=== PATIENT | male | born 1940 | race Caucasian/White ===

== ENCOUNTER → 2017-10-30 17:07 | Outpatient (CLI) | payer MEDICARE, OTHER, SELFPAY ==
--- NOTE | 2017-10-30 | IMM_PTH ---
PATIENT: GINA RAMSAY LOC: [facility] U#:[id number] AGE/SX: 84/M ROOM: RE10/30/[address]: Dr. Glenn Guallpa MD : 1940 BED: DIS: SPEC #: [id number] RECD: 11/03/17 11:53 STATUS: AMBER ERMIAS #: [id number] ANT: 10/30/17 00:[address]: Glenn Guallpa DEPT: IMMUNOHISTOCHEMISTRY RECD BY: Ade Heart Tissues: A - PROSTATE RIGHT B - PROSTATE RIGHT Procedures: CK8 (add) 34BE12 (add) P40 (add) 34BE12 (initial) PHYSICIAN & INSTITUTION [place] [id number] SPECIMEN INFORMATION: Tissue Source: A ? Right prostate, apex, B ? Right prostate, mid Clinical Info: Elevated PSA Specimen Number: [id number] A & B CPT code: 70623, 48061 x5 METHODOLOGY: Deparaffinized sections of prefer/formalin-fixed tissue or PAP/DQ stained slides are incubated with monoclonal/polyclonal antibodies/oligonucleotide probes. Localization is made via biotin free immunoperoxidase method. Appropriate controls are performed and reacted as expected. Results on target cell population are indicated in the following table: RESULTS: ANTIBODY / CLONE RESULT Block A 34BE12 (34BE12) negative P40 (BC28) negative CK8 (10dsqcU37) positive Block B 34BE12 (34BE12) negative P40 (BC28) negative CK8 (75ncucL88) positive These tests were developed and their performance characteristics determined by [facility]. They may not have been cleared or approved by the U.S. Food and Drug Administration. The FDA has determined that such clearance or approval is not necessary. INTERPRETATION: A. Right prostate, apex, core biopsy: Adenocarcinoma. B. Right prostate, mid, core biopsy: Adenocarcinoma. AM:rabia 11/04/17
--- NOTE | 2017-10-30 15:00 | PROSBIL_PTH ---
PATIENT: GINA RAMSAY LOC: [facility] U#:[id number] AGE/SX: 84/M ROOM: RE10/30/[address]: Dr. Glenn Guallpa MD : 1940 BED: DIS: SPEC #: [id number] RECD: 10/31/17 07:26 STATUS: AMBER ERMIAS #: [id number] ANT: 10/30/17 15:[address]: Glenn Guallpa DEPT: SURGICAL PATHOLOGY RECD BY: Lang Garcia ENTERED: 10/31/17 07:26 SP TYPE: PROST BX ROLANDO DR: Dr. Katt Valdes DO Tissues: A - PROSTATE RIGHT B - PROSTATE RIGHT C - PROSTATE RIGHT D - PROSTATE LEFT E - PROSTATE LEFT F - PROSTATE LEFT Procedures: PROSTATE BX HEADER OPERATION: Prostate biopsy PRE-OP DIAGNOSIS: Elevated PSA TISSUE SUBMITTED: A - Right apex, B - Right mid, C - Right base, D - Left apex, E - Left mid, F - Left base MICROSCOPIC DIAGNOSIS A. Right prostate, apex, core biopsy: Adenocarcinoma: Omar grade: 8 (4+4) Cores involved: 1 out of 1 Tissue involved: 50% Greatest tumor length: 7 mm See comment. B. Right prostate, mid, core biopsy: Adenocarcinoma: Omar grade: 8 (4+4) Cores involved: 1 out of 1 Tissue involved: 10% Greatest tumor length: 2 mm See comment. C. Right prostate, base, core biopsy: Mild acute and chronic inflammation. D. Left prostate, apex, core biopsy: Benign prostatic tissue. E. Left prostate, mid, core biopsy: Mild chronic inflammation. F. Left prostate, base, core biopsy: Focal glandular atrophy and mild chronic inflammation. AM:rabia 11/03/17 COMMENT A & B. Immunohistochemistry ([id number]) supports the above diagnosis. MICROSCOPIC DESCRIPTION Slides are reviewed. GROSS DESCRIPTION A - Received is one container designated prostate, right apex. The specimen consists of one elongated fragment of light mason-white soft tissue measuring 1 cm in length and 0.1 cm in diameter. The specimen is totally submitted in one cassette. B - Received is one container designated prostate, right mid. The specimen consists of one elongated fragment of light mason-white soft tissue measuring 1 cm in length and 0.1 cm in diameter. The specimen is totally submitted in one cassette. C - Received is one container designated prostate, right base. The specimen consists of one elongated fragment of light mason-white soft tissue measuring 1 cm in length and 0.1 cm in diameter. The specimen is totally submitted in one cassette. D - Received is one container designated prostate, left apex. The specimen consists of one elongated fragment of light mason-white soft tissue measuring 1 cm in length and 0.1 cm in diameter. The specimen is totally submitted in one cassette. E - Received is one container designated prostate, left mid. The specimen consists of one elongated fragment of light mason-white soft tissue measuring 1 cm in length and 0.1 cm in diameter. The specimen is totally submitted in one cassette. F - Received is one container designated prostate, left base. The specimen consists of one elongated fragment of light mason-white soft tissue measuring 1 cm in length and 0.1 cm in diameter. The specimen is totally submitted in one cassette. / AM:rabia 10/31/17 TC:0 CPT: G0146
== END ==
PROVIDERS: Visit Provider Urology
DX: C61 Malignant neoplasm of prostate (principal); R97.20 Elevated prostate specific antigen [PSA]
CPT/HCPCS: 88305; 88341; 88342; G0416

== ENCOUNTER → 2017-11-11 09:54 | Outpatient (CLI) | payer MEDICARE, OTHER, SELFPAY ==
--- NOTE | 2017-11-11 09:56 | NM_ITS ---
CLINICAL: 77-year-old male with reported history of left shoulder pain status post traumatic fall. WHOLE BODY 99m Tc MDP RADIONUCLIDE BONE SCINTIGRAPHY COMPARISON: None available FINDINGS: Following the intravenous administration of 20.4 mCi of 99m Tc MDP, whole body bone images reveal: 1. There is increased radiopharmaceutical concentration identified in the glenohumeral compartments of both shoulders, acromioclavicular compartment of the left shoulder, sternoclavicular compartment of the right shoulder, bilateral elbow and wrist articulations, the left knee, right forefoot, 12th thoracic vertebra posteriorly on the right, fourth lumbar vertebra posteriorly on the right, lower anterior cervical spine. 2. The remaining skeletal structures are scintigraphically unremarkable with normal-appearing renal images and urinary bladder activity identified. NM/Bone Scan Whole Body IMPRESSION: 1. The increase in radiopharmaceutical concentration identified in the cervical, thoracic and lumbar spine, bilateral shoulders, right and left elbow articulations, wrists bilaterally, the left knee, right forefoot is most consistent with degenerative arthritis. Plain film radiography correlation may be of benefit in the region of the left shoulder if not previously obtained. 2. There is no definitive typical scintigraphic evidence of trauma-fracture involving the left proximal humerus, components of the left shoulder joint on the current examination. Electronically Signed: Lang Castano DO at 23:37 EST Tel , Service support ,
== END ==
PROVIDERS: Family Provider Family Medicine; PCP Family Medicine; Visit Provider Urology
DX: C61 Malignant neoplasm of prostate (principal)
CPT/HCPCS: 78306

== ENCOUNTER → 2017-11-13 16:46 | Outpatient (CLI) | payer MEDICARE, OTHER, SELFPAY ==
--- NOTE | 2017-11-13 16:48 | CT_ITS ---
STUDY: CT ABDOMEN AND PELVIS WITH CONTRAST REASON FOR EXAM: Male, 77 years old. New diagnosis of prostate cancer. RADIATION DOSAGE (If Supplied By Facility): CTDIvol = ( 12.13 ) mGy, DLP = ( 527.67 ) mGycm TECHNIQUE: Transaxial images were obtained from the dome of the diaphragm to the symphysis pubis without oral contrast. 100CC ml of Isovue 300 contrast was administered. Sagittal and coronal images were reconstructed. Individualized dose optimization techniques were used for this CT. COMPARISON: None. FINDINGS: The visualized lung bases are unremarkable. The visualized portions of the heart are within normal limits. Within the dome of the left hepatic lobe there is a well-circumscribed low-attenuation 2.6 cm rounded focus that likely reflects underlying cyst or hemangioma. Normal gallbladder and extrahepatic biliary system. Normal spleen. Normal pancreas. Normal bilateral adrenal glands. There is a too small to characterize low-attenuation focus within the upper pole of the right kidney. Normal left kidney. There is a small hiatal hernia. Normal small intestine. Normal colon. The appendix is visualized and appears normal. Normal abdominal aorta. Normal inferior vena cava. Normal retroperitoneum. Normal urinary bladder. The prostate gland is enlarged and heterogenous. Normal abdominal wall. There are diffuse degenerative changes of the visualized lumbar spine. CT/Abdomen/Pelvis WITH Contrast IMPRESSION: No evidence of metastases to the abdomen and pelvis. Enlarged and heterogenous prostate gland. Hiatal hernia. Indeterminate low-attenuation focus within the liver that likely reflects underlying cysts or hemangioma. Degenerative changes of the lumbar spine. Electronically Signed: Kristen Frias MD at 17:47 EST Tel , Service support ,
[2017-11-13 18:46] LABS: CREATININE FINGERSTICK 1.3 mg/dL (0.70-1.30)
== END ==
PROVIDERS: Family Provider Family Medicine; PCP Family Medicine; Visit Provider Urology
DX: C61 Malignant neoplasm of prostate (principal)
CPT/HCPCS: 74177; Q9967

== ENCOUNTER → 2017-12-18 13:34 | Outpatient (CLI) | payer MEDICARE, OTHER, SELFPAY ==
[2017-12-18 14:35] LABS: BUN 20 mg/dL (7-18); Creatinine, Serum 1.06 mg/dL (0.70-1.30); EST Glomerular Filtration Rate 72 mL/min (>60); Est Glom Filt Rate - Afr Amer 87 mL/min (>60)
== END ==
PROVIDERS: Family Provider Family Medicine; PCP Family Medicine; Visit Provider Urology
DX: C61 Malignant neoplasm of prostate (principal); E78.5 Hyperlipidemia, unspecified
CPT/HCPCS: 36415; 82565; 84520

== ENCOUNTER 2018-01-07 05:19 | Inpatient (IN) | payer MEDICARE, OTHER, SELFPAY ==
[2017-12-23 11:25] VITALS: BP 150/74; PULSE 64; RESP 16; TEMP 36.6; O2SAT 96; BMI 24.0
--- NOTE | 2017-12-23 11:39 | SDCEKG_ITS ---
Test Reason : Blood Pressure : / mmHG Vent. Rate : 060 BPM Atrial Rate : 060 BPM P-R Int : 178 ms QRS Dur : 144 ms QT Int : 446 ms P-R-T Axes : 052 -30 015 degrees QTc Int : 446 ms Normal sinus rhythm Left axis deviation Right bundle branch block Abnormal ECG Confirmed by JOHN MITCHELL, MICHELLE ([id number]), food editor CARLOS EAGLE ([id number]) on 12/26/2017 2:22:19 PM Referred By: Glenn Guallpa Confirmed By:MICHELLE LOPEZ MD
[2017-12-23 12:01] LABS: Hemoglobin 14.7 g/dl (13.0-16.5); Mean Corp Hgb Conc 33.4 g/gl (32-36); Mean Corpuscular Volume 92.8 fL (80-94); Mean Platelet Vol. 9.7 fl (6.2-12.0); Platelet Count 240 K/mm3 (150-450); RBC Distribution Width CV 13.2 % (11.6-14.6); RBC Distribution Width SD 44.6 fl (35.1-43.9); Red Blood Count 4.74 M/mm3 (4.6-6.2); Scan Indicated on CBC? Y/N NO; White Blood Count 4.3 K/mm3 (4.4-11.0)
[2017-12-23 12:39] LABS: BUN 17 mg/dL (7-18); BUN/Creat Ratio 17.2 RATIO (10-20); Calcium,Total 8.8 mg/dL (8.5-10.1); Chloride 108 mmol/L (98-107); Creatinine, Serum 0.99 mg/dL (0.70-1.30); EST Glomerular Filtration Rate 78 mL/min (>60); Est Glom Filt Rate - Afr Amer 94 mL/min (>60); Estimated Creatinine Clearance 51.49 ml/min; Glucose 96 mg/dL (74-106); Potassium 3.6 mmol/L (3.5-5.1); Sodium Level 141 mmol/L (136-145)
[2017-12-23 12:40] LABS: Anion Gap 7 (5-15)
[2018-01-07] VITALS (11 sets, daily range): BP systolic 122–147; BP diastolic 70–92; PULSE 77–103; RESP 14–18; TEMP 36.4–36.9; O2SAT 93–99; BMI 24.0
--- NOTE | 2018-01-07 | IMM_PTH ---
PATIENT: GINA RAMSAY LOC: [facility] U#:[id number] AGE/SX: 77/M ROOM: [id number] RE01/07/[address]: Dr. Glenn Guallpa MD : 1940 BED: 1 DIS: 01/08/2018 SPEC #: [id number] RECD: 01/09/18 12:49 STATUS: AMBER REQ #: [id number] ANT: 01/07/18 00:[address]: Glenn Guallpa DEPT: IMMUNOHISTOCHEMISTRY RECD BY: Ade Heart ENTERED: 01/09/18 12:51 SP TYPE: IMMUNO OTHR DR: Dr. Katt Valdes, DO Tissues: A - Prostate, NOS Procedures: CD31 (initial) FACTOR VIII (add) PHYSICIAN & INSTITUTION [place] [id number] SPECIMEN INFORMATION: Tissue Source: A - Prostate Clinical Info: Prostate cancer Specimen Number: [id number] CPT code: 02727, 73443 METHODOLOGY: Deparaffinized sections of prefer/formalin-fixed tissue or PAP/DQ stained slides are incubated with monoclonal/polyclonal antibodies/oligonucleotide probes. Localization is made via biotin free immunoperoxidase method. Appropriate controls are performed and reacted as expected. Results on target cell population are indicated in the following table: RESULTS: ANTIBODY / CLONE RESULT Block A5 CD31 ([facility] FERNANDA/70A) negative Factor VIII (R Ag) negative These tests were developed and their performance characteristics determined by [facility]. They may not have been cleared or approved by the U.S. Food and Drug Administration. The FDA has determined that such clearance or approval is not necessary. INTERPRETATION: Prostate, radical prostatectomy: Negative for lymph-vascular invasion. SJ:rabia 01/09/18
[2018-01-07] MEDS: Cefazolin 2 GM in 0.9% Normal Saline 100 ML IV (07:29)
--- NOTE | 2018-01-07 07:30 | PROST_PTH ---
PATIENT: GINA RAMSAY LOC: [facility] U#:[id number] AGE/SX: 77/M [place]OM: [facility] [id number] RE01/07/[address]: Dr. Glenn Guallpa MD : 1940 BED: 1 DIS: 01/08/2018 SPEC #: [id number] RECD: 01/07/18 13:00 STATUS: AMBER ERMIAS #: [id number] ANT: 01/07/18 07:[address]: Glenn Guallpa DEPT: SURGICAL PATHOLOGY RECD BY: Lang Garcia ENTERED: 01/07/18 13:31 SP TYPE: PROSTATE OTHR DR: Dr. Katt Valdes, DO Tissues: A - Prostate, NOS B - Lymph node of pelvis, NOS C - Lymph node of pelvis, NOS Procedures: Surgery Specimen Level V Surgery Specimen Level HEADER OPERATION: Lap robotic radical prostatectomy PRE-OP DIAGNOSIS: Prostate cancer TISSUE SUBMITTED: A ? Prostate, B ? Right lymph node, C ? Left lymph node MICROSCOPIC DIAGNOSIS A. Prostate, radical prostatectomy: Prostatic adenocarcinoma. See cancer summary below. B. Right lymph node: One lymph node, negative for metastatic carcinoma. C. Left lymph node: Five out of five lymph nodes, negative for metastatic carcinoma. PROSTATE CANCER (RADICAL) SUMMARY: (including specimens A, B & C) Procedure ? radical prostatectomy Prostate size ? 5 cm transversely, 3.5 cm craniocaudally and 3.5 cm anterior-posteriorly Prostate weight ? 37.4 gm Lymph node sampling ? pelvic lymph nodes Histologic type ? adenocarcinoma (acinar). See comment. Histologic grade (Omar Pattern): Primary pattern ? grade 4 Secondary pattern ? grade 5 Tertiary pattern ? not identified Total [place] score - 9 Tumor Quantitation: Proportion (%) of prostate involved by tumor - ~30% Tumor size ? see comment Extraprostatic extension ? not identified Seminal vesicle invasion - not identified Margins ? apical margin is focally positive for tumor (right lobe) Treatment effect on carcinoma ? no known presurgical therapy Lymph-Vascular invasion ? not identified Perineural invasion - present Regional lymph nodes: Number examined - 6 Number involved - 0 Distant metastasis ? not applicable Additional pathologic findings ? chronic inflammation Ancillary studies ? IHC ([id number]) PATHOLOGIC STAGE: pT2c pN0 Mx The above summary is in compliance with [employer] (CAP) Cancer Protocols Checklist and [place] Joint Committee on Cancer (AJCC), Staging Manual, 8th Ed. SJ:rg 01/09/18 COMMENT The tumor shows extensive hypernephroid pattern. A. No gross nodule is identified. The tumor is present in both right and left lobes. The tumor in the right lobe measures 1.5 x 1.5 cm in greatest dimension (measured microscopically) and involves apical, mid and basal portion of the prostate and present in slides #1, 6, 10, 13, 15, 16 and 19. The tumor in the left lobe appears to be present in the apical, mid and basal portion of the prostate and appears to be present in discontinuous fashion and present in slides #7, 11, 12, 14 and 20 and measures 0.8 x 0.5 cm in greatest dimension (measured microscopically). Immunohistochemistry ([id number]) is negative for lymph-vascular invasion. Please make reference to previous specimen ([id number]) right prostate apex and right prostate mid, core biopsies with diagnosis of adenocarcinoma. MICROSCOPIC DESCRIPTION Slides are reviewed. GROSS DESCRIPTION A - Received in fixative is one container labeled with the patient's name and designated prostate. The specimen consists of a prostate with attached right and left seminal vesicles and vas deferens. The prostate measures 5 cm transversely, 3.5 cm craniocaudally and 3.5 cm anterior-posteriorly. The specimen weighs 37.4 gm. The specimen is differentially inked as follows: anterior ? red, right half ? blue, left half ? green and the entire posterior surface ? black. On palpation, no mass lesions are noted. Serial sections do not reveal distinct mass lesions. [employer] Manager [employer] sections are submitted as follows: 1 ? apex shave, 2 ? bladder shave, 3 ? seminal vesicles, 4 & 5 ? most basal section, 6-9 ? apex, 10-15 ? mid prostate, 16-20 ? basal portion of prostate. / AM:rabia 01/08/18 B - Received in fixative is one container labeled with the patient's name and designated right lymph node. The specimen consists of a piece of yellow adipose tissue measuring 4.5 x 2.5 x 0.5 cm. One lymph node is identified measuring 4.5 cm in greatest dimension. The entire specimen is submitted in two cassettes. Cassette 1 contains most of the lymph node and cassette 2 contains a portion of lymph node and the rest of the specimen. / ADOLPH:rabia 01/07/18 C - Received in fixative is one container labeled with the patient's name and designated left lymph node. The specimen consists of two pieces of yellow adipose tissue measuring 4.5 x 2.5 x 1 cm and 0.5 x 0.5 x 0.3 cm. Four variable size lymph nodes are identified measuring 0.5 to 1 cm in greatest dimension. The entire specimen is submitted in two cassettes as follows: 1 ? four lymph nodes, 2 ? rest of the specimen. / ADOLPH:rabia 01/07/18 TC:0 CPT: 55962 x2, 66193
[2018-01-07] MEDS: Bupivacaine Mpf 0.5% 30 ML VIAL (11:22)
--- NOTE | 2018-01-07 11:43 | PCM.OPRPT ---
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 Laparoscopic robotic assisted radical prostatectomy. 2. Bilateral pelvic lymph node dissection complete. 3. EMG monitoring of the pelvic nerves and EMG monitoring of the sphincter complex. 4. Suture suspension of the urethra to prevent incontinence. Description of Surgical Findings:: 77-year-old male was taken back to the operating room after smooth induction of general anesthesia he was placed supine on the table then legs in stirrups with approach to the prostate for radical prostatectomy. The abdomen was shaved prepped and draped in usual sterile fashion. Made an incision above the umbilicus advanced a Veress needle through the fascia insufflated the peritoneal cavity with CO2 gas placed my camera trocar my right arm trocar left arm trocar and assistant to the ceo trocar placed a variceal port and a suction suction port. The robot was docked first thing I did was identify the pelvis identify the right vas deferens open the fascia and opened up the peritoneum over this and dissected down to the prostate dissected out the right vas deferens and right seminal vesicle, then dissected out the left vas deferens and left seminal vesicle. I then opened up the nonbilious fascia and then opened the open up the space underneath the prostate between the prostate and rectum clearing the tissue laterally on both sides all the way to the apex and the prostate. Once this was dissected out then I pulled out to the pelvis I then dropped the bladder and made an incision in the peritoneum lateral to the medial umbilical ligament on both sides, entered the space of Retzius and created the space placed the bladder on traction with the fourth arm. I then went to the pelvic lymph nodes on the right side identified the femoral nerve and identified the iliac vessels the artery and the vein the external iliac artery and vein dissected the lymph node tissue off the external iliac artery and vein dissected the lymph node tissue off the food bagging machine operator space and dissect the lymph tissue all the way down to the obturator nerve the obturator nerve was spared as well as the obturator vessel I then dissected the tissue below the food bagging machine operator nerve and vessel I dissected the lymph node tissue off all this completely there were some lymph nodes in this tissue this was handed off as a specimen. After doing a complete dissection on the right side and then went to the left side again identified the lateral femoral nerve and then came off this identified the noted [place] dissected this off the lateral aspect of the iliac artery and iliac vein the external vessels and then dissected the lymph node tissue off the iliac artery and vein and the food bagging machine operator space went all the way down to the obturator nerve and artery dissected inferiorly as far as possible and then proximally came along the vessels. Use clips and electrocautery to obtain hemostasis. Once this complete lymph node dissection was completed then specimen was handed off as a permanent tissue. Then placed traction on the prostate with the fourth arm went into the pelvis cleaned off the anterior surface of the prostate then incised the endopelvic fascia and the right side sweep the levator muscles off the prostate on the right side all the way up to the apex and then identified the puboprostatic ligament which was transected and then identified the dorsal vein complex on the right side once the left side cleaned off the superficial fat on this incised the levator fascia and identified the levator muscles and sweep is off the prostate laterally all the way up to the apex there was a aberrant arterial coming underneath this this was left alone and then transected through the puboprostatic ligament on the left side transected through the attachments between the prostate and the puboprostatic bone then the dorsal vein was identified a place a stitch in the dorsal vein once this was accomplished then I released the fascia and the anterior part of the prostate to allow for the identification of the neural bundle neurovascular bundles on both the right and left side I then went through the junction between the bladder and the prostate moving the bladder catheter around identify the junction dissected down until I came to the catheter catheter was and then pulled up cephalad to allow retraction with identified a small median lobe was then dissected around and then dissected between the posterior aspect of the bladder and the prostate until I reached the seminal vesicle and vas deferens which were already dissected out. Then the prostate was placed on traction laterally from the right to the left 2.to proceed with the dissection of the right side of the prostate I came to the vascular pedicle with clips and then identified the neurovascular bundle and then this was spared posteriorly off the prostate on the right side all the way to the apex we put the EMG monitor into the pelvis area the electrodes are placed into the levator muscles patient's paralysis was reversed and we checked for action potential along the pelvic nerves and these were present before the dissection and after the dissection the right side of the nerve action potential is still present and then went to the left side and place clips to the pedicle on the left side identify the neurovascular on the left side and this was dissected off the prostate and the left side all the way to the apex the EMG monitor was used on the left side as well to confirm action potential the nerve before dissection and action potential nerve after the dissection was spared I then went to the transected to the dorsal vein complex and extra stitch was placed in the dorsal vein complex I then circumferentially dissected around the urethral stump transected through the urethra anterior and posteriorly and the prostate was removed from the pelvis and placed into an Endo Catch back I then did a suture split suspension of the urethra to help with postoperative incontinence started off with the cyst suspension of the urethra at the 12:00 6 o'clock position working my way all the way to the 12 o'clock position running the suture continuously between the bladder neck and this and the urethra once the suspension was completed the catheter was inserted into the bladder and was flushed and stitches were tied. We then tacked the bladder back up into the anterior abdominal wall using a V lock stitches to prevent any hernias we then extracted the prostate to the umbilicus we extracted we removed all the ports and in the undocked the robot and closed the 1012 Issac Ennis is a Issac Ennis and a total 1012 trocar site for the variceal port and then the incisions were closed with subcuticular stitches patient's anesthetic was reversed and he was taken back to the PACU in stable condition Type of Anesthesia:: General Drains: lópez. - Admit VTE Documentation VTE Present on Admission: No VTE Mechan Device Prophylaxis: SCD's Reason prophylaxis not ordered:: Treatment Not Indicated
[2018-01-07] MEDS: Docusate Sodium 100 MG Capsule 200 MG PO ×2 (13:34→21:36)
[2018-01-07] MEDS: Atorvastatin Calcium 40 MG Tablet PO (13:34)
[2018-01-07] MEDS: Ciprofloxacin 500 MG Tablet PO ×2 (13:35→21:36)
[2018-01-07] MEDS: Ketorolac 15 MG/ML Vial IV ×2 (13:35→20:43)
[2018-01-07] MEDS: Lactated Ringers 1,000 ML 125 ML IV (16:58)
[2018-01-07] MEDS: Acetaminophen 325 MG Tablet PO (21:43)
[2018-01-08] MEDS: Lactated Ringers 1,000 ML 125 ML IV (00:53)
[2018-01-08] MEDS: Ketorolac 15 MG/ML Vial IV ×2 (00:59→08:48)
[2018-01-08 02:41] VITALS: BP 125/64; PULSE 106; RESP 18; TEMP 36.9; O2SAT 94
[2018-01-08 06:04] LABS: Hematocrit 36.8 % (40-54); Hemoglobin 12.5 g/dl (13.0-16.5); Mean Corpuscular Hgb 31.8 pg (27.0-32.0); Mean Corpuscular Volume 93.6 fL (80-94); Mean Platelet Vol. 9.8 fl (6.2-12.0); Platelet Count 227 K/mm3 (150-450); RBC Distribution Width CV 12.9 % (11.6-14.6); RBC Distribution Width SD 42.9 fl (35.1-43.9); Red Blood Count 3.93 M/mm3 (4.6-6.2)
[2018-01-08 06:06] LABS: Scan Indicated on CBC? Y/N NO
[2018-01-08 06:23] LABS: Anion Gap 9 (5-15); BUN 14 mg/dL (7-18); BUN/Creat Ratio 13.3 RATIO (10-20); Calcium,Total 8.4 mg/dL (8.5-10.1); Chloride 107 mmol/L (98-107); Creatinine, Serum 1.05 mg/dL (0.70-1.30); EST Glomerular Filtration Rate 73 mL/min (>60); Est Glom Filt Rate - Afr Amer 88 mL/min (>60); Estimated Creatinine Clearance 48.55 ml/min; Glucose 132 mg/dL (74-106); Potassium 3.9 mmol/L (3.5-5.1); Sodium Level 140 mmol/L (136-145)
--- NOTE | 2018-01-08 07:37 | PCM.DC.URO ---
Discharge Diet: Light diet - advance as tolerated Discharge Activity: May not drive while taking narcotic pain medications. May shower in (days): 1 Call your doctor if your incision/area has: Continuous Slow Oozing, Sudden Increased Bleeding, Increased Pain/ Swelling, Increased Redness, Foul Smelling Discharge, Swelling at the incision site Call your doctor if you observe: Fever of 101 or Higher, Inability to have a bowel movement, Uncontrolled pain Suture Line Care: Avoid Pulling/Pushing, Avoid Pinching/Bending Catheter: López to leg bag, López to large bag Drain: Filley Instructions: Discharge Instructions for Radical Prostatectomy Allergies/Adverse Reactions: Allergies No Known Allergies Allergy (Verified 12/23/17 11:11) Medications to take at Discharge Atorvastatin Calcium [Lipitor] 40 mg PO DAILY 12/23/17 Tamsulosin HCl [Flomax] 0.4 mg PO DAILY 12/23/17 Cephalexin [Keflex] 500 mg PO Q8 #30 cap 01/08/18 Docusate Sodium [Colace] 100 mg PO BID #20 cap 01/08/18 Hydrocodone/Acetaminophen [Lindstrom 5-325 Tablet] 1 ea PO Q4H PRN PRN 3 Days #10 tab 01/08/18 Primary Care Physician: Katt Valdes DO [Primary Care Provider] - Please Follow Up With: Glenn Guallpa MD When: please call to make an appointment, for next to remove lópez.
--- NOTE | 2018-01-08 07:42 | DS.PCM_ITS ---
Discharge Date and Diagnosis - Problem List Patient Problems: Active and Suspected Problems Prostate cancer (Acute) Date of Admission: 01/07/18 Date of Discharge: 01/08/18 - Primary Discharge Diagnosis Active and Suspected Problems Prostate cancer (Acute) Hospital Course and Treatment Operations: - - robotic prostatectomy Procedures: None Summary of Care Provided: The patient is a 77 year old male with prostate cancer status post a robotic assisted radical prostatectomy patient was doing well on postoperative day #1 tolerating regular diet discharge home today with regular diet López to leg bag large bag López care he will follow-up in the office in 1 week to remove the catheter. Discharge Diet: Light diet - advance as tolerated Discharge Activity: May not drive while taking narcotic pain medications. May shower in (days): 1 Call your doctor if your incision/area has: Continuous Slow Oozing, Sudden Increased Bleeding, Increased Pain/ Swelling, Increased Redness, Foul Smelling Discharge, Swelling at the incision site Call your doctor if you observe: Fever of 101 or Higher, Inability to have a bowel movement, Uncontrolled pain Suture Line Care: Avoid Pulling/Pushing, Avoid Pinching/Bending Catheter: López to leg bag, López to large bag Drain: [place] Home Medications: Medications to take at Discharge Atorvastatin Calcium [Lipitor] 40 mg PO DAILY 12/23/17 Tamsulosin HCl [Flomax] 0.4 mg PO DAILY 12/23/17 Cephalexin [Keflex] 500 mg PO Q8 #30 cap 01/08/18 Docusate Sodium [Colace] 100 mg PO BID #20 cap 01/08/18 Hydrocodone/Acetaminophen [Divide 5-325 Tablet] 1 ea PO Q4H PRN PRN 3 Days #10 tab 01/08/18 Following Prescrptions Were Given to Patient: Hydrocodone/Acetaminophen [Divide 5-325 Tablet] 1 ea PO Q4H PRN PRN 3 Days #10 tab PRN Reason: Pain Cephalexin [Keflex] 500 mg PO Q8 #30 cap Docusate Sodium [Colace] 100 mg PO BID #20 cap Primary Care Physician: Katt Valdes DO [Primary Care Provider] - Please Follow Up With: Glenn Guallpa MD When: please call to make an appointment, for next to remove lópez. Patient Instructions: Discharge Instructions for Radical Prostatectomy Medical Necessity - Tobacco Use Smoking Status: Never smoker Meaningful Use Info Meaningful Use Diagnoses (Choose all that apply): None applicable
[2018-01-08 07:43] VITALS: O2SAT 94
[2018-01-08 08:43] VITALS: BP 130/75; PULSE 95; RESP 18; TEMP 36.8; O2SAT 96
[2018-01-08] MEDS: Docusate Sodium 100 MG Capsule 200 MG PO (08:48)
[2018-01-08] MEDS: Atorvastatin Calcium 40 MG Tablet PO (08:48)
[2018-01-08 10:05] VITALS: BP 130/75; PULSE 95; RESP 18; TEMP 36.8; O2SAT 96
== END 2018-01-08 10:18 | disposition home or self-care (01) | DRG 708 ==
LOC: ACINP 05:20 → MS2 08:06
PROVIDERS: Anesthesiology; Admitting Provider Urology; Family Provider Family Medicine; PCP Family Medicine; Visit Provider Urology
PROC: 0VT04ZZ Resection of Prostate, Percutaneous Endoscopic Approach (ICD-10-PCS; CPT 55866; principal; 2018-01-07 07:10)
DX: C61 Malignant neoplasm of prostate (principal); I44.7 Left bundle-branch block, unspecified; E78.00 Pure hypercholesterolemia, unspecified; N40.1 Benign prostatic hyperplasia with lower urinary tract symptoms; R39.15 Urgency of urination
CPT/HCPCS: 36415; 80048; 85027; 86850; 86900; 88307; 88309; 88341; 88342; J7120; A4216; J2405

== ENCOUNTER → 2018-02-24 10:27 | Outpatient (CLI) | payer MEDICARE, OTHER, SELFPAY ==
[2018-02-24 11:37] LABS: PSA,Total- Diagnostic < 0.01 ng/mL (0.0-4.0)
== END ==
PROVIDERS: Family Provider Family Medicine; PCP Family Medicine; Visit Provider Urology
DX: C61 Malignant neoplasm of prostate (principal)
CPT/HCPCS: 36415; 84153

== ENCOUNTER → 2018-05-25 08:06 | Outpatient (CLI) | payer MEDICARE, OTHER, SELFPAY ==
[2018-05-25 10:33] LABS: PSA,Total- Diagnostic < 0.01 ng/mL (0.0-4.0)
[2018-05-25 11:12] LABS: ALB/GLOB Ratio 1.1 RATIO (0.9-2.4); AST(SGOT) 35 U/L (15-37); Alanine Aminotransfer ALT/SGPT 39 U/L (16-61); Albumin, Serum 3.7 g/dL (3.2-5.0); Alkaline Phosphatase 82 U/L (45-117); Anion Gap 12 (5-15); BUN 18 mg/dL (7-18); BUN/Creat Ratio 18.2 RATIO (10-20); Calcium,Total 9.1 mg/dL (8.5-10.1); Chloride 108 mmol/L (98-107); Cholesterol 145 mg/dL (200); Creatinine, Serum 0.99 mg/dL (0.70-1.30); EST Glomerular Filtration Rate 78 mL/min (>60); Est Glom Filt Rate - Afr Amer 94 mL/min (>60); Globulin 3.5 g/dL (2.2-4.2); Glucose 94 mg/dL (74-106); High Density Lipoprotein 55 mg/dL; Potassium 3.9 mmol/L (3.5-5.1); Protein, Total 7.2 g/dL (6.4-8.2); Sodium Level 143 mmol/L (136-145); Triglycerides 78 mg/dL; Very Low Density Lipoprotein 16 mg/dL (5-40)
[2018-05-25 11:21] LABS: Absolute Lymphocyte Count 1.61 X10^3/ul (0.83-4.51); Absolute Neutrophil Count 2.5 X10^3/uL (2.0-7.7); Basophil# 0.03 X10^3/uL; Basophil% 0.6 % (0-1); Eosinophil# 0.15 X10^3/uL; Eosinophils% 2.9 % (0-5); Hematocrit 44.6 % (40-54); Hemoglobin 14.8 g/dl (13.0-16.5); Lymphocyte # 1.61 X10^3/ul (4.0); Lymphocyte % 31.5 % (19-41); Mean Corp Hgb Conc 33.2 g/gl (32-36); Mean Corpuscular Hgb 30.7 pg (27.0-32.0); Mean Corpuscular Volume 92.5 fL (80-94); Mean Platelet Vol. 10.1 fl (6.2-12.0); Monocyte# 0.83 X10^3/uL; Monocyte% 16.2 % (0-10); Neutrophil # 2.49 X10^3/uL (2.7-7.7); Neutrophil % 48.8 % (47-70); POSITIVE COUNT NO; POSITIVE DIFFERENTIAL NO; POSITIVE MORPHOLOGY NO; Platelet Count 245 K/mm3 (150-450); RBC Distribution Width CV 13.5 % (11.6-14.6); RBC Distribution Width SD 45.5 fl (35.1-43.9); Red Blood Count 4.82 M/mm3 (4.6-6.2); White Blood Count 5.1 K/mm3 (4.4-11.0)
== END ==
PROVIDERS: Family Provider Family Medicine; PCP Family Medicine; Visit Provider Urology
DX: C61 Malignant neoplasm of prostate (principal); E78.5 Hyperlipidemia, unspecified; R53.83 Other fatigue
CPT/HCPCS: 36415; 80053; 80061; 84153; 85025

== ENCOUNTER → 2018-09-15 10:49 | Outpatient (CLI) | payer MEDICARE, OTHER, SELFPAY ==
[2018-09-15 11:40] LABS: PSA,Total- Diagnostic < 0.01 ng/mL (0.0-4.0)
--- OUTSIDE RECORDS SUMMARY | 2018-11-01 11:44 | XMS RPT_ITS ---
:1940 Author Organization OHIP Care Team Providers Name Role Phone Glenn Montano Attending Unavailable Glenn Montano Attending Unavailable Glenn Montano Referring Unavailable Malys, Katt Primary Care Unavailable Glenn Montano Attending Unavailable Glenn Montano Referring Unavailable Malys, Katt Primary Care Unavailable Urban Schroeder Consulting Unavailable Glenn Montano Attending Unavailable Glenn Montano Referring Unavailable Malys, Katt Primary Care Unavailable Glenn Montano Admitting Unavailable Saloni, Sacha Attending Unavailable Malys, Katt Primary Care Unavailable Saloni, Sacha Referring Unavailable Saloni, Glenn Ray Attending Unavailable Saloni, Glenn Ray Referring Unavailable Malys, Katt Primary Care Unavailable Latrell, Alvin Attending Unavailable DeHorta, Aydin Referring Unavailable Saloni, Glenn Ray Attending Unavailable Saloni, Sacha Referring Unavailable Malys, Katt Primary Care Unavailable Saloni, Sacha Attending Unavailable Saloni, Sacha Referring Unavailable Malys, Katt Primary Care Unavailable Saloni, Glenn Ray Attending Unavailable UNKNOWN, PCP Primary Care Unavailable PROBLEMS PROBLEMS DATE TYPE CONDITION / CODE ATTENDING STATUS SOURCE Unknown C61 - Malignant Glenn Montano Active [place] [facility] neoplasm of prostate / [place] [address](ICD-10) Hospital [facility] [place] [address] [facility] prostate / C61(ICD-10) [facility] Repository Final Malignant neoplasm of [place] [address] diagnosis prostate / C61(ICD-10) [facility] (discharge) Repository Unknown 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, 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 Values obtained with different assay methods cannot be used interchangably. When changing PSA assays in the course of monitoring a patient, additional sequential testing should be carried out to confirm baseline values. Performed By: #### L501.9940 #### [facility] [address] [place], [place], [address] COMPREHENSIVE METABOLIC Collected: 05/25/2018 Status: F Source: [facility] 9:40 AM [facility] REPOSITORY TYPE CODE TESTS RESULT OUT OF RANGE REFERENCE UNITS LAB L501.0100 74-106 mg/dL Normal GLU 94 Result Comment: Please note revised GLUCOSE reference range effective 2017. LAB L501.1000 7-18 mg/dL Normal BUN 18 LAB L501.1100 0.70-1.30 mg/dL Normal CREAT,SERUM 0.99 Result Comment: The validity of the calculated GFR AND GFRAA in patients over 70 years has not been determined. Clinical correlation is essential. LAB L501.1110 >60 mL/min Normal EST GFR 78 Result Comment: Non- GFR Calc LAB L501.1115 >60 mL/min Normal EST GFR - AA 94 Result Comment: GFR Calc LAB L501.1300 10-20 RATIO Normal BUN/CRE 18.2 LAB L501.1500 6.4-8.2 g/dL T Normal PROT 7.2 LAB L501.1800 3.2-5.0 g/dL Normal ALB 3.7 LAB L501.1950 2.2-4.2 g/dL Normal GLOB 3.5 LAB L501.2000 0.9-2.4 RATIO Normal A/G 1.1 LAB L501.2200 8.5-10.1 mg/dL CA Normal 9.1 LAB L501.4100 15-37 U/L Normal AST 35 LAB L501.4305 45-117 U/L Normal ALK P 82 LAB L501.4405 16-61 U/L Normal ALT 39 LAB L501.4600 0.20-1.00 mg/dL T Normal BILI 0.80 LAB L501.5300 136-145 mmol/L NA Normal 143 LAB L501.5600 3.5-5.1 mmol/L K Normal 3.9 LAB L501.5900 98-107 mmol/L High CL 108 LAB L501.6100 21.0-32.0 mmol/L Normal CO2 23.0 LAB L501.6200 5-15 Normal GAP 12 Performed By: #### L500.4050, L500.4100 #### [facility] [address] [place], [address] LIPID PROFILE Collected: 05/25/2018 Status: F Source: [place] 9:40 AM [facility] REPOSITORY TYPE CODE TESTS RESULT OUT OF RANGE REFERENCE UNITS LAB L501.4900 200 mg/dL Normal CHOL 145 Result Comment: <200 mg/dL Desirable 200-240 mg/dL Borderline >240 mg/dL High Risk LAB L501.5000 mg/dL Normal TRIG 78 Result Comment: The drugs N-Acetylcysteine and Metamizole may falsely depress this assay. Serum Triglycerides Reference Interval Normal <150 mg/dL Borderline high 150 - 199 mg/dL High 200 - 499 mg/dL Very High > or = 500 mg/dL LAB L501.6400 mg/dL Normal HDL 55 Result Comment: The drugs N-Acetylcysteine and Metamizole may falsely depress this assay. Reference Range HDL <40 mg/dL Low HDL Cholesterol HDL >or= 60 mg/dL High HDL Cholesterol LAB L501.6500 0-130 mg/dL Normal LDL 74 LAB L501.6600 5-40 mg/dL Normal VLDL 16 Performed By: #### L500.4050, L500.4100 #### [facility] [address] [facility] [place], [address] CBC W/DIFF, AUTOMATED Collected: 05/25/2018 Status: F Source: [place] 9:40 AM [facility] REPOSITORY TYPE CODE TESTS RESULT OUT OF RANGE REFERENCE UNITS LAB L100.1000 4.4-11.0 K/mm3 Normal WBC 5.1 LAB L100.1200 4.6-6.2 M/mm3 Normal RBC 4.82 LAB L100.1300 13.0-16.5 g/dl Normal HGB 14.8 LAB L100.1400 40-54 % Normal HCT 44.6 LAB L100.1500 80-94 fL Normal MCV 92.5 LAB L100.1600 27.0-32.0 pg Normal MCH 30.7 LAB L100.1700 32-36 g/gl Normal MCHC 33.2 LAB L100.1810 11.6-14.6 % Normal RDW CV 13.5 LAB L100.1820 35.1-43.9 fl High RDW SD 45.5 LAB L100.1900 150-450 K/mm3 Normal PLT 245 LAB L100.2000 6.2-12.0 fl Normal MPV 10.1 LAB L100.2100 47-70 % Normal NEUT% 48.8 LAB L100.2200 19-41 % Normal LY% 31.5 LAB L100.2300 0-10 % High MONO% 16.2 LAB L100.2400 0-5 % Normal EO% 2.9 LAB L100.2500 0-1 % Normal BASO% 0.6 LAB L100.2550 0.0-0.9 % Normal IM GRAN % 0.000 Result Comment: IG% - Immature Granulocytes (promyelocytes, myelocytes and metamyelocytes) > 1% indicates that a LEFT SHIFT is Present. LAB L100.2620 2.0-7.7 X10 3/uL Normal Absolute Neut 2.5 LAB L100.2720 0.83-4.51 X10 3/ul Normal Absolute Lymph 1.61 Performed By: #### L100.0100 #### [facility] [address] [facility]. [place], [place], [address] PSA,TOTAL- DIAGNOSTIC Collected: 05/25/2018 Status: F Source: [place] 8:17 AM [facility] REPOSITORY TYPE CODE TESTS RESULT OUT OF RANGE REFERENCE UNITS LAB L501.9940 0.0-4.0 ng/mL PSA, Normal DIAGNOSTIC < 0.01 Result Comment: This test was performed using the TPSA assay method for the Relify chemistry system. Values obtained with different assay methods cannot be used interchangably. When changing PSA assays in the course of monitoring a patient, additional sequential testing should be carried out to confirm baseline values. Performed By: #### L501.9940 #### [facility] [address] [place], [address] PSA,TOTAL- DIAGNOSTIC Collected: 02/24/2018 Status: F Source: [place] 10:33 AM [facility] REPOSITORY TYPE CODE TESTS RESULT OUT OF RANGE REFERENCE UNITS LAB L501.9940 0.0-4.0 ng/mL PSA, Normal DIAGNOSTIC < 0.01 Result Comment: This test was performed using the TPSA assay method for the Relify chemistry system. Values obtained with different assay methods cannot be used interchangably. When changing PSA assays in the course of monitoring a patient, additional sequential testing should be carried out to confirm baseline values. Performed By: #### L501.9940 #### [facility] [address] [place], [address] DISCHARGE SUMMARY Observed: 01/08/2018 Status: F Source: [place] 7:42 AM [facility] REPOSITORY [facility] Medical Records Department [address] [place] [address] Discharge Summary 01/08/18 0741 MR#: [id number] Acct: [id number] Name: GINA RAMSAY Rep #: [id number] : 1940 77 From: Glenn Montano MD PCP: Katt Valdes DO Status: ADM IN Location: [place] [address] Discharge Date and Diagnosis - Problem List Patient Problems: Active and Suspected Problems Prostate cancer (Acute) Date of Admission: 01/07/18 Date of Discharge: 01/08/18 - Primary Discharge Diagnosis Active and Suspected Problems Prostate cancer (Acute) Hospital Course and Treatment Operations: - - robotic prostatectomy Procedures: None Summary of Care Provided: The patient is a 77 year old male with prostate cancer status post a robotic assisted radical prostatectomy patient was doing well on postoperative day #1 tolerating regular diet discharge home today with regular diet López to leg bag large bag López care he will follow-up in the office in 1 week to remove the catheter. Discharge Diet: Light diet - advance as tolerated Discharge Activity: May not drive while taking narcotic pain medications. May shower in (days): 1 Call your doctor if your incision/area has: Continuous Slow Oozing, Sudden Increased Bleeding, Increased Pain/ Swelling, Increased Redness, Foul Smelling Discharge, Swelling at the incision site Call your doctor if you observe: Fever of 101 or Higher, Inability to have a bowel movement, Uncontrolled pain Suture Line Care: Avoid Pulling/Pushing, Avoid Pinching/Bending Catheter: López to leg bag, López to large bag Drain: [place] Home Medications: Medications to take at Discharge Atorvastatin Calcium [Lipitor] 40 mg PO DAILY 12/23/17 Tamsulosin HCl [Flomax] 0.4 mg PO DAILY 12/23/17 Cephalexin [Keflex] 500 mg PO Q8 #30 cap 01/08/18 Docusate Sodium [Colace] 100 mg PO BID #20 cap 01/08/18 Hydrocodone/Acetaminophen [[place] 5-325 Tablet] 1 ea PO Q4H PRN PRN 3 Days #10 tab 01/08/18 Following Prescrptions Were Given to Patient: Hydrocodone/Acetaminophen [[place] 5-325 Tablet] 1 ea PO Q4H PRN PRN 3 Days #10 tab PRN Reason: Pain Cephalexin [Keflex] 500 mg PO Q8 #30 cap Docusate Sodium [Colace] 100 mg PO BID #20 cap Primary Care Physician: Katt Valdes DO [Primary Care Provider] - Please Follow Up With: Glenn Montano MD When: please call to make an appointment, for next to remove lópez. Patient Instructions: Discharge Instructions for Radical Prostatectomy Medical Necessity - Tobacco Use Smoking Status: Never smoker Meaningful Use Info Meaningful Use Diagnoses (Choose all that apply): None applicable 01/08/1842 <Electronically signed by Glenn Montano MD> Date Glenn Montano MD Cosigner Signature (if applicable): Date CC: Glenn Montano MD; Katt Valdes DO Signed DISCHARGE INSTRUCTION Observed: 01/08/2018 Status: F Source: [place] 7:41 AM [facility] REPOSITORY [facility] Medical Records Department [address] [place] [address] Instructions for Home/Discharge Instructions 01/08/18 0737 MR#: [id number] Acct: [id number] Name: GINA RAMSAY Rep #: [id number] : 1940 77 From: Glenn Montano MD PCP: Katt Valdes DO Status: ADM IN Discharge Diet: Light diet - advance as tolerated Discharge Activity: May not drive while taking narcotic pain medications. May shower in (days): 1 Call your doctor if your incision/area has: Continuous Slow Oozing, Sudden Increased Bleeding, Increased Pain/ Swelling, Increased Redness, Foul Smelling Discharge, Swelling at the incision site Call your doctor if you observe: Fever of 101 or Higher, Inability to have a bowel movement, Uncontrolled pain Suture Line Care: Avoid Pulling/Pushing, Avoid Pinching/Bending Catheter: López to leg bag, López to large bag Drain: [place] Instructions: Discharge Instructions for Radical Prostatectomy Allergies/Adverse Reactions: Allergies No Known Allergies Allergy (Verified 12/23/17 11:11) Medications to take at Discharge Atorvastatin Calcium [Lipitor] 40 mg PO DAILY 12/23/17 Tamsulosin HCl [Flomax] 0.4 mg PO DAILY 12/23/17 Cephalexin [Keflex] 500 mg PO Q8 #30 cap 01/08/18 Docusate Sodium [Colace] 100 mg PO BID #20 cap 01/08/18 Hydrocodone/Acetaminophen [[place] 5-325 Tablet] 1 ea PO Q4H PRN PRN 3 Days #10 tab 01/08/18 Primary Care Physician: Katt Valdes DO [Primary Care Provider] - Please Follow Up With: Glenn Montano MD When: please call to make an appointment, for next to remove lópez. 01/08/18 0741 <Electronically signed by Glenn Montano MD> Date Glenn Montano MD CC: Katt Valdes DO CBC-COMPLETE BLOOD CNT Collected: 01/08/2018 Status: F Source: [place] NO DIFF 5:35 AM [facility] REPOSITORY TYPE CODE TESTS RESULT OUT OF RANGE REFERENCE UNITS LAB L100.1000 4.4-11.0 K/mm3 High WBC 13.0 LAB L100.1200 4.6-6.2 M/mm3 Low RBC 3.93 LAB L100.1300 13.0-16.5 g/dl Low HGB 12.5 LAB L100.1400 40-54 % Low HCT 36.8 LAB L100.1500 80-94 fL Normal MCV 93.6 LAB L100.1600 27.0-32.0 pg Normal MCH 31.8 LAB L100.1700 32-36 g/gl Normal MCHC 34.0 LAB L100.1810 11.6-14.6 % Normal RDW CV 12.9 LAB L100.1820 35.1-43.9 fl Normal RDW SD 42.9 LAB L100.1900 150-450 K/mm3 Normal PLT 227 LAB L100.2000 6.2-12.0 fl Normal MPV 9.8 Performed By: #### L100.0500 #### [facility] [address] [facility]. [place], [place], [address] BASIC METABOLIC Collected: 01/08/2018 Status: F Source: PO[place] PROFILE (BMP) 5:35 AM [facility] REPOSITORY TYPE CODE TESTS RESULT OUT OF RANGE REFERENCE UNITS LAB L501.0100 74-106 mg/dL High GLU 132 Result Comment: Fasting Glucose result greater than or equal to 126 mg/dL suggests DIABETES MELLITUS per A.D.A. criteria. Please note revised GLUCOSE reference range effective 2017. LAB L501.1000 7-18 mg/dL Normal BUN 14 LAB L501.1100 0.70-1.30 mg/dL Normal CREAT,SERUM 1.05 Result Comment: The validity of the calculated GFR AND GFRAA in patients over 70 years has not been determined. Clinical correlation is essential. LAB L501.1110 >60 mL/min Normal EST GFR 73 Result Comment: Non- GFR Calc LAB L501.1115 >60 mL/min Normal EST GFR - AA 88 Result Comment: GFR Calc LAB L501.1255 ml/min Normal Estimated CRCL 48.55 LAB L501.1300 10-20 RATIO Normal BUN/CRE 13.3 LAB L501.2200 8.5-10 mg/dL Low .1 CA 8.4 LAB L501.5300 136-14 mmol/L Normal 5 NA 140 LAB L501.5600 3.5-5. mmol/L Normal 1 K 3.9 LAB L501.5900 98-107 mmol/L Normal CL 107 LAB L501.6100 21.0-3 mmol/L Normal 2.0 CO2 24.0 LAB L501.6200 5-15 Normal GAP 9 Performed By: #### L500.2500 #### [facility] [address] [facility] 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 Laparoscopic robotic assisted radical prostatectomy. 2. Bilateral pelvic lymph node dissection complete. 3. EMG monitoring of the pelvic nerves and EMG monitoring of the sphincter complex. 4. Suture suspension of the urethra to prevent incontinence. Description of Surgical Findings:: 77-year-old male was taken back to the operating room after smooth induction of general anesthesia he was placed supine on the table then legs in stirrups with approach to the prostate for radical prostatectomy. The abdomen was shaved prepped and draped in usual sterile fashion. Made an incision above the umbilicus advanced a Veress needle through the fascia insufflated the peritoneal cavity with CO2 gas placed my camera trocar my right arm trocar left arm trocar and assistant professor of nursing trocar placed a variceal port and a suction suction port. The robot was docked first thing I did was identify the pelvis identify the right vas deferens open the fascia and opened up the peritoneum over this and dissected down to the prostate dissected out the right vas deferens and right seminal vesicle, then dissected out the left vas deferens and left seminal vesicle. I then opened up the nonbilious fascia and then opened the open up the space underneath the prostate between the prostate and rectum clearing the tissue laterally on both sides all the way to the apex and the prostate. Once this was dissected out then I pulled out to the pelvis I then dropped the bladder and made an incision in the peritoneum lateral to the medial umbilical ligament on both sides, entered the space of Retzius and created the space placed the bladder on traction with the fourth arm. I then went to the pelvic lymph nodes on the right side identified the femoral nerve and identified the iliac vessels the artery and the vein the external iliac artery and vein dissected the lymph node tissue off the external iliac artery and vein dissected the lymph node tissue off the automatic operator space and dissect the lymph tissue all the way down to the obturator nerve the obturator nerve was spared as well as the obturator vessel I then dissected the tissue below the automatic operator nerve and vessel I dissected the lymph node tissue off all this completely there were some lymph nodes in this tissue this was handed off as a specimen. After doing a complete dissection on the right side and then went to the left side again identified the lateral femoral nerve and then came off this identified the noted [place] dissected this off the lateral aspect of the iliac artery and iliac vein the external vessels and then dissected the lymph node tissue off the iliac artery and vein and the automatic operator space went all the way down to the obturator nerve and artery dissected inferiorly as far as possible and then proximally came along the vessels. Use clips and electrocautery to obtain hemostasis. Once this complete lymph node dissection was completed then specimen was handed off as a permanent tissue. Then placed traction on the prostate with the fourth arm went into the pelvis cleaned off the anterior surface of the prostate then incised the endopelvic fascia and the right side sweep the levator muscles off the prostate on the right side all the way up to the apex and then identified the puboprostatic ligament which was transected and then identified the dorsal vein complex on the right side once the left side cleaned off the superficial fat on this incised the levator fascia and identified the levator muscles and sweep is off the prostate laterally all the way up to the apex there was a aberrant arterial coming underneath this this was left alone and then transected through the puboprostatic ligament on the left side transected through the attachments between the prostate and the puboprostatic bone then the dorsal vein was identified a place a stitch in the dorsal vein once this was accomplished then I released the fascia and the anterior part of the prostate to allow for the identification of the neural bundle neurovascular bundles on both the right and left side I then went through the junction between the bladder and the prostate moving the bladder catheter around identify the junction dissected down until I came to the catheter catheter was and then pulled up cephalad to allow retraction with identified a small median lobe was then dissected around and then dissected between the posterior aspect of the bladder and the prostate until I reached the seminal vesicle and vas deferens which were already dissected out. Then the prostate was placed on traction laterally from the right to the left 2.to proceed with the dissection of the right side of the prostate I came to the vascular pedicle with clips and then identified the neurovascular bundle and then this was spared posteriorly off the prostate on the right side all the way to the apex we put the EMG monitor into the pelvis area the electrodes are placed into the levator muscles patient's paralysis was reversed and we checked for action potential along the pelvic nerves and these were present before the dissection and after the dissection the right side of the nerve action potential is still present and then went to the left side and place clips to the pedicle on the left side identify the neurovascular on the left side and this was dissected off the prostate and the left side all the way to the apex the EMG monitor was used on the left side as well to confirm action potential the nerve before dissection and action potential nerve after the dissection was spared I then went to the transected to the dorsal vein complex and extra stitch was placed in the dorsal vein complex I then circumferentially dissected around the urethral stump transected through the urethra anterior and posteriorly and the prostate was removed from the pelvis and placed into an Endo Catch back I then did a suture split suspension of the urethra to help with postoperative incontinence started off with the cyst suspension of the urethra at the 12:00 6 o'clock position working my way all the way to the 12 o'clock position running the suture continuously between the bladder neck and this and the urethra once the suspension was completed the catheter was inserted into the bladder and was flushed and stitches were tied. We then tacked the bladder back up into the anterior abdominal wall using a V lock stitches to prevent any hernias we then extracted the prostate to the umbilicus we extracted we removed all the ports and in the undocked the robot and closed the 1012 Issac Ennis is a Issac Ennis and a total 1012 trocar site for the variceal port and then the incisions were closed with subcuticular stitches patient's anesthetic was reversed and he was taken back to the PACU in stable condition Type of Anesthesia:: General Drains: lópez. - Admit VTE Documentation VTE Present on Admission: No VTE Mechan Device Prophylaxis: SCD's Reason prophylaxis not ordered:: Treatment Not Indicated 01/07/18 1153 <Electronically signed by Glenn Montano MD> Date Glenn Montano MD CC: Glenn Montano MD; Katt Valdes DO Signed PROSTATE RADICAL Observed: 01/07/2018 Status: F Source: ABENA RESECTION 7:30 AM [facility] REPOSITORY Patient: GINA RAMSAY : 1940 (77/M) Acct Num: [id number] Phys: Saloni MITCHELL,Glenn Ray Unit Num: [id number] Loc: MS2 [id number] Specimen: [id number] Received: 01/07/18 - 1300 Spec Type: PROSTATE TISSUES TISSUES: A. Prostate, NOS B. Lymph node of pelvis, NOS C. Lymph node of pelvis, NOS COMMENT The tumor shows extensive hypernephroid pattern. A. No gross nodule is identified. The tumor is present in both right and left lobes. The tumor in the right lobe measures 1.5 x 1.5 cm in greatest dimension (measured microscopically) and involves apical, mid and basal portion of the prostate and present in slides #1, 6, 10, 13, 15, 16 and 19. The tumor in the left lobe appears to be present in the apical, mid and basal portion of the prostate and appears to be present in discontinuous fashion and present in slides #7, 11, 12, 14 and 20 and measures 0.8 x 0.5 cm in greatest dimension ( measured microscopically). Immunohistochemistry ([id number]) is negative for lymph-vascular invasion. Please make reference to previous specimen ([id number]) right prostate apex and right prostate mid, core biopsies with diagnosis of adenocarcinoma. GROSS DESCRIPTION A - Received in fixative is one container labeled with the patient's name and designated prostate. The specimen consists of a prostate with attached right and left seminal vesicles and vas deferens. The prostate measures 5 cm transversely, 3.5 cm craniocaudally and 3.5 cm anterior-posteriorly. The specimen weighs 37.4 gm. The specimen is differentially inked as follows: anterior red, right half blue, left half green and the entire posterior surface black. On palpation, no mass lesions are noted. Serial sections do not reveal distinct mass lesions. Efficiency Analyst sections are submitted as follows: 1 apex shave, 2 bladder shave, 3 seminal vesicles, 4 AND 5 most basal section, 6-9 apex, 10-15 mid prostate, 16-20 basal portion of prostate. / AM: 01/08/18 B - Received in fixative is one container labeled with the patient's name and designated right lymph node. The specimen consists of a piece of yellow adipose tissue measuring 4.5 x 2.5 x 0.5 cm. One lymph node is identified measuring 4.5 cm in greatest dimension. The entire specimen is submitted in two cassettes. Cassette 1 contains most of the lymph node and cassette 2 contains a portion of lymph node and the rest of the specimen. / SJ: 01/07/18 C - Received in fixative is one container labeled with the patient's name and designated left lymph node. The specimen consists of two pieces of yellow adipose tissue measuring 4.5 x 2.5 x 1 cm and 0.5 x 0.5 x 0.3 cm. Four variable size lymph nodes are identified measuring 0.5 to 1 cm in greatest dimension. The entire specimen is submitted in two cassettes as follows: 1 four lymph nodes, 2 rest of the specimen. / SJ: 01/07/18 TC:0 CPT: 92999 x2, 81048 HEADER OPERATION: Lap robotic radical prostatectomy PRE-OP DIAGNOSIS: Prostate cancer TISSUE SUBMITTED: A Prostate, B Right lymph node, C Left lymph node MICROSCOPIC DESCRIPTION Slides are reviewed. MICROSCOPIC DIAGNOSIS A. Prostate, radical prostatectomy: Prostatic adenocarcinoma. See cancer summary below. B. Right lymph node: One lymph node, negative for metastatic carcinoma. C. Left lymph node: Five out of five lymph nodes, negative for metastatic carcinoma. PROSTATE CANCER (RADICAL) SUMMARY: (including specimens A, B AND C) Procedure radical prostatectomy Prostate size 5 cm transversely, 3.5 cm craniocaudally and 3.5 cm anterior- posteriorly Prostate weight 37.4 gm Lymph node sampling pelvic lymph nodes Histologic type adenocarcinoma (acinar). See comment. Histologic grade (Yoder Pattern): Primary pattern grade 4 Secondary pattern grade 5 Tertiary pattern not identified Total Omar score - 9 Tumor Quantitation: Proportion (%) of prostate involved by tumor - ~30% Tumor size see comment Extraprostatic extension not identified Seminal vesicle invasion - not identified Margins apical margin is focally positive for tumor (right lobe) Treatment effect on carcinoma no known presurgical therapy Lymph-Vascular invasion not identified Perineural invasion - present Regional lymph nodes: Number examined - 6 Number involved - 0 Distant metastasis not applicable Additional pathologic findings chronic inflammation Ancillary studies IHC ([id number]) PATHOLOGIC STAGE: pT2c pN0 Mx The above summary is in compliance with [employer] [place] [employer] (CAP) Cancer Protocols Checklist and [place] Joint Committee on Cancer (AJCC), Staging Manual, 8th Ed. SJ:rabia 01/09/18 Signed Ananth Melton 01/09/18 <signature on file> Performed By: #### PPROST #### [facility] [address] [place], [address] IMMUNOHISTOCHEMISTRY Observed: 01/07/2018 Status: F Source: [place] 12:00 AM [facility] REPOSITORY Patient: GINA RAMSAY : 1940 (77/M) Acct Num: [id number] Phys: Saloni MITCHELL,Sacha Unit Num: [id number] Loc: MS2 [id number] Specimen: [id number] Received: 01/09/18 - 1249 Spec Type: IMMUNO TISSUES TISSUES: A. Prostate, NOS - A5 SPECIMEN INFORMATION: Tissue Source: A - Prostate Clinical Info: Prostate cancer Specimen Number: [id number] CPT code: 92737, 53476 METHODOLOGY: Deparaffinized sections of prefer/formalin-fixed tissue or PAP/DQ stained slides are incubated with monoclonal/polyclonal antibodies/oligonucleotide probes. Localization is made via biotin free immunoperoxidase method. Appropriate controls are performed and reacted as expected. Results on target cell population are indicated in the following table: RESULTS: ANTIBODY / CLONE RESULT Block A5 CD31 (MARIA FERNANDA/70A) negative Factor VIII (R Ag) negative These tests were developed and their performance characteristics determined by [facility]. They may not have been cleared or approved by the U.S. Food and Drug Administration. The FDA has determined that such clearance or approval is not necessary. INTERPRETATION: Prostate, radical prostatectomy: Negative for lymph-vascular invasion. SJ:rabia 01/09/18 PHYSICIAN AND INSTITUTION [address] [address] Signed Ananth Melton 01/09/18 <signature on file> Performed By: #### PIMM #### [facility] [address] [place] [address]. [place], [address] BD MRI PROSTATE Observed: 01/01/2018 Status: F Source: [place] 3:19 PM [facility]POS[facility] Patient Name: GINA RAMSAY STUDY: BD MRI PROSTATE; 01/01/2018 3:19 pm INDICATION: C61. COMPARISON: None. ACCESSION NUMBER(S): [id number] ORDERING CLINICIAN: EUGENIE MONTANO TECHNIQUE: Multiplanar MRI of the pelvis was obtained including axial, sagittal and coronal T2 weighted SSFSE, axial and sagittal T2 FSE, axial DWI, pre and post gadolinium dynamic T1 GRE sequences. Multiparametric analysis was performed. 25 cc Gadolinium contrast agent Multihance were administered intravenously without immediate complications. FINDINGS: Diffusion-weighted images are nondiagnostic due to susceptibility artifact from air within the rectum. PROSTATE VOLUME: The prostate measures 5.1 cm x 3.1 cm x 3.9 cm in hmuyc-aj-yjzw, anterior-posterior and craniocaudal dimension. PROSTATE PARENCHYMA: There is nodular enlargement of the transitional zone with heterogeneously decreased T2 signal. Superimposed on these changes there is a ill-defined focus of low signal intensity on T2 weighted images within the anterior right transitional zone at the level of the mid gland. There is corresponding early arterial enhancement this focus. This focus measures 2.2 x 1.0 cm in greatest axial dimension and 8 mm in the greatest craniocaudal dimension. The diffusion characteristics of this lesion are unable to be characterized due to susceptibility artifact, as above. There are multiple foci of linear decreased signal intensity on T2 weighted images within the peripheral zone which may represent post inflammatory or post biopsy changes. There are patchy foci of increased precontrast T1 signal intensity within the right peripheral zone which may represent a component of hemorrhagic products, correlate with history of biopsy. EXTRACAPSULAR EXTENSION: There is no evidence of extracapsular extension. SEMINAL VESICLES: The bilateral seminal vesicles are within normal limits. PELVIC LYMPH NODES: No abnormally enlarged pelvic lymph nodes are identified. PERITONEUM: No free or loculated fluid collections are evident in the pelvis. BONES: No focal lesions are noted in the bone. IMPRESSION: 1. Nondiagnostic study due to susceptibility artifact from air within the rectum. 2. Within these limitations, there is a suspicious appearing lesion within the right transitional zone at the level of the mid gland which demonstrates ill-defined decreased T2 signal intensity and early arterial enhancement. Repeat imaging may be obtained for complete characterization. 3. Foci of decreased signal intensity within the peripheral zone may represent postinflammatory post biopsy changes. I personally reviewed the images/study and I agree with the findings as stated. This study was interpreted at [place], [place]. Electronically signed by: RASHAD LOPEZ MD 12 LEAD ELECTROCARDIOGRAM Observed: 12/26/2017 Status: F Source: [place] 2:22 PM [facility] REPOSITORY [facility] Cardiovascular Services [address] [place] [address] EKG - [facility] 12/23/17 1030 MR#: [id number] Acct: [id number] Name: GINA RAMSAY Rep #: [id number] : 1940 77 From: Alvin Sams MD Attending Dr: Glenn Montano MD Status: PRE IN Ordering Dr: Aydin Soler MD Date: 12/23/17 Location: [facility] Sex: M C Admitted: Test Reason : Blood Pressure : / mmHG Vent. Rate : 060 BPM Atrial Rate : 060 BPM P-R Int : 178 ms QRS Dur : 144 ms QT Int : 446 ms P-R-T Axes : 052 -30 015 degrees QTc Int : 446 ms Normal sinus rhythm Left axis deviation Right bundle branch block Abnormal ECG Confirmed by ALVIN SAMS MD ([id number]), film editor CARLOS EAGLE ([id number]) on 12/26/2017 2:22:19 PM Referred By: Glenn Montano Confirmed By:ALVIN SAMS MD 12/26/17 1422 Date Alvin Sams MD CC: Glenn Montano MD; Katt Valdes DO Date Dictated: 12/23/17 1030 Date Transcribed: 12/23/171029 Dog Barber: Signed BASIC METABOLIC Collected: 12/23/2017 Status: F Source: [place] PROFILE (BMP) 11:41 AM [facility] REPOSITORY TYPE CODE TESTS RESULT OUT OF RANGE REFERENCE UNITS LAB L501.0100 74-106 mg/dL Normal GLU 96 Result Comment: Please note revised GLUCOSE reference range effective 2017. LAB L501.1000 7-18 mg/dL Normal BUN 17 LAB L501.1100 0.70-1.30 mg/dL Normal CREAT,SERUM 0.99 Result Comment: The validity of the calculated GFR AND GFRAA in patients over 70 years has not been determined. Clinical correlation is essential. LAB L501.1110 >60 mL/min Normal EST GFR 78 Result Comment: Non- GFR Calc LAB L501.1115 >60 mL/min Normal EST GFR - AA 94 Result Comment: GFR Calc LAB L501.1255 ml/min Normal Estimated CRCL 51.49 LAB L501.1300 10-20 RATIO Normal BUN/CRE 17.2 LAB L501.2200 8.5-10 mg/dL Normal .1 CA 8.8 LAB L501.5300 136-14 mmol/L Normal 5 NA 141 LAB L501.5600 3.5-5. mmol/L Normal 1 K 3.6 LAB L501.5900 98-107 mmol/L High CL 108 LAB L501.6100 21.0-3 mmol/L Normal 2.0 CO2 26.0 LAB L501.6200 5-15 Normal GAP 7 Performed By: #### L500.2500 #### [facility] [address] [place], [place], [id number] CBC-COMPLETE BLOOD CNT Collected: 12/23/2017 Status: F Source: [place] NO DIFF 11:40 AM [facility] REPOSITORY TYPE CODE TESTS RESULT OUT OF RANGE REFERENCE UNITS LAB L100.1000 4.4-11.0 K/mm3 Low WBC 4.3 LAB L100.1200 4.6-6.2 M/mm3 Normal RBC 4.74 LAB L100.1300 13.0-16.5 g/dl Normal HGB 14.7 LAB L100.1400 40-54 % Normal HCT 44.0 LAB L100.1500 80-94 fL Normal MCV 92.8 LAB L100.1600 27.0-32.0 pg Normal MCH 31.0 LAB L100.1700 32-36 g/gl Normal MCHC 33.4 LAB L100.1810 11.6-14.6 % Normal RDW CV 13.2 LAB L100.1820 35.1-43.9 fl High RDW SD 44.6 LAB L100.1900 150-450 K/mm3 Normal PLT 240 LAB L100.2000 6.2-12.0 fl Normal MPV 9.7 Performed By: #### L100.0500 #### [facility] [address] [facility] [place], [address] TYPE AND SCREEN Collected: 12/23/2017 Status: F Source: [place] 11:40 AM [facility] REPOSITORY Order Comment: Reason for Type AND Screen/Red Cells: SURGERY Surgery Date: 01/07/18 Type of Surgery: RADICAL PROSTATECTOMY TYPE CODE TESTS RESULT OUT OF RANGE REFERENCE UNITS LAB B10.0800 A Normal BLOOD TYPE GEL POSITIVE LAB B100.4000 Normal Antibody NEGATIVE Screen Performed By: #### B101.7450 #### [facility] [address] [facility] [place], [address] BUN Collected: 12/18/2017 Status: F Source: [place] 1:47 PM [facility] REPOSITORY TYPE CODE TESTS RESULT OUT OF RANGE REFERENCE UNITS LAB L501.1000 7-18 mg/dL High BUN 20 Performed By: #### L501.1000, L501.1105 #### [facility] [address] [facility] [place], [address] SERUM CREATININE AND Collected: 12/18/2017 Status: F Source: [place] GFR 1:47 PM [facility] REPOSITORY TYPE CODE TESTS RESULT OUT OF RANGE REFERENCE UNITS LAB L501.1100 0.70-1.30 mg/dL Normal 1.06 CREAT,SERUM Result Comment: The validity of the calculated GFR AND GFRAA in patients over 70 years has not been determined. Clinical correlation is essential. LAB L501.1110 >60 mL/min Normal EST GFR 72 Result Comment: Non- GFR Calc LAB L501.1115 >60 mL/min Normal EST GFR - AA 87 Result Comment: GFR Calc Performed By: #### L501.1000, L501.1105 #### [facility] [address] [place], [address] CREATININE FINGERSTICK Collected: 11/13/2017 Status: F Source: [place] 5:10 PM [facility] REPOSITORY TYPE CODE TESTS RESULT OUT OF RANGE REFERENCE UNITS LAB L9100.0210 0.70-1.30 mg/dL Normal CREATININE WB 1.3 LAB L9100.0220 >60 mL/min Low EGFR WB 55.0000 Performed By: #### L9100.0200 #### [facility] Point of Care [address] [facility] [place] [address] ABDOMEN/PELVIS WITH Observed: 11/13/2017 Status: F Source: [place] CONTRAST 4:48 PM [facility] REPOSITORY [facility] Imaging Services [address] [place] [address] Abdomen/Pelvis WITH Contrast MR#: [id number] Acct: [id number] Name: GINA RAMSAY Rep #: [id number] : 1940 M 77 From: Kristen Frias MD PCP: Katt Valdes DO Status: REG CLI Study: Abdomen/Pelvis WITH Contrast Date of Exam: 11/13/17 Exam# [id number] Ordering Dr: Glenn Montano MD STUDY: CT ABDOMEN AND PELVIS WITH CONTRAST REASON FOR EXAM: Male, 77 years old. New diagnosis of prostate cancer. RADIATION DOSAGE (If Supplied By Facility): CTDIvol = ( 12.13 ) mGy, DLP = ( 527.67 ) mGycm TECHNIQUE: Transaxial images were obtained from the dome of the diaphragm to the symphysis pubis without oral contrast. 100CC ml of Isovue 300 contrast was administered. Sagittal and coronal images were reconstructed. Individualized dose optimization techniques were used for this CT. COMPARISON: None. FINDINGS: The visualized lung bases are unremarkable. The visualized portions of the heart are within normal limits. Within the dome of the left hepatic lobe there is a well-circumscribed low-attenuation 2.6 cm rounded focus that likely reflects underlying cyst or hemangioma. Normal gallbladder and extrahepatic biliary system. Normal spleen. Normal pancreas. Normal bilateral adrenal glands. There is a too small to characterize low-attenuation focus within the upper pole of the right kidney. Normal left kidney. There is a small hiatal hernia. Normal small intestine. Normal colon. The appendix is visualized and appears normal. Normal abdominal aorta. Normal inferior vena cava. Normal retroperitoneum. Normal urinary bladder. The prostate gland is enlarged and heterogenous. Normal abdominal wall. There are diffuse degenerative changes of the visualized lumbar spine. CT/Abdomen/Pelvis WITH Contrast IMPRESSION: No evidence of metastases to the abdomen and pelvis. Enlarged and heterogenous prostate gland. Hiatal hernia. Indeterminate low-attenuation focus within the liver that likely reflects underlying cysts or hemangioma. Degenerative changes of the lumbar spine. Electronically Signed: Kristen Frias MD at 17:47 EST Tel , Service support , CC: Glenn Montano MD; Katt Valdes DO Dog Barber: Signed BONE SCAN WHOLE Observed: 11/11/2017 Status: F Source: [place] BODY 9:56 AM [facility] REPOSITORY [facility] Imaging Services [address] [place] [address] Bone Scan Whole Body MR#: [id number] Acct: [id number] Name: GINA RAMSAY Rep #: [id number] : 1940 M 77 From: Lang Castano DO PCP: Katt Valdes DO Status: REG CLI Study: Bone Scan Whole Body Date of Exam: 11/11/17 Exam# [id number] Ordering Dr: Glenn Montano MD CLINICAL: 77-year-old male with reported history of left shoulder pain status post traumatic fall. WHOLE BODY 99m Tc MDP RADIONUCLIDE BONE SCINTIGRAPHY COMPARISON: None available FINDINGS: Following the intravenous administration of 20.4 mCi of 99m Tc MDP, whole body bone images reveal: 1. There is increased radiopharmaceutical concentration identified in the glenohumeral compartments of both shoulders, acromioclavicular compartment of the left shoulder, sternoclavicular compartment of the right shoulder, bilateral elbow and wrist articulations, the left knee, right forefoot, 12th thoracic vertebra posteriorly on the right, fourth lumbar vertebra posteriorly on the right, lower anterior cervical spine. 2. The remaining skeletal structures are scintigraphically unremarkable with normal-appearing renal images and urinary bladder activity identified. NM/Bone Scan Whole Body IMPRESSION: 1. The increase in radiopharmaceutical concentration identified in the cervical, thoracic and lumbar spine, bilateral shoulders, right and left elbow articulations, wrists bilaterally, the left knee, right forefoot is most consistent with degenerative arthritis. Plain film radiography correlation may be of benefit in the region of the left shoulder if not previously obtained. 2. There is no definitive typical scintigraphic evidence of trauma-fracture involving the left proximal humerus, components of the left shoulder joint on the current examination. Electronically Signed: Lang Castano DO at 23:37 EST Tel , Service support , CC: Glenn Montano MD; Katt Valdes DO Dog Barber: Signed PROSTATE BIOPSY Observed: 10/30/2017 Status: F Source: [place] BILATERAL 3:00 PM [facility] REPOSITORY Patient: GINA RAMSAY : 1940 (77/M) Acct Num: [id number] Phys: Saloni MITCHELL,Glenn Ray Unit Num: [id number] Loc: LABSPEC Specimen: [id number] Received: 10/31/17725 Spec Type: PROST BX TISSUES TISSUES: A. PROSTATE RIGHT B. PROSTATE RIGHT C. PROSTATE RIGHT D. PROSTATE LEFT E. PROSTATE LEFT F. PROSTATE LEFT COMMENT A AND B. Immunohistochemistry ([id number]) supports the above diagnosis. GROSS DESCRIPTION A - Received is one container designated prostate, right apex. The specimen consists of one elongated fragment of light mason-white soft tissue measuring 1 cm in length and 0.1 cm in diameter. The specimen is totally submitted in one cassette. B - Received is one container designated prostate, right mid. The specimen consists of one elongated fragment of light mason-white soft tissue measuring 1 cm in length and 0.1 cm in diameter. The specimen is totally submitted in one cassette. C - Received is one container designated prostate, right base. The specimen consists of one elongated fragment of light mason-white soft tissue measuring 1 cm in length and 0.1 cm in diameter. The specimen is totally submitted in one cassette. D - Received is one container designated prostate, left apex. The specimen consists of one elongated fragment of light mason-white soft tissue measuring 1 cm in length and 0.1 cm in diameter. The specimen is totally submitted in one cassette. E - Received is one container designated prostate, left mid. The specimen consists of one elongated fragment of light mason-white soft tissue measuring 1 cm in length and 0.1 cm in diameter. The specimen is totally submitted in one cassette. F - Received is one container designated prostate, left base. The specimen consists of one elongated fragment of light mason-white soft tissue measuring 1 cm in length and 0.1 cm in diameter. The specimen is totally submitted in one cassette. / AM:rabia 10/31/17 TC:0 CPT: G0146 HEADER OPERATION: Prostate biopsy PRE-OP DIAGNOSIS: Elevated PSA TISSUE SUBMITTED: A - Right apex, B - Right mid, C - Right base, D - Left apex , E - Left mid, F - Left base MICROSCOPIC DESCRIPTION Slides are reviewed. MICROSCOPIC DIAGNOSIS A. Right prostate, apex, core biopsy: Adenocarcinoma: Yoder grade: 8 (4+4) Cores involved: 1 out of 1 Tissue involved: 50% Greatest tumor length: 7 mm See comment. B. Right prostate, mid, core biopsy: Adenocarcinoma: Yoder grade: 8 (4+4) Cores involved: 1 out of 1 Tissue involved: 10% Greatest tumor length: 2 mm See comment. C. Right prostate, base, core biopsy: Mild acute and chronic inflammation. D. Left prostate, apex, core biopsy: Benign prostatic tissue. E. Left prostate, mid, core biopsy: Mild chronic inflammation. F. Left prostate, base, core biopsy: Focal glandular atrophy and mild chronic inflammation. AM: 11/03/17 PSA RESULTS Date Time Test Result Flag (u) Normal Range 05/29/16 1406 PSA, DIAGNOSTIC 5.42 H 0.0-4.0 ng/mL This test was performed using the TPSA assay method for the Dimension chemistry system. Values obtained with different assay methods cannot be used interchangably. When changing PSA assays in the course of monitoring a patient, additional sequential testing should be carried out to confirm baseline values. Date Time Test Result Flag (u) Normal Range 09/16/17 1302 PSA,TOT SCREEN 10.30 H 0.00-4.00 ng/mL This test was performed using the TPSA assay method for the Dimension chemistry system. Values obtained with different assay methods cannot be used interchangably. When changing PSA assays in the course of monitoring a patient, additional sequential testing should be carried out to confirm baseline values. Signed Chandra Micki 11/04/17 <signature on file> Performed By: #### PPROSBIL #### [facility] [address] [facility] [place], [address] IMMUNOHISTOCHEMISTRY Observed: 10/30/2017 Status: F Source: [place] 12:00 AM [facility] REPOSITORY Patient: GINA RAMSAY : 1940 (77/M) Acct Num: [id number] Phys: Saloni MITCHELL,Sacha Unit Num: [id number] Loc: LABSPEC Specimen: [id number] Received: 11/03/17 1153 Spec Type: IMMUNO TISSUES TISSUES: A. PROSTATE RIGHT B. PROSTATE RIGHT SPECIMEN INFORMATION: Tissue Source: A Right prostate, apex, B Right prostate, mid Clinical Info: Elevated PSA Specimen Number: [id number] A AND B CPT code: 56633, 72652 x5 METHODOLOGY: Deparaffinized sections of prefer/formalin-fixed tissue or PAP/DQ stained slides are incubated with monoclonal/polyclonal antibodies/oligonucleotide probes. Localization is made via biotin free immunoperoxidase method. Appropriate controls are performed and reacted as expected. Results on target cell population are indicated in the following table: RESULTS: ANTIBODY / CLONE RESULT Block A 34BE12 (34BE12) negative P40 (BC28) negative CK8 (19tfijX08) positive Block B 34BE12 (34BE12) negative P40 (BC28) negative CK8 (37ikxrT36) positive These tests were developed and their performance characteristics determined by [facility]. They may not have been cleared or approved by the U.S. Food and Drug Administration. The FDA has determined that such clearance or approval is not necessary. INTERPRETATION: A. Right prostate, apex, core biopsy: Adenocarcinoma. B. Right prostate, mid, core biopsy: Adenocarcinoma. AM:rabia 11/04/17 PHYSICIAN AND INSTITUTION [place] [phone] Signed Chandra Micki 11/04/17 <signature on file> Performed By: #### PIMM #### [facility] [address] [place] [address]. [place], [place], [id number] ALLERGIES ALLERGIES DATE TYPE / CODE NAME / CODE REACTION SEVERITY SOURCE 12/23/2017 Drug No Known Unknown [facility] Allergy/4160 Allergies/F00 Hospital 64577(SNOMED 4028619(RXNOR Repository CT) M) ENCOUNTERS ENCOUNTERS ADMIT/DISCHARGE ACCOUNT ADMITTING ENCOUNTER LOCATION SOURCE NUMBER CLASS 09/15/2018 [id number] [facility] ing:LAB Repository 05/25/2018 [id number] Ambulatory [facility] ing:LAB Repository 02/24/2018 [id number] Ambulatory [facility] ing:LAB Repository 01/07/2018/01/09/20 [id number] Glenn Montano Inpatient [address] ing:PF2Fowm: Repository LL778Llo: 1 01/01/2018 [id number] Ambulatory [facility] Repository 12/23/2017/01/09/20 [id number] Ambulatory BMSBuilding:W [address] Repository 12/18/2017 [id number] Ambulatory [facility] ing:LAB Repository 11/13/2017 [id number] [facility] ing:CT Repository 11/11/2017 [id number] [facility] ing:NM Repository 10/30/2017 [id number] [facility] ing:LABSPEC Repository PAYERS PAYERS ENCOUNTER GUARANTOR PAYER SUBSCRIBER SOURCE 09/15/2018 GINA Primary GINA [place] [id number] Insurance:MEDICARE BOLLENBACHERDOB[facility] [id number] Number: Repository [address]Usn: 330 [id number] () Date:2018-09-15 09/15/2018 Secondary GINA Abena Insurance:[facility] SHARED BOLLENBACHERDOB: [facility] [id number] Hospital Number: Repository [id number] Date:[id number] [address] [address]SR: 09/15/2018 Tertiary NOT GIVENUNK Ab[place] Insurance:SELF PAY [facility] Number: Effective Repository Date:2018-09-15 05/25/2018 GINA Primary GINA Abena [id number] Insurance:MEDICARE BOLLENBACHERDOB[facility] [id number] Number: Repository [id number]: 330 [id number] () Date:2018-05-25 05/25/2018 Secondary GINA [place] Insurance:[facility] SHARED BOLLENBACHERDOB: [facility] [id number] Hospital Number: Repository [id number] Date:7718-79-12VU [address] [address]VD: 05/25/2018 Tertiary NOT GIVENUNK [place] Insurance:SELF PAY [facility] Number: Effective Repository Date:2018-05-25 02/24/2018 GINA Primary GINA [place]ena [id number] Insurance:MEDICARE BOLLENBACHERDOB: Community BATDO PART A [facility] [id number], [place] Number: Repository [id number]: 330 [id number] (HP) Date:2018-02-24 02/24/2018 Secondary GINA [place] Insurance:[facility] SHARED BOLLENBACHERDOB: [facility] [id number] Hospital Number: Repository [id number] Date:8743-54-44BL [address] [place], [place] [address]WP: 02/24/2018 Tertiary NOT GIVENUNK [place]ena Insurance:SELF PAY [facility] Number: Effective Repository Date:2018-02-24 01/07/2018 [facility]:MEDICARE BOLLENBACHERDOB: [facility] PART A [facility] [id number], [place] Number: Repository [address]Mpg: 330 [id number] () Date:2017-12-08 01/07/2018 Secondary GINA [place] Insurance:[facility] SHARED BOLLENBACHERDOB: [facility] [id number] Hospital Number: Repository [id number] Date:0815-63-[place] [address]WP: 01/07/2018 Tertiary NOT GIVENUNK [place] Insurance:SELF PAY [facility] Number: Effective Repository Date:2017-12-08 01/01/2018 [facility]: Insurance:MedicarePol [facility]ABRA[facility] CENTR[facility] CAMPUSB: [facility] icy Number: [id number] [facility] [id number] Date:Plan [facility] [place] [id number]: A [id number]: () () 01/01/2018 Secondary [employer] Insurance:MedicarePol BOLLENBACHERDOB: Hospitals icy Number: [id number] Repository [id number] DORF Date:Plan Name:[place], [place] B [id number]: (HP) 01/01/2018 Tertiary [employer] Insurance:CommercialP BOLLENBACHERDOB: Hospitals olicy Number: [id number] Repository [id number] BAT[place]ORF Date:Plan [place], [place] Name:[facility] [id number]: [address] [place] [address], [place] [id number]: [phone] ([phone] 12/23/2017 GINA Primary GINA [place] [id number] Insurance:MEDICARE BOLLENBACHERDOB: Community [place] PART A [facility] [id number], [place] Number: Repository [id number]: 330 [id number] () Date:2017-12-08 12/23/2017 Secondary GINA [place] Insurance:C SHARED BOLLENBACHERDOB: [facility] [id number] [facility] Number: Repository [id number] Date:5817-45-21DN [address] [place] [address]QU: 12/23/2017 Tertiary NOT GIVENUNK [place] Insurance:SELF PAY [facility] Number: Effective Repository Date:2017-12-23 12/18/2017 GINA Primary GINA [place] [id number] Insurance:MEDICARE BOLLENBACHERDOB: Community [place] PART A [facility] [id number] Number: Repository [id number]: [phone] [id number] 62 () Date:2017-12-18 12/18/2017 Secondary GINA [place] Insurance:[facility] SHARED BOLLENBACHERDOB: [facility] [id number] Hospital Number: Repository [id number] Date:1850-26-09RL [address] [place] [address]ES: 12/18/2017 Tertiary NOT GIVENUNK [place] Insurance:SELF PAY [facility] Number: Effective Repository Date:2017-12-18 11/13/2017 GINA Primary GINA [place] [id number] Insurance:MEDICARE BOLLENBACHERDOB: Community [place] PART A [facility] [id number], [place] Number: Repository [id number]: 330 [id number] (HP) Date:2017-11-06 11/13/2017 Secondary GINA [place] Insurance:[facility] SHARED BOLLENBACHERDOB: [facility] [id number] Hospital Number: Repository [id number] Date:0790-08-28[address] [address]DI: 11/13/2017 Tertiary NOT GIVENUNK [place] Insurance:SELF PAY [facility] Number: Effective Repository Date:2017-11-06 11/11/2017 GINA Primary GINA Abena [id number] Insurance:MEDICARE BOLLENBACHERDOB: Community [place] PART A [facility] [id number] Number: Repository [address]Mbz: 330 [id number] () Date:2017-11-06 11/11/2017 Secondary GINA [place] Insurance:[facility] SHARED BOLLENBACHERDOB: [facility] [id number] Hospital Number: Repository [id number] Date:0488-46-87LK [address] [place] [address]QF: 11/11/2017 Tertiary NOT GIVENUNK [place] Insurance:SELF PAY [facility] Number: Effective Repository Date:2017-11-06 10/30/2017 GINA Primary GINA [place]ena [id number] Insurance:MEDICARE BOLLENBACHERDOB: Community [place] PART A [facility] [id number], [place] Number: Repository [id number]: [phone] [id number] [phone] () Date:2017-10-30 10/30/2017 Secondary GINA [place] [facility] C[facility]USB: Community SERVICESPolicy [id number] Hospital Number: Repository [id number] Date:9600-69-35[address] [address] [address]WL: 10/30/2017 Tertiary NOT GIVENUNK [place]ena Insurance:SELF PAY [facility] Number: Effective Repository Date:2017-10-30
--- OUTSIDE RECORDS SUMMARY | 2018-11-01 11:44 | XMS RPT_ITS ---
:1940 Author Organization [facility] Address [address] [place] [address] Phone Care Team Providers Name Role Phone Mark MITCHELL, Lang Singh Unavailable Reason for Visit Reason For Visit Description Start Date New - 1st visit with practice Preliminary reason for visit data, not yet signed by the author as of left shoulder pain Preliminary reason for visit data, not yet signed by the author as of Chief Complaint Chief Complaint Description Start Date left shoulder pain Preliminary chief complaint data, not yet signed by the author as of Instructions No information available. Plan of Care Type Date Detail Appointment 01:15 PM Lang Flores MD, [address] [place] [address], [facility], [place], [address], Patient education \cps-sql1\CPS_PtEducation\CD C_FALL_PREVENTION.pdf Medications Medication Instructions Start Stop Generic Name NDC Provider Date Date FLOMAX 0.4 MG 1 capsule daily / TAMSULOSIN HCL 84321450318 Candelaria Salinas CAPS 15 FURNACE PACKER ATORVASTATIN 1 tablet daily / ATORVASTATIN [id number] Candelaria Salinas CALCIUM 40 MG 15 CALCIUM FURNACE PACKER TABS Conditions or Problems Problem Problem Onset Status Entry Provider Comment Standard Annotate Name Code Date Date Description Shoulder 38670712 Active Lang Singh Shoulder pain likely RC pain, left (SN Mark MITCHELL CT) Allergies, Adverse Reactions, Alerts Observed no known allergies at Social History No information available. Vital Signs Date Name Value Unit Description BMI (Body Mass 23.26 kg/m2 Body Mass Index Index) [Ratio] Preliminary vital sign data, not yet signed by the author as of BP Diastolic 81 mm[Hg] blood pressure, diastolic Preliminary vital sign data, not yet signed by the author as of BP Systolic 137 mm[Hg] blood pressure, systolic Preliminary vital sign data, not yet signed by the author as of Heart Rate 91 /min pulse rate E&M Preliminary vital sign data, not yet signed by the author as of Height 64 [in_us] height E&M Preliminary vital sign data, not yet signed by the author as of Height 163 cm height in centimeters E&M Preliminary vital sign data, not yet signed by the author as of Weight Measured 135 [lb_av] weight E&M Preliminary vital sign data, not yet signed by the author as of Weight Measured 61 kg weight in kilograms E&M Preliminary vital sign data, not yet signed by the author as of Results Date Name Value Unit Range Flag Description Office Visit: New - 1st visit with practice, Rm: 2 MEDS REVIEW Done Documentation of current medications (procedure) Preliminary observation data, not yet signed by the author as of Preliminary observation data, not yet signed by the author as of Clinical Summary: Scanned ROS Summary ROS: Denies genitourinary review of systems, E&M ROS: GI Denies ROS gastrointestinal E&M ROS ENDO Denies endocrine ROS ROS MSK COMM Joint Pain ROS Musculoskeletal comments ROS:MUSCSKEL Complains ROS musculoskeletal E&M ROS: PSYCH Denies ROS psychiatric E&M ROS HEME Denies ROS hematologic/lymphatic E&M ROS SKIN Denies ROS skin E&M ROS ENT Denies ROS ENT E&M ROS:GENERAL Denies ROS general E&M ROS: NEURO Denies ROS neurological E&M ROS:PULMON Denies ROS pulmonary E&M ROS: CARDIAC Denies ROS cardiovascular E&M Clinical Summary: HMSPatientID WOP account number Procedures Code Procedure Name Date Entry Date CPT-26700 XR SHOULDER 3 VWS-LT G8731 Pain assessment documented as negative - follow-up not required G8427 Current medications documented 1036F Tobacco screening was negative - non user G8420 BMI documented within normal parameters - no follow-up plan is required G8783 Blood pressure within normal parameters - no follow-up required 1100F Fallen more than twice or injured themselves from a fall documented 3288F Falls risk assessment documented 0518F Falls plan of care documented [facility]-[id number] Patient Encounter Medications Administered No information available. Immunizations No information available. Advance Directives There may be information available, but it has not been provided by the sender. Assessments There may be information available, but it has not been provided by the sender. Review of Systems There may be information available, but it has not been provided by the sender. Family History There may be information available, but it has not been provided by the sender. History of Past Illness There may be information available, but it has not been provided by the sender. History of Present Illness There may be information available, but it has not been provided by the sender.
== END ==
PROVIDERS: Family Provider Family Medicine; PCP Family Medicine; Referring Provider Urology; Visit Provider Urology
DX: C61 Malignant neoplasm of prostate (principal)
CPT/HCPCS: 36415; 84153

== ENCOUNTER → 2018-12-21 13:39 | Outpatient (CLI) | payer MEDICARE, OTHER, SELFPAY ==
[2018-12-21 14:48] LABS: PSA,Total- Diagnostic < 0.01 ng/mL (0.0-4.0)
== END ==
PROVIDERS: Family Provider Urology; PCP Family Medicine; Visit Provider Urology
DX: C61 Malignant neoplasm of prostate (principal)
CPT/HCPCS: 36415; 84153

== ENCOUNTER → 2019-03-10 | Outpatient (CLI) | payer MEDICARE, OTHER, SELFPAY ==
[2018-01-07 05:44] VITALS: BMI 24.0
[2019-03-10 15:25] LABS: PSA,Total- Diagnostic < 0.01 ng/mL (0.0-4.0)
== END | disposition home or self-care (01) ==
PROVIDERS: Family Provider Family Medicine; PCP Family Medicine; Referring Provider Urology; Visit Provider Urology
DX: C61 Malignant neoplasm of prostate (principal)
CPT/HCPCS: 36415; 84153

== ENCOUNTER → 2019-05-18 10:08 | Outpatient (CLI) | payer MEDICARE, OTHER, SELFPAY ==
[2018-01-07 05:44] VITALS: BMI 24.0
[2019-05-18 11:11] LABS: Absolute Lymphocyte Count 1.43 X10^3/uL (0.83-4.51); Absolute Neutrophil Count 2.1 X10^3/uL (2.0-7.7); Basophil# 0.03 X10^3/uL; Basophil% 0.7 % (0-1); Eosinophil# 0.16 X10^3/uL; Eosinophils% 3.7 % (0-5); Hematocrit 46.3 % (40-54); Hemoglobin 15.5 g/dL (13.0-16.5); Lymphocyte # 1.43 X10^3/ul (4.0); Lymphocyte % 32.6 % (19-41); Mean Corp Hgb Conc 33.5 g/dL (32-36); Mean Corpuscular Hgb 31.5 pg (27.0-32.0); Mean Corpuscular Volume 94.1 fL (80-94); Mean Platelet Vol. 10.1 fl (6.2-12.0); Monocyte# 0.68 X10^3/uL; Monocyte% 15.5 % (0-10); NRBC Flagged by Analyzer 0 % (0-5); Neutrophil # 2.07 X10^3/uL (2.7-7.7); Neutrophil % 47.3 % (47-70); Platelet Count 198 K/mm3 (150-450); RBC Distribution Width CV 12.8 % (11.6-14.6); RBC Distribution Width SD 44.2 fl (35.1-43.9); Red Blood Count 4.92 M/mm3 (4.6-6.2); White Blood Count 4.4 K/mm3 (4.4-11.0)
[2019-05-18 11:49] LABS: ALB/GLOB Ratio 1.1 RATIO (0.9-2.4); AST(SGOT) 26 U/L (15-37); Alanine Aminotransfer ALT/SGPT 34 U/L (16-61); Albumin, Serum 3.6 g/dL (3.2-5.0); Alkaline Phosphatase 99 U/L (45-117); Anion Gap 7 (5-15); BUN 14 mg/dL (7-18); Chloride 107 mmol/L (98-107); Cholesterol 156 mg/dL (200); EST Glomerular Filtration Rate 77 mL/min (>60); Est Glom Filt Rate - Afr Amer 93 mL/min (>60); Globulin 3.4 g/dL (2.2-4.2); Glucose 91 mg/dL (74-106); High Density Lipoprotein 59 mg/dL; Potassium 4.1 mmol/L (3.5-5.1); Sodium Level 141 mmol/L (136-145); Triglycerides 102 mg/dL; Very Low Density Lipoprotein 20 mg/dL (5-40)
== END ==
PROVIDERS: Family Provider Family Medicine; PCP Family Medicine; Referring Provider Family Medicine; Visit Provider Family Medicine
DX: Z00.01 Encounter for general adult medical examination with abnormal findings (principal); E78.5 Hyperlipidemia, unspecified
CPT/HCPCS: 36415; 80053; 80061; 85025

== ENCOUNTER → 2019-09-07 12:46 | Outpatient (CLI) | payer MEDICARE, OTHER, SELFPAY ==
[2019-09-07 14:26] LABS: PSA,Total- Diagnostic < 0.01 ng/mL (0.0-4.0)
== END ==
PROVIDERS: Family Provider Family Medicine; PCP Family Medicine; Referring Provider Urology; Visit Provider Urology
DX: C61 Malignant neoplasm of prostate (principal)
CPT/HCPCS: 36415; 84153

== ENCOUNTER → 2020-03-07 10:44 | Outpatient (CLI) | payer MEDICARE, OTHER, SELFPAY ==
[2020-03-07 12:03] LABS: PSA,Total- Diagnostic < 0.01 ng/mL (0.0-4.0)
== END ==
PROVIDERS: PCP Family Medicine; Visit Provider Urology
DX: C61 Malignant neoplasm of prostate (principal)
CPT/HCPCS: 36415; 84153

== ENCOUNTER → 2020-03-11 08:47 | Outpatient (CLI) | payer MEDICARE, OTHER, SELFPAY ==
--- NOTE | 2020-03-11 08:55 | US_ITS ---
STUDY: ABDOMINAL ULTRASOUND - RIGHT UPPER QUADRANT REASON FOR VISIT: Male, 79 years old RUQ PAIN TECHNIQUE: Ultrasound evaluation of the right upper quadrant was performed with real-time and static flores-scale imaging. TECHNICAL QUALITY: Adequate. COMPARISON: November 25, 2017 FINDINGS: Liver: The liver measures 14.2 cm. There is normal echogenicity of the liver. The bile ducts are within normal limits. There is hepatic color flow. The direction of portal flow is hepatopetal. There is a hypoechoic lobulated region of the right hepatic lobe measuring 3.3 x 3.0 x 3.5 cm consistent with simple appearing hepatic cyst. Gallbladder: Normal distended gallbladder. The gallbladder wall measures 2.2 mm. There is a negative sonographic Solitraio''s sign. There is no pericholecystic fluid. There are no gallstones. Common Bile Duct (C.B.D.): The common bile duct measures 1.7 mm. Pancreas: Dedicated body is visualized however the tail is incompletely seen. There is normal echogenicity of the pancreas. There is no demonstrated pancreatic mass or cyst. Right Kidney: Normal size of the right kidney. The right kidney measures 9.4 x 4.8 x 3.9 cm. Normal renal cortex. The right cortex measures 1.1 cm. There is no demonstrated renal mass or cyst. There is no right hydronephrosis. US/Abdomen Limited IMPRESSION: Simple appearing right hepatic cyst similar to the 2018 CT exam with otherwise no evidence of acute abdominal process by ultrasound. Electronically Signed: Heath Howell DO at 9:55 EDT , Service support ,
== END ==
PROVIDERS: PCP Family Medicine; Referring Provider Family Medicine; Visit Provider Family Medicine
DX: R10.11 Right upper quadrant pain (principal)
CPT/HCPCS: 76705

== ENCOUNTER → 2020-03-25 11:02 | Outpatient (CLI) | payer MEDICARE, OTHER, SELFPAY ==
[2018-01-07 05:44] VITALS: BMI 24.0
--- NOTE | 2020-03-25 11:08 | RAD_ITS ---
STUDY: X-RAY - LUMBOSACRAL SPINE REASON FOR EXAM: Male, 79 years old. right anterior pain, radiates into back, around top of pelvis -- NKI TECHNIQUE: 7 view(s) of the lumbosacral spine were obtained. COMPARISON: None FINDINGS: Normal lumbar lordosis. There is no substantial scoliosis. There is normal alignment of the vertebrae. There is multilevel endplate spondylosis of the lumbar vertebrae. There is narrowing of the L4-5 and L5-S1 disc spaces. Normal bilateral sacral ala, sacroiliac joints, and visualized sacrum. Normal visualized soft tissue structures. RAD/L/S Spine Comp/w Bending Views IMPRESSION: Degenerative changes of the spine, as detailed above. Electronically Signed: Izaiah Hatch MD at 16:47 EDT , Service support ,
== END ==
PROVIDERS: PCP Family Medicine; Referring Provider Family Medicine; Visit Provider Family Medicine
DX: M54.5 Low back pain (principal)
CPT/HCPCS: 72114

== ENCOUNTER → 2020-04-21 13:41 | Outpatient (CLI) | payer MEDICARE, OTHER, SELFPAY ==
[2020-04-05 10:18] VITALS: BMI 24.0
--- NOTE | 2020-04-21 13:42 | CT_ITS ---
STUDY: CT ABDOMEN AND PELVIS WITH CONTRAST REASON FOR EXAM: Male, 79 years old. ABDOMINAL PAIN BELOW BELLY BUTTON WITH PAIN WRAPPING AROUND TO RIGHT FLANK. 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 Oral and amp; IV Readi-CAT and amp; 100mL Isovue-300 was administered. Sagittal and coronal images were reconstructed. Individualized dose optimization techniques were used for this CT. COMPARISON: Comparison is made with prior study of November 13, 2017. FINDINGS: Minimal linear scarring at the lung bases. The visualized portions of the heart are within normal limits. There is a 3.3 cm x 2.57 m cyst in the medial aspect of the right lobe of the liver. A subcentimeter cyst is also seen in the lateral peripheral aspect of the right lobe of the liver. I suspect sludge within the gallbladder lumen. Normal spleen. Normal pancreas. Normal bilateral adrenal glands. Normal right kidney. Normal left kidney. Normal visualized stomach. Normal small intestine. Normal colon. The appendix is visualized and appears normal. Normal abdominal aorta. Normal inferior vena cava. Normal retroperitoneum. Normal urinary bladder. Calcification of the vas deferens bilaterally. The patient is status post prostatectomy. Small left inguinal hernia containing fat. There are diffuse degenerative changes of the visualized lumbar spine. CT/Abdomen/Pelvis WITH Contrast IMPRESSION: Stable hepatic cyst. A suspected small amount of sludge within the gallbladder lumen. The patient is status post prostatectomy. Electronically Signed: Ab Tyson, at 14:15 EDT , Service support ,
[2020-04-21 13:56] LABS: CREATININE FINGERSTICK 0.8 mg/dL (0.70-1.30)
== END ==
PROVIDERS: PCP Internal Medicine; Referring Provider Internal Medicine; Visit Provider Internal Medicine
DX: R10.9 Unspecified abdominal pain (principal); Z85.46 Personal history of malignant neoplasm of prostate; Z90.79 Acquired absence of other genital organ(s); K76.89 Other specified diseases of liver; K40.90 Unilateral inguinal hernia, without obstruction or gangrene, not specified as recurrent
CPT/HCPCS: 74177; Q9967

== ENCOUNTER → 2020-05-10 10:18 | Outpatient (CLI) | payer MEDICARE, OTHER, SELFPAY ==
[2020-05-04 14:03] VITALS: BMI 24.0
--- NOTE | 2020-05-10 10:19 | NM_ITS ---
CLINICAL: 79-year-old male with history of abdominal pain. RADIONUCLIDE HEPATOBILIARY SCINTIGRAPHY COMPARISON: CT of the abdomen-pelvis report 04/21/2020 FINDINGS: Following the intravenous administration of 5.5 mCi of 99m Tc Mebrofenin, hepatobiliary images reveal: 1. Relatively prompt and homogeneous radiopharmaceutical concentration is noted by a normal sized liver. No parenchymal defects are identified. 2. Gallbladder activity is identified at 15 minutes post radiopharmaceutical administration. 3. Small intestinal tract is observed at 30 minutes following tracer injection. 4. Washout of the radiopharmaceutical by the hepatic parenchyma appears qualitatively normal. Cholecystokinin (0.02 ug/kg) was administered intravenously over a 30-minute period. The post CCK gallbladder ejection fraction calculated at 21 minutes following Cholecystokinin administration was noted to be 34.0 % (normal greater than 35%). There is scintigraphic evidence of post cholecystokinin duodenal-gastric reflux. MN/Hepatobilliary Img w/Pharm Int IMPRESSION: 1. A gallbladder ejection fraction calculated to be less than 35% following the administration of Cholecystokinin is consistent with the presence of functional hepatobiliary disease (gallbladder and/or sphincter of Oddi dyskinesia) and/or organic hepatobiliary disease (chronic acalculous cholecystitis and/or cystic duct syndrome) in patients with intermediate to high pretest probabilities of hepatobiliary illness. (Fouzia Ziegler et al, Journal of Nuclear Medicine 32:1695, 1990). 2. There is scintigraphic evidence of post CCK duodenal-gastric reflux. (Zulay et al, Nucl Med [employer] Press pg. 35, 1980). Electronically Signed: Lang Castano DO at 22:50 EDT Tel , Service support ,
== END ==
PROVIDERS: PCP Internal Medicine; Referring Provider Internal Medicine; Visit Provider Internal Medicine
DX: K82.8 Other specified diseases of gallbladder (principal)
CPT/HCPCS: 78227; A9537; J2805

== ENCOUNTER → 2020-05-27 10:32 | Outpatient (CLI) | payer MEDICARE, OTHER, SELFPAY ==
[2020-05-19 10:15] VITALS: BMI 24.0
[2020-05-27 11:08] LABS: Absolute Lymphocyte Count 1.58 X10^3/uL (0.83-4.51); Absolute Neutrophil Count 2.2 X10^3/uL (2.0-7.7); Basophil# 0.05 X10^3/uL; Basophil% 1.1 % (0-1); Eosinophil# 0.09 X10^3/uL; Hematocrit 47.6 % (40-54); Hemoglobin 15.6 g/dL (13.0-16.5); Lymphocyte # 1.58 X10^3/ul (4.0); Lymphocyte % 34.6 % (19-41); Mean Corp Hgb Conc 32.8 g/dL (32-36); Mean Corpuscular Hgb 31.2 pg (27.0-32.0); Mean Corpuscular Volume 95.2 fL (80-94); Mean Platelet Vol. 9.6 fl (6.2-12.0); Monocyte# 0.66 X10^3/uL; Monocyte% 14.4 % (0-10); NRBC Flagged by Analyzer 0 % (0-5); Neutrophil # 2.18 X10^3/uL (2.7-7.7); Neutrophil % 47.7 % (47-70); Platelet Count 258 K/mm3 (150-450); RBC Distribution Width CV 13.1 % (11.6-14.6); RBC Distribution Width SD 45.6 fl (35.1-43.9); White Blood Count 4.6 K/mm3 (4.4-11.0)
[2020-05-27 11:45] LABS: AST(SGOT) 24 U/L (15-37); Alanine Aminotransfer ALT/SGPT 37 U/L (16-61); Albumin, Serum 3.5 g/dL (3.2-5.0); Alkaline Phosphatase 96 U/L (45-117); Anion Gap 5 (5-15); BUN 18 mg/dL (7-18); BUN/Creat Ratio 17.3 RATIO (10-20); Calcium,Total 8.6 mg/dL (8.5-10.1); Chloride 106 mmol/L (98-107); Cholesterol 160 mg/dL (200); Creatinine, Serum 1.04 mg/dL (0.70-1.30); EST Glomerular Filtration Rate 73 mL/min (>60); Est Glom Filt Rate - Afr Amer 88 mL/min (>60); Globulin 3.6 g/dL (2.2-4.2); Glucose 113 mg/dL (74-106); High Density Lipoprotein 53 mg/dL; Potassium 3.8 mmol/L (3.5-5.1); Protein, Total 7.1 g/dL (6.4-8.2); Sodium Level 141 mmol/L (136-145); Triglycerides 118 mg/dL; Very Low Density Lipoprotein 24 mg/dL (5-40)
== END ==
PROVIDERS: PCP Internal Medicine; Referring Provider Internal Medicine; Visit Provider Internal Medicine
DX: Z00.00 Encounter for general adult medical examination without abnormal findings (principal); C61 Malignant neoplasm of prostate
CPT/HCPCS: 36415; 80053; 80061; 85025

== ENCOUNTER → 2020-09-02 10:32 | Outpatient (CLI) | payer MEDICARE, OTHER, SELFPAY ==
[2020-08-08 13:12] VITALS: BMI 23.8
[2020-09-02 11:54] LABS: PSA,Total- Diagnostic < 0.01 ng/mL (0.0-4.0)
== END ==
PROVIDERS: PCP Internal Medicine; Referring Provider Urology; Visit Provider Urology
DX: C61 Malignant neoplasm of prostate (principal)
CPT/HCPCS: 36415; 84153

== ENCOUNTER → 2021-02-27 08:55 | Outpatient (CLI) | payer MEDICARE, OTHER, SELFPAY ==
[2020-08-08 13:12] VITALS: BMI 23.8
--- NOTE | 2021-02-27 09:05 | US_ITS ---
STUDY: ABDOMINAL ULTRASOUND - RIGHT UPPER QUADRANT REASON FOR VISIT: Male, 80 years old R UPPER QUADRANT PAIN TECHNIQUE: Ultrasound evaluation of the right upper quadrant was performed with real-time and static flores-scale imaging. TECHNICAL QUALITY: Adequate. COMPARISON: Comparison is made with prior examination dated 03/11/2020. FINDINGS: Liver: The liver measures 14.2 cm. There is normal echogenicity of the liver. The bile ducts are within normal limits. There is hepatic color flow. The direction of portal flow is hepatopetal. There is a 3.2 cm x 3.3 cm x 3.6 cm cyst in the right lobe. This is unchanged. Gallbladder: Normal distended gallbladder. The gallbladder wall measures 1.5 mm. There is a negative sonographic Solitario''s sign. There is no pericholecystic fluid. There are no gallstones. Common Bile Duct (C.B.D.): The common bile duct measures 2.4 mm. Pancreas: Normal size of the head, body and tail of the pancreas. There is normal echogenicity of the pancreas. There is no demonstrated pancreatic mass or cyst. Right Kidney: Normal size of the right kidney. The right kidney measures 10.2 cm x 4.2 cm x 4.1 cm. Normal renal cortex. The right cortex measures 1.0 cm. There is no demonstrated renal mass or cyst. There is no right hydronephrosis. US/Abdomen Limited IMPRESSION: Stable 3.2 cm x 3.3 cm x 3.6 cm cyst in the right lobe of the liver. Electronically Signed: Ab Tyson MD at 12:18 EDT , Service support ,
[2021-02-27 10:07] LABS: PSA,Total- Diagnostic < 0.01 ng/mL (0.0-4.0)
== END ==
PROVIDERS: Urology; PCP Internal Medicine; Referring Provider Internal Medicine; Visit Provider Internal Medicine
DX: R10.11 Right upper quadrant pain (principal); C61 Malignant neoplasm of prostate
CPT/HCPCS: 36415; 76705; 84153

== ENCOUNTER → 2021-06-23 08:19 | Outpatient (CLI) | payer MEDICARE, OTHER, SELFPAY ==
[2021-06-23 09:25] LABS: Absolute Lymphocyte Count 1.34 X10^3/uL (0.83-4.51); Absolute Neutrophil Count 2.2 X10^3/uL (2.0-7.7); Basophil# 0.05 X10^3/uL; Basophil% 1.1 % (0-1); Eosinophil# 0.15 X10^3/uL; Eosinophils% 3.4 % (0-5); Lymphocyte # 1.34 X10^3/ul (0.83-4.51); Lymphocyte % 30.5 % (19-41); Mean Corp Hgb Conc 32.6 g/dL (32-36); Mean Corpuscular Hgb 30.9 pg (27.0-32.0); Mean Corpuscular Volume 94.7 fL (80-94); Mean Platelet Vol. 10.6 fl (6.2-12.0); Monocyte% 15.9 % (0-10); NRBC Flagged by Analyzer 0 % (0-5); Neutrophil # 2.16 X10^3/uL (2.7-7.7); Neutrophil % 49.1 % (47-70); Platelet Count 229 K/mm3 (150-450); RBC Distribution Width CV 13.2 % (11.6-14.6); RBC Distribution Width SD 46.1 fl (35.1-43.9); Red Blood Count 4.86 M/mm3 (4.6-6.2); White Blood Count 4.4 K/mm3 (4.4-11.0)
[2021-06-23 09:54] LABS: ALB/GLOB Ratio 0.9 RATIO (0.9-2.4); AST(SGOT) 24 U/L (15-37); Alanine Aminotransfer ALT/SGPT 31 U/L (16-61); Albumin, Serum 3.3 g/dL (3.2-5.0); Alkaline Phosphatase 81 U/L (45-117); Anion Gap 5 (5-15); BUN 14 mg/dL (7-18); BUN/Creat Ratio 14.2 RATIO (10-20); Calcium,Total 8.9 mg/dL (8.5-10.1); Chloride 109 mmol/L (98-107); Cholesterol 145 mg/dL (200); Creatinine, Serum 0.99 mg/dL (0.70-1.30); EST Glomerular Filtration Rate 77 mL/min (>60); Est Glom Filt Rate - Afr Amer 94 mL/min (>60); Globulin 3.6 g/dL (2.2-4.2); Glucose 97 mg/dL (74-106); High Density Lipoprotein 56 mg/dL; Potassium 3.7 mmol/L (3.5-5.1); Protein, Total 6.9 g/dL (6.4-8.2); Sodium Level 142 mmol/L (136-145); Triglycerides 59 mg/dL; Very Low Density Lipoprotein 12 mg/dL (5-40)
== END ==
PROVIDERS: PCP Internal Medicine; Referring Provider Internal Medicine; Visit Provider Internal Medicine
DX: E78.5 Hyperlipidemia, unspecified (principal)
CPT/HCPCS: 36415; 80053; 80061; 85025

== ENCOUNTER → 2021-07-09 12:11 | Outpatient (CLI) | payer MEDICARE, OTHER, SELFPAY ==
--- NOTE | 2021-07-16 12:34 | EKG12_ITS ---
Test Reason : Blood Pressure : / mmHG Vent. Rate : 080 BPM Atrial Rate : 080 BPM P-R Int : 166 ms QRS Dur : 136 ms QT Int : 408 ms P-R-T Axes : 058 -32 024 degrees QTc Int : 470 ms Sinus rhythm with frequent Premature ventricular complexes Left axis deviation Right bundle branch block Abnormal ECG Confirmed by RANDY MITCHELL, ITALIA ([id number]), editorial assistant HERBERTH COULTER ([id number]) on 07/16/2021 12:36:07 PM Referred By: Vikrma Jay Confirmed By:ROGERIO PADILLA MD
== END ==
PROVIDERS: PCP Internal Medicine; Referring Provider Internal Medicine; Visit Provider Internal Medicine
DX: I49.9 Cardiac arrhythmia, unspecified (principal)
CPT/HCPCS: 93005

== ENCOUNTER → 2021-07-26 07:15 | Outpatient (CLI) | payer MEDICARE, OTHER, SELFPAY ==
--- NOTE | 2021-07-26 12:59 | STRESSREP ---
Stress Test Report Exercise my cardial perfusion stress test. 80-year-old man with a history of an abnormal EKG. Stress protocol: Resting KG demonstrates sinus rhythm with a rate of 67 bpm and right bundle branch block. Resting blood pressure is 116/82 mmHg. Patient exercised according to regular Antonio protocol for total duration of 9 minutes. The maximum heart rate attained 150 bpm which was 107% of max infected heart rate the maximum workload was 10.1 metabolic equivalents. At rest there were no ST or T wave changes noted to suggest ischemia at peak exercise upsloping ST changes were noted with did not meet the criteria for ischemia. Premature ventricular complexes were noted during recovery. No clinical angina was noted the test was terminated due to leg fatigue. Myocardial perfusion protocol. 11.1 mCi of technetium 99m sestamibi was injected at rest. The patient exercised according to regular Antonio protocol for 9 minutes and at peak exercise 32.2 mCi of technetium 99m sestamibi was injected stress images were obtained stress and rest images were reconstructed and compared in the short axis vertical long horizontal long axis. Gated images were also obtained per Perfusion SPECT analysis: Review of the stress images demonstrate normal uptake of tracer noted in all areas of the myocardium. The resting images similarly demonstrate normal uptake of tracer noted in all areas of the myocardium. No reversibility is noted suggest ischemia and no previous infarct is noted. Gated SPECT analysis: The gated ejection fraction is 78%. Conclusion: Normal exercise myocardial perfusion stress test with no evidence of ischemia at a high workload. Preserved ejection fraction.
== END ==
PROVIDERS: PCP Internal Medicine; Referring Provider Internal Medicine; Visit Provider Internal Medicine
DX: R94.31 Abnormal electrocardiogram [ECG] [EKG] (principal)
CPT/HCPCS: 78452; 93017; A9500; A4216

== ENCOUNTER → 2021-09-14 14:19 | Outpatient (CLI) | payer MEDICARE, OTHER, SELFPAY ==
[2021-09-14 15:08] LABS: PSA,Total- Diagnostic < 0.01 ng/mL (0.0-4.0)
== END ==
PROVIDERS: PCP Internal Medicine; Visit Provider Urology
DX: C61 Malignant neoplasm of prostate (principal)
CPT/HCPCS: 36415; 84153

== ENCOUNTER → 2022-03-05 | Outpatient (CLI) | payer MEDICARE, OTHER, SELFPAY ==
[2022-03-05 11:16] LABS: PSA,Total - Annual Screen < 0.01 ng/mL (0.00-4.00)
== END | disposition home or self-care (01) ==
LOC: LAB 09:58
PROVIDERS: PCP Internal Medicine; Referring Provider Urology; Visit Provider Urology
DX: Z12.5 Encounter for screening for malignant neoplasm of prostate (principal); C61 Malignant neoplasm of prostate
CPT/HCPCS: 36415; 84153; G0103

== ENCOUNTER → 2022-06-20 | Outpatient (CLI) | payer MEDICARE, OTHER, SELFPAY ==
[2022-06-20 09:39] LABS: Absolute Lymphocyte Count 1.57 X10^3/uL (0.83-4.51); Absolute Neutrophil Count 2.4 X10^3/uL (2.0-7.7); Basophil# 0.02 X10^3/uL; Basophil% 0.4 % (0-1); Eosinophil# 0.14 X10^3/uL; Eosinophils% 2.9 % (0-5); Hematocrit 46.5 % (40-54); Hemoglobin 15.4 g/dL (13.0-16.5); Lymphocyte # 1.57 X10^3/ul (0.83-4.51); Lymphocyte % 32.2 % (19-41); Mean Corp Hgb Conc 33.1 g/dL (32-36); Mean Corpuscular Hgb 31.4 pg (27.0-32.0); Mean Corpuscular Volume 94.9 fL (80-94); Mean Platelet Vol. 9.8 fl (6.2-12.0); Monocyte# 0.75 X10^3/uL; Monocyte% 15.4 % (0-10); NRBC Flagged by Analyzer 0 % (0-5); Neutrophil # 2.38 X10^3/uL (2.7-7.7); Neutrophil % 48.9 % (47-70); Platelet Count 269 K/mm3 (150-450); RBC Distribution Width CV 13.4 % (11.6-14.6); RBC Distribution Width SD 47.6 fl (35.1-43.9); White Blood Count 4.9 K/mm3 (4.4-11.0)
[2022-06-20 10:15] LABS: ALB/GLOB Ratio 0.9 RATIO (0.9-2.4); AST(SGOT) 28 U/L (15-37); Alanine Aminotransfer ALT/SGPT 32 U/L (16-61); Albumin, Serum 3.4 g/dL (3.2-5.0); Alkaline Phosphatase 90 U/L (45-117); Anion Gap 7 (5-15); BUN 17 mg/dL (7-18); BUN/Creat Ratio 16.2 RATIO (10-20); Calcium,Total 9.3 mg/dL (8.5-10.1); Chloride 105 mmol/L (98-107); Cholesterol 170 mg/dL (200); Creatinine, Serum 1.05 mg/dL (0.70-1.30); EST Glomerular Filtration Rate 72 mL/min (>60); Est Glom Filt Rate - Afr Amer 87 mL/min (>60); Globulin 3.9 g/dL (2.2-4.2); Glucose 102 mg/dL (74-106); High Density Lipoprotein 53 mg/dL; Potassium 4.2 mmol/L (3.5-5.1); Protein, Total 7.3 g/dL (6.4-8.2); Sodium Level 140 mmol/L (136-145); Triglycerides 135 mg/dL; Very Low Density Lipoprotein 27 mg/dL (5-40)
== END | disposition home or self-care (01) ==
LOC: LAB 09:03
PROVIDERS: PCP Internal Medicine; Referring Provider Internal Medicine; Visit Provider Internal Medicine
DX: E78.5 Hyperlipidemia, unspecified (principal); I10 Essential (primary) hypertension
CPT/HCPCS: 80053; 80061; 85025

== ENCOUNTER → 2022-09-07 | Outpatient (CLI) | payer MEDICARE, OTHER, SELFPAY ==
[2022-09-07 12:06] LABS: PSA,Total- Diagnostic < 0.01 ng/mL (0.0-4.0)
== END | disposition home or self-care (01) ==
LOC: LAB 11:10
PROVIDERS: PCP Internal Medicine; Referring Provider Urology; Visit Provider Urology
DX: C61 Malignant neoplasm of prostate (principal)
CPT/HCPCS: 36415; 84153

== ENCOUNTER → 2023-01-09 | Outpatient (CLI) | payer MEDICARE, OTHER, SELFPAY ==
--- NOTE | 2023-01-09 14:59 | CT_ITS ---
EXAM: CT Abdomen And Pelvis W/ Contrast Injection HISTORY: Abdominal pain -- Looking specifically for right spigelian hernia TECHNIQUE: Routine protocol CT abdomen pelvis. IV Contrast: IV 100mL Isovue-300 . Oral Contrast: with. Sagittal and coronal images were reconstructed. RADIATION DOSAGE (If Supplied By Facility): CTDIvol = ( 12.39 ) mGy, DLP = ( 392.96 ) mGycm Individualized dose optimization techniques were used for this CT. COMPARISON: CT abdomen and pelvis 04/21/2020. LIMITATIONS: None. FINDINGS: LOWER CHEST: Dependent opacities in the lung bases likely atelectasis. LIVER: 3.5 cm cyst unchanged. 2 tiny low-attenuation structures in the right lobe likely cysts but too small to characterize, unchanged. GALLBLADDER/BILE DUCTS: Unremarkable. PANCREAS: Unremarkable. SPLEEN: Unremarkable. ADRENAL GLANDS: Unremarkable. KIDNEYS / URETERS: Length 5 cm cyst in the right kidney. Otherwise unremarkable. No hydronephrosis. BOWEL / MESENTERY: Unremarkable. No bowel obstruction. APPENDIX: Identified and normal. No evidence of acute appendicitis. PERITONEUM: No free air. No free fluid. VESSELS: Abdominal aorta is normal caliber. RETROPERITONEUM: Unremarkable. REPRODUCTIVE ORGANS: Unremarkable. BLADDER: Unremarkable. ABDOMINAL WALL: Small left inguinal hernia containing only fat, no bowel. No spigelian hernia identified. BONES: Degenerative changes in the lumbar spine. OTHER: None. CT/Abdomen/Pelvis WITH Contrast IMPRESSION: No acute findings. Small fat-containing left inguinal hernia without evidence of complication. Electronically Signed: Nichelle Jones MD at 7:53 EDT ,
[2023-01-09 15:51] LABS: CREATININE FINGERSTICK < 0.9 mg/dL (0.70-1.30); EGFR FINGERSTICK > 60.0000 mL/min (>60)
== END | disposition home or self-care (01) ==
LOC: CT 14:58
PROVIDERS: PCP Internal Medicine; Referring Provider Surgery; Visit Provider Surgery
DX: R10.9 Unspecified abdominal pain (principal)
CPT/HCPCS: 74177; Q9967

== ENCOUNTER → 2023-03-13 | Outpatient (CLI) | payer MEDICARE, OTHER, SELFPAY ==
[2023-03-13 14:26] LABS: PSA,Total - Annual Screen < 0.01 ng/mL (0.00-4.00)
== END | disposition home or self-care (01) ==
LOC: LAB 13:04
PROVIDERS: PCP Internal Medicine; Referring Provider Urology; Visit Provider Urology
DX: C61 Malignant neoplasm of prostate (principal); Z12.5 Encounter for screening for malignant neoplasm of prostate
CPT/HCPCS: 36415; 84153; G0103

== ENCOUNTER → 2023-06-21 | Outpatient (CLI) | payer MEDICARE, OTHER, SELFPAY ==
[2023-06-21 09:57] LABS: Absolute Lymphocyte Count 1.52 X10^3/uL (0.83-4.51); Absolute Neutrophil Count 2.2 X10^3/uL (2.0-7.7); Basophil# 0.06 X10^3/uL; Basophil% 1.3 % (0-1); Eosinophil# 0.11 X10^3/uL; Eosinophils% 2.4 % (0-5); Hematocrit 47.9 % (40-54); Hemoglobin 16.1 g/dL (13.0-16.5); Lymphocyte # 1.52 X10^3/ul (0.83-4.51); Lymphocyte % 33.4 % (19-41); Mean Corp Hgb Conc 33.6 g/dL (32-36); Mean Corpuscular Hgb 31.7 pg (27.0-32.0); Mean Corpuscular Volume 94.3 fL (80-94); Mean Platelet Vol. 9.7 fl (6.2-12.0); Monocyte# 0.69 X10^3/uL; Monocyte% 15.2 % (0-10); NRBC Flagged by Analyzer 0 % (0-5); Neutrophil # 2.16 X10^3/uL (2.7-7.7); Neutrophil % 47.5 % (47-70); Platelet Count 246 K/mm3 (150-450); RBC Distribution Width CV 13.2 % (11.6-14.6); RBC Distribution Width SD 46.1 fl (35.1-43.9); Red Blood Count 5.08 M/mm3 (4.6-6.2); White Blood Count 4.6 K/mm3 (4.4-11.0)
[2023-06-21 10:29] LABS: AST(SGOT) 21 U/L (15-37); Alanine Aminotransfer ALT/SGPT 33 U/L (16-61); Albumin, Serum 3.7 g/dL (3.2-5.0); Alkaline Phosphatase 91 U/L (45-117); Anion Gap 3 (5-15); BUN 16 mg/dL (7-18); BUN/Creat Ratio 14.2 RATIO (10-20); Calcium,Total 9.1 mg/dL (8.5-10.1); Chloride 108 mmol/L (98-107); Cholesterol 164 mg/dL (200); Creatinine, Serum 1.13 mg/dL (0.70-1.30); EST Glomerular Filtration Rate 66 mL/min (>60); Est Glom Filt Rate - Afr Amer 80 mL/min (>60); Globulin 3.6 g/dL (2.2-4.2); Glucose 100 mg/dL (74-106); High Density Lipoprotein 62 mg/dL; Potassium 4.3 mmol/L (3.5-5.1); Protein, Total 7.3 g/dL (6.4-8.2); Sodium Level 139 mmol/L (136-145); Triglycerides 103 mg/dL; Very Low Density Lipoprotein 21 mg/dL (5-40)
== END | disposition home or self-care (01) ==
LOC: LAB 09:31
PROVIDERS: PCP Internal Medicine; Referring Provider Internal Medicine; Visit Provider Internal Medicine
DX: E78.5 Hyperlipidemia, unspecified (principal)
CPT/HCPCS: 36415; 80053; 80061; 85025

== ENCOUNTER → 2023-09-13 | Outpatient (CLI) | payer MEDICARE, OTHER, SELFPAY ==
[2023-09-13 11:16] LABS: PSA,Total- Diagnostic < 0.01 ng/mL (0.0-4.0)
== END | disposition home or self-care (01) ==
LOC: LAB 10:07
PROVIDERS: PCP Internal Medicine; Referring Provider Urology; Visit Provider Urology
DX: C61 Malignant neoplasm of prostate (principal)
CPT/HCPCS: 36415; 84153

== ENCOUNTER → 2024-03-15 | Outpatient (CLI) | payer MEDICARE, OTHER, SELFPAY ==
[2024-03-15 15:08] LABS: PSA,Total- Diagnostic < 0.01 ng/mL (0.0-4.0)
== END | disposition home or self-care (01) ==
PROVIDERS: PCP Internal Medicine; Referring Provider Urology; Visit Provider Urology
DX: C61 Malignant neoplasm of prostate (principal)
CPT/HCPCS: 36415; 84153

== ENCOUNTER 2024-03-26 13:27 | Emergency (ER) | payer MEDICARE, OTHER, SELFPAY ==
[2024-03-26 13:29] VITALS: BP 134/83; PULSE 83; RESP 16; TEMP 36.2; O2SAT 97; BMI 22.3
--- NOTE | 2024-03-26 13:42 | RAD_ITS ---
STUDY: X-RAY CHEST REASON FOR EXAM: Male, 83 years old. Chest discomfort following a recent fall. TECHNIQUE: PA and lateral views of the chest. COMPARISON: None. FINDINGS: There is hyperinflation of the lungs consistent with chronic obstructive lung disease (COPD). There is no demonstrated pleural abnormality. Normal size heart. Calcified bilateral hilar lymph nodes. Normal visualized pulmonary arteries. There is atherosclerotic tortuosity of the aortic arch and descending thoracic aorta. There are diffuse degenerative changes of the visualized thoracic spine. Calcific tendinitis of the left shoulder. There is no demonstrated abnormality of the visualized soft tissue structures of the upper abdomen. RAD/Chest PA and Lateral IMPRESSION: Hyperinflation. No acute abnormality is seen. Electronically Signed: Ab Tyson MD at 14:25 EDT ,
--- NOTE | 2024-03-26 13:42 | EKG12_ITS ---
Test Reason : CHEST OTHER Blood Pressure : / mmHG Vent. Rate : 071 BPM Atrial Rate : 071 BPM P-R Int : 190 ms QRS Dur : 140 ms QT Int : 424 ms P-R-T Axes : 047 -51 -07 degrees QTc Int : 460 ms Normal sinus rhythm Left axis deviation Right bundle branch block Abnormal ECG Confirmed by Gurvinder Doran ([id number]), publication editor HERBERTH COULTER ([id number]) on 03/30/2024 6:03:34 AM Referred By: Confirmed By:Gurvinder Doran
--- NOTE | 2024-03-26 13:43 | ED.VIS.CHEST ---
HPI History of Present Illness Chief Complaint: Chest Other Narrative Narrative: 83-year-old male presenting after a fall a couple of days ago. He states he was on the [place] hiking and he fell landing on his outstretched hands. He had a little dirt on his sugar but did not think he hurt anything. He noted later that he was having some pain with straining such as lifting himself up or pushing himself off the bed. He was able to hike yesterday and was hiking up long hills and did not have any chest pain with this. He has no shortness of breath, lightheadedness. Patient states that he was playing table tennis this morning and noted that it was a little sore then. He went to urgent care to be evaluated and they sent him to the ER for chest pain workup. PFSH [facility] Medical History Monocytosis Allergic rhinitis COVID-19 Dermatitis Educated about COVID-19 virus infection Hypertension Localized superficial swelling of skin Flu vaccine need Health care maintenance GERD (gastroesophageal reflux disease) Arrhythmia Abdominal pain prostate issues High cholesterol cataracts History of cancer Seasonal allergies Home Medications ?Medication ?Instructions ?Recorded ?Last Taken ?Type atorvastatin 40 mg tablet (Lipitor) 40 mg PO DAILY #90 tabs 06/26/23 Unknown Rx mupirocin 2 % topical ointment topical BID 03/26/24 Unknown History sildenafil 50 mg tablet 50 mg PO PRN ED 03/26/24 Unknown History Allergy/AdvReac Type Severity Reaction Status Date / Time No Known Allergies Allergy Verified 03/26/24 13:32 Family History Mother Heart disease Other Cancer Surgical History S/P skin cancer resection H/O knee surgery History of prostate surgery Social History Smoking Status: Never smoker alcohol intake: never substance use type: does not use what type of physical activity do you participate in: walking, bicycling and weight training ROS ROS ED Constitutional Constitutional ED: Denies chills, fever(s) or sweats Eyes Eyes: Denies blurry vision or change in vision ENT ENT ED: Denies ear pain or sore throat Cardiovascular Cardiovascular: Reports as per HPI; Denies palpitations or racing heartbeat Respiratory/Chest Respiratory/Chest: Denies cough, dyspnea or sputum Gastrointestinal Gastrointestinal: Denies abdominal pain, constipation, diarrhea, nausea or vomiting Genitourinary Genitourinary ED: Denies dysuria, hematuria or urinary frequency Musculoskeletal Musculoskeletal: Denies arthralgias, myalgias or neck pain Integumentary Denies abscess, Abrasions or rash Neurologic Neurologic: Denies headache(s), paresthesias or weakness Psychiatric Psychiatric: Denies anxiety, depression, suicidal ideation or suicidal thoughts Endocrine Endocrinology: Denies polydipsia or polyuria EXAM Physical Exam Const Vital Signs: 03/26/24 13:29 03/26/24 13:45 03/26/24 13:46 Temperature 97.2 F L Temperature Source Temporal Pulse Rate 83 Respiratory Rate 16 Respiratory Effort Normal Non-Labored Blood Pressure 134/83 H Blood Pressure Mean 100 Pulse Ox 97 93 Oxygen Delivery Method Room Air Room Air Positive well nourished General Appearance ED: NAD HEENT Reports moist mucous membranes Eyes PERRL and EOMs intact bilaterally Chest Wall Chest Narrative: Tenderness palpation over the central sternum. No deformities. No bruising. Resp normal respiratory effort and clear to auscultation bilaterally Auscultation: Negative for rales, rhonchi or wheezes Cardio regular rate and regular rhythm Neuro oriented x3 and CN's II-XII intact bilaterally Sensorium / Orientation: awake and alert Psych mental status grossly normal Skin no rashes or lesions noted MDM MDM MDM Narrative Medical decision making narrative: Patient presenting with chest pain. Differential includes costochondritis, ACS, pneumonia, rib fracture, sternal fracture, pneumothorax. The patient's pain is most consistent with costochondritis however due to concern that could be cardiac. CBC will be obtained to assess white blood cell count, hemoglobin, platelets. BMP to assess renal function, electrolytes, glucose. High-sensitivity troponin and EKG to assess for ischemia/dysrhythmia. Chest x-ray to rule out pneumonia, pneumothorax, fracture. CBC shows normal white blood cell count, hemoglobin, platelets. BMP normal renal function electrolytes. High-sensitivity troponin is 4. EKG interpreted by myself shows a normal sinus rhythm with a ventricular to 71 bpm right bundle branch block pattern. No acute ischemic changes. Chest x-ray interpreted by myself shows no acute abnormalities. Radiology interprets this and agrees. Patient workup ultimately negative. I do not believe he needs a delta troponin states that the pain since yesterday. Patient discharged in stable condition. Impression: 1. Chest pain Lab Data Attestation: I reviewed the patient's lab results. Labs: Laboratory Results - last 24 hr 03/26/24 14:06 WBC 6.0 RBC 4.85 Hgb 14.9 Hct 44.7 MCV 92.2 MCH 30.7 MCHC 33.3 RDW Std Deviation 45.5 H RDW Coeff of Ana 13.3 Plt Count 239 MPV 10.0 Immature Gran % (Auto) 0.300 Neut % (Auto) 60.2 Lymph % (Auto) 24.3 [place] % (Auto) 12.4 H Eos % (Auto) 2.0 Baso % (Auto) 0.8 Absolute Neuts (auto) 3.6 Absolute Lymphs (auto) 1.47 Nucleated RBC % 0 Sodium 139 Potassium 3.6 Chloride 109 H Carbon Dioxide 25.0 Anion Gap 5 BUN 16 Creatinine 1.00 Estim Creat Clear Calc 45.86 Est GFR (MDRD) Af Amer 91 Est GFR (MDRD) Non-Af 76 BUN/Creatinine Ratio 16.0 Glucose 114 H Calcium 9.2 Troponin I High Sens 4 Radiography Diagnostic Testing: Clinical Impression(s) from Imaging Studies Chest X-Ray 03/26/24 13:42 IMPRESSION: Hyperinflation. No acute abnormality is seen. Electronically Signed: Ab Tyson MD at 14:25 EDT , Discharge Plan Triage Chief Complaint: Chest Other ED Provider: Imtiaz Muniz Dx/Rx/DC Orders Instructions: ED Chest Wall Pain, Costochondritis Prescriptions: No Action atorvastatin [Lipitor] 40 mg tablet 40 mg PO DAILY Qty: 90 3RF sildenafil 50 mg tablet 50 mg PO PRN (Reason: ED) mupirocin 2 % ointment topical BID Primary Care Provider: Vikram Jay Referrals: Vikram Jay MD [Primary Care Provider] - Print Language: [place] Disposition Disposition: Home, Self Care
[2024-03-26 13:46] VITALS: O2SAT 93
[2024-03-26 14:30] LABS: Absolute Lymphocyte Count 1.47 X10^3/uL (0.83-4.51); Absolute Neutrophil Count 3.6 X10^3/uL (2.0-7.7); Basophil# 0.05 X10^3/uL; Basophil% 0.8 % (0-1); Eosinophil# 0.12 X10^3/uL; Hematocrit 44.7 % (40-54); Hemoglobin 14.9 g/dL (13.0-16.5); Lymphocyte # 1.47 X10^3/ul (0.83-4.51); Lymphocyte % 24.3 % (19-41); Mean Corp Hgb Conc 33.3 g/dL (32-36); Mean Corpuscular Hgb 30.7 pg (27.0-32.0); Mean Corpuscular Volume 92.2 fL (80-94); Monocyte# 0.75 X10^3/uL; Monocyte% 12.4 % (0-10); NRBC Flagged by Analyzer 0 % (0-5); Neutrophil # 3.63 X10^3/uL (2.7-7.7); Neutrophil % 60.2 % (47-70); Platelet Count 239 K/mm3 (150-450); RBC Distribution Width CV 13.3 % (11.6-14.6); RBC Distribution Width SD 45.5 fl (35.1-43.9); Red Blood Count 4.85 M/mm3 (4.6-6.2)
[2024-03-26 14:40] LABS: Anion Gap 5 (5-15); BUN 16 mg/dL (7-18); Calcium,Total 9.2 mg/dL (8.5-10.1); Chloride 109 mmol/L (98-107); EST Glomerular Filtration Rate 76 mL/min (>60); Est Glom Filt Rate - Afr Amer 91 mL/min (>60); Estimated Creatinine Clearance 45.86 ml/min; Glucose 114 mg/dL (74-106); Potassium 3.6 mmol/L (3.5-5.1); Sodium Level 139 mmol/L (136-145); Troponin-I HS 4 pg/mL (3.0-78.0)
[2024-03-26 15:35] VITALS: BP 124/78; PULSE 81; RESP 16; TEMP 36.6; O2SAT 97
== END 2024-03-26 15:35 | disposition home or self-care (01) ==
PROVIDERS: Emergency Provider Student in an Organized Health Care Education/Training Program; PCP Internal Medicine; Visit Provider Student in an Organized Health Care Education/Training Program
DX: R07.9 Chest pain, unspecified (principal); I45.10 Unspecified right bundle-branch block; Z86.16 Personal history of COVID-19; I10 Essential (primary) hypertension
CPT/HCPCS: 71046; 80048; 84484; 85025; 93005; 99284; A4216

== ENCOUNTER → 2024-07-03 | Outpatient (CLI) | payer MEDICARE, OTHER, SELFPAY ==
[2024-07-03 11:16] LABS: AST(SGOT) 20 U/L (15-37); Alanine Aminotransfer ALT/SGPT 29 U/L (16-61); Albumin, Serum 3.4 g/dL (3.2-5.0); Alkaline Phosphatase 91 U/L (45-117); Cholesterol 160 mg/dL (200); Globulin 3.6 g/dL (2.2-4.2); High Density Lipoprotein 63 mg/dL; Triglycerides 152 mg/dL; Very Low Density Lipoprotein 30 mg/dL (5-40)
== END | disposition home or self-care (01) ==
LOC: LAB 10:44
PROVIDERS: PCP Internal Medicine; Referring Provider Internal Medicine; Visit Provider Internal Medicine
DX: E78.5 Hyperlipidemia, unspecified (principal)
CPT/HCPCS: 36415; 80061; 80076

== ENCOUNTER → 2024-09-11 | Outpatient (CLI) | payer MEDICARE, OTHER, SELFPAY ==
[2024-09-11 11:10] LABS: PSA,Total- Diagnostic < 0.01 ng/mL (0.0-4.0)
== END | disposition home or self-care (01) ==
LOC: LAB 09:44
PROVIDERS: PCP Internal Medicine; Referring Provider Nurse Practitioner; Visit Provider Nurse Practitioner
DX: C61 Malignant neoplasm of prostate (principal)
CPT/HCPCS: 36415; 84153

== ENCOUNTER 2024-10-12 11:18 | Day surgery (SDC) | payer MEDICARE, OTHER, SELFPAY ==
--- NOTE | 2024-10-11 12:17 | PAT.ANE_ITS ---
Pre-Assessment Diagnosis/Proposed Procedure Planned Operative Procedure(s): COLONOSCOPY Anesthesia History Anesthesia History - scallop cutter machine: Anesthesia History - scallop cutter machine Hx Hospitalization No 10/11/24 08:56 Any Problems With Anesthesia No 10/11/24 08:56 Cholinesterase deficiency No 10/11/24 08:56 You/Your Family Experience No 10/11/24 08:56 fever (hyperthermia) with Relationship Recent Exposure to Contagious Disease Does patient have nerve No 10/11/24 08:56 stimulator Patient instructed to have device shut off --Does patient have Pacemaker or ICD? When Was Last Pacemaker Check QUESTION #4 FULL TEXT: You/Your Family Experience fever (hyperthermia) with Anesthesia Last Oral Intake Last Oral intake: Last Oral Intake NPO since Meds taken in AM with sips of water? Meds patient instructed to take am of surgery PONV PONV - scallop cutter machine: PONV - scallop cutter machine Female No 10/11/24 08:56 HX of Motion Sickness No 10/11/24 08:56 HX of N/V After Surgery No 10/11/24 08:56 Non-Smoker Yes 10/11/24 08:56 Duration of Surgery greater No 10/11/24 08:56 than 60 minutes Number of Risk Factors 1 10/11/24 08:56 PONV Score Low Risk 10/11/24 08:56 Height & Weight Height & Weight: Anesthesia: Height & Weight Height 5 ft 4 in 07/02/24 09:32 Respiratory Assessment Respiratory Assessment - scallop cutter machine: Respiratory Tract Infection Hx - scallop cutter machine Hx Respiratory Tract Infection No 10/11/24 08:56 STOP Sleep Apnea STOP Sleep Apnea - scallop cutter machine: STOP Sleep Apnea - scallop cutter machine Hx Hypertension No 10/11/24 08:56 Hx Sleep Apnea No 10/11/24 08:56 CPAP BIPAP Do you snore loudly (louder Yes 10/11/24 08:56 than talking or can be heard Do you often feel tired/ No 10/11/24 08:56 fatigued/ sleepy during daytime? Has anyone observed you stop No 10/11/24 08:56 breathing during sleep? STOP Results Negative 10/11/24 08:56 QUESTION #5 FULL TEXT : Do you snore loudly (louder than talking or can be heard through closed doors)? 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 Specify any problems Hx of Preganancy in last 3 N/A 10/11/24 08:56 Months Nurse Filling Out Transfusion [email or web address] 10/11/24 08:56 & Questions: Date: 10/11/24 10/11/24 08:56 Time: 08:59 10/11/24 08:56 Patient unable to answer at this time (ie. confused, unrespo /Reproduction History /Reproductive History - scallop cutter machine: /Reproductive Hx- scallop cutter machine Hx Now Gestational Age (in weeks): EDC: Hx Hx Para Hx Section SAB PFSH Medical History (Updated 10/11/24 @ 09:03 by Codey Reardon) Non-smoker History of stress test Impacted cerumen, left ear Pruritus Musculoskeletal chest pain Monocytosis Allergic rhinitis COVID-19 Dermatitis Educated about COVID-19 virus infection Hypertension Localized superficial swelling of skin Flu vaccine need Health care maintenance GERD (gastroesophageal reflux disease) Arrhythmia Abdominal pain prostate issues High cholesterol cataracts History of cancer Seasonal allergies Home Medications ?Medication ?Instructions ?Recorded ?Last Taken ?Type mupirocin 2 % topical ointment 1 applic topical BID 03/26/24 Unknown History hydrocortisone 2.5 % topical cream 1 applic topical BID PRN itching 07/01/24 Unknown Rx #28.35 grams atorvastatin 40 mg tablet (Lipitor) 40 mg PO DAILY #90 tabs 07/19/24 Unknown Rx omeprazole 40 mg capsule,delayed 40 mg PO DAILY PRN GERD 10/11/24 Unknown History release Allergy/AdvReac Type Severity Reaction Status Date / Time No Known Allergies Allergy Verified 10/11/24 08:54 Family History Mother Heart disease Other Cancer Surgical History (Updated 10/11/24 @ 09:03 by Codey Reardon) S/P skin cancer resection H/O knee surgery History of prostate surgery Social History Smoking Status: Never smoker alcohol intake: never substance use type: does not use what type of physical activity do you participate in: walking, bicycling and weight training Audit: Pertinent Findings Pertinent Findings EKG Perinent findings: 03/26/2024 normal sinus rhythm 71 right bundle branch b lock Stress test pertinent findings: Normal EF 78% 07/26/2021 Recommendation Anesthesia Recommendation Anesthesia recommendation: OPTIMIZED for anesthesia
[2024-10-12] VITALS (7 sets, daily range): BP systolic 120–133; BP diastolic 69–81; PULSE 56–73; RESP 14–16; TEMP 36.2–37.1; O2SAT 96–98; BMI 23.1
--- NOTE | 2024-10-12 12:25 | PRE.ANES_ITS ---
ASA Classification* ASA Classification ASA Classification: 2 Assessment & Plan Anesthesia* Anesthesia Assessment Anesthesia Assessment: Discussed sedation and/or anesthesia options, risks, benefits, and alternatives with patient/parents/legal guardian/POA. Questions invited. The patient/parents/legal guardian/POA seems to understand and agrees to proceed with anesthesia plan. Reviewed the physical assessment, medical history, allergy history and patient home medications list prior to surgery/procedure/anesthetic and documented any changes. Performed airway and anesthesia risk assessments. Anesthesia Type Anesthesia Type: MAC History Source History Obtained from:: Patient and Chart Anesthesia Focused Assessment* Temperature: 98.8 F Pulse Rate: 73 Blood Pressure: 133/81 Respiratory Rate: 16 Pulse Ox: 97 Oxygen Delivery Method: Room Air Airway Assessment Mouth opens: >3 cm Mallampati Score: I Teeth Condition: Caps/Crowns (Patient has several crowns. He also has a permanent bottom bridge. Teeth are all tight.) Neck Range of motion (ROM): Full ROM Focused Labs Anesthesia Preop lab: CBC WBC 6.0 K/mm3 (4.4-11.0) 03/26/24 14:06 RBC 4.85 M/mm3 (4.6-6.2) 03/26/24 14:06 Hgb 14.9 g/dL (13.0-16.5) 03/26/24 14:06 Hct 44.7 % (40-54) 03/26/24 14:06 Plt Count 239 K/mm3 (150-450) 03/26/24 14:06 CHEMISTRY Potassium 3.6 mmol/L (3.5-5.1) 03/26/24 14:06 Sodium 139 mmol/L (136-145) 03/26/24 14:06 Phosphorus 3.6 mg/dL (2.5-4.9) 09/07/13 10:48 BUN 16 mg/dL (7-18) 03/26/24 14:06 Creatinine 1.00 mg/dL (0.70-1.30) 03/26/24 14:06 Glucose 114 mg/dL (74-106) H 03/26/24 14:06 TSH 1.71 uIU/mL (0.358-3.74) 05/03/16 08:56 COAG Pre-Assessment Diagnosis/Proposed Procedure Planned Operative Procedure(s): COLONOSCOPY Anesthesia History 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 When Was Last Pacemaker Check QUESTION #4 FULL TEXT: You/Your Family Experience fever (hyperthermia) with Anesthesia Last Oral Intake Last Oral intake: Last Oral Intake NPO since 08:45 10/12/24 12:00 Meds taken in AM with sips of water? Meds patient instructed to take am of surgery Any additional information?: Yes NPO since: 09:00 (Patient finished prep at 9 AM.) Meds taken in AM with sips of water?: No PONV PONV - public message service supervisor: PONV - public message service supervisor Female No 10/11/24 08:56 HX of Motion Sickness No 10/11/24 08:56 HX of N/V After Surgery No 10/11/24 08:56 Non-Smoker Yes 10/11/24 08:56 Duration of Surgery greater No 10/11/24 08:56 than 60 minutes Number of Risk Factors 1 10/11/24 08:56 PONV Score Low Risk 10/11/24 08:56 Height & Weight Height & Weight: Anesthesia: Height & Weight Height 5 ft 4 in 10/12/24 12:00 Weight: 61 kg 10/12/24 12:00 Body Mass Index (BMI) 23.1 10/12/24 12:00 Respiratory Assessment Respiratory Assessment - public message service supervisor: Respiratory Tract Infection Hx - public message service supervisor Hx Respiratory Tract Infection No 10/11/24 08:56 STOP Sleep Apnea STOP Sleep Apnea - public message service supervisor: STOP Sleep Apnea - public message service supervisor Hx Hypertension No 10/11/24 08:56 Hx Sleep Apnea No 10/11/24 08:56 CPAP BIPAP Do you snore loudly (louder Yes 10/11/24 08:56 than talking or can be heard Do you often feel tired/ No 10/11/24 08:56 fatigued/ sleepy during daytime? Has anyone observed you stop No 10/11/24 08:56 breathing during sleep? STOP Results Negative 10/11/24 08:56 QUESTION #5 FULL TEXT : Do you snore loudly (louder than talking or can be heard through closed doors)? 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 Specify any problems Hx of Preganancy in last 3 N/A 10/11/24 08:56 Months Nurse Filling Out Transfusion [email or web address] 10/11/24 08:56 & Questions: Date: 10/11/24 10/11/24 08:56 Time: 08:59 10/11/24 08:56 Patient unable to answer at this time (ie. confused, unrespo /Reproduction History /Reproductive History - public message service supervisor: /Reproductive Hx- public message service supervisor Hx Now Gestational Age (in weeks): EDC: Hx Hx Para Hx Section SAB PFSH Medical History Non-smoker History of stress test Impacted cerumen, left ear Pruritus Musculoskeletal chest pain Monocytosis Allergic rhinitis COVID-19 Dermatitis Educated about COVID-19 virus infection Hypertension Localized superficial swelling of skin Flu vaccine need Health care maintenance GERD (gastroesophageal reflux disease) Arrhythmia Abdominal pain prostate issues High cholesterol cataracts History of cancer Seasonal allergies Home Medications ?Medication ?Instructions ?Recorded ?Last Taken ?Type mupirocin 2 % topical ointment 1 applic topical BID 03/26/24 Unknown History hydrocortisone 2.5 % topical cream 1 applic topical BID PRN itching 07/01/24 Unknown Rx #28.35 grams atorvastatin 40 mg tablet (Lipitor) 40 mg PO DAILY #90 tabs 07/19/24 Unknown Rx omeprazole 40 mg capsule,delayed 40 mg PO DAILY PRN GERD 10/11/24 Unknown History release Allergy/AdvReac Type Severity Reaction Status Date / Time No Known Allergies Allergy Verified 10/12/24 11:51 Family History Mother Heart disease Other Cancer Surgical History S/P skin cancer resection H/O knee surgery History of prostate surgery Social History Smoking Status: Never smoker alcohol intake: never substance use type: does not use what type of physical activity do you participate in: walking, bicycling and weight training Review of Systems (Anesthesia) ROS Narrative System reviewed and no additional complaints, except as documented.
--- NOTE | 2024-10-12 12:38 | PCM.HP.STD ---
HPI - General General Date of Admission: 10/12/24 Date of Service: 10/12/24 HPI Narrative GINA RAMSAY, is a 84 M who presents Chief Complaint: colonscopy Details: GINA RAMSAY, is a 83 M who presents to the office today for establishment with [facility]. Pt is here today for a colonoscopy. His last one was with Dr. Ballard over five years ago. He has a hx of polyps and recommendation was for repeat colonoscopy in 5 years. He has some RLQ pain off and on for a few years now. He has had gallbladder workup without pertinent abnormality. He has some diarrhea on occasion which is newer to him. He finds this concerning as he has never had this before.He denies heartburn, n/v, constipation or melena. [facility] Medical History Non-smoker History of stress test Impacted cerumen, left ear Pruritus Musculoskeletal chest pain Monocytosis Allergic rhinitis COVID-19 Dermatitis Educated about COVID-19 virus infection Hypertension Localized superficial swelling of skin Flu vaccine need Health care maintenance GERD (gastroesophageal reflux disease) Arrhythmia Abdominal pain prostate issues High cholesterol cataracts History of cancer Seasonal allergies Home Medications ?Medication ?Instructions ?Recorded ?Last Taken ?Type mupirocin 2 % topical ointment 1 applic topical BID 03/26/24 Unknown History hydrocortisone 2.5 % topical cream 1 applic topical BID PRN itching 07/01/24 Unknown Rx #28.35 grams atorvastatin 40 mg tablet (Lipitor) 40 mg PO DAILY #90 tabs 07/19/24 Unknown Rx omeprazole 40 mg capsule,delayed 40 mg PO DAILY PRN GERD 10/11/24 Unknown History release Allergy/AdvReac Type Severity Reaction Status Date / Time No Known Allergies Allergy Verified 10/12/24 11:51 Family History Mother Heart disease Other Cancer Surgical History S/P skin cancer resection H/O knee surgery History of prostate surgery Social History Smoking Status: Never smoker alcohol intake: never substance use type: does not use what type of physical activity do you participate in: walking, bicycling and weight training ROS Constitutional Constitutional: Denies fatigue, fever(s), poor appetite, weight gain or weight loss Gastrointestinal Gastrointestinal: Denies belching, bloating, change in bowel habits, change in stool character, chewing difficulty, coffee ground emesis, constipation, cramping, diarrhea, dyspepsia, dysphagia, early satiety, excessive flatus, fecal incontinence, heartburn, hematemesis, hematochezia, hemorrhoids, loose stools, melena, nausea, odynophagia, rectal bleeding, tenesmus, vomiting or weight changes Vital Signs Vital Signs Vital Signs: 10/12/24 12:00 10/12/24 12:00 10/12/24 12:33 Temperature 98.8 F 98.8 F Temperature Source Temporal Pulse Rate 73 73 Respiratory Rate 16 16 Respiratory Pattern Normal Blood Pressure 133/81 H 133/81 H Blood Pressure Mean 98 Blood Pressure Source Monitor Blood Pressure Position Semi-Fowlers Blood Pressure Location Right Arm Pulse Ox 97 97 Oxygen Delivery Method Room Air Room Air Weight Weight: 134 lb 7.712 oz Body Mass Index (BMI) 23.1 Physical Exam Const alert, oriented x3, no apparent distress and healthy appearing General Appearance: cooperative GI normal to inspection, nondistended, normoactive bowel sounds, soft to palpation, non-tender and non-distended Percussion: normal to percussion Rectal Exam: deferred Assessment & Plan Assessment/Plan (1) Colonic polyp: (2) Diarrhea: PLAN: Assessment and Plan Assessment and Plan (1) Colonic polyp: Status: Acute Plan: This is an 83 yo male here today for establishment with [facility]. Pt has previously seen Dr. Ballard with his last colonoscopy being in 5 years ago with polyps. He is here today to get scheduled for a colonoscopy. He has occasional diarrhea and RLQ pain but no other GI symptoms. He will undergo colonoscopy and pending this we may consider further work up for his diarrhea and pain -Colonoscopy -F/u after procedure -Consider further work upw ith stool testing for EPI
--- NOTE | 2024-10-12 13:15 | PCM.POST.ANE ---
Anesthesia: Postop Eval I Current Vital Signs Temperature: 97.2 F Pulse Rate: 57 Blood Pressure: 127/72 Respiratory Rate: 16 Pulse Ox: 98 Oxygen Delivery Method: Room Air Assessment Airway patent: Yes Spontaneous unlabored respirations: Yes Mental status: Asleep nausea: No Vomiting: No Anesthesia Complication: No Fluid Hydration Crystalloid volume administer (ml): 40 Total IV fluid infused: 40 Progress Note Anesthesia document: Postop Eval 1 completed: Yes
--- NOTE | 2024-10-12 13:17 | OP.CCLET_ITS ---
10/12/2024 Vikram Jay MD [address] [place] [address] Re : Colonoscopy procedure for Lam Boss Dear Dr. Jay This procedure was performed on Saturday, October 12, 2024. My impressions and recommendations are as follows: Impressions : - Diverticulosis in the recto-sigmoid colon. - No specimens collected. Recommendations : - Discharge patient to home. - Resume previous diet. - Continue present medications. - Repeat colonoscopy in 5 years for surveillance. My findings are described in the full procedure note, which is enclosed. If I can be of further assistance, please feel free to contact me at . Sincerely, Andi Friend, 10/12/2024 1:16:36 PM This report has been signed electronically.
--- NOTE | 2024-10-12 13:17 | OP.COLON_ITS ---
Patient Name: Lam Boss Procedure Date: 10/12/2024 12:43 PM Date of : 1940 Age: 84 Procedure: Colonoscopy Indications: High risk colon cancer surveillance: Personal history of colonic polyps Providers: Andi Patterson DO Referring MD: Andi Patterson DO Medicines: Monitored Anesthesia Care Patient Profile: This is an 84 year old male. Refer to note in patient chart for documentation of history and physical. Last Colonoscopy: 5 years ago. Complications: No immediate complications. Procedure: Pre-Anesthesia Assessment: - Prior to the procedure, a History and Physical was performed, and patient medications and allergies were reviewed. The patient is competent. The risks and benefits of the procedure and the sedation options and risks were discussed with the patient. All questions were answered and informed consent was obtained. Patient identification and proposed procedure were verified by the physician in the pre-procedure area. Mental Status Examination: alert and oriented. Airway Examination: normal oropharyngeal airway and neck mobility. Respiratory Examination: clear to auscultation. CV Examination: normal. Prophylactic Antibiotics: The patient does not require prophylactic antibiotics. Prior Anticoagulants: The patient has taken no anticoagulant or antiplatelet agents except for NSAID medication. ASA Grade Assessment: II - A patient with mild systemic disease. After reviewing the risks and benefits, the patient was deemed in satisfactory condition to undergo the procedure. The anesthesia plan was to use monitored anesthesia care (MAC). Immediately prior to administration of medications, the patient was re-assessed for adequacy to receive sedatives. The heart rate, respiratory rate, oxygen saturations, blood pressure, adequacy of pulmonary ventilation, and response to care were monitored throughout the procedure. The physical status of the patient was re-assessed after the procedure. After I obtained informed consent, the scope was passed under direct vision. Throughout the procedure, the patient's blood pressure, pulse, and oxygen saturations were monitored continuously. The colonoscope was introduced through the anus and advanced to the cecum, identified by appendiceal orifice and ileocecal valve. The colonoscopy was performed without difficulty. The patient tolerated the procedure well. The quality of the bowel preparation was adequate. The ileocecal valve, appendiceal orifice, and rectum were photographed. Scope In: 12:52:31 PM Scope Withdrawal Time 0 hours 8 minutes 14 seconds Scope Out: 1:06:42 PM Total Procedure Duration Time 0 hours 14 minutes 11 seconds Findings: The perianal and digital rectal examinations were normal. A few small-mouthed diverticula were found in the recto-sigmoid colon. No other significant abnormalities were identified in a careful examination of the remainder of the colon. Impression: - Diverticulosis in the recto-sigmoid colon. - No specimens collected. Recommendation: - Discharge patient to home. - Resume previous diet. - Continue present medications. - Repeat colonoscopy in 5 years for surveillance. Procedure Code(s): --- Professional --- G0105, Colorectal cancer screening; colonoscopy on individual at high risk CPT copyright 2021 [employer]. All rights reserved. The codes documented in this report are preliminary and upon mfts review may be revised to meet current compliance requirements. Andi Patterson DO 10/12/2024 1:16:36 PM This report has been signed electronically. Number of Addenda: 0 Note Initiated On: 10/12/2024 12:43 PM
--- NOTE | 2024-10-12 15:51 | PCM.POSTANE2 ---
Anesthesia Postop Eval I Sum Postop Eval Completion status Anesthesia document: Postop Eval 1 completed: Yes Anesthesia Postop Eval I Summary Anesthesia Postop Eval I Summary: Anesthesia Postop Eval I: Assessment Summary Airway patent Yes 10/12/24 13:16 [email or web address] Spontaneous unlabored Yes 10/12/24 13:16 [email or web address] respirations Mental status Asleep 10/12/24 13:16 [email or web address] nausea No 10/12/24 13:16 [email or web address] Vomiting No 10/12/24 13:16 [email or web address] Anesthesia Postop Eval I: Fluid Summary Crystalloid volume administer 40 10/12/24 13:16 [email or web address] (ml) Colloids volume administered ( ml) Blood Product volume administered (ml) Total IV fluid infused 40 10/12/24 13:16 [email or web address] Anesthesia Postop Eval I: Summary Notes Anesthesia Complication No 10/12/24 13:16 [email or web address] Anesthesia Complication Comment: Post-operative progress note Anesthesia: Postop Eval II Evaluation Mental status: Awake and Calm Pain Level: 0 nausea: No Vomiting: No Complications Anesthesia Complication: No
== END 2024-10-12 13:53 | disposition home or self-care (01) ==
LOC: EN 11:19 → AC 11:20
PROVIDERS: PCP Internal Medicine; Referring Provider Internal Medicine Gastroenterology; Visit Provider Internal Medicine Gastroenterology
PROC: 0DJD8ZZ Inspection of Lower Intestinal Tract, Via Natural or Artificial Opening Endoscopic (ICD-10-PCS; CPT 45378; principal; 2024-10-12 12:25)
DX: Z12.11 Encounter for screening for malignant neoplasm of colon (principal); R19.7 Diarrhea, unspecified; E78.00 Pure hypercholesterolemia, unspecified; K63.5 Polyp of colon; I10 Essential (primary) hypertension; Z86.0100 Personal history of colon polyps, unspecified; K57.90 Diverticulosis of intestine, part unspecified, without perforation or abscess without bleeding; Z79.899 Other long term (current) drug therapy; K21.9 Gastro-esophageal reflux disease without esophagitis
CPT/HCPCS: G0105; A4216; J2405

== ENCOUNTER → 2025-03-05 | Outpatient (CLI) | payer MEDICARE, OTHER, SELFPAY ==
[2025-03-05 13:03] LABS: PSA,Total- Diagnostic < 0.02 ng/mL (0.00-4.00)
== END | disposition home or self-care (01) ==
LOC: LAB 09:56
PROVIDERS: PCP Internal Medicine; Referring Provider Nurse Practitioner; Visit Provider Nurse Practitioner
DX: C61 Malignant neoplasm of prostate (principal)
CPT/HCPCS: 36415; 84153

== ENCOUNTER → 2025-05-25 | Outpatient (CLI) | payer MEDICARE, OTHER, SELFPAY ==
--- NOTE | 2025-05-25 15:40 | RAD_ITS ---
PROCEDURE: CHEST PA AND LATERAL 05/25/2025 REASON FOR EXAM: FALL TECHNIQUE: CHEST PA AND LATERAL COMPARISON: 03/26/2024. FINDINGS: The heart is normal in size. The lungs are clear. Hyperinflated lungs. No acute osseous abnormalities. RAD/Chest PA and Lateral IMPRESSION: NO ACUTE FINDINGS. Reading Location: [id number]
[2025-05-25 17:33] LABS: Anion Gap 12 (5-15); BUN 20 mg/dL (4-19); BUN/Creat Ratio 20.3 RATIO (10-20); Calcium,Total 9.3 mg/dL (7.6-11.0); Carbon Dioxide 23.2 mmol/L (21.0-32.0); Chloride 105 mmol/L (98-108); Glucose 114 mg/dL (70-99); Potassium 3.7 mmol/L (3.3-5.1)
== END | disposition home or self-care (01) ==
LOC: LAB 15:19
PROVIDERS: PCP Internal Medicine; Referring Provider Internal Medicine Cardiovascular Disease; Visit Provider Internal Medicine Cardiovascular Disease
DX: R55 Syncope and collapse (principal); W19.XXXD Unspecified fall, subsequent encounter
CPT/HCPCS: 36415; 71046; 80048

== ENCOUNTER → 2025-05-26 | Outpatient (CLI) | payer MEDICARE, OTHER, SELFPAY ==
--- NOTE | 2025-05-26 09:30 | ECHOD_ITS ---
Reason For Study Reason For Study: Syncope Procedure This was a 2D Doppler, Color Flow transthoracic echocardiogram. Exam performed in department. Left Ventricle Normal left ventricle. The left ventricular ejection fraction is 60 %. No regional wall motion abnormalities noted. Right Ventricle Normal RV size. Normal systolic function. Atria Normal left atrium. Normal right atrium. Mitral Valve Normal mitral valve. Mild (1+) eccentric mitral valve insufficiency. Tricuspid Valve Normal tricuspid valve. Mild (1+) tricuspid valve insufficiency. Pulmonary artery systolic pressure is 27 mmHg. Aortic Valve Trisinus/trileaflet aortic valve. Mild (1+) aortic valve insufficiency. Pulmonic Valve Normal pulmonic valve. Trivial pulmonic valve insufficiency. Great Vessels Normal aortic root. The pulmonary artery is normal size. Inferior vena cava collapse with respiration. Pericardium/Pleural No pericardial effusion. MMode/2D Measurements & Calculations LVIDd: 4.6 cm IVSd: 0.83 cm Ao root diam: 3.7 cm LVIDs: 2.9 cm LVPWd: 0.90 cm RVDd: 3.5 cm FS: 36.4 % LAV(MOD-bp): 57.3 ml LVAd ap4: 25.6 cm2 SV(MOD-sp4): 41.6 ml LAV(MOD-bp) Indexed: 34.9 ml/m2 LVLd ap4: 7.3 cm SI(MOD-sp4): 25.4 ml/m2 LAV(MOD-sp2): 52.3 ml EDV(MOD-sp4): 74.2 ml LAV(MOD-sp4): 51.1 ml EDV(sp4-el): 76.7 ml LVAs ap4: 15.5 cm2 LVLs ap4: 6.2 cm ESV(MOD-sp4): 32.5 ml ESV(sp4-el): 32.9 ml EF(MOD-sp4): 56.1 % EF(sp4-el): 57.1 % SV(sp4-el): 43.8 ml LA A4 area: 19.4 cm2 LA dimension(2D): 4.3 cm RA A4 area: 16.7 cm2 Time Measurements MV dec time: 0.18 sec Doppler Measurements & Calculations MV E max melvin: 71.5 cm/sec Lat Peak E' Melvin: 9.4 cm/sec Med Peak E' Melvin: 7.9 cm/sec MV A max melvin: 64.0 cm/sec E/E' lat: 7.6 E/E' med: 9.1 MV E/A: 1.1 MV V2 max: 84.4 cm/sec MV P1/2t max melvin: 81.5 cm/sec Ao V2 max: 139.2 cm/sec MV max P.9 mmHg MV P1/2t: 69.1 msec Ao max P.8 mmHg MV V2 mean: 47.9 cm/sec Ao V2 mean: 94.8 cm/sec MV mean P.1 mmHg MV dec slope: 345.7 cm/sec2 Ao mean P.2 mmHg MV V2 VTI: 29.6 cm MVA(P1/2t): 3.2 cm2 Ao V2 VTI: 32.5 cm AV (velocity ratio): 0.79 AI max melvin: 475.9 cm/sec LV V1 max: 113.1 cm/sec PA V2 max: 101.5 cm/sec AI max P.7 mmHg LV V1 max P.1 mmHg PA V2 mean: 71.1 cm/sec LV V1 mean P.8 mmHg AI dec slope: 267.4 cm/sec2 LV V1 mean: 78.5 cm/sec AI P1/2t: 521.3 msec LV V1 VTI: 25.8 cm TR max melvin: 240.0 cm/sec TR max P.0 mmHg ECHO/Echo Complete Interpretation Summary The left ventricular ejection fraction is 60 %. Normal left ventricle. Mild (1+) aortic valve insufficiency. Mild (1+) eccentric mitral valve insufficiency. Ordering Physician: Alvin Sams Referring Physician: Alvin Sams Performed By: Seng Turner RCS
== END | disposition home or self-care (01) ==
PROVIDERS: PCP Internal Medicine; Referring Provider Internal Medicine Cardiovascular Disease; Visit Provider Internal Medicine Cardiovascular Disease
DX: R55 Syncope and collapse (principal)
CPT/HCPCS: 93306

== ENCOUNTER 2025-05-31 10:16 | Day surgery (SDC) | payer MEDICARE, OTHER, SELFPAY ==
[2025-05-30 10:44] VITALS: BMI 22.4
--- NOTE | 2025-05-31 12:46 | CL.IE_ITS ---
Patient: GINA RAMSAY Study Date: 05/31/2025 Performing: Alvin Sams MD : 1940 Age: 84 Gender: male PROCEDURES PERFORMED LP01-([id number])INSERTION OF LOOP RECORDER INDICATIONS Syncope PROCEDURE DETAILS The patient was brought to the Catheterization Lab in the postabsorptive nonsedated state. Informed consent was obtained prior to the procedure. Incision was made to the left upper chest. Steri-strips applied to Lt chest area. The patient tolerated the procedure well. Estimated Blood Loss: < 10 mls IMPLANTED / EX-PLANTED DEVICES IMPLANTED DEVICE(S): ICM Loop Recorder - Land [employer] Technician: [employer]/1calendar, Model # [id number] , Serial # [id number] DEVICE PARAMETERS CONCLUSIONS / RECOMMENDATIONS Device Conclusions: Successful implantation of a patient activated loop recorder. Device Recommendations: Follow up with Primary Care Physician PROCEDURE MEDICATIONS Versed 1 mg IV Oxygen: 2 L/min via nasal cannula Ancef 1 Gm IV @ 05/31/2025 11:56:30 Signed By Alvin Sams MD On 05/31/2025 12:45:37 Alvin Sams MD
== END 2025-05-31 13:30 | disposition home or self-care (01) ==
PROVIDERS: PCP Internal Medicine; Referring Provider Internal Medicine Cardiovascular Disease; Visit Provider Internal Medicine Cardiovascular Disease
DX: R55 Syncope and collapse (principal); I45.10 Unspecified right bundle-branch block; E78.00 Pure hypercholesterolemia, unspecified; Z79.899 Other long term (current) drug therapy
CPT/HCPCS: 33285; 99152; 99153

== ENCOUNTER → 2025-06-25 | Outpatient (CLI) | payer MEDICARE, OTHER, SELFPAY ==
--- OUTSIDE RECORDS SUMMARY | 2025-06-25 08:56 | XMS RPT_ITS | CCD ---
Author Organization [facility] Providers Care Ocean Export Coordinator Name Role Phone Glenn Montano Unavailable Unavailable UNKNOWN, PCP Unavailable Unavailable Albaro Ray MD Unavailable Glenn Montano Unavailable Unavailable Adrian Gomez Unavailable Unavailable Unavailable Primary Care Provider Dr. Vikram Peters Primary Care Provider 1(33 0) Dr. Vikram Jay Attending Provider 1(330)2 Dr. Vikram Jay Referring Provider 1(330)2 Dr. Vikram Jay Primary Care Provider 1(33 0) Dr. Vikram Jay Attending Provider 1(330)2 Dr. Vikram Jay Referring Provider 1(330)2 JULISA Cloud Attending Provider Dr. Vikram Jay Primary Care Provider 1(33 0) Dr. Vikram Jay Referring Provider 1(330)2 JULISA Cloud Attending Provider Dr. Vikram Jay Attending Provider 1(330)2 AMIRA Elliott NP Attending Provider [phone] Dr. Vikram Jay Primary Care Provider 1(33 0) Dr. Vikram Jay Referring Provider 1(330)2 Dr. Daniel Siddiqui Attending Provider Dr. Vikram Jay Primary Care Provider 1(33 0) Dr. Vikram Jay Attending Provider 1(330)2 Dr. Vikram Jay Referring Provider 1(330)2 Misty MITCHELL, Dr. Sue Primary Care Provider McraeNancy Attending Provider Mcrae, Nancy Referring Provider Misty MITCHELL, Dr. Sue Referring Provider 1(33 0) NURSE, BIM Attending Provider Unavailable Misty MITCHELL, Dr. Sue Attending Provider 1(33 0) Ungerer ACCOUNT LIAISON-CMaris Attending Provider 1(330)2 Latrell MITCHELL, Dr. Esquivel Attending Provider 1(330) Latrell MITCHELL, Dr. Esquivel Referring Provider 1(330) Oleghe, Efewongbe Referring Unavailable Oleghe, Efewongbe Attending Unavailable Oleghe, Efewongbe Primary Care Unavailable Friend, Andi Referring Unavailable Friend, Andi Attending Unavailable Oleghe, Efewongbe Primary Care Unavailable Mcrae, Nancy Referring Unavailable McraeNancy Attending Unavailable Oleghe, Efewongbe Primary Care Unavailable Oleghe, Efewongbe Primary Care Unavailable Oleghe, Efewongbe Referring Unavailable Oleghe, Efewongbe Attending Unavailable Oleghe, Efewongbe Primary Care Unavailable Latrell, Alvin Attending Unavailable Latrell, Kulm Referring Unavailable Oleghe, Efewongbe Primary Care Unavailable Latrell Kulm Attending Unavailable Oleghe, Efewongbe Primary Care Unavailable Friend, Andi Referring Unavailable Friend, Andi Attending Unavailable Friend, Andi Consulting Unavailable Oleghe, Efewongbe Referring Unavailable Oleghe, Efewongbe Attending Unavailable Oleghe, Efewongbe Primary Care Unavailable Oleghe, Efewongbe Referring Unavailable Oleghe, Efewongbe Primary Care Unavailable Lele Serrano Attending Unavailable Oleghe, Efewongbe Primary Care Unavailable Oleghe, Efewongbe Referring Unavailable Alvin Sams Attending Unavailable Oleghe, Efewongbe Referring Unavailable Sarita Chadwick Attending Unavailable [facility], [facility] Unavailable [facility], [facility] Referring Unavailable Maris Ariza Attending Unavailable [facility], [facility] Unavailable McraeNancy Referring Unavailable McraeNancy Attending Unavailable [facility], [facility] Primary Care Unavailable Latrell, Kulm Attending Unavailable Latrell, Alvin Referring Unavailable Olee, Efewongbe Primary Care Unavailable Latrell, Kulm Referring Unavailable Latrell, Kulm Attending Unavailable Allergies Allergy Classification Reported Allergen(s) Allergy Type Date of Onset Reaction(s) Facility Cephalosporins (antibiotic) (1 source) Cephalexin Drug Allergy 1 Itching [facility] Unclassified (1 source) Seasonal allergy Propensity to adverse reactions 1 Other: See Comments [facility] (2 sources) Cephalexin Drug Allergy 0 Suspected, Unknown [facility] Work Phone: Medications Current Medications Medication Drug Class(es) Dates Sig (Normalized) Sig (Original) hydrocortisone 25 mg/ml topical cream (20 sources) Corticosteroid Start: 07-01-2024 Hydrocortisone 2.5 % cream Active 1 NMA TOPICAL TWICE A DAY as needed for itching 28.35 July 01, 2024 12:00am Start: 08-08-2020 End: 09-04-2021 Hydrocortisone Acetate (Anuc ort-Hc) 25 mg suppository Discontinued 25 mg RC TWICE A DAY as needed for hemorrhoids 29 11August 08, 2020 1:00am September 04, 2021 11:24am omeprazole 40 mg delayed release oral capsule (20 sources) Proton Pump Inhibitor Start: 04-14-2024 End: 10-11-2024 take 1 capsule by mouth once daily 30 minutes before breakfast for gastroesophageal reflux disease Omeprazole 40 mg capsule,delayed release(DR/EC) Active 40 mg PO DAILY as needed for GERD October 11, 2024 1:00am Take 30 minutes before breakfast. Start: 07-03-2021 End: 05-06-2022 take 1 capsule by mouth once daily 30 minutes before breakfast Omeprazole 40 mg capsule,delayed release(DR/EC) Discontinued 40 mg PO DAILY 90 July 03, 2021 12:00am May 06, 2022 2:45pm Take 30 minutes before breakfast Completed/Discontinued Medications Medication Drug Class(es) Dates Sig (Normalized) Sig (Original) acetaminophen 325 mg / HYDROcodone bitartrate 5 mg oral tablet (14 sources) Opioid Agonist Start: 01-08-2018 End: 04-05-2020 Hydrocodone-Acetami nophen 1 EACH tablet Discontinued 1 NMA PO EVERY 4 HOURS NEEDED as needed for Pain 10 3 January 08, 2018 7:38am April 05, 2020 10:10am Malignant neoplasm of prostate Start: 01-08-2018 End: 04-05-2020 Hydrocodone-Acetaminophen Di scontinued 1 EACH PO EVERY 4 HOURS NEEDED 10 3 January 08, 2018 6:38am April 05, 2020 9:10am atorvastatin 40 mg oral tablet (20 sources) HMG-CoA Reductase Inhibitor Start: 12-18-2017 End: 07-19-2024 take 1 tablet by mouth once daily Atorvastatin (Lipitor) 40 mg tablet Discontinued 40 mg PO DAILY 90 3 April 26, 2021 10:02am June 25, 2022 10:29am cephalexin 500 mg oral capsule (20 sources) Cephalosporin Antibacterial Start: 05-18-2022 End: 06-25-2022 take 1 capsule by mouth twice daily Cephalexin 500 mg capsule Discontinued 500 mg PO TWICE A DAY 20 0 May 18, 2022 12:00am June 25, 2022 10:08am Start: 01-08-2018 End: 04-05-2020 take 1 capsule by mouth every eight hours Cephalexin 500 MG capsule Discontinued 500 mg PO EVERY 8 HOURS 30 January 08, 2018 12:00am April 05, 2020 10:10am docusate sodium 100 mg oral capsule (14 sources) Start: 01-08-2018 End: 04-05-2020 take 1 capsule by mouth twice daily Docusate Sodium 100 MG capsule Discontinued 100 mg PO TWICE A DAY 20 January 08, 2018 12:00am April 05, 2020 10:10am famotidine 20 mg oral tablet (14 sources) Histamine-2 Receptor Antagonist Start: 07-03-2021 End: 07-03-2021 take 1 tablet by mouth once daily Famotidine (Pepcid) 20 mg tablet Discontinued 20 mg PO DAILY July 03, 2021 12:00am July 03, 2021 9:16am Fluad Quad (65yr up)(PF) 60 mcg (15 mcg x 4)/0.5mL IM syringe (flu vac (1 source) Start: 07-17-2021 End: 07-17-2021 Fluad Quad (65yr up)(PF) 60 mcg (15 mcg x 4)/0.5mL IM syringe (flu vac Discontinued 60 MCG IM ONCE 0.5 July 17, 2021 1:25pm July 17, 2021 1:33pm meloxicam 15 mg oral tablet (7 sources) Nonsteroidal Anti-inflammatory Drug Start: 04-14-2024 End: 10-11-2024 take 1 tablet by mouth once daily as needed for pain Meloxicam 15 mg tablet Discontinued 15 mg PO DAILY as needed for pain 60 1 April 14, 2024 12:00am October 11, 2024 9:54am Miconazole (7 sources) Azole Antifungal Start: 07-01-2024 End: 10-11-2024 Miconazole Nitrate 2 % powder Discontinued 1 NMA TOPICAL TWICE A DAY 85 0 July 01, 2024 12:00am October 11, 2024 9:54am Start: 07-01-2024 End: 10-11-2024 Miconazole Nitrate 2 % powde r Discontinued 1 NMA TOPICAL TWICE A DAY July 01, 2024 12:00am October 11, 2024 9:54am mupirocin 0.02 mg/mg topical ointment (7 sources) RNA Synthetase Inhibitor Antibacterial Start: 03-26-2024 End: 04-13-2025 Mupirocin 2 % ointment Discontinued 1 NMA TOPICAL TWICE A DAY March 26, 2024 12:00am April 13, 2025 10:48am Nirmatrelvir-Ritonav ir (13 sources) Start: 05-06-2022 End: 05-18-2022 Nirmatrelvir-Ritonavir (Paxlovid (Eua)) 300 mg (150 mg x 2)-100 mg tablets,dose pack Discontinued 0 PO .COMPLEX 30 0 May 06, 2022 12:00am May 18, 2022 11:07am take TWO 150 mg tablets of nirmatrelvir with ONE 100 mg tablet of ritonavir twice daily for 5 days PO Start: 05-06-2022 End: 05-18-2022 Nirmatrelvir-Ritonavir (Paxl ovid (Eua)) 300 mg (150 mg x 2)-100 mg tablets,dose pack Discontinued 0 PO .COMPLEX May 05, 2022 11:00pm May 18, 2022 10:07am take TWO 150 mg tablets of nirmatrelvir with ONE 100 mg tablet of ritonavir twice daily for 5 days PO Start: 05-06-2022 End: 05-18-2022 Nirmatrelvir-Ritonavir (Paxl ovid (Eua)) 300 mg (150 mg x 2)-100 mg tablets,dose pack Discontinued 0 PO .COMPLEX May 06, 2022 12:00am May 18, 2022 11:07am take TWO 150 mg tablets of nirmatrelvir with ONE 100 mg tablet of ritonavir twice daily for 5 days PO sildenafil 50 mg oral tablet (7 sources) Phosphodiesterase 5 Inhibitor Start: 03-26-2024 End: 04-14-2024 Sildenafil 50 mg tablet Discontinued 50 mg PO as needed for ED March 26, 2024 12:00am April 14, 2024 2:42pm tamsulosin hydrochloride 0.4 mg oral capsule (15 sources) alpha-Adrenergic Fariba Start: 12-23-2017 End: 04-05-2020 take 1 capsule by mouth once daily Tamsulosin 0.4 MG capsule Discontinued 0.4 mg PO DAILY December 23, 2017 12:00am April 05, 2020 10:10am prostate Problems Active Problems Problem Classification Problem Date Documented Da te Episodic/Chronic Abdominal pain (20 sources) Right upper quadrant pain; Translations: [Right upper quadrant pain] Episodic Administrative/social admission (14 sources) Education with explicit context; Translations: [Other specified counseling] Episodic Allergic reactions (14 sources) Inflammatory dermatosis; Translations: [Dermatitis, unspecified] Episodic Cancer of prostate (17 sources) Malignant neoplasm of prostate; Translations: [Malignant tumor of prostate] Onset: 8 01-07-2018 Chronic Cardiac dysrhythmias (18 sources) Cardiac arrhythmia; Translations: [Cardiac arrhythmia, unspecified] Onset: Chronic Cataract (13 sources) Bilateral cataracts 05-04-2022 Chronic Conduction disorders (8 sources) Right bundle branch block; Translations: [Unspecified right bundle-branch block] 05-25-2025 Chronic Diseases of white blood cells (9 sources) Monocytosis; Translations: [Monocytosis (symptomatic)] 06-26-2023 Chronic Disorders of lipid metabolism (19 sources) Mixed hyperlipidemia; Translations: [Mixed hyperlipidemia] Onset: 4 Chronic E Codes: Fall (11 sources) Fall; Translations: [Unspecified fall, initial encounter] 04-14-2024 Episodic Esophageal disorders (15 sources) Gastroesophageal reflux disease; Translations: [Gastro-esophageal reflux disease without esophagitis] Chronic Essential hypertension (18 sources) Hypertensive disorder; Translations: [Essential (primary) hypertension] Onset: 5 Chronic Comment on above: NO MEDS Genitourinary symptoms and ill-defined conditions (1 source) Sign or symptom of the urinary system; Translations: [Other symptoms involving urinary system] Episodic Intracranial injury (11 sources) Injury of head; Translations: [Unspecified intracranial injury with loss of consciousness of unspecified duration, initial encounter] 03-26-2024 Episodic Nonspecific chest pain (15 sources) Musculoskeletal chest pain; Translations: [Other chest pain] Onset: 5 07-01-2024 Episodic Open wounds of head; neck; and trunk (1 source) Laceration without foreign body of other part of head, initial encounter; Translations: [Laceration without foreign body of other part of head, initial encounter] Onset: 5 Episodic Other and unspecified benign neoplasm (7 sources) Polyp of colon; Translations: [Polyp of colon] 08-10-2024 Episodic Other connective tissue disease (1 source) Complete rotator cuff tear or rupture of left shoulder, not specified as traumatic; Translations: [Complete rotator cuff tear or rupture of left shoulder, not specified as traumatic] Onset: 0 02-16-2020 Episodic Other ear and sense organ disorders (7 sources) Impacted cerumen; Translations: [Impacted cerumen, left ear] 07-01-2024 Episodic Other gastrointestinal disorders (7 sources) Diarrhea; Translations: [Diarrhea, unspecified] 10-12-2024 Episodic Other inflammatory condition of skin (7 sources) Pruritus, unspecified; Translations: [Pruritus] 07-01-2024 Episodic Other skin disorders (14 sources) Localized superficial swelling of skin; Translations: [Localized swelling, mass and lump, unspecified] 09-04-2021 Episodic Other upper respiratory disease (12 sources) Allergic rhinitis; Translations: [Allergic rhinitis, unspecified] 09-04-2022 Chronic Other upper respiratory disease (1 source) Allergic rhinitis, unspecified; Translations: [Allergic rhinitis, cause unspecified] Chronic Skin and subcutaneous tissue infections (15 sources) Pilonidal cyst with abscess; Translations: [Pilonidal cyst with abscess] Episodic Skull and face fractures (10 sources) Fractured nasal septum; Translations: [Fracture of nasal bones, initial encounter for closed fracture] Onset: 5 04-13-2025 Episodic Syncope (19 sources) Syncope; Translations: [Syncope and collapse] Onset: 5 Episodic Syncope (10 sources) Syncope Unclassified (2 sources) Malignant neoplasm of prostate / C61(ICD-10) Onset: 8 Unclassified (5 sources) Fracture of nasal septum Unclassified (10 sources) S02.2XXA - Fracture of nasal bones, initial encounter for closed fracture Viral infection (15 sources) Disease caused by 2019-nCoV; Translations: [COVID-19] Episodic Past or Other Problems Problem Classification Problem Date Documented Da te Episodic/Chronic Immunizations and screening for infectious disease (17 sources) Needs influenza immunization; Translations: [Encounter for immunization] Onset: 07-02-2024 Episodic Other and unspecified benign neoplasm (1 source) Polyp of colon; Translations: [Polyp of colon] Onset: 11-05-2024 Episodic Other ear and sense organ disorders (1 source) Impacted cerumen, left ear; Translations: [Impacted cerumen, left ear] Onset: 07-02-2024 Episodic Other gastrointestinal disorders (1 source) Diarrhea, unspecified; Translations: [Diarrhea, unspecified] Onset: 11-05-2024 Episodic Other non-traumatic joint disorders (1 source) Shoulder pain; Translations: [Pain in left shoulder] Onset: 12-29-2017 12-29-2017 Episodic Other screening for suspected conditions (not mental disorders or infectious disease) (2 sources) Raised prostate specific antigen; Translations: [Elevated prostate specific antigen [PSA]] Onset: 11-05-2024 Episodic Unclassified (1 source) Problem Unclassified (13 sources) prostate issues 05-04-2022 NEGATED: Highlighted row has not occurred!Residual codes; unclassified (1 source) Disease Episodic Results Test Name Value Interpretation Reference Range Facility Pacemaker reportOrdered By: Alvin Sams on 05-31-2025 Study report [facility] Imaging Services [address] [place] [address] TXT:Device Implant / Explant MR#: [id number] Acct: [id number] Name: GINA RAMSAY Rep #:[id number] : 1940 84 From: Alvin Sams MD PCP: Dr. Vikram aJy MD Status:R [facility] Patient: GINA RAMSAY Study Date: 05/31/2025 Performing: Alvin Sams MD : 1940 Age: 84 Gender: male PROCEDURES PERFORMED LP01-([id number])INSERTION OF LOOP RECORDER INDICATIONS Syncope PROCEDURE DETAILS The patient was brought to the Catheterization Lab in the postabsorptive nonsedated state. Informed consent was obtained prior to the procedure. Incision was made to the left upper chest. Steri-strips applied to Lt chest area. The patient tolerated the procedure well. Estimated Blood Loss: < 10 mls IMPLANTED / EX-PLANTED DEVICES IMPLANTED DEVICE(S): ICM Loop Recorder - [employer]: [employer], Model # [id number] , Serial # [id number] DEVICE PARAMETERS CONCLUSIONS / RECOMMENDATIONS Device Conclusions: Successful implantation of a patient activated loop recorder. Device Recommendations: Follow up with Primary Care Physician PROCEDURE MEDICATIONS Versed 1 mg IV Oxygen: 2 L/min via nasal cannula Ancef 1 Gm IV @ 05/31/2025 11:56:30 Signed By Alvin Sams MD On 05/31/2025 12:45:37 Alvin Sams MD 05/31/25 1246 Date _ Alvin Sams MD Cosigner Signature: Date (if indicated) CC: Dr. Alvin Sams MD; Dr. Vikram Jay MD ~ Date Dictated: 05/31/25 1225 Date Transcribed: 05/31/25 1245 Business Administration Teacher: [place] Signed [facility] Work Phone: TXT:Device Implant / Explant on 05-31-2025 TXT:Device Implant / Explant [facility] Imaging Services [address] [place] [address] [place] [address] TXT:Device Implant / Explant MR#: [id number] Acct: [id number] Name: GINA RAMSAY Rep #: [id number] : 1940 84 From: Alvin Sams MD PCP: Dr. Vkiram Jay MD Status:[facility] Patient: GINA RAMSAY Study Date: 05/31/2025 Performing: Alvin Sams MD : 1940 Age: 84 Gender: male PROCEDURES PERFORMED LP01-([id number])INSERTION OF LOOP RECORDER INDICATIONS Syncope PROCEDURE DETAILS The patient was brought to the Catheterization Lab in the postabsorptive nonsedated state. Informed consent was obtained prior to the procedure. Incision was made to the left upper chest. Steri-strips applied to Lt chest area. The patient tolerated the procedure well. Estimated Blood Loss: < 10 mls IMPLANTED / EX-PLANTED DEVICES IMPLANTED DEVICE(S): ICM Loop Recorder - [employer] Coach: [employer], Model # [id number] , Serial # [id number] DEVICE PARAMETERS CONCLUSIONS / RECOMMENDATIONS Device Conclusions: Successful implantation of a patient activated loop recorder. Device Recommendations: Follow up with Primary Care Physician PROCEDURE MEDICATIONS Versed 1 mg IV Oxygen: 2 L/min via nasal cannula Ancef 1 Gm IV @ 05/31/2025 11:56:30 Signed By Alvin Sams MD On 05/31/2025 12:45:37 Alvin Sams MD 05/31/25 1246 Date Alvin Sams MD Cosigner Signature: Date (if indicated) CC: Dr. Alvin Sams MD; Dr. Vikram Jay MD Date Dictated: 05/31/25 1225 Date Transcribed: 05/31/25 124 Business Administration Teacher: [place] Signed Normal [facility] Echo Completeon 05-26-2025 Echo Complete [facility] [address] [place] [address] Echo Complete 05/26/25 0942 MR#: [id number] Acct: [id number] Name: GINA RAMSAY Rep #: [id number] : 1940 84 From: Alvin Sams MD Attending Dr: Dr. Alvin Sams MD Status: REG [facility] Ordering Dr: Alvin Sams MD Date: 05/26/25 Location: [facility] Sex: M C Admitted: Reason For Study Reason For Study: Syncope Procedure This was a 2D Doppler, Color Flow transthoracic echocardiogram. Exam performed in department. Left Ventricle Normal left ventricle. The left ventricular ejection fraction is 60 %. No regional wall motion abnormalities noted. Right Ventricle Normal RV size. Normal systolic function. Atria Normal left atrium. Normal right atrium. Mitral Valve Normal mitral valve. Mild (1+) eccentric mitral valve insufficiency. Tricuspid Valve Normal tricuspid valve. Mild (1+) tricuspid valve insufficiency. Pulmonary artery systolic pressure is 27 mmHg. Aortic Valve Trisinus/trileaflet aortic valve. Mild (1+) aortic valve insufficiency. Pulmonic Valve Normal pulmonic valve. Trivial pulmonic valve insufficiency. Great Vessels Normal aortic root. The pulmonary artery is normal size. Inferior vena cava collapse with respiration. Pericardium/Pleural No pericardial effusion. MMode/2D Measurements Calculations LVIDd: 4.6 cm IVSd: 0.83 cm Ao root diam: 3.7 cm LVIDs: 2.9 cm LVPWd: 0.90 cm RVDd: 3.5 cm FS: 36.4 % LAV(MOD-bp): 57.3 ml LVAd ap4: 25.6 cm2 SV(MOD-sp4): 41.6 ml LAV(MOD-bp) Indexed: 34.9 ml/m2 LVLd ap4: 7.3 cm SI(MOD-sp4): 25.4 ml/m2 LAV(MOD-sp2): 52.3 ml EDV(MOD-sp4): 74.2 ml LAV(MOD-sp4): 51.1 ml EDV(sp4-el): 76.7 ml LVAs ap4: 15.5 cm2 LVLs ap4: 6.2 cm ESV(MOD-sp4): 32.5 ml ESV(sp4-el): 32.9 ml EF(MOD-sp4): 56.1 % EF(sp4-el): 57.1 % SV(sp4-el): 43.8 ml LA A4 area: 19.4 cm2 LA dimension(2D): 4.3 cm RA A4 area: 16.7 cm2 Time Measurements MV dec time: 0.18 sec Doppler Measurements Calculations MV E max servando: 71.5 cm/sec Lat Peak E' Servando: 9.4 cm/sec Med Peak E' Servando: 7.9 cm/sec MV A max servando: 64.0 cm/sec E/E' lat: 7.6 E/E' med: 9.1 MV E/A: 1.1 MV V2 max: 84.4 cm/sec MV P1/2t max servando: 81.5 cm/sec Ao V2 max: 139.2 cm/sec MV max P.9 mmHg MV P1/2t: 69.1 msec Ao max P.8 mmHg MV V2 mean: 47.9 cm/sec Ao V2 mean: 94.8 cm/sec MV mean P.1 mmHg MV dec slope: 345.7 cm/sec2 Ao mean P.2 mmHg MV V2 VTI: 29.6 cm MVA(P1/2t): 3.2 cm2 Ao V2 VTI: 32.5 cm AV (velocity ratio): 0.79 AI max servando: 475.9 cm/sec LV V1 max: 113.1 cm/sec PA V2 max: 101.5 cm/sec AI max P.7 mmHg LV V1 max P.1 mmHg PA V2 mean: 71.1 cm/sec LV V1 mean P.8 mmHg AI dec slope: 267.4 cm/sec2 LV V1 mean: 78.5 cm/sec AI P1/2t: 521.3 msec LV V1 VTI: 25.8 cm TR max servando: 240.0 cm/sec TR max P.0 mmHg ECHO/Echo Complete Interpretation Summary The left ventricular ejection fraction is 60 %. Normal left ventricle. Mild (1+) aortic valve insufficiency. Mild (1+) eccentric mitral valve insufficiency. Ordering Physician: Alvin Sams Referring Physician: Alvin Sams Performed By: Seng Turner RCS 05/26/25 1133 Date Alvin Sams MD CC: Dr. Alvin Sams MD; Dr. Vikram Jay MD Date Dictated: 05/26/25 0942 Date Transcribed: 05/26/25 1133 Business Administration Teacher: Signed Normal [facility] Echocardiogram study reportO rdered By: Alvin Sams on 05-26-2025 Study report [facility] [place] [address] Echo Complete 05/26/25941 MR#: [id number] Acct: [id number] Name: GINA RAMSAY Rep #:[id number] : 1940 84 From: Alvin Roberts Attending Dr: Dr. Alvin Sams MD S tatus: REG CLI Ordering Dr: Alvin Sams MD Date: Location: [facility] Sex: M C Admitted: Reason For Study Reason For Study: Syncope Procedure This was a 2D Doppler, Color Flow transthoracic echocardiogram. Exam performed in department. Left Ventricle Normal left ventricle. The left ventricular ejection fraction is 60 %. No regional wall motion abnormalities noted. Right Ventricle Normal RV size. Normal systolic function. Atria Normal left atrium. Normal right atrium. Mitral Valve Normal mitral valve. Mild (1+) eccentric mitral valve insufficiency. Tricuspid Valve Normal tricuspid valve. Mild (1+) tricuspid valve insufficiency. Pulmonary artery systolic pressure is 27 mmHg. Aortic Valve Trisinus/trileaflet aortic valve. Mild (1+) aortic valve insufficiency. Pulmonic Valve Normal pulmonic valve. Trivial pulmonic valve insufficiency. Great Vessels Normal aortic root. The pulmonary artery is normal size. Inferior vena cava collapse with respiration. Pericardium/Pleural No pericardial effusion. MMode/2D Measurements & Calculations LVIDd: 4.6 cm IVSd: 0.83 cm Ao root diam: 3.7 cm LVIDs: 2.9 cm LVPWd: 0.90 cm RVDd: 3.5 cm FS: 36.4 % LAV(MOD-bp): 57.3 ml LVAd ap4: 25.6 cm2 SV(MOD-sp4): 41.6 ml LAV(MOD-bp) Indexed: 34.9 ml/m2 LVLd ap4: 7.3 cm SI(MOD-sp4): 25.4 ml/m2 LAV(MOD-sp2): 52.3 ml EDV(MOD-sp4): 74.2 ml LAV(MOD-sp4): 51.1 ml EDV(sp4-el): 76.7 ml LVAs ap4: 15.5 cm2 LVLs ap4: 6.2 cm ESV(MOD-sp4): 32.5 ml ESV(sp4-el): 32.9 ml EF(MOD-sp4): 56.1 % EF(sp4-el): 57.1 % ___ SV(sp4-el): 43.8 ml LA A4 area: 19.4 cm2 LA dimension(2D): 4.3 cm RA A4 area: 16.7 cm2 Time Measurements MV dec time: 0.18 sec Doppler Measurements & Calculations MV E max servando: 71.5 cm/sec Lat Peak E' Servando: 9.4 cm/sec Med Peak E' Servando: 7.9 cm/sec MV A max servando: 64.0 cm/sec E/E' lat: 7.6 E/E' med: 9.1 MV E/A: 1.1 MV V2 max: 84.4 cm/sec MV P1/2t max servando: 81.5 cm/sec Ao V2 max: 139.2 cm/sec MV max P.9 mmHg MV P1/2t: 69.1 msec Ao max P.8 mmHg MV V2 mean: 47.9 cm/sec Ao V2 mean: 94.8 cm/sec MV mean P.1 mmHg MV dec slope: 345.7 cm/sec2 Ao mean P.2 mmHg MV V2 VTI: 29.6 cm MVA(P1/2t): 3.2 cm2 Ao V2 VTI: 32.5 cm AV (velocity ratio): 0.79 AI max servando: 475.9 cm/sec LV V1 max: 113.1 cm/sec PA V2 max: 101.5 cm/sec AI max P.7 mmHg LV V1 max P.1 mmHg PA V2 mean: 71.1 cm/sec LV V1 mean P.8 mmHg AI dec slope: 267.4 cm/sec2 LV V1 mean: 78.5 cm/sec AI P1/2t: 521.3 msec LV V1 VTI: 25.8 cm TR max servando: 240.0 cm/sec TR max P.0 mmHg ECHO/Echo Complete Interpretation Summary The left ventricular ejection fraction is 60 %. Normal left ventricle. Mild (1+) aortic valve insufficiency. Mild (1+) eccentric mitral valve insufficiency. Ordering Physician: Alvin Sams Referring Physician: Alvin Sams Performed By: Seng Turner RCS 05/26/25 1133 Date _ Alvin Sams MD CC: Dr. Alvin Sams MD; Dr. Vikram Jay MD ~ Date Dictated: 05/26/25941 Date Transcribed: 05/26/25 113 Business Administration Teacher: Signed [facility] Work Phone: Anion gap in Serum or Plasma Ordered By: Alvin Sams on 05-25-2025 Anion gap [Moles/Vol] 12 mmol/L 02-17 [facility] BUN/creatinine ratioOrdered By: Alvin Sams on 05-25-2025 Urea nitrogen/Creatinine [Mass ratio] 20.3 mg/mg High 07-25 [facility] Basic Metabolic Profile (BMP )on 05-25-2025 BUN/CRE 20.3 RATIO High 07-25 [facility] Comment on above: Performed By: #### L 500.0274 ####[facility] [address] [place], [address] Calcium [Mass/Vol] 9.3 mg/dL Normal 7.6-11.0 [facility] Comment on above: Performed By: #### L 500.2500 ####[facility] [address] [place], [address] Chloride [Moles/Vol] 105 mmol/L Normal 98-108 [facility] Comment on above: Performed By: #### L 500.2500 ####[facility] [address] [place], [address] CO2 [Moles/Vol] 23.2 mmol/L Normal 21.0-32.0 [facility] Comment on above: Performed By: #### L 500.2500 ####[facility] [address] [place], [address] Creatinine [Mass/Vol] 0.99 mg/dL Normal 0.70-1.20 [facility] Comment on above: Performed By: #### L 500.2500 ####[facility] [address] [place], [address] GAP 12 Normal 5-15 [facility] Comment on above: Performed By: #### L 500.2500 ####[facility] [address] [place], [address] GFR/1.73 sq M.predicted among non-blacks MDRD (S/P/Bld) [Vol rate/Area] 75 mL/min/{1.73_m2} Normal >60 [facility] Comment on above: Result Comment: mL/m in/1.73m2 CKD-EPI Creatinine Equation (2020) Performed By: #### L 500.2500 ####[facility] [address] [place], [address] Glucose [Mass/Vol] 114 mg/dL High 70-99 [facility] Comment on above: Performed By: #### L 500.2500 ####[facility] [facility] [address] [place], [address] Potassium [Moles/Vol] 3.7 mmol/L Normal 3.3-5.1 [facility] Comment on above: Performed By: #### L 500.2500 ####[facility] [address] [place], [address] Sodium [Moles/Vol] 141 mmol/L Normal 133-145 [facility] Comment on above: Performed By: #### L 500.2500 ####[facility] [address] [place], [address] Urea nitrogen [Mass/Vol] 20 mg/dL High 4-19 [facility] Comment on above: Performed By: #### L 500.2500 ####[facility] [address] [place], [address] Carbon dioxide, total [Moles /volume] in Central venous bloodOrdered By: Alvin Sams on 05-25-2025 CO2 [Moles/Vol] 23.2 mmol/L 21.0-32.0 [facility] Cardiology Visit Reporton Cardiology Visit Report [facility] [address] [place], [place] [address] OFFICE VISIT Date of Service: 05/25/25 MR#: [id number] Acct: [id number] Name: GINA RAMSAY Rep #: [id number] : 1940 Provider: Dr. Alvin Sams MD Age/Sex: 84/M Location: [facility] [place] Status: Signed HPI HPI History of Present Illness Details: 84-year-old man who comes in for an evaluation regarding syncopal episodes. He tells me that he has had 3 falls in the last 5 years the first in 2019 the second in March 2024 and then the most recent at the end of March 2025 when [place] he says that it was quite sudden he felt a black curtain, over his eyes and then he passed out and injured his forehead. 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 He does have a chronic history of a right bundle branch block which dates back at least to 2009 when it was recorded and he had an echocardiogram done which was normal. Apart from the QRS duration changing slightly there does not appear to be any significant abnormalities noted. He does not have any premonition before any of these symptoms and he has not been on any negative chronotropic agents. His physical exam demonstrates clear lung telles regular rate and rhythm and no pedal edema his stress test in 2020 demonstrated no evidence of ischemia his electrocardiogram done today demonstrates a normal sinus rhythm with a rate of 68 bpm right bundle branch block left axis deviation QRS duration is 142 ms. His EKG from March 2024 demonstrated normal sinus rhythm rate of 71 bpm QRS duration 140 ms a right bundle branch block. 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: No Accompanied by: Self Is patient in pain?: No Allergies No Known Allergies Allergy (Verified 05/25/25 13:29) Medications ???Medication ???Instructions ???Recorded ???Confirmed ???Type hydrocortisone 2.5 % topical cream 1 applic topical BID PRN itching 07/01/24 05/25/25 Rx #28.35 grams atorvastatin 40 mg tablet (Lipitor) 40 mg PO DAILY #90 tabs 4 05/25/25 Rx omeprazole 40 mg capsule,delayed 40 mg PO DAILY PRN GERD 10/11/24 0 05/25/25 History release Have you fallen in the past year?: Yes [facility] Medical History Chest pain Head injury with loss of consciousness Fall Hyperlipidemia Prostate cancer Fracture of nasal septum Syncope Musculoskeletal chest pain Hypertension GERD (gastroesophageal reflux disease) Arrhythmia High cholesterol cataracts Surgical History S/P skin cancer resection H/O knee surgery History of prostate surgery Family History Mother Heart disease Other Cancer Social History Smoking Status: Never smoker alcohol intake: never substance use type: does not use what type of physical activity do you participate in: walking, bicycling and weight training ROS Const Const: Negative for fatigue, weakness, headache(s), daytime sleepiness or difficulty sleeping ENT ENT: Negative for headache(s), dizziness or Nosebleed/epistaxis Cardio Chest Pain: No Palpitations: No Edema: None Resp Respiratory: Negative for SOB with activity, SOB at rest, SOB orthopnea SOB lying down or Cough GI GI: Negative nausea, vomiting or heartburn Neuro Neuro: Negative for dizziness, lightheadedness, near syncope, headache(s) or weakness Endo Endo: Negative for fatigue Cardiology Exam Const Appearance: cooperative, healthy appearing, no acute distress, well developed and well groomed Nutritional Appearance: average body habitus and well nourished Orientation: alert, awake and oriented x3 Head Head: normal to inspection, normocephalic and atraumatic Ears: hearing grossly normal bilaterally and external ears normal Nose: external nose normal, nares normal, nasal mucous membranes and turbinates normal, septum normal and no nasal discharge Face and Sinus: face symmetric Mouth: oral mucosae normal, tongue normal, oropharynx normal and moist mucous membranes Teeth and gingiva: dentition normal Throat: posterior (more content not included)... Normal [facility] Chest PA and Lateralon 05-25 Chest PA and Lateral [facility] Imaging Services [address] [place] [address] Chest PA and Lateral MR#: [id number] Acct: [id number] Name: GINA RAMSAY Rep #: [id number] : 1940 M 84 From: Lele Hutson MD PCP: Dr. Vikram Jay MD Status: REG CLI Study: Chest PA and Lateral Date of Exam: 05/25/25 Exam# [id number] Ordering Dr: Alvin Sams MD PROCEDURE: CHEST PA AND LATERAL 05/25/2025 REASON FOR EXAM: FALL TECHNIQUE: CHEST PA AND LATERAL COMPARISON: 03/26/2024. FINDINGS: The heart is normal in size. The lungs are clear. Hyperinflated lungs. No acute osseous abnormalities. RAD/Chest PA and Lateral IMPRESSION: NO ACUTE FINDINGS. Reading Location: [facility] CC: Dr. Alvin Sams MD; Dr. Vikram Jay MD Business Administration Teacher: Signed Normal [facility] Chloride assayOrdered By: Luca Sams on 05-25-2025 Chloride [Moles/Vol] 105 mmol/L 98-108 [facility] Glomerular filtration rate ( GFR) estimation/1.73 sq m using serum, plasma, or whole bOrdered By: Alvin Sams on 05-25-2025 GFR/1.73 sq M.predicted among non-blacks MDRD (S/P/Bld) [Vol rate/Area] 75 mL/min/{1.73_m2} >60 [facility] Comment on above: mL/min/1.73m2 CKD-EP I Creatinine Equation (2020) Potassium measurement (mass/ volume)Ordered By: Alvin Sams on 05-25-2025 Potassium (Unsp spec) [Mass/Vol] 3.7 mmol/L 3.3-5.1 [facility] Serum creatinine measurement (mass/volume)Ordered By: Alvin Sams on 05-25-2025 Creatinine [Mass/Vol] 0.99 mg/dL 0.70-1.20 [facility] Serum glucose measurement (m ass/volume)Ordered By: Alvin Sams on 05-25-2025 Glucose [Mass/Vol] 114 mg/dL High 70-99 [facility] Serum or plasma calcium naresh urement (mass/volume)Ordered By: Alvin Sams on 08-20-2025 Calcium [Mass/Vol] 9.3 mg/dL 7.6-11.0 [facility] Serum or plasma urea nitroge n measurement (mass/volume)Ordered By: Kulm Latrell on 05-25-2025 Urea nitrogen [Mass/Vol] 20 mg/dL High 4-19 [facility] Sodium levelOrdered By: César jasso Latrell on 05-25-2025 Sodium [Moles/Vol] 141 mmol/L 133-145 [facility] Internal Medicine Office Vis iton 04-13-2025 Internal Medicine Office Visit [facility] [address] [place] [address] [place] [address] OFFICE VISIT Date of Service: 04/13/25 MR#: [id number] Acct: [id number] Name: GINA RAMSAY Rep #: [id number] : 1940 Provider: Dr. Vikram sanford MD Age/Sex: 84/M Location: [facility] [place].[facility] Status: Signed Intake Vital Signs 10/12/24 12:00 04/13/25 10:52 Height 5 ft 4 in 5 ft 4 in Weight: 135 lb BMI 23.1 BP 138/82 H Blood Pressure Location Rt brachial Position Sitting Respiration 16 Pulse 78 Pulse Source Monitor Temp 98.5 F Temp Source Temporal Pulse Oximetry (%) 95 Oxygen Delivery Method room air Intake Visit Reasons: FALLING SPELLS Chief Complaint: FALLING SPELLS Is patient in pain?: No Allergies No Known Allergies Allergy (Verified 04/13/25 10:48) Medications ???Medication ???Instructions ???Recorded ???Confirmed ???Type hydrocortisone 2.5 % topical cream 1 applic topical BID PRN itching 07/01/24 04/13/25 Rx #28.35 grams atorvastatin 40 mg tablet (Lipitor) 40 mg PO DAILY #90 tabs 4 04/13/25 Rx omeprazole 40 mg capsule,delayed 40 mg PO DAILY PRN GERD 10/11/24 0 04/13/25 History release Have you fallen in the past year?: Yes (FALL 04/02 IN [place]; WAS ADVISED TO SEE ENT) Nurse's Note: PATIENT HAD A FALL ON 04/02/25 IN [place]; REPORTS NO RECOLLECTION OF FALL, THINGS WENT DARK A FRACTION OF A SECOND PRIOR TO FALL; WOKE UP TO PEOPLE CARING FOR PATIENT. PATIENT WAS TOLD TO SEE AN ENT WHEN IN ED AT HOSPITAL. [facility] Medical History (Updated 04/13/25 @ 11:[address] Vikram Jay MD) Fracture of nasal septum Syncope Non-smoker History of stress test Impacted cerumen, left ear Pruritus Musculoskeletal chest pain Monocytosis Allergic rhinitis COVID-19 Dermatitis Educated about COVID-19 virus infection Hypertension Localized superficial swelling of skin Flu vaccine need Health care maintenance GERD (gastroesophageal reflux disease) Arrhythmia Abdominal pain prostate issues High cholesterol cataracts History of cancer Seasonal allergies Surgical History S/P skin cancer resection H/O knee surgery History of prostate surgery Family History Mother Heart disease Other Cancer Social History Smoking Status: Never smoker alcohol intake: never substance use type: does not use what type of physical activity do you participate in: walking, bicycling and weight training HPI HPI Chief Complaint: FALLING SPELLS Details: GINA RAMSAY, is an 84-year-old male presenting with a fall resulting in a head injury and nasal fracture. The incident occurred on April 02 while [place] a [place] in [facility], where he sustained a head injury requiring stitches and a nasal fracture without dislocation. Initial treatment included wound cleaning, stitches, a tetanus shot, and antibiotic infusions. The patient suspects/is concerned the fall may have been caused by a seizure, as he believes he experienced a very brief loss of consciousness and has had similar episodes in the past without actual memory of the falls. He reports three such episodes over the past five years, including one while skiing in [place] and another during a walk in [facility], both resulting in falls without recollection of the events. He expresses concern about the potential danger of these episodes, especially in precarious situations. The patient has no history of confusion or postictal symptoms following these episodes, and no witnesses have observed seizure-like activity. Attestation: Documentation on this patient encounter was supported using ambient scribe technology/ voice AI technology. The patient consented to recording for the purpose of documenting the encounter. Provider reviewed content of the generated note prior to signature. ROS Const Constitutional: Positive for frequent falls and other (REPORTS 3 FALLS IN PAST 5 YEARS); No body ache, chills, excessive sweating, fatigue, fever(s), headache(s), snoring, weakness, sleep problems or change in appetite Eyes Eyes: No blurry vision, change in vision, vision loss, dry eyes or Light sensitivity ENT ENT: No abnormal hearing, ear or mastoid pain, tinnitus, dizziness/vertigo, nasal congestion, nasal discharge, headache(s), neck pain or sore throat Resp Respiratory: No cough, shortness of breath, snoring or wheezing Cardio Cardiology: No chest pain at rest, chest pain with exertion, excessive sweating, shortness of breath, dyspnea on exertion, lightheadedness, orthopnea or palpitations Gastro GI: No abdominal pain, change in bowel habits, constipation, cramping, diarrhea or nausea/dyspepsia Genitourinary (more content not included)... Normal [facility] Office Visit Reporton 2024 Office Visit Report [facility] [address] [place] [address] OFFICE VISIT Date of Service: 04/12/25 MR#: [id number] Acct: [id number] Patient: GINA RAMSAY Rep #: [id number] : 1940 Provider: SUSAN MOE Age/Sex: 84/M Location: [facility] [place].[facility] Status: Signed Intake Vital Signs 10/12/24 12:00 Height 5 ft 4 in Intake Visit Reasons: STITCH REMOVAL Chief Complaint: colonscopy Allergies No Known Allergies Allergy (Verified 04/13/25 10:48) Have you fallen in the past year?: Yes (03/2025 laceration facial) Nurse's Note: 4 stitches removed from bridge of nose w/ minimal pain. No bleeding noted. Pt fell in [place] a few weeks ago. Was on day 10 of having stitches. Pt had a avulsion on L forearm, dressing removed. minimal serous fluid on dressing. New dressing applied per pt's request of Assessment and Plan Assessment and Plan Orders: Orders Suture/Staple Removal 04/12/25 S01.81XA - Laceration without foreign body of other part of head, initial encounter Clinical Quality Measures Falls Risk Screening/Assistive Devices Have you fallen in the past year?: Yes (03/2025 laceration facial) 04/25/25 0733 Date Maris Ariza ACCOUNT LIAISON-C Cosigner Signature: Date (if applicable) CC: Normal [facility] PSA,Total- Diagnosticon 05-3 PSA, DIAGNOSTIC < 0.02 Normal 0.00-4.00 [facility] Comment on above: Result Comment: This test was performed using the [employer] tPSA method. Measured values of a patient??sample can vary depending on the testing procedure used. PSA values determined on patient samples by different testing procedures cannot be used interchangeably. If there is a change in PSA assays while monitoring therapy, sequential testing should be performed to confirm baseline values. Performed By: #### L 501.9940 #### [facility] Laboratory [address] [facility] [place], [address] Colonoscopy Reporton 025 Colonoscopy Report [facility] Medical Records Department [address] [place] [address] Colonoscopy Report MR#: [id number] Acct: [id number] Name: GINA RAMSAY Rep #: [id number] : 1940 84 From: Andi Patterson DO PCP: Dr. Vikram Jay MD Status:[facility] Patient Name: Gina Ramsay Procedure Date: 10/12/2024 12:43 PM Date of : 1940 Age: 84 Procedure: Colonoscopy Indications: High risk colon cancer surveillance: Personal history of colonic polyps Providers: Andi Patterson DO Referring MD: Andi Patterson DO Medicines: Monitored Anesthesia Care Patient Profile: This is an 84 year old male. Refer to note in patient chart for documentation of history and physical. Last Colonoscopy: 5 years ago. Complications: No immediate complications. Procedure: Pre-Anesthesia Assessment: - Prior to the procedure, a History and Physical was performed, and patient medications and allergies were reviewed. The patient is competent. The risks and benefits of the procedure and the sedation options and risks were discussed with the patient. All questions were answered and informed consent was obtained. Patient identification and proposed procedure were verified by the physician in the pre-procedure area. Mental Status Examination: alert and oriented. Airway Examination: normal oropharyngeal airway and neck mobility. Respiratory Examination: clear to auscultation. CV Examination: normal. Prophylactic Antibiotics: The patient does not require prophylactic antibiotics. Prior Anticoagulants: The patient has taken no anticoagulant or antiplatelet agents except for NSAID medication. ASA Grade Assessment: II - A patient with mild systemic disease. After reviewing the risks and benefits, the patient was deemed in satisfactory condition to undergo the procedure. The anesthesia plan was to use monitored anesthesia care (MAC). Immediately prior to administration of medications, the patient was re-assessed for adequacy to receive sedatives. The heart rate, respiratory rate, oxygen saturations, blood pressure, adequacy of pulmonary ventilation, and response to care were monitored throughout the procedure. The physical status of the patient was re-assessed after the procedure. After I obtained informed consent, the scope was passed under direct vision. Throughout the procedure, the patient's blood pressure, pulse, and oxygen saturations were monitored continuously. The colonoscope was introduced through the anus and advanced to the cecum, identified by appendiceal orifice and ileocecal valve. The colonoscopy was performed without difficulty. The patient tolerated the procedure well. The quality of the bowel preparation was adequate. The ileocecal valve, appendiceal orifice, and rectum were photographed. Scope In: 12:52:31 PM Scope Withdrawal Time 0 hours 8 minutes 14 seconds Scope Out: 1:06:42 PM Total Procedure Duration Time 0 hours 14 minutes 11 seconds Findings: The perianal and digital rectal examinations were normal. A few small-mouthed diverticula were found in the recto-sigmoid colon. No other significant abnormalities were identified in a careful examination of the remainder of the colon. Impression: - Diverticulosis in the recto-sigmoid colon. - No specimens collected. Recommendation: - Discharge patient to home. - Resume previous diet. - Continue present medications. - Repeat colonoscopy in 5 years for surveillance. Procedure Code(s): --- Professional --- G0105, Colorectal cancer screening; colonoscopy on individual at high risk CPT copyright 2021 [employer]. All rights reserved. The codes documented in this report are preliminary and upon animal warden review may be revised to meet current compliance requirements. Andi Patterson DO 10/12/2024 1:16:36 PM This report has been signed electronically. Number of Addenda: 0 Note Initiated On: 10/12/2024 12:43 PM 10/12/24 1316 Date Andi Blunt Signature: Date (if indicated) CC: Dr. Vikram Jay MD; Andi Patterson DO Date Dictated: 10/12/24 1243 Date Transcribed: Business Administration Teacher: ANDREA Signed [facility] MR/POSTOP.[facility] 10-12-2024 MR/POSTOP.[facility] Medical Records Department [address] [place] [address] Anesthesia Postop Eval I 10/12/241314 MR#: [id number] Acct: [id number] Name: GINA RAMSAY Rep #: [id number] : 1940 84 From: Shmuel Rodriguez PCP: Dr. Vikram Jay MD Status:REG [facility] Y Race: C Location: [place] [address] Anesthesia: Postop Eval I Current Vital Signs Temperature: 97.2 F Pulse Rate: 57 Blood Pressure: 127/72 Respiratory Rate: 16 Pulse Ox: 98 Oxygen Delivery Method: Room Air Assessment Airway patent: Yes Spontaneous unlabored respirations: Yes Mental status: Asleep nausea: No Vomiting: No Anesthesia Complication: No Fluid Hydration Crystalloid volume administer (ml): 40 Total IV fluid infused: 40 Progress Note Anesthesia document: Postop Eval 1 completed: Yes 10/12/241315 Date Shmuel Shah Signature: Date CC: Signed Normal [facility] [id number] 10-12-2024 MR/POSTOPAN2 [facility] Medical Records Department [address] [place] [address] Anesthesia Postop Eval II 10/12/24 1551 MR#: [id number] Acct: [id number] Name: GINA RAMSAY Rep #: [id number] : 1940 84 From: Skip Flowers MD PCP: Dr. Vikram Jay MD Status:[facility] Y Race: C Location: EN Anesthesia Postop Eval I Sum Postop Eval Completion status Anesthesia document: Postop Eval 1 completed: Yes Anesthesia Postop Eval I Summary Anesthesia Postop Eval I Summary: Anesthesia Postop Eval I: Assessment Summary Airway patent Yes 10/12/24 13:16 [email or web address] Spontaneous unlabored Yes 10/12/24 13:16 [email or web address] respirations Mental status Asleep 10/12/24 13:16 [email or web address] nausea No 10/12/24 13:16 [email or web address] Vomiting No 10/12/24 13:16 [email or web address] Anesthesia Postop Eval I: Fluid Summary Crystalloid volume administer 40 10/12/24 13:16 [email or web address] (ml) Colloids volume administered ( ml) Blood Product volume administered (ml) Total IV fluid infused 40 10/12/24 13:16 [email or web address] Anesthesia Postop Eval I: Summary Notes Anesthesia Complication No 10/12/24 13:16 [email or web address] Anesthesia Complication Comment: Post-operative progress note Anesthesia: Postop Eval II Evaluation Mental status: Awake and Calm Pain Level: 0 nausea: No Vomiting: No Complications Anesthesia Complication: No 10/12/24 1552 Date Skip Shah Signature: Date CC: Signed Normal [facility] MR/PATLEYDI 10-11-2024 MR/PAT.[facility] Medical Records Department [address] [place] [address] PAT - Anesthesia 10/11/24 1217 MR#: [id number] Acct: [id number] Name: GINA RAMSAY Rep #: [id number] : 1940 84 From: Nelson Flores MD PCP: Dr. Vikram Jay MD Status:PRE SD Y Race: C Location: EN Pre-Assessment Diagnosis/Proposed Procedure Planned Operative Procedure(s): COLONOSCOPY Anesthesia History Anesthesia History - prison psychiatrist: Anesthesia History - prison psychiatrist Hx Hospitalization No 10/11/24 08:56 Any Problems With Anesthesia No 10/11/24 08:56 Cholinesterase deficiency No 10/11/24 08:56 You/Your Family Experience No 10/11/24 08:56 fever (hyperthermia) with Relationship Recent Exposure to Contagious Disease Does patient have nerve No 10/11/24 08:56 stimulator Patient instructed to have device shut off --Does patient have Pacemaker or ICD? When Was Last Pacemaker Check QUESTION #4 FULL TEXT: You/Your Family Experience fever (hyperthermia) with Anesthesia Last Oral Intake Last Oral intake: Last Oral Intake NPO since Meds taken in AM with sips of water? Meds patient instructed to take am of surgery PONV PONV - prison psychiatrist: PONV - prison psychiatrist Female No 10/11/24 08:56 HX of Motion Sickness No 10/11/24 08:56 HX of N/V After Surgery No 10/11/24 08:56 Non-Smoker Yes 10/11/24 08:56 Duration of Surgery greater No 10/11/24 08:56 than 60 minutes Number of Risk Factors 1 10/11/24 08:56 PONV Score Low Risk 10/11/24 08:56 Height Weight Height Weight: Anesthesia: Height Weight Height 5 ft 4 in 07/02/24 09:32 Respiratory Assessment Respiratory Assessment - prison psychiatrist: Respiratory Tract Infection Hx - prison psychiatrist Hx Respiratory Tract Infection No 10/11/24 08:56 STOP Sleep Apnea STOP Sleep Apnea - prison psychiatrist: STOP Sleep Apnea - prison psychiatrist Hx Hypertension No 10/11/24 08:56 Hx Sleep Apnea No 10/11/24 08:56 CPAP BIPAP Do you snore loudly (louder Yes 10/11/24 08:56 than talking or can be heard Do you often feel tired/ No 10/11/24 08:56 fatigued/ sleepy during daytime? Has anyone observed you stop No 10/11/24 08:56 breathing during sleep? STOP Results Negative 10/11/24 08:56 QUESTION #5 FULL TEXT : Do you snore loudly (louder than talking or can be heard through closed doors)? Tobacco Use History Tobacco Use History - prison psychiatrist: Tobacco Use History - prison psychiatrist Tobacco Use Smoking Status Never smoker 10/11/24 08:56 Hx Tobacco Use No 10/11/24 08:56 Years Smoking Packs Smoked per Day Smoking Cessation Date was within the last 15 years Hx Smoking Cessation Date Hx Smoking Cessation Counseling Hematologic Medial History Hematologic Hx - prison psychiatrist: Hematologic Medical Hx - clinical documentation consultant Hx of Blood Transfusion No 10/11/24 08:56 Hx of Transfusion in last 3 No 10/11/24 08:56 Months Date of Last Transfusion (if within last 3 months) Ever experience any problems No 10/11/24 08:56 with transfusion(s)? Specify any problems Hx of Preganancy in last 3 N/A 10/11/24 08:56 Months Nurse Filling Out Transfusion CPOWERS2 10/11/24 08:56 Questions: Date: 10/11/24 10/11/24 08:56 Time: 08:59 10/11/24 08:56 Patient unable to answer at this time (ie. 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 Hx Now Gestational Age (in weeks): EDC: Hx Hx Para Hx Section SAB PFSH Medical History (Updated 10/11/24 @ 09:03 by Codey Reardon) Non-smoker History of stress test Impacted cerumen, left ear Pruritus Musculoskeletal chest pain Monocytosis Allergic rhinitis COVID-19 Dermatitis Educated about COVID-19 virus infection Hypertension Localized superficial swelling of skin Flu vaccine need Health care maintenance GERD (gastroesophageal reflux disease) Arrhythmia Abdominal pain prostate issues High cholesterol cataracts History of cancer Seasonal allergies Home Medications ???Medication ???Instructions ???Recorded ???Last Taken ???Type mupirocin 2 % topical ointment 1 applic topical BID 03/26/24 Unknown History hydrocortisone 2.5 % topical cream 1 applic topical BID PRN itching 07/01/24 Unknown Rx #28.35 grams atorvastatin 40 mg tablet (Lipitor) 40 mg PO DAILY #90 tabs 07/19/24 Unknown Rx omeprazole 40 mg capsule,delayed 40 mg PO DAILY PRN GERD 10/11/24 Unknown History release Allergy/AdvReac Type Severity Reaction Status Date / Time N (more content not included)... Normal [facility] PSA,Total- Diagnosticon 12-0 PSA, DIAGNOSTIC < 0.01 Normal 0.0-4.0 [facility] Comment on above: Result Comment: This test was performed using the TPSA assay method for the [employer] chemistry system. Values obtained with different assay methods cannot be used interchangably. When changing PSA assays in the course of monitoring a patient, additional sequential testing should be carried out to confirm baseline values. Performed By: #### L 501.9940 #### [facility] Laboratory [address] [place], [address] Gastroenterology Visit Repor ton 08-10-2024 Gastroenterology Visit Report [facility] Gastroenterology [address] [place] [address] OFFICE VISIT Date of Service: 08/10/24 MR#: [id number] Acct: [id number] Name: PARULAUREAGINA Rep #: [id number] : 1940 Provider: JULISA Kirkland Age/Sex: 83/M Location: [facility] [place] Status: Signed Intake Vital Signs 07/02/24 09:32 Height 5 ft 4 in Weight: 134 lb BMI 23.0 BP 118/68 Blood Pressure Location Lt brachial Position Sitting Respiration 16 Pulse 98 Pulse Source Monitor Temp 97.4 F L Temp Source Temporal Pulse Oximetry (%) 95 Oxygen Delivery Method room air Intake Visit Reasons: PRE COLON APPT Chief Complaint: colonscopy Is patient in pain?: No Allergies No Known Allergies Allergy (Verified 07/02/24 09:31) Have you fallen in the past year?: Yes Nurse's Note: OV 1124 Pt here to establish care in our office. Pt would like a colonoscopy. Last colonoscopy was 5 yrs ago. Pt denies blood in stools, N/V/D/C and abdominal pain. PFSH Medical History Impacted cerumen, left ear Pruritus Musculoskeletal chest pain Monocytosis Allergic rhinitis COVID-19 Dermatitis Educated about COVID-19 virus infection Hypertension Localized superficial swelling of skin Flu vaccine need Health care maintenance GERD (gastroesophageal reflux disease) Arrhythmia Abdominal pain prostate issues High cholesterol cataracts History of cancer Seasonal allergies Surgical History S/P skin cancer resection H/O knee surgery History of prostate surgery Family History Mother Heart disease Other Cancer Social History Smoking Status: Never smoker alcohol intake: never substance use type: does not use what type of physical activity do you participate in: walking, bicycling and weight training HPI HPI Chief Complaint: colonscopy Details: GINA RAMSAY, is a 83 M who presents to the office today for establishment with [facility]. Pt is here today for a colonoscopy. His last one was with Dr. Ballard over five years ago. He has a hx of polyps and recommendation was for repeat colonoscopy in 5 years. He has some RLQ pain off and on for a few years now. He has had gallbladder workup without pertinent abnormality. He has some diarrhea on occasion which is newer to him. He finds this concerning as he has never had this before.He denies heartburn, n/v, constipation or melena. ROS Const Constitutional: No fatigue, fever(s) or weight change ENT ENT: No difficulty swallowing Gastro GI: Positive for bloating, heartburn and excessive flatus; No abdominal pain, belching, change in bowel habits, change in stool character, coffee ground emesis, constipation, cramping, diarrhea, difficulty swallowing, feeling full early, incontinent of stools, Vomiting blood/hematemesis, Blood in stool, loose stools, Black,tarry stools, nausea/dyspepsia, pain with swallowing, vomiting or other Musc Musculoskeletal: Positive for back pain and Arthritis; No joint pain Skin Skin: Positive for itchy eyes; No yellowing of the eye Psych Psychiatric: No anxiety and No depression Endo Endocrine: No fatigue or weight change Aller/Imm Allergy/Immunologic: Positive for itchy eyes Ez/Lymp Hematologic/Lymphatic: No easy bleeding or easy bruising Exam Const General: cooperative and comfortable Nutritional Appearance: average body habitus and well nourished [facility] Head: normal to inspection Ears: hearing grossly normal bilaterally Nose: external nose normal Face and sinus: normal facial exam Mouth: oral mucosae normal Throat: posterior oropharynx normal Eyes General: appearance normal, both eyes and all related structures Neck Neck: normal visual inspection Chest Chest palpation inspection: normal inspection of the chest and normal palpation of entire chest wall Resp Effort Inspection: normal respiratory effort Auscultation: Bilateral: Clear to Auscultation Cardio Palpation: normal PMI Rate: regular rate Rhythm: regular rhythm GI Inspection: normal to inspection Auscultation: normal bowel sounds Palpation: no hepatosplenomegaly Skin General: no rashes or lesions noted Neuro General: patient alert Extrem General: normal to inspection Psych Affect: normal affect Assessment and Plan Assessment and Plan (1) Colonic polyp: Status: Acute Plan: This is an 83 yo male here today for establishment with [facility]. Pt has previously seen Dr. Ballard with his last colonoscopy being in 5 years ago with polyps. He is here today to get scheduled for a colonoscopy. He has occasional diarrhea and RLQ pain but no other GI symptoms. He wi (more content not included)... Normal [facility] Lipid Profileon 07-03-2024 Cholesterol [Mass/Vol] 160 mg/dL Normal 200 [facility] Comment on above: Result Comment: <200 mg/dL Desirable 200-240 mg/dL Borderline >240 mg/dL High Risk Performed By: #### L 500.4100, L500.3400 ####[facility] [address] [place], [place], [id number] Cholesterol in HDL [Mass/Vol] 63 mg/dL Normal [facility] Comment on above: Result Comment: The drugs N-Acetylcysteine and Metamizole may falsely depress this assay. Reference Range HDL <40 mg/dL Low HDL Cholesterol HDL >or= 60 mg/dL High HDL Cholesterol Performed By: #### L 500.4100, L500.3400 ####[facility] [address] [place], [address] Cholesterol in LDL [Mass/Vol] 67 mg/dL Normal 0-130 [facility] Comment on above: Performed By: #### L 500.4100, L500.3400 ####[facility] [address] [place], [address] Cholesterol in VLDL [Mass/Vol] 30 mg/dL Normal 5-40 [facility] Comment on above: Performed By: #### L 500.4100, L500.3400 ####[facility] [address] [place], [address] Triglyceride [Mass/Vol] 152 mg/dL Normal [facility] Comment on above: Result Comment: The drugs N-Acetylcysteine and Metamizole may falsely depress this assay. Serum Triglycerides Reference Interval Normal <150 mg/dL Borderline high 150 - 199 mg/dL High 200 - 499 mg/dL Very High > or = 500 mg/dL Performed By: #### L 500.4100, L500.3400 ####[facility] [address] [place], [address] Liver Profileon 07-03-2024 Albumin [Mass/Vol] 3.4 g/dL Normal 3.2-5.0 [facility] Comment on above: Performed By: #### L 500.4100, L500.3400 ####[facility] [address] [place], [address] ALK P 91 U/L Normal 45-117 [facility] Comment on above: Performed By: #### L 500.4100, L500.3400 ####[facility] [address] [place], [address] ALT [Catalytic activity/Vol] 29 U/L Normal 16-61 [facility] Comment on above: Performed By: #### L 500.4100, L500.3400 ####[facility] [address] [place], [address] AST [Catalytic activity/Vol] 20 U/L Normal 15-37 [facility] Comment on above: Performed By: #### L 500.4100, L500.3400 ####[facility] [address] [place], [address] Bilirubin [Mass/Vol] 0.70 mg/dL Normal 0.20-1.00 [facility] Comment on above: Result Comment: For patients on eltrombopag therapy, use of Dimension [place] TBIL is not recommended. Performed By: #### L 500.4100, L500.3400 ####[facility] [address] [place], [address] Bilirubin.direct [Mass/Vol] 0.20 mg/dL Normal 0.00-0.30 [facility] Comment on above: Performed By: #### L 500.4100, L500.3400 ####[facility] [address] [place], [address] Globulin (S) [Mass/Vol] 3.6 g/dL Normal 2.2-4.2 [facility] Comment on above: Performed By: #### L 500.4100, L500.3400 ####[facility] [address] [place], [address] T PROT 7.0 g/dL Normal 6.4-8.2 [facility] Comment on above: Performed By: #### L 500.4100, L500.3400 ####[facility] [address] [place], [address] Internal Medicine Office Vis itofareed 07-02-2024 Internal Medicine Office Visit [facility] [address] [place] [address] [place] [address] OFFICE VISIT Date of Service: 07/02/24 MR#: [id number] Acct: [id number] Name: GINA RAMSAY Rep #: [id number] : 1940 Provider: JULISA Pena Age/Sex: 83/M Location: [facility] [place] Status: Signed Intake Vital Signs 07/01/24 13:55 07/02/24 09:32 Height 5 ft 4 in 5 ft 4 in Weight: 137 lb 134 lb BMI 23.5 23.0 BP 128/62 H 118/68 Blood Pressure Location Lt brachial Lt brachial Position Sitting Sitting Respiration 17 16 Pulse 80 98 Pulse Source Monitor Monitor Temp 97.4 F L 97.4 F L Temp Source Temporal Temporal Pulse Oximetry (%) 94 95 Oxygen Delivery Method room air room air Intake Visit Reasons: ISSUES WITH HIS EAR Chief Complaint: ISSUES WITH LEFT EAR Is patient in pain?: Yes (LEFT EAR ) Pain scale (1-10): 4 Allergies No Known Allergies Allergy (Verified 07/02/24 09:31) Have you fallen in the past year?: Yes (MARCH WITH INJURY) PFSH Medical History Impacted cerumen, left ear Pruritus Musculoskeletal chest pain Monocytosis Allergic rhinitis COVID-19 Dermatitis Educated about COVID-19 virus infection Hypertension Localized superficial swelling of skin Flu vaccine need Health care maintenance GERD (gastroesophageal reflux disease) Arrhythmia Abdominal pain prostate issues High cholesterol cataracts History of cancer Seasonal allergies Surgical History S/P skin cancer resection H/O knee surgery History of prostate surgery Family History Mother Heart disease Other Cancer Social History Smoking Status: Never smoker alcohol intake: never substance use type: does not use what type of physical activity do you participate in: walking, bicycling and weight training HPI HPI Chief Complaint: ISSUES WITH LEFT EAR Details: GINA RAMSAY, is a 83 M who presents to the office today for left ear issues. Patient states that he had some ear wax in the ear noted at his recent office visit which he states tis a chronic / recurrent issue for him having had wax removed multiple times in the past. He states that this time though the irrigation process was very uncomfortable from the beginning and he actually had them stop the irrigation because of the discomfort. He states that it was hurting when he left and then later the ear clogged up and he couldn't hear along with having the pains. He came in for evaluation of these symptoms. ROS Const Constitutional: No body ache, chills, excessive sweating, fatigue, fever(s), frequent falls, headache(s), snoring, weakness, sleep problems or change in appetite Eyes Eyes: No blurry vision, change in vision or Light sensitivity ENT ENT: Positive for ear or mastoid pain (LEFT EAR; WAS FLUSHED YESTERDAY WITH PAIN); No abnormal hearing, tinnitus, nasal congestion, nasal discharge, headache(s), neck pain or sore throat Resp Respiratory: No cough, shortness of breath, snoring or wheezing Cardio Cardiology: No chest pain at rest, chest pain with exertion, excessive sweating, shortness of breath, dyspnea on exertion, lightheadedness, orthopnea or palpitations Gastro GI: No abdominal pain, change in bowel habits, constipation, cramping, diarrhea or nausea/dyspepsia Genitourinary Male: No burning urination, painful urination, urinary incontinence or urinary frequency Musc Musculoskeletal: No abnormal gait, joint pain, back pain, limited range of motion, muscle weakness, neck pain or numbness Skin Skin: No dry skin, redness, lesions, itchy eyes, rash or wounds Neuro Neurology: No abnormal gait, abnormal hearing, weakness, frequent falls, headache(s), memory loss or numbness Psych Psychiatric: No anxiety, No change in appetite, No depression, No memory loss, No panic attacks and No Thoughts of harming yourself/Others Endo Endocrine: No cold intolerance, excessive sweating, fatigue, flushing, heat intolerance, increased thirst/drinking or increased hunger Aller/Imm Allergy/Immunologic: No itchy eyes, seasonal allergy symptoms, hives or wheezing Exam Const General: cooperative, healthy appearing, comfortable, no acute distress, well developed and well groomed Nutritional Appearance: average body habitus and well nourished HENIN Ears: EAC abnormal excessive cerumen on the left, erythema on the left (posterior wall), edema on the left (Posterior wall with small amt of blood noted) and EAC tenderness on the left; no foreign body and no otic discharge, hearing grossly impaired on the left and TM abnormal erythematous; not bulging Other: Initial inspection of the left ear shows a large amount of (more content not included)... Normal [facility] Internal Medicine Office Vis iton 07-01-2024 Internal Medicine Office Visit [facility] [address] [place] [address] [place] [address] OFFICE VISIT Date of Service: 07/01/24 MR#: [id number] Acct: [id number] Name: GINA RAMSAY Rep #: [id number] : 1940 Provider: Dr. Vikram sanfrod MD Age/Sex: 83/M Location: [facility] [place].[facility] Status: Signed Intake Vital Signs 06/26/23 12:48 04/14/24 14:40 07/01/24 13:55 Height 5 ft 4 in 5 ft 4 in 5 ft 4 in Weight: 137 lb BMI 23.5 BP 128/62 H Blood Pressure Location Lt brachial Position Sitting Respiration 17 Pulse 80 Pulse Source Monitor Temp 97.4 F L Temp Source Temporal Pulse Oximetry (%) 94 Oxygen Delivery Method room air Intake Visit Reasons: YEARLY Chief Complaint: YEARLY Is patient in pain?: Yes (3 in chest when coughing or sneezing ) Allergies No Known Allergies Allergy (Verified 07/01/24 13:54) Have you fallen in the past year?: Yes (x1) Nurse's Note: pt reports that he had a fall back in march that caused pain in his chest with movement, coughing, 0r sneezing itchy areas tops of feet and groin this started a few weeks ago [facility] Medical History (Updated 07/01/24 @ 19:[address] Vikram Jay MD) Impacted cerumen, left ear Pruritus Musculoskeletal chest pain Monocytosis Allergic rhinitis COVID-19 Dermatitis Educated about COVID-19 virus infection Hypertension Localized superficial swelling of skin Flu vaccine need Health care maintenance GERD (gastroesophageal reflux disease) Arrhythmia Abdominal pain prostate issues High cholesterol cataracts History of cancer Seasonal allergies Surgical History S/P skin cancer resection H/O knee surgery History of prostate surgery Family History Mother Heart disease Other Cancer Social History Smoking Status: Never smoker alcohol intake: never substance use type: does not use what type of physical activity do you participate in: walking, bicycling and weight training HPI HPI Chief Complaint: YEARLY Details: GINA RAMSAY, is a 83 M who presents to the office today for his yearly visit. Also has some concerns. Was seen for an acute visit in April for chest pain following a fall. [place] to be musculoskeletal and was prescribed an NSAID which helped. Pain has improved but is still present. Not unbearable. Still able to carry out his activities without any significant garment. He also reports itching at the top of his feet and his groin area. Groin area itching is typically worse at night. Has tried some Vaseline without any significant improvement. He states that he is in his stockings a lot. Other chronic medical conditions are stable. Blood pressure today is at 128/62 mmHg. History of hyperlipidemia on atorvastatin, no muscle weakness reported. Last lipid profile within range. ROS Const Constitutional: No body ache, chills, excessive sweating, fatigue, fever(s), frequent falls, headache(s), snoring, weight change, sleep problems, abnormal sleep pattern or change in appetite Eyes Eyes: No blurry vision, change in vision, bulging eyes, floaters, visual disturbances, eye pain or Light sensitivity ENT ENT: No abnormal hearing, ear or mastoid pain, tinnitus, balance problems, nosebleed/epistaxis, nasal congestion, headache(s), neck pain or sore throat Resp Respiratory: No cough, excessive phlegm production, pain on inspiration, shortness of breath, snoring or wheezing Cardio Cardiology: No chest pain at rest, chest pain with exertion, excessive sweating, shortness of breath, dyspnea on exertion, lightheadedness, orthopnea or palpitations Gastro GI: No abdominal pain, change in bowel habits, constipation, cramping, diarrhea, nausea/dyspepsia or vomiting Genitourinary Male: No burning urination, painful urination, urinary incontinence, urinary frequency, suprapubic fullness or side pain Musc Musculoskeletal: Positive for other (pain in chest with exertion ); No abnormal gait, joint pain, back pain, limited range of motion, muscle cramps, neck pain, numbness or tingling Skin Skin: Positive for itchy eyes and other (itching groin and tops of feet.); No dry skin, redness, excessive hair growth, yellowing of the eye, lesions, rash or wounds Neuro Neurology: No abnormal gait, abnormal hearing, behavioral changes, unsteady gait/balance, frequent falls, headache(s), memory loss, numbness, tingling or visual disturbances Psych Psychiatric: No abnormal sleep pattern, No anxiety, No behavioral changes, No change in appetite, No irritability, No memory loss and No Thoughts of harming yourself/Others Endo Endocrine: No cold intolerance, excessive sweating, fatigue, flushing, heat intolerance, i (more content not included)... Normal [facility] [place] No Panel InformationOrdered By: Glenn Montano on 09-13-2023 Prostate Specific Antigen Total < 0.01 ng/mL 0.0-4.0 [facility] [place] Comment on above: This test was perfor med using the TPSA assay method for the[facility]. Values obtained with differentassay methods cannot be used interchangably.When changing PSA assays in the course of monitoring apatient, additional sequential testing should be carriedout to confirm baseline values. Absolute lymphocyte countOrd ered By: Vikram Jay on 06-21-2023 Lymphocytes Auto (Unsp spec) [#/Vol] 1.52 10*3/uL 0.83-4.51 [facility] [place] Basophil percentageOrdered B y: Vikram Jay on 06-21-2023 Basophils/100 WBC (Bld) 1.3 % 0-1 [facility] [place] Bilirubin [Mass/Vol] 0.90 mg/dL 0.20-1.00 [facility] Comment on above: For patients on eltr ombopag therapy, use of Dimension [place] TBIL is not recommended. Chloride [Moles/Vol] 108 mmol/L 98-107 [facility] Cholesterol [Mass/Vol] 164 mg/dL <200 [facility] [place] Comment on above: <200 mg/dL Desirable 200-240 mg/dL Borderline >240 mg/dL High Risk Eosinophils/100 WBC (Bld) 2.4 % 0-5 [facility] [place] Glucose [Mass/Vol] 100 mg/dL 74-106 [facility] Comment on above: Fasting Glucose resu lt from 100 to 125 mg/dL suggests IMPAIRED HOMEOSTASIS per A.D.A. criteria. Neutrophils (Bld) [#/Vol] 2.2 10*3/uL 2.0-7.7 [facility] [place] Neutrophils/100 WBC (Bld) 47.5 % 47-70 [facility] [place] Potassium [Moles/Vol] 4.3 mmol/L 3.5-5.1 [facility] Protein [Mass/Vol] 7.3 g/dL 6.4-8.2 [facility] Sodium [Moles/Vol] 139 mmol/L 136-145 [facility] Triglyceride [Mass/Vol] 103 mg/dL <199 [facility] [place] Comment on above: The drugs N-Acetylcy steine and Metamizole may falsely depress this assay.Serum Triglycerides Reference Interval Normal <150 mg/dL Borderline high 150 - 199 mg/dL High 200 - 499 mg/dL Very High > or = 500 mg/dL WBC (Bld) [#/Vol] 4.6 10*3/uL 4.4-11.0 [facility] Blood erythrocytes count (nu mber/volume)Ordered By: Vikram Jay on 06-21-2023 RBC (Bld) [#/Vol] 5.08 10*6/uL 4.6-6.2 [facility] Blood hemoglobin measurement (mass/volume)Ordered By: Vikram Jay on 06-21-2023 Hemoglobin (Bld) [Mass/Vol] 16.1 g/dL 13.0-16.5 [facility] [place] Blood lymphocytes/100 leukoc ytesOrdered By: Vikram Jay on 06-21-2023 Lymphocytes/100 WBC (Bld) 33.4 % 19-41 [facility] [place] Blood monocytes/100 leukocyt esOrdered By: Vikram Jay on 06-21-2023 Monocytes/100 WBC (Bld) 15.2 % 0-10 [facility] [place] Blood platelet mean volumeOr dered By: Vikram Jay on 06-21-2023 Platelet mean volume (Bld) [Entitic vol] 9.7 fL 6.2-12.0 [facility] [place] Determination of erythrocyte mean corpuscular volume (MCV)Ordered By: ivanadikebert Jay on 06-21-2023 MCV (RBC) [Entitic vol] 94.3 fL 80-94 [facility] [place] Hematocrit Auto (Bld) [Volum e fraction]Ordered By: [facility] Malikjose carlos on 06-21-2023 Hematocrit (Bld) [Volume fraction] 47.9 % 40-54 [facility] [place] Laboratory - Chemistry and C hemistry - challengeOrdered By: [facility] Ganjose carlos on 06-21-2023 ALP [Catalytic activity/Vol] 91 U/L 45-117 [facility] [place] ALT [Catalytic activity/Vol] 33 U/L 16-61 [facility] [place] CO2 [Moles/Vol] 28.0 mmol/L 21.0-32.0 [facility] [place] Globulin (S) [Mass/Vol] 3.6 g/dL 2.2-4.2 [facility] [place] Urea nitrogen/Creatinine [Mass ratio] 14.2 mg/mg 10-20 [facility] [place] Laboratory - Hematology and Cell countsOrdered By: [facility] Ganjose carlos on 06-21-2023 Erythrocyte distribution width (RBC) [Entitic vol] 46.1 fL 35.1-43.9 [facility] [place] Erythrocyte distribution width (RBC) [Ratio] 13.2 % 11.6-14.6 [facility] [place] Immature granulocytes/100 WBC (Bld) 0.200 % 0.0-0.9 [facility] [place] Comment on above: IG% - Immature Granu locytes (promyelocytes, myelocytes and metamyelocytes) > 1% indicates that a LEFT SHIFT is Present. MCH (RBC) [Entitic mass] 31.7 pg 27.0-32.0 [facility] [place] Nucleated RBC/100 WBC (Bld) [Ratio] 0 % 0-5 [facility] [place] MCHC Auto (RBC) [Mass/Vol]Or dered By: Vikram Jay on 06-21-2023 MCHC (RBC) [Mass/Vol] 33.6 g/dL 32-36 [facility] [place] No Panel InformationOrdered By: Vikram Jay on 06-21-2023 Estimated GFR (MDRD) Amer 80 mL/min >60 [facility] [place] Comment on above: GFR Calc Estimated GFR (MDRD) Non-Af Amer 66 mL/min >60 [facility] [place] Comment on above: Non- GFR Calc Platelets bldOrdered By: Gallo Jay on 06-21-2023 Platelets (Bld) [#/Vol] 246 10*3/uL 150-450 [facility] [place] Serum or plasma albumin naresh urement (mass/volume)Ordered By: Vikram Jay on 06-21-2023 Albumin [Mass/Vol] 3.7 g/dL 3.2-5.0 [facility] Serum or plasma albumin/glob ulin mass ratioOrdered By: Vikram Jay on 06-21-2023 Albumin/Globulin [Mass ratio] 1.0 {ratio} 0.9-2.4 [facility] [place] Serum or plasma calcium naresh urement (mass/volume)Ordered By: Vikram Jay on 06-21-2023 Calcium [Mass/Vol] 9.1 mg/dL 8.5-10.1 [facility] Serum or plasma cholesterol in HDL measurement (mass/volume)Ordered By: Vikram Jay on 06-21-2023 Cholesterol in HDL [Mass/Vol] 62 mg/dL >40 [facility] [place] Comment on above: The drugs N-Acetylcy steine and Metamizole may falsely depress this assay. Reference Range HDL <40 mg/dL Low HDL Cholesterol HDL >or= 60 mg/dL High HDL Cholesterol Serum or plasma cholesterol in VLDL measurement (mass/volume)Ordered By: Vikram Jay on 06-21-2023 Cholesterol in VLDL [Mass/Vol] 21 mg/dL 5-40 [facility] [place] Serum or plasma creatinine m easurement (mass/volume)Ordered By: Vikram Jay on 06-21-2023 Creatinine [Mass/Vol] 1.13 mg/dL 0.70-1.30 [facility] [place] Comment on above: The validity of the calculated GFR & GFRAA in patients over 70 years has not been determined. Clinical correlation is essential. Serum or plasma low density lipoprotein (LDL) cholesterol measurement (mass/volume)Ordered By: Vikram Jay on 06-21-2023 Cholesterol in LDL [Mass/Vol] 81 mg/dL 0-130 [facility] [place] Serum or plasma urea nitroge n measurement (mass/volume)Ordered By: Vikram Jay on 06-21-2023 Urea nitrogen [Mass/Vol] 16 mg/dL 7-18 [facility] [place] Thin prep Papanicolaou smear with manual screeningOrdered By: Vikram Jay on 06-21-2023 Thin prep Papanicolaou smear with manual screening 21 U/L 15-37 [facility] [place] Thin prep Papanicolaou smear with manual screening 3 5-15 [facility] [place] No Panel InformationOrdered By: Dr. Montano on 03-13-2023 Prostate Specific Antigen Screen < 0.01 ng/mL 0.00-4.00 [facility] [place] Comment on above: This test was perfor med using the TPSA assay method for the[employer] chemistry system. Values obtained with differentassay methods cannot be used interchangably.When changing PSA assays in the course of monitoring apatient, additional sequential testing should be carriedout to confirm baseline values. Basophil percentageOrdered B y: Dr. Siddiqui on 01-09-2023 Basophil percentage < 0.9 mg/dL 0.70-1.30 [facility] No Panel InformationOrdered By: Dr. Siddiqui on 01-09-2023 Bedside Estimated GFR (eGFR) > 60.0000 mL/min >60 [facility] [place] No Panel Informationon 09-07 Prostate Specific Antigen Total < 0.01 ng/mL 0.0-4.0 [facility] [place] Work Phone: Comment on above: This test was perfor med using the TPSA assay method for the[employer] chemistry system. Values obtained with differentassay methods cannot be used interchangably.When changing PSA assays in the course of monitoring apatient, additional sequential testing should be carriedout to confirm baseline values. Absolute lymphocyte counton 06-20-2022 Lymphocytes Auto (Unsp spec) [#/Vol] 1.57 10*3/uL 0.83-4.51 [facility] [place] Work Phone: Basophil percentageon 2021 Basophils/100 WBC (Bld) 0.4 % 0-1 [facility] [place] Work Phone: [phone] Bilirubin [Mass/Vol] 0.50 mg/dL 0.20-1.00 [facility] Work Phone: Comment on above: For patients on eltr ombopag therapy, use of Dimension [place] TBIL is not recommended. Chloride [Moles/Vol] 105 mmol/L 98-107 [facility] Work Phone: Cholesterol [Mass/Vol] 170 mg/dL <200 [facility] [place] Work Phone: Comment on above: <200 mg/dL Desirable 200-240 mg/dL Borderline >240 mg/dL High Risk Eosinophils/100 WBC (Bld) 2.9 % 0-5 [facility] [place] Work Phone: Glucose [Mass/Vol] 102 mg/dL 74-106 [facility] Work Phone: Comment on above: Fasting Glucose resu lt from 100 to 125 mg/dL suggests IMPAIRED HOMEOSTASIS per A.D.A. criteria. Neutrophils (Bld) [#/Vol] 2.4 10*3/uL 2.0-7.7 [facility] [place] Work Phone: Neutrophils/100 WBC (Bld) 48.9 % 47-70 [facility] [place] Work Phone: Potassium [Moles/Vol] 4.2 mmol/L 3.5-5.1 [facility] [place] Work Phone: Protein [Mass/Vol] 7.3 g/dL 6.4-8.2 [facility] Work Phone: Sodium [Moles/Vol] 140 mmol/L 136-145 [facility] Work Phone: [phone] Triglyceride [Mass/Vol] 135 mg/dL <199 [facility] [place] Work Phone: Comment on above: The drugs N-Acetylcy steine and Metamizole may falsely depress this assay.Serum Triglycerides Reference Interval Normal <150 mg/dL Borderline high 150 - 199 mg/dL High 200 - 499 mg/dL Very High > or = 500 mg/dL WBC (Bld) [#/Vol] 4.9 10*3/uL 4.4-11.0 [facility] Work Phone: Blood erythrocytes count (nu mber/volume)on 06-20-2022 RBC (Bld) [#/Vol] 4.90 10*6/uL 4.6-6.2 [facility] Work Phone: Blood hemoglobin measurement (mass/volume)on 06-20-2022 Hemoglobin (Bld) [Mass/Vol] 15.4 g/dL 13.0-16.5 [facility] [place] Work Phone: Blood lymphocytes/100 leukoc yteson 06-20-2022 Lymphocytes/100 WBC (Bld) 32.2 % 19-41 [facility] [place] Work Phone: Blood monocytes/100 leukocyt eson 06-20-2022 Monocytes/100 WBC (Bld) 15.4 % 0-10 [facility] [place] Work Phone: Blood platelet mean volumeon 06-20-2022 Platelet mean volume (Bld) [Entitic vol] 9.8 fL 6.2-12.0 [facility] [place] Work Phone: Determination of erythrocyte mean corpuscular volume (MCV)on 06-20-2022 MCV (RBC) [Entitic vol] 94.9 fL 80-94 [facility] [place] Work Phone: Hematocrit Auto (Bld) [Volum e fraction]on 06-20-2022 Hematocrit (Bld) [Volume fraction] 46.5 % 40-54 [facility] [place] Work Phone: Laboratory - Chemistry and C hemistry - challengeon 06-20-2022 ALP [Catalytic activity/Vol] 90 U/L 45-117 [facility] [place] Work Phone: [phone] [Catalytic activity/Vol] 32 U/L 16-61 [facility] [place] Work Phone: [phone] CO2 [Moles/Vol] 28.0 mmol/L 21.0-32.0 [facility] [place] Work Phone: [phone] Globulin (S) [Mass/Vol] 3.9 g/dL 2.2-4.2 [facility] [place] Work Phone: [phone] Urea nitrogen/Creatinine [Mass ratio] 16.2 mg/mg 10-20 [facility] [place] Work Phone: [phone] Laboratory - Hematology and Cell countson 06-20-2022 Erythrocyte distribution width (RBC) [Entitic vol] 47.6 fL 35.1-43.9 [facility] [place] Work Phone: [phone] Erythrocyte distribution width (RBC) [Ratio] 13.4 % 11.6-14.6 [facility] [place] Work Phone: [phone] Immature granulocytes/100 WBC (Bld) 0.200 % 0.0-0.9 [facility] [place] Work Phone: [phone] Comment on above: IG% - Immature Granu locytes (promyelocytes, myelocytes and metamyelocytes) > 1% indicates that a LEFT SHIFT is Present. MCH (RBC) [Entitic mass] 31.4 pg 27.0-32.0 [facility] [place] Work Phone: [phone] Nucleated RBC/100 WBC (Bld) [Ratio] 0 % 0-5 [facility] [place] Work Phone: [phone] MCHC Auto (RBC) [Mass/Vol]on 06-20-2022 MCHC (RBC) [Mass/Vol] 33.1 g/dL 32-36 [facility] [place] Work Phone: [phone] No Panel Informationon 06-20 Estimated GFR (MDRD) Amer 87 mL/min >60 [facility] [place] Work Phone: [phone] Comment on above: GFR Calc Estimated GFR (MDRD) Non-Af Amer 72 mL/min >60 [facility] [place] Work Phone: [phone] Comment on above: Non- GFR Calc Platelets bldon 06-20-2022 Platelets (Bld) [#/Vol] 269 10*3/uL 150-450 [facility] [place] Work Phone: Serum or plasma albumin naresh urement (mass/volume)on 06-20-2022 Albumin [Mass/Vol] 3.4 g/dL 3.2-5.0 [facility] Work Phone: Serum or plasma albumin/glob ulin mass ratioon 06-20-2022 Albumin/Globulin [Mass ratio] 0.9 {ratio} 0.9-2.4 [facility] [place] Work Phone: Serum or plasma calcium naresh urement (mass/volume)on 06-20-2022 Calcium [Mass/Vol] 9.3 mg/dL 8.5-10.1 [facility] Work Phone: Serum or plasma cholesterol in HDL measurement (mass/volume)on 06-20-2022 Cholesterol in HDL [Mass/Vol] 53 mg/dL >40 [facility] [place] Work Phone: Comment on above: The drugs N-Acetylcy steine and Metamizole may falsely depress this assay. Reference Range HDL <40 mg/dL Low HDL Cholesterol HDL >or= 60 mg/dL High HDL Cholesterol Serum or plasma cholesterol in VLDL measurement (mass/volume)on 06-20-2022 Cholesterol in VLDL [Mass/Vol] 27 mg/dL 5-40 [facility] [place] Work Phone: Serum or plasma creatinine m easurement (mass/volume)on 06-20-2022 Creatinine [Mass/Vol] 1.05 mg/dL 0.70-1.30 [facility] [place] Work Phone: Comment on above: The validity of the calculated GFR & GFRAA in patients over 70 years has not been determined. Clinical correlation is essential. Serum or plasma low density lipoprotein (LDL) cholesterol measurement (mass/volume)on 06-20-2022 Cholesterol in LDL [Mass/Vol] 90 mg/dL 0-130 [facility] [place] Work Phone: Serum or plasma urea nitroge n measurement (mass/volume)on 06-20-2022 Urea nitrogen [Mass/Vol] 17 mg/dL 7-18 [facility] [place] Work Phone: Thin prep Papanicolaou smear with manual screeningon 06-20-2022 Thin prep Papanicolaou smear with manual screening 28 U/L 15-37 [facility] [place] Work Phone: Thin prep Papanicolaou smear with manual screening 7 5-15 [facility] [place] Work Phone: [phone] No Panel Informationon 03-05 Prostate Specific Antigen Screen < 0.01 ng/mL 0.00-4.00 [facility] [place] Work Phone: Comment on above: This test was perfor med using the TPSA assay method for [employer] chemistry system. Values obtained with differentassay methods cannot be used interchangably.When changing PSA assays in the course of monitoring apatient, additional sequential testing should be carriedout to confirm baseline values. CNOVon 02-20-2021 CNOV Office Visit (INTMWS ) RKLETICIAGINA EL ([id number]) 1940 M Date Time Provider Department 02/20/21 3:00 PM FILI JON INTMWS During your visit today, we recorded the following information about you: Temperature Pulse Respiration Blood pressure 98.2 degrees 78/minute 16/minute 136/84 Weight 62.1 kg Fili Jon MD 02/20/2021 5:17 PM Signed Reason for Visit Patient presents with: Establish Care: discomfort right side of abdomen Gina Ramsay is a 80 year old male who presents here today for Above Complaints.. Health Maintenance DTAP,TDAP,TD(1 - Tdap) DIABETES SCREEN SHINGRIX VACCINE(1 of 2) ADVANCE DIRECTIVE DISCUSSION PNEUMOVAX AGE 65 AND OVER WITH 5YR LOOKBACK(1) HPI Abdominal pain: started 1 year back... the first thought was that it was gall bladder issues. The problems started before a year. There was no injury associated, he just became aware of it. It was always on the right, it was always in the right upper quadrant mostly, it was hard to pin point. It is hard to know where exactly it is. Intermittent pain, no specific trigger, 2/10 Noticed But he does note that it happens more frequently... It does all these tests and when he is He had US, ct abdomen, and HIDA and scan. A 3.3 *3.5 cms cyst in the liver which is a simple cyst. 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 And some gall bladder sludge. He is on statin medication for cholesterols that are not well controlled No problem-specific Assessment AND Plan notes found for this encounter. History reviewed. No pertinent past medical history. PAST SURGICAL HISTORY Procedure Laterality Date - CATARACT SURGERY, COMPLEX Bilateral 2008 - KNEE ARTHROSCOPY/SURGERY Right 12/21/2009 - PROSTATE SURGERY HX 01/07/2018 - PROSTATE SURGERY HX 01/07/2018 FAMILY HISTORY Problem Relation Age of Onset - other (cardiac problems ) Mother - Leukemia Maternal Grandmother Social History Tobacco Use - Smoking status: Never Smoker - Smokeless tobacco: Never Used Vaping Use - Vaping Use: Never used Substance Use Topics - Alcohol use: Not on file - Drug use: Not on file Past medical history, appointments, medications, allergies reviewed. Pertinent Lab/Diagnostic Studies are reviewed and discussed today Current Outpatient Medications: - atorvastatin (LIPITOR) 40 mg tablet Review of Systems CONSTITUTIONAL: No fevers, chills night sweats, unintended weight loss CARDIOVASCULAR: No chest pain, dyspnea, palpitations, orthopnea, PND, ankle edema. PULM: No dyspnea, unexplained cough. GI: No dysphagia/odynophagia, problematic reflux, constipation, diarrhea, changes in stool habits, hematochezia, melena. : No new urinary complaints, including dysuria, gross hematuria or pyuria. NEURO: No new balance problems, peripheral weakness/paresthesias or numbness of concern. Physical Exam BP 136/84 (BP Site: Right Arm, BP Position: Sitting, BP Cuff Size: Regular Adult) Pulse 78 Temp 36.8 ?C (98.2 ?F) (Temporal) Resp 16 Wt 62.1 kg (137 lb) SpO2 95% General appearance: Well appearing, alert, in no acute distress, well nourished. Skin: Skin color, texture, turgor normal, no suspicious rashes or lesions Head: Normocephalic, no masses, lesions, tenderness or abnormalities Eyes: Anicteric sclera. Pupils are equally round and reactive to light. Extraocular movements are intact. Lungs: Lungs clear to auscultation. No wheezing, rhonchi, rales Heart: RRR without murmur, gallop, or rubs. Abdomen: soft, nondistended, no hepatosplenomegaly or masses, no rebound or guarding he is tender at the mid costal margin, where we palpate for the murphys sign, the murphys sign is negative. ASSESSMENT/PLAN: 1. Right upper quadrant abdominal pain - ICD9: 789.01, ICD10: R10.11 I spent 40 mins with the patient , reviewing his records, making a plan for him and discussing his questions and concerns. The plan is to do another US and he would like that done and [facility] - US ABD RT UPPER QUADRANT 2. Mixed hyperlipidemia - ICD9: 272.2, ICD10: E78.2 - good control - Continue current medication of atorvastatin Fili Jon MD Referring Provider: SELF [[id number]] Allergies As of Date: 02/20/2021 Noted Allergy Reaction KEFLEX (CEPHALEXIN) 02/20/2021 9 - Itching Comments: Pt states possibility he is allergic to Keflex SEASONAL ALLERGIES 02/20/2021 14 - Other: See Comments Comments: Sneezing and itchy eyes Date Reviewed: 02/20/2021 Reviewed by: Jacy Rahman Ma - Fully Assessed Reason for Visit: Establish Care [42] Cmt: discomfort right side of abdomen Primary Visit Diagnosis:Right upper quadrant abdominal pain [R10.11] Other Visit Diagnosis:Mixed hyperlipidemia [E78.2] Order(s):US ABD RT UPPER QUADRANT [[id number]] Order #: [id number] FUTURE Prescriptions as of 02/20/2021 Sig: ATORVASTATIN 40 MG TABLET Problem L (more content not included)... Normal [facility] Clinical Summary: HMSPatient IDon 02-16-2020 OOP [facility] [place] [facility] Work Phone: Office Visit: New/Est - 1st visit with physician, Vishnu: 37on 02-16-2020 NEGATED: Highlighted GoodH Qn of the Left Shoulder on 12/05/2019 at [facility] Work Phone: BD MRI PROSTATEon 01-01-2018 BD MRI PROSTATE Name: GINA RAMSAY STUDY:BD MRI PROSTATE; 01/01/2018 3:19 pm INDICATION:C61. COMPARISON:None. ORDERING CLINICIAN:EUGENIE MONTANO TECHNIQUE:Multiplanar MRI of the pelvis was obtained including axial, sagittaland coronal T2 weighted SSFSE, axial and sagittal T2 FSE, axial DWI,pre and post gadolinium dynamic T1 GRE sequences. Multiparametricanalysis was performed.25 cc Gadolinium contrast agent Multihance were administeredintravenously without immediate complications. FINDINGS:Diffusion-weighted images are nondiagnostic due to susceptibilityartifact from air within the rectum. PROSTATE VOLUME:The prostate measures 5.1 cm x 3.1 cm x 3.9 cm in [id number],anterior-post erior and craniocaudal dimension. PROSTATE PARENCHYMA:There is nodular enlargement of the transitional zone withheterogeneously decreased T2 signal. Superimposed on these changesthere is a ill-defined focus of low signal intensity on T2 weightedimages within the anterior right transitional zone at the level ofthe mid gland. There is corresponding early arterial enhancement thisfocus. This focus measures 2.2 x 1.0 cm in greatest axial dimensionand 8 mm in the greatest craniocaudal dimension. The diffusioncharacteristics of this lesion are unable to be characterized due tosusceptibility artifact, as above. There are multiple foci of linear decreased signal intensity on L1qiameaux images within the peripheral zone which may represent postinflammatory or post biopsy changes. There are patchy foci ofincreased precontrast T1 signal intensity within the right peripheralzone which may represent a component of hemorrhagic products,correlate with history of biopsy. EXTRACAPSULAR EXTENSION:There is no evidence of extracapsular extension. SEMINAL VESICLES:The bilateral seminal vesicles are within normal limits. PELVIC LYMPH NODES:No abnormally enlarged pelvic lymph nodes are identified. PERITONEUM:No free or loculated fluid collections are evident in the pelvis. BONES:No focal lesions are noted in the bone. IMPRESSION:1. Nondiagnostic study due to susceptibility artifact from air withinthe rectum.2. Within these limitations, there is a suspicious appearing lesionwithin the right transitional zone at the level of the mid glandwhich demonstrates ill-defined decreased T2 signal intensity andearly arterial enhancement. Repeat imaging may be obtained forcomplete characterization.3. Foci of decreased signal intensity within the peripheral zone mayrepresent postinflammatory post biopsy changes.I personally reviewed the images/study and I agree with the findingsas stated. This study was interpreted at [place], [place].Electronically signed by: RASHAD LOPEZ MD [facility] Vital Signs Date Time Vital Sign Value Performing Clinician Facility 05-31-2025 10:39-0400 Body height 162.[address] Vikram Jay MD Work Phone: [facility] 05-31-2025 10:39-0400 Body weight 59.[address] Vikram Jay MD Work Phone: [facility] [place] 05-30-2025 10:44-0400 Body mass index (BMI) [Ratio] 22.4 kg/m2 Dr. Vikram Jay MD Work Phone: [facility] [place] 05-25-2025 13:24-0400 Body height 162.[address] Vikram Jay MD Work Phone: [facility] [place] 05-25-2025 13:24-0400 Body mass index (BMI) [Ratio] 22.6 kg/m2 Dr. Vikram Jay MD Work Phone: [facility] [place] 05-25-2025 13:24-0400 Body weight 59.[address] Vikram Jay MD Work Phone: [facility] [place] 05-25-2025 13:24-0400 Diastolic blood pressure 85 mm[Hg] Dr. Vikram Jay MD Work Phone: [facility] [place] 05-25-2025 13:24-0400 Heart rate 72 /min Dr. Vikram Jay MD Work Phone: [facility] [place] 05-25-2025 13:24-0400 Respiratory rate 16 /min Dr. Vikram Jay MD Work Phone: [facility] [place] 05-25-2025 13:24-0400 Systolic blood pressure 156 mm[Hg] Dr. Vikram Jay MD Work Phone: [facility] [place] 04-13-2025 10:52-0400 Body height 162.[address] Vikram Jay MD Work Phone: [facility] [place] 04-13-2025 10:52-0400 Body mass index (BMI) [Ratio] 23.1 kg/m2 Dr. Vikram Jay MD Work Phone: [facility] [place] 04-13-2025 10:52-0400 Body temperature 98.5 [degF] Dr. Vikram Jay MD Work Phone: [facility] [place] 04-13-2025 10:52-0400 Body weight 61.[address] Vikram Jay MD Work Phone: [facility] [place] 04-13-2025 10:52-0400 Diastolic blood pressure 82 mm[Hg] Dr. Vikram Jay MD Work Phone: [facility] [place] 04-13-2025 10:52-0400 Heart rate 78 /min Dr. Vikram Jay MD Work Phone: [facility] [place] 04-13-2025 10:52-0400 Respiratory rate 16 /min Dr. Vikram Jay MD Work Phone: [facility] [place] 04-13-2025 10:52-0400 SaO2% (BldA) [Mass fraction] 95 % Dr. Vikram Jay MD Work Phone: [facility] [place] 04-13-2025 10:52-0400 Systolic blood pressure 138 mm[Hg] Dr. Vikram Jay MD Work Phone: [facility] [place] 06-26-2023 12:48-0400 Body height 162.[address] Vikram Jay Work Phone: [facility] [place] 06-26-2023 12:48-0400 Body mass index (BMI) [Ratio] 23.3 kg/m2 Dr. Vikram Jay Work Phone: [facility] [place] 06-26-2023 12:48-0400 Body temperature 98 [degF] Dr. Vikram Jay Work Phone: [facility] [place] 06-26-2023 12:48-0400 Body weight 61.[address] Vikram Jay Work Phone: [facility] [place] 06-26-2023 12:48-0400 Diastolic blood pressure 80 mm[Hg] Dr. Vikram Jay Work Phone: [facility] [place] 06-26-2023 12:48-0400 Heart rate 75 /min Dr. Vikram Jay Work Phone: [facility] [place] 06-26-2023 12:48-0400 Respiratory rate 16 /min Dr. Vikram Jay Work Phone: [facility] [place] 06-26-2023 12:48-0400 SaO2% (BldA) [Mass fraction] 96 % Dr. Vikram Jay Work Phone: [facility] [place] 06-26-2023 12:48-0400 Systolic blood pressure 138 mm[Hg] Dr. Vikram Jay Work Phone: [facility] [place] 01-02-2023 08:09-0400 Body height 162.[address] Vikram Jay Work Phone: [facility] [place] 01-02-2023 08:09-0400 Body mass index (BMI) [Ratio] 23.1 kg/m2 Dr. Vikram Jay Work Phone: [facility] [place] 01-02-2023 08:09-0400 Body temperature 97.3 [degF] Dr. Vikram Jay Work Phone: [facility] [place] 01-02-2023 08:09-0400 Body weight 61.[address] Vikram Jay Work Phone: [facility] [place] 01-02-2023 08:09-0400 Diastolic blood pressure 84 mm[Hg] Dr. Vikram Jay Work Phone: [facility] [place] 01-02-2023 08:09-0400 Heart rate 71 /min Dr. Vikram Jay Work Phone: [facility] [place] 01-02-2023 08:09-0400 Respiratory rate 18 /min Dr. Vikram Jay Work Phone: [facility] [place] 01-02-2023 08:09-0400 SaO2% (BldA) [Mass fraction] 96 % Dr. Vikram Jay Work Phone: [facility] [place] 01-02-2023 08:09-0400 Systolic blood pressure 136 mm[Hg] Dr. Vikram Jay Work Phone: [facility] [place] 09-03-2022 13:29-0500 Body height 157.[address] Vikram Jay Work Phone: [facility] [place] Work Phone: 09-03-2022 13:29-0500 Body mass index (BMI) [Ratio] 25.4 kg/m2 Dr. Vikram Jay Work Phone: [facility] [place] Work Phone: 09-03-2022 13:29-0500 Body temperature 97.6 [degF] Dr. Vikram Jay Work Phone: [facility] [place] Work Phone: 09-03-2022 13:29-0500 Body weight 63.[address] Vikram Jay Work Phone: [facility] [place] Work Phone: 09-03-2022 13:29-0500 Diastolic blood pressure 86 mm[Hg] Dr. Vikram Jay Work Phone: [facility] [place] Work Phone: 09-03-2022 13:29-0500 Heart rate 78 /min Dr. Vikram Jay Work Phone: [facility] [place] Work Phone: 09-03-2022 13:29-0500 Respiratory rate 14 /min Dr. Vikram Jay Work Phone: [facility] [place] Work Phone: 09-03-2022 13:29-0500 SaO2% (BldA) [Mass fraction] 98 % Dr. Vikram Jay Work Phone: [facility] [place] Work Phone: 09-03-2022 13:29-0500 Systolic blood pressure 140 mm[Hg] Dr. Vikram Jay Work Phone: [facility] [place] Work Phone: 06-25-2022 10:10-0400 Body height 157.[address] Vikram Jay Work Phone: [facility] [place] Work Phone: 06-25-2022 10:10-0400 Body mass index (BMI) [Ratio] 24.8 kg/m2 Dr. Vikram Jay Work Phone: [facility] [place] Work Phone: 06-25-2022 10:10-0400 Body temperature 97.5 [degF] Dr. Vikram Jay Work Phone: [facility] [place] Work Phone: 06-25-2022 10:10-0400 Body weight 61.[address] Vikram Jay Work Phone: [facility] [place] Work Phone: 06-25-2022 10:10-0400 Diastolic blood pressure 78 mm[Hg] Dr. Vikram Jay Work Phone: [facility] [place] Work Phone: 06-25-2022 10:10-0400 Heart rate 64 /min Dr. Vikram Jay Work Phone: [facility] [place] Work Phone: 06-25-2022 10:10-0400 Respiratory rate 14 /min Dr. Vikram Jay Work Phone: [facility] [place] Work Phone: 06-25-2022 10:10-0400 SaO2% (BldA) [Mass fraction] 98 % Dr. Vikram Jay Work Phone: [facility] [place] Work Phone: 06-25-2022 10:10-0400 Systolic blood pressure 114 mm[Hg] Dr. Vikram Jay Work Phone: [facility] [place] Work Phone: 05-18-2022 11:12-0400 Body mass index (BMI) [Ratio] 24.1 kg/m2 Dr. Vikram Jay Work Phone: [facility] [place] Work Phone: 05-18-2022 11:12-0400 Body temperature 97.5 [degF] Dr. Vikram Jay Work Phone: [facility] [place] Work Phone: 05-18-2022 11:12-0400 Body weight 59.[address] Vikram Jay Work Phone: [facility] [place] Work Phone: 05-18-2022 11:12-0400 Diastolic blood pressure 78 mm[Hg] Dr. Vikram Jay Work Phone: [facility] [place] Work Phone: 05-18-2022 11:12-0400 Heart rate 102 /min Dr. Vikram Jay Work Phone: [facility] [place] Work Phone: 05-18-2022 11:12-0400 Respiratory rate 16 /min Dr. Vikram Jay Work Phone: [facility] [place] Work Phone: 05-18-2022 11:12-0400 SaO2% (BldA) [Mass fraction] 96 % Dr. Vikram Jay Work Phone: [facility] [place] Work Phone: 05-18-2022 11:12-0400 Systolic blood pressure 126 mm[Hg] Dr. Vikram Jay Work Phone: [facility] [place] Work Phone: 05-06-2022 14:45-0400 Body mass index (BMI) [Ratio] 23 kg/m2 Dr. Vikram Jay Work Phone: [facility] [place] Work Phone: 05-06-2022 14:45-0400 Body temperature 97 [degF] Dr. Vikram Jay Work Phone: [facility] [place] Work Phone: 05-06-2022 14:45-0400 Body weight 60.[address] Vikram Jay Work Phone: [facility] [place] Work Phone: 05-06-2022 14:45-0400 Diastolic blood pressure 80 mm[Hg] Dr. Vikram Jay Work Phone: [facility] [place] Work Phone: 05-06-2022 14:45-0400 Heart rate 69 /min Dr. Vikram Jay Work Phone: [facility] [place] Work Phone: 05-06-2022 14:45-0400 Respiratory rate 16 /min Dr. Vikram Jay Work Phone: [facility] [place] Work Phone: 05-06-2022 14:45-0400 SaO2% (BldA) [Mass fraction] 96 % Dr. Vikram Jay Work Phone: [facility] [place] Work Phone: 05-06-2022 14:45-0400 Systolic blood pressure 130 mm[Hg] Dr. Vikram Jay Work Phone: [facility] [place] Work Phone: 12-11-2021 09:03-0500 Body height 162.[address] Vikram Jay Work Phone: [facility] [place] Work Phone: 12-11-2021 09:03-0500 Body mass index (BMI) [Ratio] 23.8 kg/m2 Dr. Vikram Jay Work Phone: [facility] [place] Work Phone: 12-11-2021 09:03-0500 Body temperature 96.7 [degF] Dr. Vikram aJy Work Phone: [facility] [place] Work Phone: 12-11-2021 09:03-0500 Body weight 63.[address] Vikram Jay Work Phone: [facility] [place] Work Phone: 12-11-2021 09:03-0500 Diastolic blood pressure 60 mm[Hg] Dr. Vikram Jay Work Phone: [facility] [place] Work Phone: 12-11-2021 09:03-0500 Heart rate 76 /min Dr. Vikram Jay Work Phone: [facility] [place] Work Phone: 12-11-2021 09:03-0500 Respiratory rate 18 /min Dr. Vikram Jay Work Phone: [facility] [place] Work Phone: 12-11-2021 09:03-0500 SaO2% (BldA) [Mass fraction] 98 % Dr. Vikram Jay Work Phone: [facility] [place] Work Phone: 12-11-2021 09:03-0500 Systolic blood pressure 120 mm[Hg] Dr. Vikram Jay Work Phone: [facility] [place] Work Phone: 02-20-2021 15:15-0400 Body temperature 98.2 [degF] Fili Jon MD Work Phone: [facility] 02-20-2021 15:15-0400 Body weight 62.14 kg Fili Jon MD Work Phone: [facility] 02-20-2021 15:15-0400 Diastolic blood pressure 84 mm[Hg] Fili Jon MD Work Phone: [facility] 02-20-2021 15:15-0400 Heart rate 78 /min Fili Jon MD Work Phone: [facility] 02-20-2021 15:15-0400 Respiratory rate 16 /min Fili Jon MD Work Phone: [facility] 02-20-2021 15:15-0400 SaO2% (BldA) [Mass fraction] 95 % Fili Jon MD Work Phone: [facility] 02-20-2021 15:15-0400 Systolic blood pressure 136 mm[Hg] Fili Jon MD Work Phone: [facility] NEGATED: Highlighted [id number] 14:45-0400 BMI (Body Mass Index) 23.77 kg/m2 Doretha Antony AT [facility] Work Phone: NEGATED: Highlighted [id number] 14:45-0400 Body weight 62.6 kg Doretha Arpan AT [facility] Work Phone: NEGATED: Highlighted [id number] 14:45-0400 Body weight 63 kg Doretha Arpan AT [facility] Work Phone: NEGATED: Highlighted [id number] 14:45-0400 Height 162.56 cm Doretha Arpan AT [facility] Work Phone: NEGATED: Highlighted [id number] 14:45-0407 Height 163 cm Doretha Arpan AT [facility] Work Phone: Encounters Encounter Date Encounter Type Care Provider Facility Start: 05-31-2025 End: 05-31-2025 Admission to same day surgery center Dr. Alvin Sams MD -Mechatronics Technician/Special Procedures Work Phone: Start: 05-31-2025 End: 05-31-[address] Vikram Jay MD Work Phone: -Mechatronics Technician/Special Procedures Start: 05-26-2025 Non-patient / Non-visit Dr. Ana MITCHELL -[facility] Start: 05-26-2025 End: 05-26-[address] Vikram Jay MD Work Phone: -Cardiovascular Services Start: 05-26-2025 End: 05-26-[address] Alvin Sams MD -Cardiovascular Services Work Phone: Start: 05-25-2025 End: 05-25-[address] Vikram Jay MD Work Phone: -Laboratory Start: 05-25-2025 End: 05-25-[address] Alvin Sams MD -Laboratory Work Phone: Start: 05-25-2025 End: 05-25-[address] Alvin Sams MD -[facility] Work Phone: Start: 05-25-2025 End: 05-26-[address] Vikram Jay MD Work Phone: -[facility] Start: 05-25-2025 End: 05-25-2025 ambulatory Vikram Jay Facility:[facility] [place] Start: 04-13-2025 End: 04-13-[address] Vikram Jay MD -[facility] Work Phone: Start: 04-13-2025 End: 04-13-[address] Vikram Jay MD Work Phone: -[facility] Start: 04-12-2025 End: 04-12-2025 Patient encounter procedure SUSAN NURSE -[facility] Work Phone: Start: 04-12-2025 End: 04-12-[address] Vikram Jay MD Work Phone: [facility] Start: 03-05-2025 End: 03-05-[address] Vikram Jay MD Work Phone: [facility] [place] Work Phone: Start: 03-05-2025 End: 03-05-2025 Patient encounter procedure Nancy Bright -Laboratory Work Phone: Start: 03-05-2025 End: 03-05-2025 ambulatory Vikram Jay Facility:[facility] Start: 10-12-2024 ambulatory Vikram Sommerse Facili ty:[facility] Start: 10-12-2024 End: 10-12-2024 ambulatory Andi Patterson Facility:[facility] [place] Start: 09-11-2024 End: 09-11-2024 ambulatory Nancy Mcrae Facility:[facility] Start: 08-10-2024 End: 08-10-2024 ambulatory Vikram Jay Facility:[facility] [place] [facility] Start: 07-02-2024 End: 07-03-[address] [facility] Start: 07-01-2024 End: 07-01-[address] [address] [facility] [facility] Start: 09-13-2023 End: 09-13-[address] Vikram Jay Work Phone: [facility] [place] Work Phone: Start: 09-13-2023 End: 09-13-[address] Vikram Jay Work Phone: [facility]-Laboratory Work Phone: Start: 06-26-2023 End: 06-26-2023 Encounter for general adult medical examination without abnormal findings Dr. Vikram Jay Work Phone: [facility] [place] Start: 06-26-2023 End: 06-26-[address] Vikram Jay Work Phone: [facility] Work Phone: Start: 06-21-2023 End: 06-21-2023 ambulatory [facility] Work Phone: Start: 06-21-2023 End: 06-21-2023 Patient encounter procedure [facility]-Laboratory Work Phone: Start: 03-13-2023 End: 03-13-[address] Vikram Jay Work Phone: [facility] Work Phone: Start: 03-13-2023 End: 03-13-[address] Vikram Jay Work Phone: [facility]-Laboratory Start: 01-16-2023 End: 01-16-[address] Vikram Jay Work Phone: [facility] Start: 01-09-2023 End: 01-09-[address] Vikram Jay Work Phone: [facility] Work Phone: Start: 01-09-2023 End: 01-09-[address] Vikram Jay Work Phone: [facility] Start: 01-02-2023 End: 01-02-[address] Vikram Jay Work Phone: [facility] Start: 09-07-2022 End: 09-07-[address] Vikram Jay Work Phone: [facility] Work Phone: Start: 09-07-2022 End: 09-07-[address] Vikram Jay Work Phone: [facility]-Laboratory Start: 09-03-2022 End: 09-03-[address] Vikram Jay Work Phone: [facility] Start: 06-25-2022 End: 06-25-[address] Vikram Jay Work Phone: [facility] Start: 06-20-2022 End: 06-20-[address] Vikram Jay Work Phone: [facility] Work Phone: Start: 06-20-2022 End: 06-20-[address] Vikram Jay Work Phone: [facility]-Laboratory Start: 05-18-2022 End: 05-18-[address] Vikram Jay Work Phone: [facility] Start: 05-06-2022 End: 05-06-[address] Vikram Jay Work Phone: [facility] Start: 03-05-2022 End: 03-05-[address] Vikram Jay Work Phone: [facility]-Laboratory Start: 12-11-2021 End: 12-11-[address] Vikram Jay Work Phone: [facility] Start: 07-03-[address] Jose Carlos Jay Work Phone: [facility] Start: 02-20-2021 End: 02-20-2021 Patient encounter procedure Fili Jon MD Work Phone: [facility] Comment on above: Right upper quadrant abdominal pain (Primary Dx); Mixed hyperlipidemia Start: 02-16-2020 End: 02-16-2020 Patient encounter procedure Albaro Ray MD Work Phone: [facility] Work Phone: Start: 01-01-2018 Ambulatory Glenn Montano Bryce lity:[facility] Procedures Date Procedure Procedure Detail Performing Clinician Start: 05-25-2025 X-ray of chest, PA a nd lateral views Dr. Vikram Jay MD Work Phone: Start: 03-05-2025 Assay of prostate specific antigen total Dr. Vikram Jay MD Work Phone: Comment on above: This test was perfor med using the [employer] tPSA method. Measured values of a patient sample can vary depending on the testing procedure used. PSA values determined on patient samples by different testing procedures cannot be used interchangeably. If there is a change in PSA assays while monitoring therapy, sequential testing should be performed to confirm baseline values. Start: 01-09-2023 Computed tomography of abdomen and pelvis with contrast Dr. Vikram Jay Work Phone: Start: 02-16-2020 End: 02-16-2020 Blood pressure screening not performed - reason not given Albaro Ray MD Work Phone: Start: 02-16-2020 End: 02-16-2020 BMI documented within normal parameters - no follow-up plan is required Albaro Ray MD Work Phone: Start: 02-16-2020 End: 02-16-2020 Documentation of current medications Albaro Ray MD Work Phone: Start: 02-16-2020 End: 02-16-2020 Pain assessment documented as positive - follow-up documented Albaro Ray MD Work Phone: Start: 02-16-2020 End: 02-16-2020 Tobacco non-user Albaro Ray MD Work Phone: NEGATED: Highlighted rowStart: 02-16-2020 End: 02-16-2020 Documentation of current medications Doretha Antony AT Plan of Treatment Date Care Activity Detail Author Start: 05-31-2025 Patient discharge [facility] Start: 05-25-2025 Evaluation of diagnostic study results [facility] Start: 02-25-2020 End: 02-25-2020 Appointment Appointment [facility] Work Phone: Start: 02-23-2020 End: 02-23-2020 Appointment Appointment [facility] Work Phone: Start: 02-16-2020 End: 02-16-2020 Appointment Appointment [facility] Work Phone: Start: 02-16-2020 End: 02-16-2020 TSH Qn MRI left shoulder without contrast [facility] Work Phone: Start: 2004 ADVANCE DIRECTIVE DISCUSSION ADVANCE DIRECTIVE DISCUSSION [facility] Start: 2004 PNEUMOVAX AGE 65 AND OVER WITH 5YR LOOKBACK (#1) PNEUMOVAX AGE 65 AND OVER WITH 5YR LOOKBACK (#1) [facility] Start: 1989 SHINGRIX VACCINE (1 of 2) SHINGRIX VACCINE (1 of 2) [facility] Start: 1984 DIABETES SCREEN DIABETES SCREEN [facility] Start: 12-20-1958 Urine microalbumin profile DTAP,TDAP,TD (1 - Tdap) [facility] Basic metabolic 2007 panel with ionized calcium - Serum or Plasma [facility] CBC W Auto Different ial panel - Blood [facility] Lipid 1995 panel - Serum or Plasma [facility] Replacement of electronic heart device, pulse generator [facility] End: 03-22-2022 Us abdominal real time w/image limited US ABD RT UPPER QUADRANT Radiology Routine Right upper quadrant abdominal pain 1 Occurrences starting 02/20/2021 until 03/22/2022 [facility] Comment on above: 1 Occurrences starti ng 02/20/2021 until 03/22/2022 US Heart [facility] Immunizations Immunization Date Immunization Notes Care Provider Noel saravia 07-01-2024 Seasonal trivalent influenza vaccine, adjuvanted, preservative free Dr. Vikram Jay MD Work Phone: [facility] 09-18-2023 Pfizer Covid-19 (Comirnaty) Dr. Vikram Jay MD Work Phone: [facility] 06-26-2023 influenza, injectabl e, quadrivalent, preservative free Dr. Vikram Jay Work Phone: [facility] 02-17-2023 Covid Pfizer Bivalen t Booster Dr. Vikram Jay MD Work Phone: [facility] 09-20-2022 Covid Pfizer Bivalen t Booster Dr. Vikram Jay MD Work Phone: [facility] 01-15-2022 Covid (Pfizer) Dr. Vikram Jay MD Work Phone: [facility] 06-29-2021 Covid (Pfizer) Dr. Vikram Jay MD Work Phone: [facility] 11-16-2020 Covid (Pfizer) Dr. Vikram Jay MD Work Phone: [facility] 10-27-2020 Covid (Pfizer) Dr. Vikram Jay MD Work Phone: [facility] 07-07-2020 influenza, injectabl e, quadrivalent, preservative free [facility] 07-07-2020 influenza, seasonal, injectable Dr. Vikram Jay Work Phone: [facility] 07-07-2020 Fluad Quad [id number](65yr up)(PF) 60 mcg (15 mcg x 4)/0.5mL IM syringe (flu vac Dr. Vikram Jay Work Phone: [facility] Work Phone: 07-05-2019 influenza, high dose seasonal, preservative-free Dr. Vikram Jay MD Work Phone: [facility] 07-06-2018 influenza, high dose seasonal, preservative-free Dr. Vikram Jay MD Work Phone: [facility] 07-06-[address] Vikram Jay Work Phone: [facility] 06-20-2017 influenza, high dose seasonal, preservative-free Dr. Vikram Jay MD Work Phone: [facility] 06-23-2015 influenza, injectabl e, quadrivalent, preservative free Dr. Vikram Jay MD Work Phone: [facility] 08-06-2013 influenza, injectabl e, quadrivalent, preservative free Dr. Vikram Jay MD Work Phone: [facility] Payers Date Payer Category Payer Unknown [id number] 2025 Unknown [id number] 2024 Self-pay [id number] 2023 Unknown [id number] 2020 Private Health Insurance AESHILA PARKER [id number] 2020-Present PPO [id number] 2004 Medicare MEDICARE MEDICAR E A AND B [id number] 2004-Present [place] Medicare [id number] 2004 Medicare [id number] Medicare [id number] Private Health Insurance [id number] Unknown [id number] Unknown [id number] .[id number] Unknown [id number] .462 Unknown [id number] .462 Unknown [id number] .462 Unknown [id number] .462 Unknown [id number] .462 Unknown [id number] .462 Unknown [id number] .462 Unknown [id number] [id number] .462 Unknown [id number] .462 Unknown [id number] [id number] .462 Unknown [id number] [id number] .462 Unknown [id number] [id number] .462 Unknown [id number] .462 Unknown [id number] .462 Social History Date Type Detail Facility Start: 12-11-2021 End: 06-26-2023 Assertion Unknown if ever smoked [facility] [place] Work Phone: Start: 02-20-2021 End: 05-31-2025 Tobacco smoking status NHIS Never smoker [facility] Start: 02-20-2021 Tobacco use and exposure Never used [facility] Start: 02-19-2021 History SDOH Alcohol Frequency 2 [facility] Start: 02-19-2021 History SDOH Alcohol Binge 1 [facility] Start: 02-19-2021 History SDOH Physica l Activity DPW 4 [facility] Start: 02-19-2021 History SDOH Physica l Activity MPS 9 [facility] Start: 02-18-2021 History SDOH Education 17 [facility] Start: 1940 [facility] Exposure to SARS-CoV -2 (event) Not sure [facility] Medical Equipment Procedure Code Equipment Code Equipment Origin al Text Equipment Identifier Dates MARCOS STEVENSON LG FDA Start: 01-07-2018 MARCOS STEVENSON LG FDA Start: 01-07-2018 MARCOS STEVENSON LG FDA Start: 01-07-2018 INTRANERVE MONITORING FDA Start: 01-07-2018 MARCOS STEVENSON LG FDA Start: 01-07-2018 MARCOS STEVENSON LG FDA Start: 01-07-2018 MARCOS STEVENSON LG FDA Start: 01-07-2018 INTRANERVE MONITORING FDA Start: 01-07-2018 MARCOS STEVENSON LG FDA Start: 01-07-2018 MARCOS STEVENSON LG FDA Start: 01-07-2018 MARCOS STEVENSON LG FDA Start: 01-07-2018 INTRANERVE MONITORING FDA Start: 01-07-2018 CLIP,HEMRED MAZARIEGOS FDA Start: 01-07-2018 CLIP,HEMRED MAZARIEGOS FDA Start: 01-07-2018 CLIP,HEMRED MAZARIEGOS FDA Start: 01-07-2018 INTRANERVE MONITORING FDA Start: 01-07-2018 CLIP,HEMRED MAZARIEGOS FDA Start: 01-07-2018 CLIP,HEMRED MAZARIEGOS FDA Start: 01-07-2018 CLIP,HEMRED MAZARIEGOS FDA Start: 01-07-2018 INTRANERVE MONITORING FDA Start: 01-07-2018 CLIP,HEMRED MAZARIEGOS FDA Start: 01-07-2018 CLIP,HEMRED MAZARIEGOS FDA Start: 01-07-2018 CLIP,HEMRED MAZARIEGOS FDA Start: 01-07-2018 INTRANERVE MONITORING FDA Start: 01-07-2018 CLIP,HEMRED MAZARIEGOS FDA Start: 01-07-2018 CLIP,HEMRED MAZARIEGOS FDA Start: 01-07-2018 CLIP,HEMRED MAZARIEGOS FDA Start: 01-07-2018 INTRANERVE MONITORING FDA Start: 01-07-2018 CLIP,HEMRED MAZARIEGOS FDA Start: 01-07-2018 CLIP,HEMRED MAZARIEGOS FDA Start: 01-07-2018 CLIP,HEMRED MAZARIEGOS FDA Start: 01-07-2018 INTRANERVE MONITORING FDA Start: 01-07-2018 CLIP,HEMRED MAZARIEGOS FDA Start: 01-07-2018 CLIP,HEMRED MAZARIEGOS FDA Start: 01-07-2018 CLIP,HEMRED MAZARIEGOS FDA Start: 01-07-2018 INTRANERVE MONITORING FDA Start: 01-07-2018 CLIP,HEMRED MAZARIEGOS FDA Start: 01-07-2018 CLIP,HEMRED MAZARIEGOS FDA Start: 01-07-2018 CLIP,HEMRED MAZARIEGOS FDA Start: 01-07-2018 INTRANERVE MONITORING FDA Start: 01-07-2018 CLIP,HEMOLOALFRED MAZARIEGOS FDA Start: 01-07-2018 CLIP,HEMOLOALFRED MAZARIEGOS FDA Start: 01-07-2018 CLIP,HEMRED MAZARIEGOS FDA Start: 01-07-2018 INTRANERVE MONITORING FDA Start: 01-07-2018 CLIP,MARCOS MAZARIEGOS FDA Start: 01-07-2018 CLIP,MARCOS MAZARIEGOS FDA Start: 01-07-2018 CLIP,MARCOS MAZARIEGOS FDA Start: 01-07-2018 INTRANERVE MONITORING FDA Start: 01-07-2018 CLIP,MARCOS MAZARIEGOS FDA Start: 01-07-2018 CLIP,MARCOS MAZARIEGOS FDA Start: 01-07-2018 CLIP,MARCOS MAZARIEGOS FDA Start: 01-07-2018 INTRANERVE MONITORING FDA Start: 01-07-2018 CLIP,MARCOS MAZARIEGOS FDA Start: 01-07-2018 CLIP,MARCOS MAZARIEGOS FDA Start: 01-07-2018 CLIP,MARCOS MAZARIEGOS FDA Start: 01-07-2018 INTRANERVE MONITORING FDA Start: 01-07-2018 Functional Status Date Assessment Result Facility NEGATED: Highlighted row Functional performance Functional status health issues are not documented Disease LO-Lufunro[facility]Dlgonmm[facility] Work Phone: Mental Status Date Assessment Result Facility NEGATED: Highlighted row Cognitive function [Interpretation] Cognitive status health issues are not documented Disease VG-Jdkqmcy-Hhnxtgul w [facility]00 Work Phone: Clinical Notes 02-20-2021 to 05-25-2025 Note Date & Type Note Facility 05-25-2025 Radiology Diagnostic study note [facility] Imaging Services [address] [place] [address] [id number] Chest PA and Lateral MR#: [id number] Acct: [id number] Name: GINA RAMSAY Rep #: [id number] : 1940 M 84 From: Elkin Hutson MD PCP: Dr. Vikram Jay MD Status: R EG CLI Study:Chest PA and Lateral Date of Exam: 05/25/25 Exam# [id number] Ordering Dr: Luca Sams MD PROCEDURE: CHEST PA AND LATERAL 05/25/2025 REASON FOR EXAM: FALL TECHNIQUE: CHEST PA AND LATERAL COMPARISON: 03/26/2024. FINDINGS: The heart is normal in size. The lungs are clear. Hyperinflated lungs. No acute osseous abnormalities. RAD/Chest PA and Lateral IMPRESSION: NO ACUTE FINDINGS. Reading Location: [id number] CC: Dr. Alvin Sams MD; Dr. Vikram Jay MD ~ Business Administration Teacher: Signed [facility] 04-13-2025 Evaluation note Diagnosis Onset Date Resolution Fall acute April 13, 2025 10:39am Fracture of nasal septum acute April 13, 2025 10:39am Head injury with loss of consciousness acute April 13, 2025 10:39am Syncope acute April 13, 2025 10:39am RBBB acute May 25, 2 025 1:23pm Syncope acute May 25, 2 025 1:23pm [facility] Work Phone: 1(293) 718-388401-07-2025 [facility] Medical Records Department [address] [place] [address] History Physical Exam 10/12/24 1238 MR#: [id number] Acct: [id number] Name: GINA RAMSAY Rep #: [id number] : 1940 84 From: Andi Patterson DO PCP: Dr. Vikram Jay MD Status:[facility] Location: [place] [address] HPI - General General Date of Admission: 10/12/24 Date of Service: 10/12/24 HPI Narrative GINA RAMSAY, is a 84 M who presents Chief Complaint: colonscopy Details: GINA RAMSAY, is a 83 M who presents to the office today for establishment with [facility]. Pt is here today for a colonoscopy. His last one was with Dr. Ballard over five years ago. He has a hx of polyps and recommendation was for repeat colonoscopy in 5 years. He has some RLQ pain off and on for a few years now. He has had gallbladder workup without pertinent abnormality. He has some diarrhea on occasion which is newer to him. He finds this concerning as he has never had this before.He denies heartburn, n/v, constipation or melena. [facility] Medical History Non-smoker History of stress test Impacted cerumen, left ear Pruritus Musculoskeletal chest pain Monocytosis Allergic rhinitis COVID-19 Dermatitis Educated about COVID-19 virus infection Hypertension Localized superficial swelling of skin Flu vaccine need Health care maintenance GERD (gastroesophageal reflux disease) Arrhythmia Abdominal pain prostate issues High cholesterol cataracts History of cancer Seasonal allergies Home Medications ???Medication ???Instructions ???Recorded ???Last Taken ???Type mupirocin 2 % topical ointment 1 applic topical BID 03/26/24 Unknown History hydrocortisone 2.5 % topical cream 1 applic topical BID PRN itching 07/01/24 Unknown Rx #28.35 grams atorvastatin 40 mg tablet (Lipitor) 40 mg PO DAILY #90 tabs 07/19/24 Unknown Rx omeprazole 40 mg capsule,delayed 40 mg PO DAILY PRN GERD 10/11/24 Unknown History release Allergy/AdvReac Type Severity Reaction Status Date / Time No Known Allergies Allergy Verified 10/12/24 11:51 Family History Mother Heart disease Other Cancer Surgical History S/P skin cancer resection H/O knee surgery History of prostate surgery Social History Smoking Status: Never smoker alcohol intake: never substance use type: does not use what type of physical activity do you participate in: walking, bicycling and weight training ROS Constitutional Constitutional: Denies fatigue, fever(s), poor appetite, weight gain or weight loss Gastrointestinal Gastrointestinal: Denies belching, bloating, change in bowel habits, change in stool character, chewing difficulty, coffee ground emesis, constipation, cramping, diarrhea, dyspepsia, dysphagia, early satiety, excessive flatus, fecal incontinence, heartburn, hematemesis, hematochezia, hemorrhoids, loose stools, melena, nausea, odynophagia, rectal bleeding, tenesmus, vomiting or weight changes Vital Signs Vital Signs Vital Signs: 10/12/24 12:00 10/12/24 12:00 10/12/24 12:33 Temperature 98.8 F 98.8 F Temperature Source Temporal Pulse Rate 73 73 Respiratory Rate 16 16 Respiratory Pattern Normal Blood Pressure 133/81 H 133/81 H Blood Pressure Mean 98 Blood Pressure Source Monitor Blood Pressure Position Semi-Fowlers Blood Pressure Location Right Arm Pulse Ox 97 97 Oxygen Delivery Method Room Air Room Air Weight Weight: 134 lb 7.712 oz Body Mass Index (BMI) 23.1 Physical Exam Const alert, oriented x3, no apparent distress and healthy appearing General Appearance: cooperative GI normal to inspection, nondistended, normoactive bowel sounds, soft to palpation, non-tender and non- distended Percussion: normal to percussion Rectal Exam: deferred Assessment Plan Assessment/Plan (1) Colonic polyp: (2) Diarrhea: PLAN: Assessment and Plan Assessment and Plan (1) Colonic polyp: Status: Acute Plan: This is an 83 yo male here today for establishment with [facility]. Pt has previously seen Dr. Ballard with his last colonoscopy being in 5 years ago with polyps. He is here today to get scheduled for a colonoscopy. He has occasional diarrhea and RLQ pain but no other GI symptoms. He will undergo colonoscopy and pending this we may consider further work up for his diarrhea and pain -Colonoscopy -F/u after procedure -Consider further work upw ith stool testing for EPI 10/12/24 1239 Cosigner Signature (if applicable): CC: Dr. Vikram Jay MD; Andi Friend, [facility]05-18-2021 NoteHNO ID: [id number] Author: Fili Jon MD Service: ? Author Type: Physician Type: Progress Notes Filed: 02/20/2021 5:17 PM Note Text: Reason for Visit Patient presents with: Establish Care: discomfort right side of abdomen Gina Ramsay is a 80 year old male who presents here today for Above Complaints.. Health Maintenance DTAP,TDAP,TD(1 - Tdap) DIABETES SCREEN SHINGRIX VACCINE(1 of 2) ADVANCE DIRECTIVE DISCUSSION PNEUMOVAX AGE 65 AND OVER WITH 5YR LOOKBACK(1) HPI Abdominal pain: started 1 year back... the first thought was that it was gall bladder issues. The problems started before a year. There was no injury associated, he just became aware of it. It was always on the right, it was always in the right upper quadrant mostly, it was hard to pin point. It is hard to know where exactly it is. Intermittent pain, no specific trigger, 2/10 Noticed But he does note that it happens more frequently... It does all these tests and when he is He had US, ct abdomen, and HIDA and scan. A 3.3 *3.5 cms cyst in the liver which is a simple cyst. 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 And some gall bladder sludge. He is on statin medication for cholesterols that are not well controlled No problem-specific Assessment AND Plan notes found for this encounter. History reviewed. No pertinent past medical history. PAST SURGICAL HISTORY Procedure Laterality Date - CATARACT SURGERY, COMPLEX Bilateral 2008 - KNEE ARTHROSCOPY/SURGERY Right 12/21/2009 - PROSTATE SURGERY HX 01/07/2018 - PROSTATE SURGERY HX 01/07/2018 FAMILY HISTORY Problem Relation Age of Onset - other (cardiac problems ) Mother - Leukemia Maternal Grandmother Social History Tobacco Use - Smoking status: Never Smoker - Smokeless tobacco: Never Used Vaping Use - Vaping Use: Never used Substance Use Topics - Alcohol use: Not on file - Drug use: Not on file Past medical history, appointments, medications, allergies reviewed. Pertinent Lab/Diagnostic Studies are reviewed and discussed today Current Outpatient Medications: - atorvastatin (LIPITOR) 40 mg tablet Review of Systems CONSTITUTIONAL: No fevers, chills night sweats, unintended weight loss CARDIOVASCULAR: No chest pain, dyspnea, palpitations, orthopnea, PND, ankle edema. PULM: No dyspnea, unexplained cough. GI: No dysphagia/odynophagia, problematic reflux, constipation, diarrhea, changes in stool habits, hematochezia, melena. : No new urinary complaints, including dysuria, gross hematuria or pyuria. NEURO: No new balance problems, peripheral weakness/paresthesias or numbness of concern. Physical Exam BP 136/84 (BP Site: Right Arm, BP Position: Sitting, BP Cuff Size: Regular Adult) Pulse 78 Temp 36.8 ?C (98.2 ?F) (Temporal) Resp 16 Wt 62.1 kg (137 lb) SpO2 95% General appearance: Well appearing, alert, in no acute distress, well nourished. Skin: Skin color, texture, turgor normal, no suspicious rashes or lesions Head: Normocephalic, no masses, lesions, tenderness or abnormalities Eyes: Anicteric sclera. Pupils are equally round and reactive to light. Extraocular movements are intact. Lungs: Lungs clear to auscultation. No wheezing, rhonchi, rales Heart: RRR without murmur, gallop, or rubs. Abdomen: soft, nondistended, no hepatosplenomegaly or masses, no rebound or guarding he is tender at the mid costal margin, where we palpate for the murphys sign, the murphys sign is negative. ASSESSMENT/PLAN: 1. Right upper quadrant abdominal pain - ICD9: 789.01, ICD10: R10.11 I spent 40 mins with the patient , reviewing his records, making a plan for him and discussing his questions and concerns. The plan is to do another US and he would like that done and [facility] - US ABD RT UPPER QUADRANT 2. Mixed hyperlipidemia - ICD9: 272.2, ICD10: E78.2 - good control - Continue current medication of atorvastatin Fili Jon [facility]05-18-2021 History of Present illness Narrative* Fili Jon MD - 02/20/2021 3:26 PM EDT Reason for Visit Patient presents with: Establish Care: discomfort right side of abdomen Gina Ramsay is a 80 year old male who presents here today for Above Complaints.. Health Maintenance DTAP,TDAP,TD(1 - Tdap) DIABETES SCREEN SHINGRIX VACCINE(1 of 2) ADVANCE DIRECTIVE DISCUSSION PNEUMOVAX AGE 65 AND OVER WITH 5YR LOOKBACK(1) HPI Abdominal pain: started 1 year back... the first thought was that it was gall bladder issues. The problems started before a year. There was no injury associated, he just became aware of it. It was always on the right, it was always in the right upper quadrant mostly, it was hard to pin point. It ishard to know where exactly it is. Intermittent pain, no specific trigger, 2/10 Noticed But he does note that it happens more frequently... It does all these tests and when he is He had US, ct abdomen, and HIDA and scan. A 3.3 *3.5 cms cyst in the liver which is a simple cyst. 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 And some gall bladder sludge. He is on statin medication for cholesterols that are not well controlled No problem-specific Assessment & Plan notes found for this encounter. History reviewed. No pertinent past medical history. PAST SURGICAL HISTORY Procedure Laterality Date CATARACT SURGERY, COMPLEX Bilateral 2009 KNEE ARTHROSCOPY/SURGERY Right 12/21/2009 PROSTATE SURGERY HX 01/07/2018 PROSTATE SURGERY HX 01/07/2018 FAMILY HISTORY Problem Relation Age of Onset other (cardiac problems ) Mother Leukemia Maternal Grandmother Social History Tobacco Use Smoking status: Never Smoker Smokeless tobacco: Never Used Vaping Use Vaping Use: Never used Substance Use Topics Alcohol use: Not on file Drug use: Not on file Past medical history, appointments, medications, allergies reviewed. Pertinent Lab/Diagnostic Studies are reviewed and discussed today Current Outpatient Medications: atorvastatin (LIPITOR) 40 mg tablet Review of Systems CONSTITUTIONAL: No fevers, chills night sweats, unintended weight loss CARDIOVASCULAR: No chest pain, dyspnea, palpitations, orthopnea, PND, ankle edema. PULM: No dyspnea, unexplained cough. GI: No dysphagia/odynophagia, problematic reflux, constipation, diarrhea, changes in stool habits, hematochezia, melena. : No new urinary complaints, including dysuria, gross hematuria or pyuria. NEURO: No new balance problems, peripheral weakness/paresthesias or numbness of concern. Physical Exam BP 136/84 (BP Site: Right Arm, BP Position: Sitting, BP Cuff Size: Regular Adult) Pulse 78 Temp36.8 C (98.2 F) (Temporal) Resp 16 Wt 62.1 kg (137 lb) SpO2 95% General appearance: Well appearing, alert, in no acute distress, well nourished. Skin: Skin color, texture, turgor normal, no suspicious rashes or lesions Head: Normocephalic, no masses, lesions, tenderness or abnormalities Eyes: Anicteric sclera. Pupils are equally round and reactive to light. Extraocular movements are intact. Lungs: Lungs clear to auscultation. No wheezing, rhonchi, rales Heart: RRR without murmur, gallop, or rubs. Abdomen: soft, nondistended, no hepatosplenomegaly or masses, no rebound or guarding he is tender at the mid costal margin, where we palpate for the murphys sign, the murphys sign is negative. ASSESSMENT/PLAN: 1. Right upper quadrant abdominal pain - ICD9: 789.01, ICD10: R10.11 I spent 40 mins with the patient , reviewing his records, making a plan for him and discussing his questions and concerns. The plan is to do another US and he would like that done and [facility] - US ABD RT UPPER QUADRANT 2. Mixed hyperlipidemia - ICD9: 272.2, ICD10: E78.2 - good control - Continue current medication of atorvastatin Fili Jon [facility] Diagnosis Right upper quadrant abdominal pain- Primary Abdominal pain, right upper quadrant Mixed hyperlipidemia documented in this encounter [facility]* Diagnosis Onset Date Resolution Status Abdominal pain acute Arrhythmia acute GERD (gastroesophageal reflux disease) chronic [facility] Work Phone: Evaluation note* Diagnosis Onset Date Resolution Status Dermatitis acute Educated about COVID-19 virus infection acute Hypertension chronic Cyst, pilonidal, with abscess acute Arrhythmia acute COVID-19 acute Flu vaccine need acute Hyperlipidemia chronic Hypertension chronic [facility] Work Phone: Evaluation note* Diagnosis Onset Date Resolution Status Cyst, pilonidal, with abscess acute Arrhythmia acute COVID-19 acute Flu vaccine need acute Hyperlipidemia chronic Hypertension chronic Allergic rhinitis chronic [facility] [place] Work Phone: Evaluation note* Diagnosis Onset Date Resolution Status Abdominal pain acute Abdominal pain acute [facility] [place] Work Phone: Evaluation noteNo assessment information available [facility] [place] Work Phone: Evaluation note* Diagnosis Onset Date Resolution Status Health care maintenance acut e Hyperlipidemia chronic Hypertension chronic Monocytosis chronic [facility] [place] Work Phone: Hospital Discharge instructionsAmbulatory Orders* Cardiology Location: None Selected * Ears, Nose and Throat Location: None Selected [facility] Work Phone: Instructions* Name Dates Details Instructions not documented [id number] Work Phone: Reason for referral (narrative)No reason for referral information [facility] Work [facility]: Summary Purpose Family History No Family History Records Found Mother Name Dates Details Family history of malignant neoplasm of breast(V16.3, Z80.3) Status:Active Father Name Dates Details Family history of cardiovasc ular disease(V17.49, Z82.49) Status:Active Relationship Condition Age at Onset Recorded Date/T vanessa Not Specified Malignant neoplasm Unknown mother Cardiac disease Unknown Advance Directives No Advanced Directives Records Found Advance Directive Response Recorded Date/ Time Living Will Yes December 23, 2017 11:12am Power of Emergency Service Restorer No December 23 11:12am Advance Directive Response Recorded Date/ Time Living Will Yes December 23, 2017 10:12am Power of Emergency Service Restorer No December 23 10:12am Advance Directive Response Recorded Date/ Time Advance Directives on File Yes Augus 2024 10:39am Living Will Yes May 31 10:39am Do you have a Healthcare Power of Emergency Service Restorer? Yes May 31, 2025 10:39am Name of Medical Power of Emergency Service Restorer May 31, 2025 10:39am Advance Directives Yes May 31, 2025 10:39am Chief Complaint Chief Complaint Description Start Date left shoulder pain Preliminary chief co mplaint data, not yet signed by the author as of Assessments There may be information available, but it has not been provided by the sender. Review of System There may be information available, but it has not been provided by the sender. History of Present Illness There may be information available, but it has not been provided by the sender. Chief Complaint and Reason for Visit Chief Complaint 3 M FU Reason for Visit Abdominal pain Arrhythmia GERD (gastroesophageal reflux disease) Chief Complaint discuss internationa l travel PILONIDIAL CYST INT LABS 6 M FU Reason for Visit Dermatitis Educated about COVID-19 virus infection Hypertension Cyst, pilonidal, with abscess Arrhythmia COVID-19 Flu vaccine need Hyperlipidemia Hypertension Chief Complaint PILONIDIAL CYST INT LABS 6 M FU TONGUE FEELS WEIRD Malignant neoplasm of prostate Reason for Visit Cyst, pilonidal, wit h abscess Arrhythmia COVID-19 Flu vaccine need Hyperlipidemia Hypertension Allergic rhinitis Chief Complaint Abdominal Pain seen [address] SCAN Reason for Visit Abdominal pain Abdominal pain Chief Complaint Abdominal Pain seen [address] SCAN MALIGNANT NEOPLASM OF PROSTATE Reason for Visit Abdominal pain Abdominal pain Chief Complaint MALIGNANT NEOPLASM O F PROSTATE EORDERS Chief Complaint EORDERS 1 Y FU Reason for Visit Health care maintena nce Hyperlipidemia Hypertension Monocytosis Chief Complaint Admit Date March 05, 2025 9:52a m Chief Complaint Admit Date March 05, 2025 9:52a m STITCH REMOVAL April 12, 2025 10:56 am Chief Complaint Admit Date March 05, 2025 9:52a m STITCH REMOVAL April 12, 2025 10:56 am FALLING SPELLS April 13, 2025 10:39 am Chief Complaint Admit Date March 05, 2025 9:52a m STITCH REMOVAL April 12, 2025 10:56 am FALLING SPELLS April 13, 2025 10:39 am SYNCOPE & COLLAPSE (OLEGHE) May 25, 2025 1:23pm Reason for Visit Admit Date Fall April 13, 2025 10:39 am Fracture of nasal septum April 13, 2025 10:39am Head injury with loss of consciousness J alyce 2024 10:39am Syncope April 13, 2025 10:39 am RBBB May 25, 2025 1: 23pm Syncope May 25, 2025 1: 23pm Chief Complaint Admit Date March 05, 2025 9:52a m STITCH REMOVAL April 12, 2025 10:56 am FALLING SPELLS April 13, 2025 10:39 am SYNCOPE & COLLAPSE (OLEGHE) May 25, 2025 1:23pm Syncope and collapse May 26, 2025 9 :29am SYNCOPE May 31, 2025 10 :16am Additional Source Comments (unrecognized sect ion and content) No Status Records FoundNo Status Records FoundNo Status Records Found INFORMATION SOURCE (unrecogn ized section and content) DATE CREATED AUTHOR 03/26/2018 [facility] DATE CREATED AUTHOR AUTHOR'S ORGANIZ ATION 11/06/2021 [facility] DATE CREATED AUTHOR AUTHOR'S ORGANIZ ATION 06/10/2025 [facility] Reason for Visit (unrecogniz ed section and content) Reason For Visit Description New/Est - 1st visit with physician 02/15 Preliminary reason f or visit data, not yet signed by the author as of left shoulder pain Reason Comments Establish Care discomfort right max e of abdomen Source Comments (unrecognize d section and content) In the event this informatio n is protected by the Federal Confidentiality of Alcohol and Drug Abuse Patient Records regulations: The Federal rules restrict any use of the information to criminally investigate or prosecute any alcohol or drug abuse patient.[facility] Goals (unrecognized section and content) Goals may be documented in a n alternate sectionGoals may be documented in an alternate sectionGoals may be documented in an alternate sectionGoals may be documented in an alternate sectionGoals may be documented in an alternate sectionGoals may be documented in an alternate sectionGoals may be documented in an alternate sectionGoals may be documented in an alternate sectionGoals may be documented in an alternate sectionGoals may be documented in an alternate sectionGoals may be documented in an alternate sectionGoals may be documented in an alternate sectionGoals may be documented in an alternate sectionGoals may be documented in an alternate section Care Teams (unrecognized sec tion and content) Team Status: Active Member Role Status Dates Dr. Katt Valdes DO Family Provider Active Dr. Vikram Jay MD Primary Care Provider Active Team Status: Inactive Member Role Status Dates Dr. Vikram Jay MD Primary Care Provider, Refer ring Provider Active Dr. Daniel Siddiqui MD Attending Provider Active Team Status: Inactive Member Role Status Dates Dr. Vikram Jay MD Primary Care Provider Active Dr. Daniel Siddiqui MD Attending Provider, Referring Provider Active Team Status: Inactive Member Role Status Dates Dr. Vikram Jay MD Primary Care Provider Active Dr. Glenn Montano MD Attending Provider, Referr ing Provider Active Team Status: Inactive Member Role Status Dates Dr. Vikram Jay MD Primary Care Brian busch Attending Provider, Referring Provider Active Team Status: Inactive Member Role Status Dates Dr. Vikram Jay MD Primary Care Provider Active Start: March 05, 2025 End: March 05, 2025 Nancy Bright Attending Provider Active Start : March 05, 2025 End: March 05, 2025 Nancy Bright Referring Provider Active Start : March 05, 2025 End: March 05, 2025 Team Status: Active Member Role/Relationship Status Dates Dr. Katt Valdes DO Family Provider Active Dr. Vikram Jay MD Primary Care Provider Active Team Status: Inactive Member Role/Relationship Status Dates Dr. Vikram Jay MD Primary Care Provider Active Start: March 05, 2025 End: March 05, 2025 Nancy Bright Attending Provider Active Start : March 05, 2025 End: March 05, 2025 Nancy Bright Referring Provider Active Start : March 05, 2025 End: March 05, 2025 Team Status: Inactive Member Role/Relationship Status Dates Dr. Vikram Jay MD Primary Care Provider Active Start: April 12, 2025 End: April 12, 2025 Dr. Vikram Jay MD Referring Provider Active Start: April 12, 2025 End: April 12, 2025 BIM NURSE Attending Provider Active Start: 2024 End: April 12, 2025 Team Status: Inactive Member Role/Relationship Status Dates Dr. Vikram Jay MD Primary Care Provider Active Start: April 13, 2025 End: April 13, 2025 Dr. Vikram Jay MD Attending Provider Active Start: April 13, 2025 End: April 13, 2025 Dr. Vikram Jay MD Referring Provider Active Start: April 13, 2025 End: April 13, 2025 Team Status: Inactive Member Role/Relationship Status Dates Dr. Vikram Jay MD Primary Care Provider Active Start: April 12, 2025 End: April 12, 2025 Dr. Vikram Jay MD Referring Provider Active Start: April 12, 2025 End: April 12, 2025 AMIRA Spangler Attending Provider Active Start: April 12, 2025 End: April 12, 2025 Team Status: Inactive Member Role/Relationship Status Dates Dr. Vikram Jay MD Primary Care Provider Active Start: May 25, 2025 End: May 25, 2025 Dr. Vikram Jay MD Referring Provider Active Start: May 25, 2025 End: May 25, 2025 Dr. Alvin Sams MD Attending Provider Active S tart: May 25, 2025 End: May 25, 2025 Team Status: Active Member Role/Relationship Status Dates Dr. Vikram Jay MD Primary Care Provider Active Team Status: Active Member Role/Relationship Status Dates Dr. Vikram Jay MD Primary Care Provider Active Start: May 25, 2025 Dr. Alvin Sams MD Attending Provider Active S tart: May 25, 2025 Dr. Alvin Sams MD Referring Provider Active S tart: May 25, 2025 Team Status: Active Member Role/Relationship Status Dates Dr. Vikram Jay MD Primary Care Provider Active Start: May 26, 2025 Dr. Alvin Sams MD Attending Provider Active S tart: May 26, 2025 Dr. Alvin Sams MD Referring Provider Active S tart: May 26, 2025 Team Status: Active Member Role/Relationship Status Dates Dr. Vikram Jay MD Primary Care Provider Active Start: May 26, 2025 Dr. Alvin Sams MD Attending Provider Active S tart: May 26, 2025 Team Status: Inactive Member Role/Relationship Status Dates Dr. Vikram Jay MD Primary Care Provider Active Start: May 31, 2025 End: May 31, 2025 Dr. Alvin Sams MD Attending Provider Active S tart: May 31, 2025 End: May 31, 2025 Dr. lAvin Sams MD Referring Provider Active S tart: May 31, 2025 End: May 31, 2025 Team Status: Inactive Member Role/Relationship Status Dates Dr. Vikram Jay MD Primary Care Provider Active Start: May 25, 2025 End: May 25, 2025 Dr. Alvin Sams MD Attending Provider Active S tart: May 25, 2025 End: May 25, 2025 Dr. Alvin Sams MD Referring Provider Active S tart: May 25, 2025 End: May 25, 2025 Team Status: Inactive Member Role/Relationship Status Dates Dr. Vikram Jay MD Primary Care Provider Active Start: May 26, 2025 End: May 26, 2025 Dr. Alvin Sams MD Attending Provider Active S tart: May 26, 2025 End: May 26, 2025 Dr. Alvin Sams MD Referring Provider Active S tart: May 26, 2025 End: May 26, 2025 FOR RECORDS PERTAINING TO PATIENTS WHO ARE OR HAVE BEEN ENROLLED IN A CHEMICAL DEPENDENCY/SUBSTANCEABUSE PROGRAM, SOME INFORMATION MAY BE OMITTED. This clinical summary was aggregated from multiple sources. Caution should be exercised in using it in the provision of clinical care. This summary normalizes information from multiple sources, and as a consequence, information in this document may materially change the coding, format and clinical context of patient data. In addition, data may be omitted in some cases. CLINICAL DECISIONS SHOULD BE BASED ON THE PRIMARY CLINICAL RECORDS. [employer] [facility] provides no warranty or guarantee of the accuracy or completeness of information in this document.
[2025-06-25 09:25] LABS: Hematocrit 43.3 % (40-54); Hemoglobin 14.7 g/dL (13.0-16.5); Immature Granulocytes Count 0.010 X10^3/uL (0.0-0.0); Mean Corp Hgb Conc 33.9 g/dL (32-36); Mean Corpuscular Volume 92.7 fL (80-94); Mean Platelet Vol. 10.0 fl (6.2-12.0); NRBC Flagged by Analyzer 0 % (0-5); Platelet Count 238 K/mm3 (150-450); RBC Distribution Width CV 13.2 % (11.6-14.6); RBC Distribution Width SD 45.2 fl (35.1-43.9); Red Blood Count 4.67 M/mm3 (4.6-6.2); White Blood Count 5.1 K/mm3 (4.4-11.0)
[2025-06-25 10:36] LABS: AST(SGOT) 28 U/L (<=37); Alanine Aminotransfer ALT/SGPT 23 U/L (<=46); Albumin, Serum 3.9 g/dL (3.4-4.8); Alkaline Phosphatase 79 U/L (40-129); Anion Gap 9 (5-15); BUN 23 mg/dL (4-19); BUN/Creat Ratio 23.7 RATIO (10-20); Calcium,Total 9.3 mg/dL (7.6-11.0); Carbon Dioxide 22.9 mmol/L (21.0-32.0); Chloride 108 mmol/L (98-108); Cholesterol 153 mg/dL (<=200); Globulin 2.5 g/dL (2.2-4.2); Glucose 93 mg/dL (70-99); Low Density Lipoprotein Calc. 79 mg/dL; Potassium 4.0 mmol/L (3.3-5.1); Triglycerides 75 mg/dL; Very Low Density Lipoprotein 15 mg/dL (5-40); cholesterol:hdl ratio screen 2.61
[2025-06-25 10:38] LABS: PSA,Total - Annual Screen < 0.02 ng/mL (0.02-4.00)
== END | disposition home or self-care (01) ==
LOC: LAB 08:53
PROVIDERS: PCP Internal Medicine; Referring Provider Internal Medicine; Visit Provider Internal Medicine
DX: E78.5 Hyperlipidemia, unspecified (principal); C61 Malignant neoplasm of prostate
CPT/HCPCS: 36415; 80053; 80061; 84153; 85025; G0103

== ENCOUNTER → 2025-07-09 | Outpatient (CLI) | payer MEDICARE, OTHER, SELFPAY ==
--- OUTSIDE RECORDS SUMMARY | 2025-07-09 09:26 | XMS RPT_ITS | CCD ---
Author Organization [facility] Care Team Providers Care District Adviser Name Role Phone Glenn Montano Unavailable Unavailable [...] Provider [phone] Dr. Daniel Siddiqui Attending Provider [phone] Dr. Vikram Jay Primary Care Provider [phone]) Dr. Vikram Jay Attending Provider [phone])2 Dr. Vikram Jay Referring Provider [phone] Misty MITCHELL, Dr. Sue Primary Care Provider Nancy Bright Attending Provider Nancy Bright Referring Provider Misty MITCHELL, Dr. Sue Referring Provider 1(33 0) NURSE, BIM Attending Provider Unavailable Misty MITCHELL, Dr. Sue Attending Provider 1(33 0) Ungerer MECHANICAL ENGINEERING DIRECTOR-CMaris Attending Provider [phone] Latrell MITCHELL, Dr. Esquivel Attending Provider [phone]) Latrell MITCHELL, Dr. Esquivel Referring Provider [phone]) Alvin Sams Referring Unavailable Oleghe, Efewongbe Primary Care Unavailable Alvin Sams Attending Unavailable Oleghe, Efewongbe Primary Care Unavailable Oleghe, Efewongbe Referring Unavailable Oleghe, Efewongbe Attending Unavailable Oleghe, Efewongbe Primary Care Unavailable Friend, Andi Referring Unavailable Friend, Andi Attending Unavailable Friend, Andi Consulting Unavailable Oleghe, Efewongbe Primary Care Unavailable Oleghe, Efewongbe Referring Unavailable Oleghe, Efewongbe Attending Unavailable Oleghe, Efewongbe Primary Care Unavailable Oleghe, Efewongbe Referring Unavailable Lele Serrano Attending Unavailable Oleghe, Efewongbe Primary Care Unavailable Oleghe, Efewongbe Referring Unavailable MinervaereMaris brooks Attending Unavailable Oleghe, Efewongbe Attending Unavailable Oleghe, Efewongbe Primary Care Unavailable Oleghe, Efewongbe Referring Unavailable Oleghe, Efewongbe Primary Care Unavailable Oleghe, Efewongbe Referring Unavailable Sarita Chadwick Attending Unavailable Oleghe, Efewongbe Primary Care Unavailable Oleghe, Efewongbe Referring Unavailable Alvin Sams Attending Unavailable Oleghe, Efewongbe Primary Care Unavailable Alvin Sams Attending Unavailable Oleghe, Efewongbe Primary Care Unavailable Amidon, Nancy Referring Unavailable Amidon, Nancy Attending Unavailable Oleghe, Efewongbe Primary Care Unavailable Latrell, Island Attending Unavailable Latrell, Alvin Referring Unavailable Latrell, Alvin Referring Unavailable Oleghe, Efewongbe Primary Care Unavailable Latrell, Island Attending Unavailable Oleghe, Efewongbe Primary Care Unavailable Amidon, Nancy Referring Unavailable Amidon, Nancy Attending Unavailable Oleghe, Efewongbe Primary Care Unavailable Friend, Andi Referring Unavailable Friend, Andi Attending Unavailable Oleghe, Efewongbe Attending Unavailable Oleghe, Efewongbe Primary Care Unavailable Oleghe, Efewongbe Referring Unavailable Matthieue , Dr. Sue Primary Care Physician Maris Haas Attending Physician Misty MITCHELL, Dr. Sue Attending Physician Latrell MITCHELL, Dr. Esquivel Attending Physician Allergies Allergy Classification Reported Allergen(s) Allergy Type Date of Onset Reaction(s) Facility Cephalosporins (antibiotic) (1 source) Cephalexin Drug Allergy 1 Itching [facility] Unclassified (1 source) Seasonal allergy Propensity to adverse reactions 1 Other: See Comments [facility] (2 sources) Cephalexin Drug Allergy 0 Suspected, Unknown [facility] Work Phone: Medications Current Medications Medication Drug Class(es) Dates Sig (Normalized) Sig (Original) hydrocortisone 25 mg/ml topical cream (20 sources) Corticosteroid Start: 07-01-2024 Hydrocortisone 2.5 % cream Active 1 NMA TOPICAL TWICE A DAY as needed for itching 28.35 July 01, 2024 12:00am Complies with drug therapy Start: 08-08-2020 End: 09-04-2021 Hydrocortisone Acetate (Anuc ort-Hc) 25 mg suppository Discontinued 25 mg RC TWICE A DAY as needed for hemorrhoids 24 2 August 08, 2020 1:00am September 04, 2021 11:24am omeprazole 40 mg delayed release oral capsule (20 sources) Proton Pump Inhibitor Start: 04-14-2024 End: 10-11-2024 take 1 capsule by mouth once daily 30 minutes before breakfast for gastroesophageal reflux disease Omeprazole 40 mg capsule,delayed release(DR/EC) Active 40 mg PO DAILY as needed for GERD October 11, 2024 1:00am Take 30 minutes before breakfast. Complies with drug therapy Start: 07-03-2021 End: 05-06-2022 take 1 capsule by mouth once daily 30 minutes before breakfast Omeprazole 40 mg capsule,delayed release(DR/EC) Discontinued 40 mg PO DAILY 90 July 03, 2021 12:00am May 06, 2022 2:45pm Take 30 minutes before breakfast Completed/Discontinued Medications Medication Drug Class(es) Dates Sig (Normalized) Sig (Original) acetaminophen 325 mg / HYDROcodone bitartrate 5 mg oral tablet (16 sources) Opioid Agonist Start: 01-08-2018 End: 04-05-2020 Hydrocodone-Acetami nophen 1 EACH tablet Discontinued 1 NMA PO EVERY 4 HOURS NEEDED as needed for Pain 10 3 0 January 08, 2018 7:38am April 05, 2020 [...] 500 mg PO EVERY 8 HOURS 30 0 January 08, 2018 12:00am April 05, 2020 10:10am docusate sodium 100 mg oral capsule (16 sources) Start: 01-08-2018 End: 04-05-2020 take 1 capsule by mouth twice daily Docusate Sodium 100 MG capsule Discontinued 100 mg PO TWICE A DAY 20 0 January 08, 2018 12:00am April 05, 2020 10:10am famotidine 20 mg oral tablet (16 sources) Histamine-2 Receptor Antagonist Start: 07-03-2021 End: [...] 2021 1:33pm meloxicam 15 mg oral tablet (9 sources) Nonsteroidal Anti-inflammatory Drug Start: 04-14-2024 End: 10-11-2024 take 1 tablet by mouth once daily as needed for pain Meloxicam 15 mg tablet Discontinued 15 mg PO DAILY as needed for pain 60 1 April 14, 2024 12:00am October 11, 2024 9:54am miconazole nitrate 0.02 mg/mg topical powder (9 sources) Azole Antifungal Start: 07-01-2024 End: 10-11-2024 [...] 1 NMA TOPICAL TWICE A DAY 85 July 01, 2024 12:00am October 11, 2024 9:54am mupirocin 0.02 mg/mg topical ointment (9 sources) RNA Synthetase Inhibitor Antibacterial Start: 03-26-2024 End: 04-13-2025 Mupirocin 2 % ointment Discontinued 1 NMA TOPICAL TWICE A DAY March 26, 2024 12:00am April 13, 2025 10:48am Nirmatrelvir-Ritonav ir (15 sources) Start: 05-06-2022 End: 05-18-2022 Nirmatrelvir-Ritonavir (Paxlovid [...] tablets,dose pack Discontinued 0 PO .COMPLEX 30 May 05, 2022 11:00pm May 18, 2022 10:07am take TWO 150 mg tablets of nirmatrelvir with ONE 100 mg tablet of ritonavir twice daily for 5 days PO Start: 05-06-2022 End: 05-18-2022 Nirmatrelvir-Ritonavir (Paxl ovid (Eua)) 300 mg (150 mg x 2)-100 mg tablets,dose pack Discontinued 0 PO .COMPLEX 30 May 06, 2022 12:00am May 18, 2022 11:07am take TWO 150 mg tablets of nirmatrelvir with ONE 100 mg tablet of ritonavir twice daily for 5 days PO sildenafil 50 mg oral tablet (9 sources) Phosphodiesterase 5 Inhibitor Start: 03-26-2024 End: 04-14-2024 Sildenafil 50 mg tablet Discontinued 50 mg PO as needed for ED March 26, 2024 12:00am April 14, 2024 2:42pm tamsulosin hydrochloride 0.4 mg oral capsule (17 sources) alpha-Adrenergic Fariba Start: 12-23-2017 End: 04-05-2020 take 1 capsule by mouth once daily Tamsulosin 0.4 MG capsule Discontinued 0.4 mg PO DAILY December 23, 2017 12:00am April 05, 2020 10:10am prostate Problems Active Problems Problem Classification Problem Date Documented Da te Episodic/Chronic Abdominal pain (20 sources) Right upper quadrant pain; Translations: [Right upper quadrant pain] Episodic Administrative/social admission (16 sources) Education with explicit context; Translations: [Other specified counseling] Episodic Allergic reactions (16 sources) Inflammatory dermatosis; Translations: [Dermatitis, unspecified] Episodic Cancer of prostate (19 sources) Malignant neoplasm of prostate; Translations: [Malignant tumor of prostate] Onset: 8 01-07-2018 Chronic Cardiac dysrhythmias (20 sources) Cardiac arrhythmia; Translations: [Cardiac arrhythmia, unspecified] Onset: 5 Chronic Cataract (15 sources) Bilateral cataracts 05-04-2022 Chronic Conduction disorders (12 sources) Right bundle branch block; Translations: [Unspecified right bundle-branch block] 05-25-2025 Chronic Diseases of white blood cells (11 sources) Monocytosis; Translations: [Monocytosis (symptomatic)] 06-26-2023 Chronic Disorders of lipid metabolism (20 sources) Mixed hyperlipidemia; Translations: [Mixed hyperlipidemia] Onset: 4 Chronic E Codes: Fall (15 sources) Fall; Translations: [Unspecified fall, initial encounter] 04-14-2024 Episodic Esophageal disorders (17 sources) Gastroesophageal reflux disease; Translations: [Gastro-esophageal reflux disease without esophagitis] Chronic Essential hypertension (20 sources) Hypertensive disorder; Translations: [Essential (primary) hypertension] Onset: 5 Chronic Comment on above: NO MEDS Genitourinary symptoms and ill-defined conditions (1 source) Sign or symptom of the urinary system; Translations: [Other symptoms involving urinary system] Episodic Immunizations and screening for infectious disease (19 sources) Needs influenza immunization; Translations: [Encounter for immunization] Onset: 4 Episodic Intracranial injury (15 sources) Injury of head; Translations: [Unspecified intracranial injury with loss of consciousness of unspecified duration, initial encounter] 03-26-2024 Episodic Nonspecific chest pain (19 sources) Musculoskeletal chest pain; Translations: [Other chest pain] Onset: 5 07-01-2024 Episodic Open wounds of head; neck; and trunk (1 source) Laceration without foreign body of other part of head, initial encounter; Translations: [Laceration without foreign body of other part of head, initial encounter] Onset: 5 Episodic Other and unspecified benign neoplasm (9 sources) Polyp of colon; Translations: [Polyp of [...] [Impacted cerumen, left ear] 07-01-2024 Episodic Other ear and sense organ disorders (2 sources) Impacted cerumen in left ear; Translations: [Impacted cerumen, left ear] 05-09-2025 Episodic Other gastrointestinal disorders (9 sources) Diarrhea; Translations: [Diarrhea, unspecified] 10-12-2024 Episodic Other inflammatory condition of skin (9 sources) Pruritus, unspecified; Translations: [Pruritus] 07-01-2024 Episodic Other injuries and conditions due to external causes (2 sources) Injury of nasal septum Episodic Other skin disorders (16 sources) Localized superficial swelling of skin; Translations: [Localized swelling, mass and lump, unspecified] 09-04-2021 Episodic Other upper respiratory disease (14 sources) Allergic rhinitis; Translations: [Allergic rhinitis, unspecified] 09-04-2022 Chronic Other upper respiratory disease (1 source) Allergic rhinitis, unspecified; Translations: [Allergic rhinitis, cause unspecified] Chronic Skin and subcutaneous tissue infections (17 sources) Pilonidal cyst with abscess; Translations: [Pilonidal cyst with abscess] Episodic Skull and face fractures (14 sources) Fractured nasal septum; Translations: [Fracture of nasal bones, initial encounter for closed fracture] Onset: 5 04-13-2025 Episodic Syncope (20 sources) Syncope; Translations: [Syncope and collapse] Onset: 5 Episodic Syncope (12 sources) Syncope Unclassified (2 sources) Malignant neoplasm of prostate / C61(ICD-10) Onset: 8 Unclassified (5 sources) Fracture of nasal septum Unclassified (12 sources) S02.2XXA - Fracture of nasal bones, initial encounter for closed fracture Viral infection (17 sources) Disease caused by 2019-nCoV; Translations: [COVID-19] Episodic Past or Other Problems Problem Classification Problem Date Documented Da te Episodic/Chronic Other and unspecified benign neoplasm (1 source) [...] 11-05-2024 Episodic Unclassified (1 source) Problem Unclassified (15 sources) prostate issues 05-04-2022 NEGATED: Highlighted row has not occurred!Residual codes; unclassified (1 source) Disease Episodic Results Test Name Value Interpretation Reference Range Facility Absolute lymphocyte countOrd ered By: Vikram Jay on 06-25-2025 Lymphocytes Auto (Unsp spec) [#/Vol] 1.77 10*3/uL 0.83-4.51 [facility] Absolute neutrophil countOrd ered By: Vikram Jay on 06-25-2025 Neutrophils (Bld) [#/Vol] 2.4 10*3/uL 2.0-7.7 [facility] Anion gap in Serum or Plasma Ordered By: Vikram Jay on 06-25-2025 Anion gap [Moles/Vol] 9 mmol/L - [facility] Automated lymphocyte count a s percentage of total leukocytesOrdered By: Vikram Jay on 06-25-2025 Lymphocytes/100 WBC Auto (Unsp spec) 34.6 % [facility] BUN/creatinine ratioOrdered By: Vikram Jay on 06-25-2025 Urea nitrogen/Creatinine [Mass ratio] 23.7 mg/mg High - [facility] Basophil percentageOrdered B y: Vikram Jay on 06-25-2025 Basophils/100 WBC (Bld) 1.2 % High 0-1 [facility] Bilirubin, totalOrdered By: Vikram Jay on 06-25-2025 Bilirubin [Mass/Vol] 0.53 mg/dL 0.00-1.30 [facility] CBC W/Diff, Automatedon 06-07 Absolute Lymph 1.77 X10 3/uL Normal 0.83-4.51 [facility] Comment on above: Performed By: #### L 501.9910, L500.4100, L100.0100, L500.4050 ####[facility] [address] [place], [address] Absolute Neut 2.4 X10 3/uL Normal 2.0-7.7 [facility] Comment on above: Performed By: #### L 501.9910, L500.4100, L100.0100, L500.4050 ####[facility] [address] [place], [address] Basophils/100 WBC (Bld) 1.2 % High 0-1 [facility] Comment on above: Performed By: #### L 501.9910, L500.4100, L100.0100, L500.4050 ####[facility] [address] [place], [address] Eosinophils/100 WBC (Bld) 2.7 % Normal 0-5 [facility] Comment on above: Performed By: #### L 501.9910, L500.4100, L100.0100, L500.4050 ####[facility] [address] [place], [address] Erythrocyte distribution width (RBC) [Ratio] 13.2 % Normal 11.6-14.6 [facility] Comment on above: Performed By: #### L 501.9910, L500.4100, L100.0100, L500.4050 ####[facility] [address] [place], [address] Hematocrit (Bld) [Volume fraction] 43.3 % Normal 40-54 [facility] Comment on above: Performed By: #### L 501.9910, L500.4100, L100.0100, L500.4050 ####[facility] [address] [place], [address] Hemoglobin (Bld) [Mass/Vol] 14.7 g/dL Normal 13.0-16.5 [facility] Comment on above: Performed By: #### L 501.9910, L500.4100, L100.0100, L500.4050 ####[facility] [address] [place], [address] IG% 0.200 Normal 0.0-0.9 [facility] Comment on above: Result Comment: IG% - Immature Granulocytes (promyelocytes, myelocytes and metamyelocytes) > 1% indicates that a LEFT SHIFT is Present. Performed By: #### L 501.9910, L500.4100, L100.0100, L500.4050 ####[facility] [address] [place], [address] Lymphocytes/100 WBC (Bld) 34.6 % Normal 19-41 [facility] Comment on above: Performed By: #### L 501.9910, L500.4100, L100.0100, L500.4050 ####[facility] [address] [place], [address] MCH (RBC) [Entitic mass] 31.5 pg Normal 27.0-32.0 [facility] Comment on above: Performed By: #### L 501.9910, L500.4100, L100.0100, L500.4050 ####[facility] [address] [place], [address] MCHC (RBC) [Mass/Vol] 33.9 g/dL Normal 32-36 [facility] Comment on above: Performed By: #### L 501.9910, L500.4100, L100.0100, L500.4050 ####[facility] [address] [place], [address] MCV (RBC) [Entitic vol] 92.7 fL Normal 80-94 [facility] Comment on above: Performed By: #### L 501.9910, L500.4100, L100.0100, L500.4050 ####[facility] [address] [place], [address] Monocytes/100 WBC (Bld) 13.7 % High 0-10 [facility] Comment on above: Performed By: #### L 501.9910, L500.4100, L100.0100, L500.4050 ####[facility] [address] [place], [address] Neutrophils/100 WBC (Bld) 47.6 % Normal 47-70 [facility] Comment on above: Performed By: #### L 501.9910, L500.4100, L100.0100, L500.4050 ####[facility] [address] [place], [address] Nucleated RBC (Bld) [#/Vol] 0 10*3/uL Normal 0-5 [facility] Comment on above: Performed By: #### L 501.9910, L500.4100, L100.0100, L500.4050 ####[facility] [address] [place], [address] Platelet mean volume (Bld) [Entitic vol] 10.0 fL Normal 6.2-12.0 [facility] Comment on above: Performed By: #### L 501.9910, L500.4100, L100.0100, L500.4050 ####[facility] [address] [place], [address] Platelets (Bld) [#/Vol] 238 10*3/uL Normal 150-450 [facility] Comment on above: Performed By: #### L 501.9910, L500.4100, L100.0100, L500.4050 ####[facility] [address] [place], [address] RBC (Bld) [#/Vol] 4.67 10*6/uL Normal 4.6-6.2 [facility] Comment on above: Performed By: #### L 501.9910, L500.4100, L100.0100, L500.4050 ####[facility] [address] [place], [address] RDW SD 45.2 fl High 35.1-43.9 [facility] Comment on above: Performed By: #### L 501.9910, L500.4100, L100.0100, L500.4050 ####[facility] [address] [place], [address] WBC (Bld) [#/Vol] 5.1 10*3/uL Normal 4.4-11.0 [facility] Comment on above: Performed By: #### L 501.9910, L500.4100, L100.0100, L500.4050 ####[facility] [address] [place], [address] Calculated very low density lipoprotein (VLDL) cholesterol measurementOrdered By: Vikram Jay on 06-25-2025 Calculated very low density lipoprotein (VLDL) cholesterol measurement 15 mg/dL 5-40 [facility] Carbon dioxide, total [Moles /volume] in Central venous bloodOrdered By: Vikram Jay on 06-25-2025 CO2 [Moles/Vol] 22.9 mmol/L 21.0-32.0 [facility] Chloride assayOrdered By: Ciara ivanateddy Ganingrid on 06-25-2025 Chloride [Moles/Vol] 108 mmol/L 98-108 [facility] Comprehensive Metabolic Prof ilon 06-25-2025 Albumin [Mass/Vol] 3.9 g/dL Normal 3.4-4.8 [facility] Comment on above: Performed By: #### L 501.9910, L500.4100, L100.0100, L500.4050 ####[facility] [address] [place], [address] Albumin/Globulin [Mass ratio] 1.5 {ratio} Normal 0.9-2.4 [facility] Comment on above: Performed By: #### L 501.9910, L500.4100, L100.0100, L500.4050 ####[facility] [address] [place], [address] ALK PHOS 79 U/L Normal 40-129 [facility] Comment on above: Performed By: #### L 501.9910, L500.4100, L100.0100, L500.4050 ####[facility] [address] [place], [address] ALT [Catalytic activity/Vol] 23 U/L Normal <=46 [facility] Comment on above: Performed By: #### L 501.9910, L500.4100, L100.0100, L500.4050 ####[facility] [address] [place], [address] AST [Catalytic activity/Vol] 28 U/L Normal <=37 [facility] Comment on above: Performed By: #### L 501.9910, L500.4100, L100.0100, L500.4050 ####[facility] [address] [place], [address] Bilirubin [Mass/Vol] 0.53 mg/dL Normal 0.00-1.30 [facility] Comment on above: Performed By: #### L 501.9910, L500.4100, L100.0100, L500.4050 ####[facility] [address] [place], [address] BUN/CRE 23.7 RATIO High 10-20 [facility] Comment on above: Performed By: #### L 501.9910, L500.4100, L100.0100, L500.4050 ####[facility] [address] [place], [address] Calcium [Mass/Vol] 9.3 mg/dL Normal 7.6-11.0 [facility] Comment on above: Performed By: #### L 501.9910, L500.4100, L100.0100, L500.4050 ####[facility] [address] [place], [address] Chloride [Moles/Vol] 108 mmol/L Normal 98-108 [facility] Comment on above: Performed By: #### L 501.9910, L500.4100, L100.0100, L500.4050 ####[facility] [address] [place], [address] CO2 [Moles/Vol] 22.9 mmol/L Normal 21.0-32.0 [facility] Comment on above: Performed By: #### L 501.9910, L500.4100, L100.0100, L500.4050 ####[facility] [address] [place], [address] Creatinine [Mass/Vol] 0.96 mg/dL Normal 0.70-1.20 [facility] Comment on above: Performed By: #### L 501.9910, L500.4100, L100.0100, L500.4050 ####[facility] [address] [place], [address] GAP 9 Normal 5-15 [facility] Comment on above: Performed By: #### L 501.9910, L500.4100, L100.0100, L500.4050 ####[facility] [address] [place], [address] GFR/1.73 sq M.predicted among non-blacks MDRD (S/P/Bld) [Vol rate/Area] 77 mL/min/{1.73_m2} Normal >60 [facility] Comment on above: Result Comment: mL/m in/1.73m2 CKD-EPI Creatinine Equation (2020) Performed By: #### L 501.9910, L500.4100, L100.0100, L500.4050 ####[facility] [address] [place], [address] Globulin (S) [Mass/Vol] 2.5 g/dL Normal 2.2-4.2 [facility] Comment on above: Performed By: #### L 501.9910, L500.4100, L100.0100, L500.4050 ####[facility] [address] [place], [address] Glucose [Mass/Vol] 93 mg/dL Normal 70-99 [facility] Comment on above: Performed By: #### L 501.9910, L500.4100, L100.0100, L500.4050 ####[facility] [address] [place], [address] Potassium [Moles/Vol] 4.0 mmol/L Normal 3.3-5.1 [facility] Comment on above: Performed By: #### L 501.9910, L500.4100, L100.0100, L500.4050 ####[facility] [address] [place], [address] Sodium [Moles/Vol] 140 mmol/L Normal 133-145 [facility] Comment on above: Performed By: #### L 501.9910, L500.4100, L100.0100, L500.4050 ####[facility] [address] [place], [address] T PROT 6.4 g/dL Normal 5.9-8.4 [facility] Comment on above: Performed By: #### L 501.9910, L500.4100, L100.0100, L500.4050 ####[facility] [address] [place], [address] Urea nitrogen [Mass/Vol] 23 mg/dL High 4-19 [facility] Comment on above: Performed By: #### L 501.9910, L500.4100, L100.0100, L500.4050 ####[facility] [address] [place], [address] Eosinophil percentageOrdered By: Vikram Jay on 06-25-2025 Eosinophils/100 WBC (Bld) 2.7 % 0-5 [facility] Erythrocyte distribution wid th ratioOrdered By: Vikram Jay on 06-25-2025 Erythrocyte distribution width (RBC) [Ratio] 13.2 % 11.6-14.6 [facility] Erythrocyte distribution wid th standard deviationOrdered By: Vikram Jay on 06-25-2025 Erythrocyte distribution width (RBC) [Ratio] 45.2 fl High 35.1-43.9 [facility] Glomerular filtration rate ( GFR) estimation/1.73 sq m using serum, plasma, or whole bOrdered By: Vikram Jay on 06-25-2025 GFR/1.73 sq M.predicted among non-blacks MDRD (S/P/Bld) [Vol rate/Area] 77 mL/min/{1.73_m2} >60 [facility] Comment on above: mL/min/1.73m2 CKD-EP I Creatinine Equation (2020) Hematocrit Auto (Bld) [Volum e fraction]Ordered By: Vikram Jay on 06-25-2025 Hematocrit (Bld) [Volume fraction] 43.3 % 40-54 [facility] Hemoglobin measurementOrdere d By: Ciaraivanaangelinabert Ganalyjose carlos on 06-25-2025 Hemoglobin (Bld) [Mass/Vol] 14.7 g/dL 13.0-16.5 [facility] Immature granulocytes/100 WB C Auto (Bld)Ordered By: harvinder Jay on 06-25-2025 Immature granulocytes/100 WBC (Bld) 0.200 % 0.0-0.9 [facility] Comment on above: IG% - Immature Granu locytes (promyelocytes, myelocytes and metamyelocytes) > 1% indicates that a LEFT SHIFT is Present. LDL calc ser/plasOrdered By: Vikram Jay on 06-25-2025 Cholesterol in LDL [Mass/Vol] 79 mg/dL [facility] Comment on above: Uiuwzjjbnt=970-695 m g/dL & Higher Qdam=615 mg/dL or greaterFriedwald Equation for LDL-C Laboratory - Chemistry and C hemistry - challengeOrdered By: harvinder Jay on 06-25-2025 AST [Catalytic activity/Vol] 28 U/L <38 [facility] Lipid Profileon 06-25-2025 CHOL:HDL 2.61 Normal [facility] Comment on above: Performed By: #### L 501.9910, L500.4100, L100.0100, L500.4050 ####[facility] [address] [place], [address] Cholesterol [Mass/Vol] 153 mg/dL Normal <=200 [facility] Comment on above: Result Comment: Chol esterol level, Desirable <200 mg/dL Borderline high cholesterol 200-239 mg/dL High cholesterol >=240 mg/dL Recommendations of the NCEP Adult Treatment Panel for the following risk-cutoff thresholds for the [place] population. Performed By: #### L 501.9910, L500.4100, L100.0100, L500.4050 ####[facility] [address] [place], [address] Cholesterol in HDL [Mass/Vol] 59 mg/dL Normal [facility] Comment on above: Result Comment: Sara onal Cholesterol Education Program (NCEP) guidelines: <40 mg/dL: Low HDL-cholesterol (major risk factor for CHD) >= 60 mg/dL: High HDL-cholesterol (negative risk factor for CHD) HDL-cholesterol is affected by a number of factors, e.g. smoking, exercise, hormones, sex and age. Performed By: #### L 501.9910, L500.4100, L100.0100, L500.4050 ####[facility] [address] [place], [address] Cholesterol in LDL [Mass/Vol] 79 mg/dL Normal [facility] Comment on above: Result Comment: Bord yvcgqz=031-255 mg/dL Higher Vama=553 mg/dL or greater Friedwald Equation for LDL-C Performed By: #### L 501.9910, L500.4100, L100.0100, L500.4050 ####[facility] [address] [place], [address] Cholesterol in VLDL [Mass/Vol] 15 mg/dL Normal 5-40 [facility] Comment on above: Performed By: #### L 501.9910, L500.4100, L100.0100, L500.4050 ####[facility] [address] [place], [address] Triglyceride [Mass/Vol] 75 mg/dL Normal [facility] Comment on above: Result Comment: The drugs N-Acetylcysteine and Metamizole may falsely depress this assay. Normal range: <150 mg/dL Borderline High: 150-199 mg/dL High: 200-499 mg/dL Very High: >500 mg/dL Performed By: #### L 501.9910, L500.4100, L100.0100, L500.4050 ####[facility] [address] [place], [address] MCV (mean corpuscular volume ) determinationOrdered By: Collinbert Ganalyjose carlos on 06-25-2025 MCV (RBC) [Entitic vol] 92.7 fL 80-94 [facility] Mean corpuscular hemoglobin (MCH) determinationOrdered By: Vikram Jay on 06-25-2025 MCH (RBC) [Entitic mass] 31.5 pg 27.0-32.0 [facility] Mean corpuscular hemoglobin concentration (MCHC) determinationOrdered By: Collinbert Misty on 06-25-2025 MCHC (RBC) [Mass/Vol] 33.9 g/dL 32-36 [facility] Mean platelet volume determi nationOrdered By: archiebert Gnaingrid on 06-25-2025 Platelet mean volume (Bld) [Entitic vol] 10.0 fL 6.2-12.0 [facility] Monocyte percentageOrdered B y: Vikram Jay on 06-25-2025 Monocytes/100 WBC (Bld) 13.7 % High 0-10 [facility] Neutrophil percentageOrdered By: [facility] Center[facility] Jay on 06-25-2025 Neutrophils/100 WBC (Bld) 47.6 % 47-70 [facility] Nucleated red blood cell per centageOrdered By: [facility] Center[facility] Jay on 06-25-2025 Nucleated RBC/100 WBC (Bld) [Ratio] 0 % 0-5 [facility] PSA,Total - Annual Screenon 06-25-2025 PSA,TOT SCREEN < 0.02 Low 0.02-4.00 [facility] Comment on above: Result Comment: This test was performed using the [employer] tPSA method. Measured values of a patient??sample can vary depending on the testing procedure used. PSA values determined on patient samples by different testing procedures cannot be used interchangeably. If there is a change in PSA assays while monitoring therapy, sequential testing should be performed to confirm baseline values. Performed By: #### L 501.9910, L500.4100, L100.0100, L500.4050 ####[facility] [address] [place], [place], [address] Platelet countOrdered By: Ciara harvinder Jay on 06-25-2025 Platelets (Bld) [#/Vol] 238 10*3/uL 150-450 [facility] Potassium measurement (mass/ volume)Ordered By: Vikram Jay on 06-25-2025 Potassium (Unsp spec) [Mass/Vol] 4.0 mmol/L 3.3-5.1 [facility] RBC Auto (Bld) [#/Vol]Ordere d By: Vikram Jay on 06-25-2025 RBC (Bld) [#/Vol] 4.67 10*6/uL 4.6-6.2 [facility] Screening total cholesterol/ high density lipoprotein (HDL) cholesterol ratioOrdered By: Vikram Jay on 06-25-2025 Cholesterol.total/Chol esterol in HDL [Mass ratio] 2.61 {ratio} [facility] Serum creatinine measurement (mass/volume)Ordered By: Vikram Jay on 06-25-2025 Creatinine [Mass/Vol] 0.96 mg/dL 0.70-1.20 [facility] Serum globulin measurementOr dered By: Vikram Jay on 06-25-2025 Globulin (S) [Mass/Vol] 2.5 g/dL 2.2-4.2 [facility] Serum glucose measurement (m ass/volume)Ordered By: Vikram Jay on 06-25-2025 Glucose [Mass/Vol] 93 mg/dL 70-99 [facility] Serum or plasma alanine ferreira otransferase (ALT) measurementOrdered By: Vikram Jay on 06-25-2025 ALT [Catalytic activity/Vol] 23 U/L <47 [facility] Serum or plasma albumin naresh urement (mass/volume)Ordered By: Vikram Jay on 06-25-2025 Albumin [Mass/Vol] 3.9 g/dL 3.4-4.8 [facility] Serum or plasma albumin/glob ulin mass ratioOrdered By: Vikram Jay on 06-25-2025 Albumin/Globulin [Mass ratio] 1.5 {ratio} 0.9-2.4 [facility] Serum or plasma alkaline susan sphatase measurementOrdered By: Vikram Jay on 06-25-2025 ALP [Catalytic activity/Vol] 79 U/L 40-129 [facility] Serum or plasma calcium naresh urement (mass/volume)Ordered By: Vikram Jay on 06-25-2025 Calcium [Mass/Vol] 9.3 mg/dL 7.6-11.0 [facility] Serum or plasma cholesterol in HDL measurement (mass/volume)Ordered By: Vikram Jay on 06-25-2025 Cholesterol in HDL [Mass/Vol] 59 mg/dL >40 [facility] Comment on above: National Cholesterol Education Program (NCEP) guidelines:<40 mg/dL: Low HDL-cholesterol (major risk factor for CHD)>= 60 mg/dL: High HDL-cholesterol (negative risk factor for CHD)HDL-cholesterol is affected by a number of factors, e.g. smoking, exercise, hormones, sex and age. Serum or plasma cholesterol measurement (mass/volume)Ordered By: Vikram Jay on 06-25-2025 Cholesterol [Mass/Vol] 153 mg/dL <201 [facility] Comment on above: Cholesterol level, D esirable <200 mg/dLBorderline high cholesterol 200-239 mg/dLHigh cholesterol >=240 mg/dLRecommendations of the NCEP Adult Treatment Panel for the following risk-cutoff thresholds for the [place] population. Serum or plasma urea nitroge n measurement (mass/volume)Ordered By: Vikram Jay on 06-25-2025 Urea nitrogen [Mass/Vol] 23 mg/dL High 4-19 [facility] Sodium levelOrdered By: Olga Lidia coxbhanu Misty on 06-25-2025 Sodium [Moles/Vol] 140 mmol/L 133-145 [facility] Total proteinOrdered By: Gallo Jay on 06-25-2025 Protein [Mass/Vol] 6.4 g/dL 5.9-8.4 [facility] Triglycerides measurementOrd ered By: Vikram Jay on 06-25-2025 Triglyceride [Mass/Vol] 75 mg/dL <199 [facility] Comment on above: The drugs N-Acetylcy steine and Metamizole may falsely depress this assay. Normal range: <150 mg/dLBorderline High: 150-199 mg/dLHigh: 200-499 mg/dLVery High: >500 mg/dL White blood cell (WBC) count Ordered By: Vikram Jay on 06-25-2025 WBC (Bld) [#/Vol] 5.1 10*3/uL 4.4-11.0 [facility] Pacemaker reportOrdered By: Alvin Sams on 05-31-2025 Study report [facility] Imaging Services [address] [place] [address] TXT:Device Implant / Explant MR#: [id number] Acct: [id number] Name: GINA RAMSAY Rep #:[id number] : 1940 84 From: Alvin Sams MD PCP: Dr. Vikram Jay MD Status:R [facility] Patient: GINA RAMSAY Study Date: 05/31/2025 Performing: Alvin Sams MD : 1940 Age: 84 Gender: male PROCEDURES PERFORMED LP01-(33585)INSERTION OF LOOP RECORDER INDICATIONS Syncope PROCEDURE DETAILS [...] DEVICES IMPLANTED DEVICE(S): ICM Loop Recorder - Berry Planter: [employer], Model # [id number] , Serial # [id number] DEVICE PARAMETERS CONCLUSIONS / RECOMMENDATIONS Device Conclusions: [...] Dictated: 05/31/25 1225 Date Transcribed: 05/31/25 1245 Heel Scourer: CO Signed [facility] Work Phone: TXT:Device Implant / Explant on 05-31-2025 TXT:Device Implant / Explant [facility] Imaging Services [address] [place] [address] TXT:Device Implant / Explant MR#: [id number] Acct: [id number] Name: GINA RAMSAY Rep #: [id number] : 1940 84 From: Alvin Sams MD PCP: Dr. Vikram Jay MD Status:[facility] Patient: GINA RAMSAY Study Date: 05/31/2025 Performing: Alvin Sams MD : 1940 Age: 84 Gender: male PROCEDURES PERFORMED LP01-(54877)INSERTION OF LOOP RECORDER INDICATIONS Syncope PROCEDURE DETAILS [...] DEVICES IMPLANTED DEVICE(S): ICM Loop Recorder - Berry Planter: [employer], Model # [id number] , Serial # [id number] DEVICE PARAMETERS CONCLUSIONS / RECOMMENDATIONS Device Conclusions: [...] Dictated: 05/31/25 1225 Date Transcribed: 05/31/25 1245 Heel Scourer: CO Signed Normal [facility] Echo Completeon 05-26-2025 Echo Complete [facility] Cardiovascular Services [address] [place] [address] Echo Complete 05/26/25 0942 MR#: [id number] Acct: [id number] Name: GINA RAMSAY Rep #: [id number] : 1940 84 From: Alvin Sams MD Attending Dr: Dr. Alvin Sams MD Status: REG C Ordering Dr: Alvin Sams MD Date: 05/26/25 Location: [facility] Sex: M C Admitted: Reason For Study [...] MD; Dr. Vikram Jay MD Date Dictated: 05/26/25941 Date Transcribed: 05/26/25 1133 Heel Scourer: Signed Normal [facility] Echocardiogram study reportO rdered By: Alvin Sams on 05-26-2025 Study report [facility] Cardiovascular Services [address] [place] [address] Echo Complete 05/26/25941 MR#: [id number] Acct: [id number] Name: GINA RAMSAY Rep #:[id number] : 1940 84 From: Alvin Roberts Attending Dr: Dr. Alvin Sams MD S tatus: REG CLI Ordering Dr: Alvin Sams MD Date: Location: [facility] Sex: M C Admitted: Reason For Study [...] cm RVDd: 3.5 cm FS: 36.4 % __ LAV(MOD-bp): 57.3 ml LVAd ap4: 25.6 cm2 [...] area: 19.4 cm2 LA dimension(2D): 4.3 cm __ RA A4 area: 16.7 cm2 Time Measurements MV dec time: 0.18 sec Doppler Measurements & Calculations MV E max servando: 71.5 cm/sec Lat Peak E' Servando: 9.4 cm/sec Med Peak E' Servando: 7.9 cm/sec MV A max servando: 64.0 cm/sec E/E' lat: 7.6 E/E' med: 9.1 MV E/A: 1.1 __ MV V2 max: 84.4 cm/sec MV P1/2t [...] 521.3 msec LV V1 VTI: 25.8 cm __ TR max servando: 240.0 cm/sec TR max P.0 mmHg ECHO/Echo Complete Interpretation Summary The left ventricular ejection fraction is 60 %. Normal left ventricle. Mild (1+) aortic valve insufficiency. Mild (1+) eccentric mitral valve insufficiency. Ordering Physician: Alvin Sams Referring Physician: Alvin Sams Performed By: Seng Turner, BETTINA 05/26/25 1133 Date _ Alvin Sams MD CC: Dr. Alvin Sams MD; Dr. Vikram Jay MD ~ Date Dictated: 05/26/25941 Date Transcribed: 05/26/25 113 Heel Scourer: Signed [facility] Work Phone: Anion gap in Serum or Plasma Ordered By: Alvin Sams on 05-25-2025 Anion gap [Moles/Vol] 12 mmol/L 5-15 [facility] BUN/creatinine ratioOrdered By: Alvin Sams on 05-25-2025 Urea nitrogen/Creatinine [Mass ratio] 20.3 mg/mg High 10-20 [facility] Basic Metabolic Profile (BMP )on 05-25-2025 BUN/CRE 20.3 RATIO High -20 [facility] Comment on above: Performed By: #### L 500.2500 ####[facility] [address] [place], [address] Calcium [Mass/Vol] 9.3 mg/dL Normal 7.6-11.0 [facility] Comment on above: Performed By: #### L 500.2500 ####[facility] [address] [place], [address] Chloride [Moles/Vol] 105 mmol/L Normal 98-108 [facility] Comment on above: Performed By: #### L 500.2500 ####[facility] [address] [place], [address] CO2 [Moles/Vol] 23.2 mmol/L Normal 21.0-32.0 [facility] Comment on above: Performed By: #### L 500.2500 ####[facility] [address] [place], [address] Creatinine [Mass/Vol] 0.99 mg/dL Normal 0.70-1.20 [facility] Comment on above: Performed By: #### L 500.2500 ####[facility] [address] [place], [address] GAP 12 Normal 5-15 [facility] Comment on above: Performed By: #### L 500.2500 ####[facility] [address] [place], [address] GFR/1.73 sq M.predicted among non-blacks MDRD (S/P/Bld) [Vol rate/Area] 75 mL/min/{1.73_m2} Normal >60 [facility] Comment on above: Result Comment: mL/m in/1.73m2 CKD-EPI Creatinine Equation (2020) Performed By: #### L 500.2500 ####[facility] [address] [place], [address] Glucose [Mass/Vol] 114 mg/dL High 70-99 [facility] Comment on above: Performed By: #### L 500.2500 ####[facility] [address] [place], [address] Potassium [Moles/Vol] 3.7 mmol/L Normal 3.3-5.1 [facility] Comment on above: Performed By: #### L 500.2500 ####[facility] [address] [place], [address] Sodium [Moles/Vol] 141 mmol/L Normal 133-145 [facility] Comment on above: Performed By: #### L 500.2500 ####[facility] [address] [place], [address] Urea nitrogen [Mass/Vol] 20 mg/dL High 4-19 [facility] Comment on above: Performed By: #### L 500.2500 ####[facility] [address] [place], [address] Carbon dioxide, total [Moles /volume] in Central venous bloodOrdered By: Alvin Sams on 05-25-2025 CO2 [Moles/Vol] 23.2 mmol/L 21.0-32.0 [facility] Cardiology Visit Reporton Cardiology Visit Report [facility] [address] [place] [address] OFFICE VISIT Date of Service: 05/25/25 MR#: [id number] Acct: [id number] Name: GINA RAMSAY Rep #: [id number] : 1940 Provider: Dr. 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 Normal [facility] Chest PA and Lateralon 05-25 Chest PA and Lateral [facility] Imaging Services [address] [place] [address] Chest PA and Lateral MR#: [id number] Acct: [id number] Name: GINA RAMSAY Rep #: [id number] : 1940 M 84 From: Lele Hutson MD PCP: Dr. Vikram Jay MD Status: REG CLI Study: Chest PA and Lateral Date of Exam: 05/25/25 Exam# [id number] Ordering Dr: Alvin Sams MD PROCEDURE: CHEST PA AND LATERAL 05/25/2025 REASON FOR EXAM: FALL TECHNIQUE: CHEST PA AND LATERAL COMPARISON: 03/26/2024. FINDINGS: The heart is normal in size. The lungs are clear. Hyperinflated lungs. No acute osseous abnormalities. RAD/Chest PA and Lateral IMPRESSION: NO ACUTE FINDINGS. Reading Location: [facility] CC: Dr. Alvin Sams MD; Dr. Vikram Jay MD Heel Scourer: Signed Normal [facility] Chloride assayOrdered By: Luca Sams on 05-25-2025 Chloride [Moles/Vol] 105 mmol/L 98-108 [facility] Glomerular filtration rate ( GFR) estimation/1.73 sq m using serum, plasma, or whole bOrdered By: Alvin Sams on 05-25-2025 GFR/1.73 sq M.predicted among non-blacks MDRD (S/P/Bld) [Vol rate/Area] 75 mL/min/{1.73_m2} >60 [facility] Comment on above: mL/min/1.73m2 CKD-EP I Creatinine Equation (2020) Potassium measurement (mass/ volume)Ordered By: Alvin Sams on 05-25-2025 Potassium (Unsp spec) [Mass/Vol] 3.7 mmol/L 3.3-5.1 [facility] Serum creatinine measurement (mass/volume)Ordered By: Alvin Sams on 05-25-2025 Creatinine [Mass/Vol] 0.99 mg/dL 0.70-1.20 [facility] Serum glucose measurement (m ass/volume)Ordered By: Alvinromero Sams on 05-25-2025 Glucose [Mass/Vol] 114 mg/dL High 70-99 [facility] Serum or plasma calcium naresh urement (mass/volume)Ordered By: Alvin Latrell on 05-25-2025 Calcium [Mass/Vol] 9.3 mg/dL 7.6-11.0 [facility] Serum or plasma urea nitroge n measurement (mass/volume)Ordered By: Alvin Latrell on 05-25-2025 Urea nitrogen [Mass/Vol] 20 mg/dL High 4-19 [facility] Sodium levelOrdered By: Cyri l Latrell on 05-25-2025 Sodium [Moles/Vol] 141 mmol/L 133-145 [facility] Internal Medicine Office Vis itofareed 04-13-2025 Internal Medicine Office Visit [facility] [address] [place] [address] [place] [address] OFFICE VISIT Date of Service: 04/13/25 MR#: [id number] Acct: [id number] Name: GINA RAMSAY Rep #: [id number] : 1940 Provider: Dr. Vikram sanford MD Age/Sex: 84/M Location: [facility] [place] [place] Status: Signed Intake Vital Signs 10/12/24 12:00 [...] PATIENT HAD A FALL ON 04/02/25 IN [facility]; REPORTS NO RECOLLECTION OF FALL, THINGS "WENT DARK" A FRACTION OF A SECOND PRIOR TO FALL; WOKE UP TO PEOPLE CARING FOR PATIENT. PATIENT WAS TOLD TO SEE AN ENT WHEN IN ED AT HOSPITAL. [facility] Medical History (Updated 04/13/25 @ 11:34 by [...] April 02 while descending a mountain in [facility], where he sustained a head injury requiring [...] Ahsan and another during a walk in [facility], both resulting in falls without recollection of [...] nausea/dyspepsia Genitourinary (more content not included)... Normal [facility] Office Visit Reporton 2024 Office Visit Report [facility] Services [address] [place] [place] [address] OFFICE VISIT Date of Service: 04/12/25 MR#: [id number] Acct: [id number] Patient: GINA RAMSAY Rep #: [id number] : 1940 Provider: SUSAN NURSE Age/Sex: 84/M Location: [facility] [place] [place] Status: Signed Intake Vital Signs 10/12/24 12:00 [...] (03/2025 laceration facial) 04/25/25 0733 Date Maris Ungerer MECHANICAL ENGINEERING DIRECTOR-C Cosigner Signature: Date (if applicable) CC: Normal [facility] PSA,Total- Diagnosticon 05-3 PSA, DIAGNOSTIC < 0.02 Normal 0.00-4.00 [facility] Comment on above: Result Comment: This test was performed using the [employer] tPSA method. Measured values of a patient??sample can vary depending on the testing procedure used. PSA values determined on patient samples by different testing procedures cannot be used interchangeably. If there is a change in PSA assays while monitoring therapy, sequential testing should be performed to confirm baseline values. Performed By: #### L 501.9940 #### [facility] Laboratory [address] [facility] [place], [address] Colonoscopy Reporton 025 Colonoscopy Report [facility] Medical Records Department [address] [place] [address] Colonoscopy Report MR#: [id number] Acct: [id number] Name: GINA RAMSAY Rep #: [id number] : 1940 84 From: Andi Patterson DO PCP: Dr. Vikram Jay MD Status:[facility] Patient Name: Gina Ramsay Procedure Date: 10/12/2024 [...] individual at high risk CPT copyright 2021 [employer]. All rights reserved. The codes documented in this report are preliminary and upon compliance analyst review may be revised to meet current compliance requirements. Andi Patterson DO 10/12/2024 1:16:36 PM This report has been signed electronically. Number of Addenda: 0 Note Initiated On: 10/12/2024 12:43 PM 10/12/24 1316 Date Andi Patterson DO Cosigner Signature: Date (if indicated) CC: Dr. Vikram Jay MD; Andi Patterson DO Date Dictated: 10/12/24 1243 Date Transcribed: Heel Scourer: ANDREA Signed [facility] MR/POSTOP.[facility] 10-12-2024 MR/POSTOP.[facility] Medical Records Department [address] [place] [address] Anesthesia Postop Eval I 10/12/24 1315 MR#: [id number] Acct: [id number] Name: GINA RAMSAY Rep #: [id number] : 1940 84 From: Shmuel Rodriguez PCP: Dr. Vikram Jay MD Status:REG SDC Y Race: C Location: [place] [address] Anesthesia: Postop Eval I Current Vital Signs [...] Anesthesia document: Postop Eval 1 completed: Yes 10/12/24 1316 Date Shmuel Zamoranorylannilda Signature: Date CC: Signed Normal [facility] MR/[id number] 10-12-2024 MR/POSTOPAN2 [facility] Medical Records Department [address] [place] [id number] Anesthesia Postop Eval II 10/12/24 1551 MR#: [id number] Acct: [id number] Name: GINA RAMSAY Rep #: [id number] : 1940 84 From: Skip Flowers MD PCP: Dr. Vikram Jay MD Status:[facility] Y Race: C Location: EN Anesthesia [...] Anesthesia Complication: No 10/12/24 1552 Date Skip Lionel MITCHELL Cosigner Signature: Date CC: Signed Normal [facility] MR/PATLEYDI 10-11-2024 MR/PAT.[facility] Medical Records Department [address] [place] [address] PAT - Anesthesia 10/11/24 1217 MR#: [id number] Acct: [id number] Name: GINA RAMSAY Rep #: [id number] : 1940 84 From: Nelson Flores MD PCP: Dr. 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 Hx Hospitalization No 10/11/24 08:56 Any Problems [...] take am of surgery PONV PONV - professor of marketing: PONV - professor of marketing Female No 10/11/24 08:56 HX of Motion [...] 07/02/24 09:32 Respiratory Assessment Respiratory Assessment - professor of marketing: Respiratory Tract Infection Hx - professor of marketing Hx Respiratory Tract Infection No 10/11/24 08:56 STOP Sleep Apnea STOP Sleep Apnea - professor of marketing: STOP Sleep Apnea - professor of marketing Hx Hypertension No 10/11/24 08:56 Hx Sleep [...] Tobacco Use History Tobacco Use History - professor of marketing: Tobacco Use History - professor of marketing Tobacco Use Smoking Status Never smoker 10/11/24 08:56 Hx Tobacco Use No 10/11/24 08:56 Years Smoking Packs Smoked per Day Smoking Cessation Date was within the last 15 years Hx Smoking Cessation Date Hx Smoking Cessation Counseling Hematologic Medial History Hematologic Hx - professor of 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 Normal [facility] PSA,Total- Diagnosticon 12-0 PSA, DIAGNOSTIC < 0.01 Normal 0.0-4.0 [facility] Comment on above: Result Comment: This test was performed using the TPSA assay method for the [employer] chemistry system. Values obtained with different assay methods cannot be used interchangably. When changing PSA assays in the course of monitoring a patient, additional sequential testing should be carried out to confirm baseline values. Performed By: #### L 501.9940 ####[facility] [id number] [place], [address] Gastroenterology Visit Repor ton 08-10-2024 Gastroenterology Visit Report [facility] Gastroenterology [address] [place] [address] OFFICE VISIT Date of Service: 08/10/24 MR#: [id number] Acct: [id number] Name: GINA RAMSAY Rep #: [id number] : 1940 Provider: JULISA Kirkland Age/Sex: 83/M Location: [facility] [place] [place] Status: Signed Intake Vital Signs 07/02/24 09:32 [...] the past year?: Yes Nurse's Note: OV 08.10.24 Pt here to establish care in our [...] to the office today for establishment with [facility]. Pt is here today for [...] Appearance: average body habitus and well nourished [facility] Head: normal to inspection Ears: hearing [...] yo male here today for establishment with [facility]. Pt has previously seen Dr. Ballard with his last colonoscopy being in 5 years ago with polyps. He is here today to get scheduled for a colonoscopy. He has occasional diarrhea and RLQ pain but no other GI symptoms. He wi (more content not included)... Normal [facility] Lipid Profileon 07-03-2024 Cholesterol [Mass/Vol] 160 mg/dL Normal 200 [facility] Comment on above: Result Comment: <200 mg/dL Desirable 200-240 mg/dL Borderline >240 mg/dL High Risk Performed By: #### L 500.4100, L500.3400 #### [facility] Laboratory [address] [place], [address] Cholesterol in HDL [Mass/Vol] 63 mg/dL Normal [facility] Comment on above: Result Comment: The drugs N-Acetylcysteine and Metamizole may falsely depress this assay. Reference Range HDL <40 mg/dL Low HDL Cholesterol HDL >or= 60 mg/dL High HDL Cholesterol Performed By: #### L 500.4100, L500.3400 #### [facility] [address] [place], [address] Cholesterol in LDL [Mass/Vol] 67 mg/dL Normal 0-130 [facility] Comment on above: Performed By: #### L 500.4100, L500.3400 #### [facility] [address] [place], [address] Cholesterol in VLDL [Mass/Vol] 30 mg/dL Normal 5-40 [facility] Comment on above: Performed By: #### L 500.4100, L500.3400 #### [facility] [address] [place], [address] Triglyceride [Mass/Vol] 152 mg/dL Normal [facility] Comment on above: Result Comment: The drugs N-Acetylcysteine and Metamizole may falsely depress this assay. Serum Triglycerides Reference Interval Normal <150 mg/dL Borderline high 150 - 199 mg/dL High 200 - 499 mg/dL Very High > or = 500 mg/dL Performed By: #### L 500.4100, L500.3400 #### [facility] [address] [place], [address] Liver Profileon 07-03-2024 Albumin [Mass/Vol] 3.4 g/dL Normal 3.2-5.0 [facility] Comment on above: Performed By: #### L 500.4100, L500.3400 #### [facility] [address] [place], [address] ALK P 91 U/L Normal 45-117 [facility] Comment on above: Performed By: #### L 500.4100, L500.3400 #### [facility] [address] [place], [address] ALT [Catalytic activity/Vol] 29 U/L Normal 16-61 [facility] Comment on above: Performed By: #### L 500.4100, L500.3400 #### [facility] [address] [place], [address] AST [Catalytic activity/Vol] 20 U/L Normal 15-37 [facility] Comment on above: Performed By: #### L 500.4100, L500.3400 #### [facility] [address] [place], [address] Bilirubin [Mass/Vol] 0.70 mg/dL Normal 0.20-1.00 [facility] Comment on above: Result Comment: For patients on eltrombopag therapy, use of Dimension Well[employer] TBIL is not recommended. Performed By: #### L 500.4100, L500.3400 #### [facility] [address] [place], [address] Bilirubin.direct [Mass/Vol] 0.20 mg/dL Normal 0.00-0.30 [facility] Comment on above: Performed By: #### L 500.4100, L500.3400 #### [facility] [address] [place], [address] Globulin (S) [Mass/Vol] 3.6 g/dL Normal 2.2-4.2 [facility] Comment on above: Performed By: #### L 500.4100, L500.3400 #### [facility] [address] [place], [address] T PROT 7.0 g/dL Normal 6.4-8.2 [facility] Comment on above: Performed By: #### L 500.4100, L500.3400 #### [facility] [address] [place], [address] Internal Medicine Office Vis iton 07-02-2024 Internal Medicine Office Visit [facility] [address] [place] [address] [place] [address] OFFICE VISIT Date of Service: 07/02/24 MR#: [id number] Acct: [id number] Name: GINA RAMSAY Rep #: [id number] : 1940 Provider: JULISA Pena Age/Sex: 83/M Location: [facility] [place] [place] Status: Signed Intake Vital Signs 07/01/24 13:55 [...] the past year?: Yes (MARCH WITH INJURY) [facility] Medical History Impacted cerumen, left ear Pruritus [...] Appearance: average body habitus and well nourished HENRI Ears: EAC abnormal excessive cerumen on the [...] amount of (more content not included)... Normal [facility] Internal Medicine Office Vis iton 07-01-2024 Internal Medicine Office Visit [facility] [address] [place] [address] [place] [address] OFFICE VISIT Date of Service: 07/01/24 MR#: [id number] Acct: [id number] Name: GINA RAMSAY Rep #: [id number] : 1940 Provider: Dr. Vikram sanford MD Age/Sex: 83/M Location: [facility] [place] [place] Status: Signed Intake Vital Signs 06/26/23 12:48 [...] tops of feet and groin this started " a few weeks ago" [facility] Medical History (Updated 07/01/24 @ 19:36 by [...] April for chest pain following a fall. [place] to be musculoskeletal and was prescribed an [...] intolerance, i (more content not included)... Normal [facility] No Panel InformationOrdered By: Glenn Montano on 09-13-2023 Prostate Specific Antigen Total < 0.01 ng/mL 0.0-4.0 [facility] Comment on above: This test was perfor med using the TPSA assay method for the[employer] chemistry system. Values obtained with differentassay methods cannot be used interchangably.When changing PSA assays in the course of monitoring apatient, additional sequential testing should be carriedout to confirm baseline values. Absolute lymphocyte countOrd ered By: Vikram Jay on 06-21-2023 Lymphocytes Auto (Unsp spec) [#/Vol] 1.52 10*3/uL 0.83-4.51 [facility] Basophil percentageOrdered B y: Vikram Jay on 06-21-2023 Basophils/100 WBC (Bld) 1.3 % 0-1 [facility] Bilirubin [Mass/Vol] 0.90 mg/dL 0.20-1.00 [facility] Comment on above: For patients on eltr ombopag therapy, use of Dimension [employer] TBIL is not recommended. Chloride [Moles/Vol] 108 mmol/L 98-107 [facility] Cholesterol [Mass/Vol] 164 mg/dL <200 [facility] Comment on above: <200 mg/dL Desirable 200-240 mg/dL Borderline >240 mg/dL High Risk Eosinophils/100 WBC (Bld) 2.4 % 0-5 [facility] Glucose [Mass/Vol] 100 mg/dL 74-106 [facility] Comment on above: Fasting Glucose resu lt from 100 to 125 mg/dL suggests IMPAIRED HOMEOSTASIS per A.D.A. criteria. Neutrophils (Bld) [#/Vol] 2.2 10*3/uL 2.0-7.7 [facility] Neutrophils/100 WBC (Bld) 47.5 % 47-70 [facility] Potassium [Moles/Vol] 4.3 mmol/L 3.5-5.1 [facility] Protein [Mass/Vol] 7.3 g/dL 6.4-8.2 [facility] Sodium [Moles/Vol] 139 mmol/L 136-145 [facility] Triglyceride [Mass/Vol] 103 mg/dL <199 [facility] Comment on above: The drugs N-Acetylcy steine and Metamizole may falsely depress this assay.Serum Triglycerides Reference Interval Normal <150 mg/dL Borderline high 150 - 199 mg/dL High 200 - 499 mg/dL Very High > or = 500 mg/dL WBC (Bld) [#/Vol] 4.6 10*3/uL 4.4-11.0 [facility] Blood erythrocytes count (nu mber/volume)Ordered By: Vikram Jay on 06-21-2023 RBC (Bld) [#/Vol] 5.08 10*6/uL 4.6-6.2 [facility] Blood hemoglobin measurement (mass/volume)Ordered By: Vikram Jay on 06-21-2023 Hemoglobin (Bld) [Mass/Vol] 16.1 g/dL 13.0-16.5 [facility] Blood lymphocytes/100 leukoc ytesOrdered By: Vikram Jay on 06-21-2023 Lymphocytes/100 WBC (Bld) 33.4 % 19-41 [facility] Blood monocytes/100 leukocyt esOrdered By: ivanamalvernebert Jay on 06-21-2023 Monocytes/100 WBC (Bld) 15.2 % 0-10 [facility] Blood platelet mean volumeOr dered By: Vikram Jay on 06-21-2023 Platelet mean volume (Bld) [Entitic vol] 9.7 fL 6.2-12.0 [facility] Determination of erythrocyte mean corpuscular volume (MCV)Ordered By: Vikram Jay on 06-21-2023 MCV (RBC) [Entitic vol] 94.3 fL 80-94 [facility] Hematocrit Auto (Bld) [Volum e fraction]Ordered By: Olga Lidiamalvernebert Jay on 06-21-2023 Hematocrit (Bld) [Volume fraction] 47.9 % 40-54 [facility] Laboratory - Chemistry and C hemistry - challengeOrdered By: ivanamalvernebert Jay on 06-21-2023 ALP [Catalytic activity/Vol] 91 U/L 45-117 [facility] ALT [Catalytic activity/Vol] 33 U/L 16-61 [facility] CO2 [Moles/Vol] 28.0 mmol/L 21.0-32.0 [facility] Globulin (S) [Mass/Vol] 3.6 g/dL 2.2-4.2 [facility] Urea nitrogen/Creatinine [Mass ratio] 14.2 mg/mg 10-20 [facility] Laboratory - Hematology and Cell countsOrdered By: Olga Lidiamalvernebert Jay on 06-21-2023 Erythrocyte distribution width (RBC) [Entitic vol] 46.1 fL 35.1-43.9 [facility] Erythrocyte distribution width (RBC) [Ratio] 13.2 % 11.6-14.6 [facility] Immature granulocytes/100 WBC (Bld) 0.200 % 0.0-0.9 [facility] Comment on above: IG% - Immature Granu locytes (promyelocytes, myelocytes and metamyelocytes) > 1% indicates that a LEFT SHIFT is Present. MCH (RBC) [Entitic mass] 31.7 pg 27.0-32.0 [facility] Nucleated RBC/100 WBC (Bld) [Ratio] 0 % 0-5 [facility] MCHC Auto (RBC) [Mass/Vol]Or dered By: Vikram Jay on 06-21-2023 MCHC (RBC) [Mass/Vol] 33.6 g/dL 32-36 [facility] No Panel InformationOrdered By: Vikram Jay on 06-21-2023 Estimated GFR (MDRD) Amer 80 mL/min >60 [facility] Comment on above: GFR Calc Estimated GFR (MDRD) Non-Af Amer 66 mL/min >60 [facility] Comment on above: Non- GFR Calc Platelets bldOrdered By: Gallo Jay on 06-21-2023 Platelets (Bld) [#/Vol] 246 10*3/uL 150-450 [facility] Serum or plasma albumin naresh urement (mass/volume)Ordered By: Vikram Jay on 06-21-2023 Albumin [Mass/Vol] 3.7 g/dL 3.2-5.0 [facility] Serum or plasma albumin/glob ulin mass ratioOrdered By: Vikram Jay on 06-21-2023 Albumin/Globulin [Mass ratio] 1.0 {ratio} 0.9-2.4 [facility] Serum or plasma calcium naresh urement (mass/volume)Ordered By: Vikram Jay on 06-21-2023 Calcium [Mass/Vol] 9.1 mg/dL 8.5-10.1 [facility] Serum or plasma cholesterol in HDL measurement (mass/volume)Ordered By: Vikram Jay on 06-21-2023 Cholesterol in HDL [Mass/Vol] 62 mg/dL >40 [facility] Comment on above: The drugs N-Acetylcy steine and Metamizole may falsely depress this assay. Reference Range HDL <40 mg/dL Low HDL Cholesterol HDL >or= 60 mg/dL High HDL Cholesterol Serum or plasma cholesterol in VLDL measurement (mass/volume)Ordered By: Vikram Jay on 06-21-2023 Cholesterol in VLDL [Mass/Vol] 21 mg/dL 5-40 [facility] Serum or plasma creatinine m easurement (mass/volume)Ordered By: Vikram Jay on 06-21-2023 Creatinine [Mass/Vol] 1.13 mg/dL 0.70-1.30 [facility] Comment on above: The validity of the calculated GFR & GFRAA in patients over 70 years has not been determined. Clinical correlation is essential. Serum or plasma low density lipoprotein (LDL) cholesterol measurement (mass/volume)Ordered By: Vikram Jay on 06-21-2023 Cholesterol in LDL [Mass/Vol] 81 mg/dL 0-130 [facility] Serum or plasma urea nitroge n measurement (mass/volume)Ordered By: Vikram Jay on 06-21-2023 Urea nitrogen [Mass/Vol] 16 mg/dL 7-18 [facility] Thin prep Papanicolaou smear with manual screeningOrdered By: Vikram Jay on 06-21-2023 Thin prep Papanicolaou smear with manual screening 21 U/L 15-37 [facility] Thin prep Papanicolaou smear with manual screening 3 5-15 [facility] No Panel InformationOrdered By: Dr. Montano on 03-13-2023 Prostate Specific Antigen Screen < 0.01 ng/mL 0.00-4.00 [facility] Comment on above: This test was perfor med using the TPSA assay method for the[facility] chemistry system. Values obtained with differentassay methods cannot be used interchangably.When changing PSA assays in the course of monitoring apatient, additional sequential testing should be carriedout to confirm baseline values. Basophil percentageOrdered B y: Dr. Siddiqui on 01-09-2023 Basophil percentage < 0.9 mg/dL 0.70-1.30 [facility] No Panel InformationOrdered By: Dr. Siddiqui on 01-09-2023 Bedside Estimated GFR (eGFR) > 60.0000 mL/min >60 [facility] No Panel Informationon 09-07 Prostate Specific Antigen Total < 0.01 ng/mL 0.0-4.0 [facility] Work Phone: Comment on above: This test was perfor med using the TPSA assay method for the[employer] chemistry system. Values obtained with differentassay methods cannot be used interchangably.When changing PSA assays in the course of monitoring apatient, additional sequential testing should be carriedout to confirm baseline values. Absolute lymphocyte counton 06-20-2022 Lymphocytes Auto (Unsp spec) [#/Vol] 1.57 10*3/uL 0.83-4.51 [facility] Work Phone: Basophil percentageon 2021 Basophils/100 WBC (Bld) 0.4 % 0-1 [facility] Work Phone: [phone] Bilirubin [Mass/Vol] 0.50 mg/dL 0.20-1.00 [facility] Work Phone: Comment on above: For patients on eltr ombopag therapy, use of [employer] TBIL is not recommended. Chloride [Moles/Vol] 105 mmol/L 98-107 [facility] Work Phone: Cholesterol [Mass/Vol] 170 mg/dL <200 [facility] Work Phone: Comment on above: <200 mg/dL Desirable 200-240 mg/dL Borderline >240 mg/dL High Risk Eosinophils/100 WBC (Bld) 2.9 % 0-5 [facility] Work Phone: [phone] Glucose [Mass/Vol] 102 mg/dL 74-106 [facility] Work Phone: Comment on above: Fasting Glucose resu lt from 100 to 125 mg/dL suggests IMPAIRED HOMEOSTASIS per A.D.A. criteria. Neutrophils (Bld) [#/Vol] 2.4 10*3/uL 2.0-7.7 [facility] Work Phone: Neutrophils/100 WBC (Bld) 48.9 % 47-70 [facility] Work Phone: [phone] Potassium [Moles/Vol] 4.2 mmol/L 3.5-5.1 [facility] Work Phone: Protein [Mass/Vol] 7.3 g/dL 6.4-8.2 [facility] Work Phone: [phone] Sodium [Moles/Vol] 140 mmol/L 136-145 [facility] Work Phone: [phone] Triglyceride [Mass/Vol] 135 mg/dL <199 [facility] Work Phone: [phone] Comment on above: The drugs N-Acetylcy steine and Metamizole may falsely depress this assay.Serum Triglycerides Reference Interval Normal <150 mg/dL Borderline high 150 - 199 mg/dL High 200 - 499 mg/dL Very High > or = 500 mg/dL WBC (Bld) [#/Vol] 4.9 10*3/uL 4.4-11.0 [facility] Work Phone: [phone] Blood erythrocytes count (nu mber/volume)on 06-20-2022 RBC (Bld) [#/Vol] 4.90 10*6/uL 4.6-6.2 [facility] Work Phone: [phone] Blood hemoglobin measurement (mass/volume)on 06-20-2022 Hemoglobin (Bld) [Mass/Vol] 15.4 g/dL 13.0-16.5 [facility] Work Phone: [phone] Blood lymphocytes/100 leukoc yteson 06-20-2022 Lymphocytes/100 WBC (Bld) 32.2 % 19-41 [facility] Work Phone: [phone] Blood monocytes/100 leukocyt eson 06-20-2022 Monocytes/100 WBC (Bld) 15.4 % 0-10 [facility] Work Phone: [phone] Blood platelet mean volumeon 06-20-2022 Platelet mean volume (Bld) [Entitic vol] 9.8 fL 6.2-12.0 [facility] Work Phone: [phone] Determination of erythrocyte mean corpuscular volume (MCV)on 06-20-2022 MCV (RBC) [Entitic vol] 94.9 fL 80-94 [facility] Work Phone: [phone] Hematocrit Auto (Bld) [Volum e fraction]on 06-20-2022 Hematocrit (Bld) [Volume fraction] 46.5 % 40-54 [facility] Work Phone: [phone] Laboratory - Chemistry and C hemistry - challengeon 06-20-2022 ALP [Catalytic activity/Vol] 90 U/L 45-117 [facility] Work Phone: [phone] ALT [Catalytic activity/Vol] 32 U/L 16-61 [facility] Work Phone: [phone] CO2 [Moles/Vol] 28.0 mmol/L 21.0-32.0 [facility] Work Phone: [phone] Globulin (S) [Mass/Vol] 3.9 g/dL 2.2-4.2 [facility] Work Phone: [phone] Urea nitrogen/Creatinine [Mass ratio] 16.2 mg/mg 10-20 [facility] Work Phone: [phone] Laboratory - Hematology and Cell countson 06-20-2022 Erythrocyte distribution width (RBC) [Entitic vol] 47.6 fL 35.1-43.9 [facility] Work Phone: [phone] Erythrocyte distribution width (RBC) [Ratio] 13.4 % 11.6-14.6 [facility] Work Phone: [phone] Immature granulocytes/100 WBC (Bld) 0.200 % 0.0-0.9 [facility] Work Phone: [phone] Comment on above: IG% - Immature Granu locytes (promyelocytes, myelocytes and metamyelocytes) > 1% indicates that a LEFT SHIFT is Present. MCH (RBC) [Entitic mass] 31.4 pg 27.0-32.0 [facility] Work Phone: [phone] Nucleated RBC/100 WBC (Bld) [Ratio] 0 % 0-5 [facility] Work Phone: [phone] MCHC Auto (RBC) [Mass/Vol]on 06-20-2022 MCHC (RBC) [Mass/Vol] 33.1 g/dL 32-36 [facility] Work Phone: [phone] No Panel Informationon 06-20 Estimated GFR (MDRD) Amer 87 mL/min >60 [facility] Work Phone: Comment on above: GFR Calc Estimated GFR (MDRD) Non-Af Amer 72 mL/min >60 [facility] Work Phone: Comment on above: Non- GFR Calc Platelets bldon 06-20-2022 Platelets (Bld) [#/Vol] 269 10*3/uL 150-450 [facility] Work Phone: Serum or plasma albumin naresh urement (mass/volume)on 06-20-2022 Albumin [Mass/Vol] 3.4 g/dL 3.2-5.0 [facility] Work Phone: [phone] Serum or plasma albumin/glob ulin mass ratioon 06-20-2022 Albumin/Globulin [Mass ratio] 0.9 {ratio} 0.9-2.4 [facility] Work Phone: Serum or plasma calcium naresh urement (mass/volume)on 06-20-2022 Calcium [Mass/Vol] 9.3 mg/dL 8.5-10.1 [facility] Work Phone: Serum or plasma cholesterol in HDL measurement (mass/volume)on 06-20-2022 Cholesterol in HDL [Mass/Vol] 53 mg/dL >40 [facility] Work Phone: Comment on above: The drugs N-Acetylcy steine and Metamizole may falsely depress this assay. Reference Range HDL <40 mg/dL Low HDL Cholesterol HDL >or= 60 mg/dL High HDL Cholesterol Serum or plasma cholesterol in VLDL measurement (mass/volume)on 06-20-2022 Cholesterol in VLDL [Mass/Vol] 27 mg/dL 5-40 [facility] Work Phone: [phone] Serum or plasma creatinine m easurement (mass/volume)on 06-20-2022 Creatinine [Mass/Vol] 1.05 mg/dL 0.70-1.30 [facility] Work Phone: Comment on above: The validity of the calculated GFR & GFRAA in patients over 70 years has not been determined. Clinical correlation is essential. Serum or plasma low density lipoprotein (LDL) cholesterol measurement (mass/volume)on 06-20-2022 Cholesterol in LDL [Mass/Vol] 90 mg/dL 0-130 [facility] Work Phone: Serum or plasma urea nitroge n measurement (mass/volume)on 06-20-2022 Urea nitrogen [Mass/Vol] 17 mg/dL 7- [facility] Work Phone: Thin prep Papanicolaou smear with manual screeningon 06-20-2022 Thin prep Papanicolaou smear with manual screening 28 U/L 15-37 [facility] Work Phone: Thin prep Papanicolaou smear with manual screening 7 02-17 [facility] Work Phone: No Panel Informationon 03-05 Prostate Specific Antigen Screen < 0.01 ng/mL 0.00-4.00 [facility] Work Phone: Comment on above: This test was perfor med using the TPSA assay method for [employer] chemistry system. Values obtained with differentassay methods cannot be used interchangably.When changing PSA assays in the course of monitoring apatient, additional sequential testing should be carriedout to confirm baseline values. CNOVon 02-20-2021 CNOV Office Visit (INTMWS ) -- GINA RAMSAY ([id number]) 1940 M Date Time Provider Department 02/20/21 3:00 PM FILI JON INTClaudiaWS During your visit today, we recorded the [...] and he would like that done and [facility] - US ABD RT UPPER QUADRANT 2. [...] hyperlipidemia [E78.2] Order(s):US ABD RT UPPER QUADRANT [[id number]] Order #: [id number] FUTURE Prescriptions as of 02/20/2021 Sig: ATORVASTATIN 40 MG TABLET Problem L (more content not included)... Normal [facility] Clinical Summary: HMSPatient IDon 02-16-2020 OOP [facility] Work Phone: Office Visit: New/Est - 1st visit with physician, Rm: 38on 02-16-2020 NEGATED: Highlighted rowTSH Qn of the Left Shoulder on 12/05/[address] [facility] Work Phone: BD MRI [...] agent Multihance were administeredintravenously without immediate complications. FINDINGS:Diffusion-weighte d images are nondiagnostic due to susceptibilityartifact from air within the rectum. PROSTATE VOLUME:The prostate measures 5.1 cm x 3.1 cm x 3.9 cm in [id number],anterior-pos terior and craniocaudal dimension. PROSTATE PARENCHYMA:There is nodular [...] foci of linear decreased signal intensity on [id number] images within the peripheral zone which may [...] findingsas stated. This study was interpreted at [facility], [place], [place].Electronically signed by: RASHAD LOPEZ MD [facility] Vital Signs Date Time Vital Sign Value Performing Clinician Facility 07-07-2025 13:09-0400 Body height 162.[address] Vikram Jay MD Work Phone: [facility] 07-07-2025 13:09-0400 Body mass index (BMI) [Ratio] 23 kg/m2 Dr. Vikram Jay MD Work Phone: [facility] 07-07-2025 13:09-0400 Body temperature 97.5 [degF] Dr. Vikram Jay MD Work Phone: [facility] 07-07-2025 13:09-0400 Body weight 60.[address] Vikram Jay MD Work Phone: [facility] 07-07-2025 13:09-0400 Diastolic blood pressure 90 mm[Hg] Dr. Vikram Jay MD Work Phone: [facility] 07-07-2025 13:09-0400 Heart rate 71 /min Dr. Vikram Jay MD Work Phone: [facility] 07-07-2025 13:09-0400 Respiratory rate 16 /min Dr. Vikram Jay MD Work Phone: [facility] 07-07-2025 13:09-0400 SaO2% (BldA) [Mass fraction] 98 % Dr. Vikram Jay MD Work Phone: [facility] 07-07-2025 13:09-0400 Systolic blood pressure 150 mm[Hg] Dr. Vikram Jay MD Work Phone: [facility] 05-31-2025 10:39-0400 Body height 162.[address] Vikram Jay MD Work Phone: [facility] 05-31-2025 10:39-0400 Body weight 59.[address] Vikram Jay MD Work Phone: [facility] 05-30-2025 10:44-0400 Body mass index (BMI) [Ratio] 22.4 kg/m2 Dr. Vikram Jay MD Work Phone: [facility] 05-25-2025 13:24-0400 Body height 162.[address] Vikram Jay MD Work Phone: [facility] 05-25-2025 13:24-0400 Body mass index (BMI) [Ratio] 22.6 kg/m2 Dr. Vikram Jay MD Work Phone: [facility] 05-25-2025 13:24-0400 Body weight 59.[address] Vikram Jay MD Work Phone: [facility] 05-25-2025 13:24-0400 Diastolic blood pressure 85 mm[Hg] Dr. Vikram Jay MD Work Phone: [facility] 05-25-2025 13:24-0400 Heart rate 72 /min Dr. Vikram Jay MD Work Phone: [facility] 05-25-2025 13:24-0400 Respiratory rate 16 /min Dr. Vikram Jay MD Work Phone: [facility] 05-25-2025 13:24-0400 Systolic blood pressure 156 mm[Hg] Dr. Vikram Jay MD Work Phone: [facility] 04-13-2025 10:52-0400 Body height 162.[address] Vikram Jay MD Work Phone: [facility] 04-13-2025 10:52-0400 Body mass index (BMI) [Ratio] 23.1 kg/m2 Dr. Vikram Jay MD Work Phone: [facility] 04-13-2025 10:52-0400 Body temperature 98.5 [degF] Dr. Vikram Jay MD Work Phone: [facility] 04-13-2025 10:52-0400 Body weight 61.[address] Vikram Jay MD Work Phone: [facility] 04-13-2025 10:52-0400 Diastolic blood pressure 82 mm[Hg] Dr. Vikram Jay MD Work Phone: [facility] 04-13-2025 10:52-0400 Heart rate 78 /min Dr. Vikram Jay MD Work Phone: [facility] 04-13-2025 10:52-0400 Respiratory rate 16 /min Dr. Vikram Jay MD Work Phone: [facility] 04-13-2025 10:52-0400 SaO2% (BldA) [Mass fraction] 95 % Dr. Vikram Jay MD Work Phone: [facility] 04-13-2025 10:52-0400 Systolic blood pressure 138 mm[Hg] Dr. Vikram Jay MD Work Phone: [facility] 06-26-2023 12:48-0400 Body height 162.[address] Vikram Jay Work Phone: [facility] 06-26-2023 12:48-0400 Body mass index (BMI) [Ratio] 23.3 kg/m2 Dr. Vikram Jay Work Phone: [facility] 06-26-2023 12:48-0400 Body temperature 98 [degF] Dr. Vikram Jay Work Phone: [facility] 06-26-2023 12:48-0400 Body weight 61.[address] Vikram Jay Work Phone: [facility] 06-26-2023 12:48-0400 Diastolic blood pressure 80 mm[Hg] Dr. Vikram Jay Work Phone: [facility] 06-26-2023 12:48-0400 Heart rate 75 /min Dr. Vikram Jay Work Phone: [facility] 06-26-2023 12:48-0400 Respiratory rate 16 /min Dr. Vikram Jay Work Phone: [facility] 06-26-2023 12:48-0400 SaO2% (BldA) [Mass fraction] 96 % Dr. Vikram Jay Work Phone: [facility] 06-26-2023 12:48-0400 Systolic blood pressure 138 mm[Hg] Dr. Vikram Jay Work Phone: [facility] 01-02-2023 08:09-0400 Body height 162.[address] Vikram Jay Work Phone: [facility] 01-02-2023 08:09-0400 Body mass index (BMI) [Ratio] 23.1 kg/m2 Dr. Vikram Jay Work Phone: [facility] 01-02-2023 08:09-0400 Body temperature 97.3 [degF] Dr. Vikram Jay Work Phone: [facility] 01-02-2023 08:09-0400 Body weight 61.[address] Vikram Jay Work Phone: [facility] 01-02-2023 08:09-0400 Diastolic blood pressure 84 mm[Hg] Dr. Vikram Jay Work Phone: [facility] 01-02-2023 08:09-0400 Heart rate 71 /min Dr. Vikram Jay Work Phone: [facility] 01-02-2023 08:09-0400 Respiratory rate 18 /min Dr. Vikram Jay Work Phone: [facility] 01-02-2023 08:09-0400 SaO2% (BldA) [Mass fraction] 96 % Dr. Vikram Jay Work Phone: [facility] 01-02-2023 08:09-0400 Systolic blood pressure 136 mm[Hg] Dr. Vikram Jay Work Phone: [facility] 09-03-2022 13:29-0500 Body height 157.[address] Vikram Jay Work Phone: [facility] Work Phone: 09-03-2022 13:29-0500 Body mass index (BMI) [Ratio] 25.4 kg/m2 Dr. Vikram Jay Work Phone: [facility] Work Phone: 09-03-2022 13:29-0500 Body temperature 97.6 [degF] Dr. Vikram Jay Work Phone: [facility] Work Phone: 09-03-2022 13:29-0500 Body weight 63.[address] Vikram Jay Work Phone: [facility] Work Phone: 09-03-2022 13:29-0500 Diastolic blood pressure 86 mm[Hg] Dr. Vikram Jay Work Phone: [facility] Work Phone: 09-03-2022 13:29-0500 Heart rate 78 /min Dr. Vikram Jay Work Phone: [facility] Work Phone: 09-03-2022 13:29-0500 Respiratory rate 14 /min Dr. Vikram Jay Work Phone: [facility] Work Phone: 09-03-2022 13:29-0500 SaO2% (BldA) [Mass fraction] 98 % Dr. Vikram Jay Work Phone: [facility] Work Phone: 09-03-2022 13:29-0500 Systolic blood pressure 140 mm[Hg] Dr. Vikram Jay Work Phone: [facility] Work Phone: 06-25-2022 10:10-0400 Body height 157.[address] Vikram Jay Work Phone: [facility] Work Phone: 06-25-2022 10:10-0400 Body mass index (BMI) [Ratio] 24.8 kg/m2 Dr. Vikram Jay Work Phone: [facility] Work Phone: 06-25-2022 10:10-0400 Body temperature 97.5 [degF] Dr. Vikram Jay Work Phone: [facility] Work Phone: 06-25-2022 10:10-0400 Body weight 61.[address] Vikram Jay Work Phone: [facility] Work Phone: 06-25-2022 10:10-0400 Diastolic blood pressure 78 mm[Hg] Dr. Vikram Jay Work Phone: [facility] Work Phone: 06-25-2022 10:10-0400 Heart rate 64 /min Dr. Vikram Jay Work Phone: [facility] Work Phone: 06-25-2022 10:10-0400 Respiratory rate 14 /min Dr. Vikram Jay Work Phone: [facility] Work Phone: 06-25-2022 10:10-0400 SaO2% (BldA) [Mass fraction] 98 % Dr. Vikram Jay Work Phone: [facility] Work Phone: 06-25-2022 10:10-0400 Systolic blood pressure 114 mm[Hg] Dr. Vikram Jay Work Phone: [facility] Work Phone: 05-18-2022 11:12-0400 Body mass index (BMI) [Ratio] 24.1 kg/m2 Dr. Vikram Jay Work Phone: [facility] Work Phone: 05-18-2022 11:12-0400 Body temperature 97.5 [degF] Dr. Vikram Jay Work Phone: [facility] Work Phone: 05-18-2022 11:12-0400 Body weight 59.[address] Vikram Jay Work Phone: [facility] Work Phone: 05-18-2022 11:12-0400 Diastolic blood pressure 78 mm[Hg] Dr. Vikram Jay Work Phone: [facility] Work Phone: 05-18-2022 11:12-0400 Heart rate 102 /min Dr. Vikram Jay Work Phone: [facility] Work Phone: 05-18-2022 11:12-0400 Respiratory rate 16 /min Dr. Vikram Jay Work Phone: [facility] Work Phone: 05-18-2022 11:12-0400 SaO2% (BldA) [Mass fraction] 96 % Dr. Vikram Jay Work Phone: [facility] Work Phone: 05-18-2022 11:12-0400 Systolic blood pressure 126 mm[Hg] Dr. Vikram Jay Work Phone: [facility] Work Phone: 05-06-2022 14:45-0400 Body mass index (BMI) [Ratio] 23 kg/m2 Dr. Vikram Jay Work Phone: [facility] Work Phone: 05-06-2022 14:45-0400 Body temperature 97 [degF] Dr. Vikram Jay Work Phone: [facility] Work Phone: 05-06-2022 14:45-0400 Body weight 60.[address] Vikram Jay Work Phone: [facility] Work Phone: 05-06-2022 14:45-0400 Diastolic blood pressure 80 mm[Hg] Dr. Vikram Jay Work Phone: [facility] Work Phone: 05-06-2022 14:45-0400 Heart rate 69 /min Dr. Vikram Jay Work Phone: [facility] Work Phone: 05-06-2022 14:45-0400 Respiratory rate 16 /min Dr. Vikram Jay Work Phone: [facility] Work Phone: 05-06-2022 14:45-0400 SaO2% (BldA) [Mass fraction] 96 % Dr. Vikram Jay Work Phone: [facility] Work Phone: 05-06-2022 14:45-0400 Systolic blood pressure 130 mm[Hg] Dr. Vikram Jay Work Phone: [facility] Work Phone: 12-11-2021 09:03-0500 Body height 162.[address] Vikram Jay Work Phone: [facility] Work Phone: 12-11-2021 09:03-0500 Body mass index (BMI) [Ratio] 23.8 kg/m2 Dr. Vikram Jay Work Phone: [facility] Work Phone: 12-11-2021 09:03-0500 Body temperature 96.7 [degF] Dr. Vikram Jay Work Phone: [facility] Work Phone: 12-11-2021 09:03-0500 Body weight 63.[address] Vikram Jay Work Phone: [facility] Work Phone: 12-11-2021 09:03-0500 Diastolic blood pressure 60 mm[Hg] Dr. Vikram Jay Work Phone: [facility] Work Phone: 12-11-2021 09:03-0500 Heart rate 76 /min Dr. Vikram Jay Work Phone: [facility] Work Phone: 12-11-2021 09:03-0500 Respiratory rate 18 /min Dr. Vikram Jay Work Phone: [facility] Work Phone: 12-11-2021 09:03-0500 SaO2% (BldA) [Mass fraction] 98 % Dr. Vikram Jay Work Phone: [facility] Work Phone: 12-11-2021 09:03-0500 Systolic blood pressure 120 mm[Hg] Dr. Vikram Jay Work Phone: [facility] Work Phone: 02-20-2021 15:15-0400 Body temperature 98.2 [degF] Fili Jon MD Work Phone: [facility] 02-20-2021 15:15-0400 Body weight 62.14 kg Fili Jon MD Work Phone: [facility] 02-20-2021 15:15-0400 Diastolic blood pressure 84 mm[Hg] Fili Jon MD Work Phone: [facility] 02-20-2021 15:15-0400 Heart rate 78 /min Fili Jon MD Work Phone: [facility] 02-20-2021 15:15-0400 Respiratory rate 16 /min Fili Jon MD Work Phone: [facility] 02-20-2021 15:15-0400 SaO2% (BldA) [Mass fraction] 95 % Fili Jon MD Work Phone: [facility] 02-20-2021 15:15-0400 Systolic blood pressure 136 mm[Hg] Fili Jon MD Work Phone: [facility] NEGATED: Highlighted [id number] 14:45-0400 BMI (Body Mass Index) 23.77 kg/m2 Doretha Antony AT [facility] Work Phone: NEGATED: Highlighted [id number] 14:45-0400 Body weight 62.6 kg Doretha Arpan AT [facility] Work Phone: NEGATED: Highlighted [id number] 14:45-0400 Body weight 63 kg Doretha Arpan AT [facility] Work Phone: NEGATED: Highlighted [id number] 14:45-0400 Height 162.56 cm Doretha Arpan AT [facility] Work Phone: NEGATED: Highlighted [id number] 14:45-0403 Height 163 cm Doretha Arpan AT [facility] Work Phone: Encounters Encounter Date Encounter Type Care Provider Facility Start: 07-07-2025 End: 07-07-[address] Vikram Jay MD Work Phone: [facility] Start: 07-07-2025 End: 07-07-[address] Vikram Jay MD -[facility] Work Phone: Start: 06-25-2025 End: 06-25-[address] Vikram Jay MD -Laboratory Work Phone: Start: 06-25-2025 End: 06-25-2025 ambulatory [facility] Facility:[facility] Start: 05-31-2025 End: 05-31-2025 Admission to same day surgery center Dr. Alvin Sams MD -[facility] Work Phone: Start: 05-31-2025 End: 05-31-[address] Vikram Jay MD Work Phone: -[facility] Procedures Start: 05-26-2025 Non-patient / Non-visit Dr. Ana MITCHELL -[facility] Start: 05-26-2025 End: 05-26-[address] Vikram [...] Patient encounter procedure Dr. Alvin Sams MD -[facility] Work Phone: Start: 05-25-2025 End: 05-26-[address] Vikram Jay MD Work Phone: -[facility] Start: 05-25-2025 End: 05-25-2025 ambulatory Vikram Jay Facility:[facility] Start: 04-13-2025 End: 04-13-[address] Vikram Jay MD -[facility] Work Phone: Start: 04-13-2025 End: 04-13-[address] Vikram Jay MD Work Phone: [facility] Start: 04-12-2025 End: 04-12-2025 Patient encounter procedure SUSAN MOE -[facility] Work Phone: Start: 04-12-2025 End: 04-12-[address] Vikram Jay MD Work Phone: [facility] Start: 03-05-2025 End: 03-05-[address] Vikram Jay MD Work Phone: [facility] Work Phone: Start: 03-05-2025 End: 03-05-2025 Patient encounter procedure Nanyc Bright -Laboratory Work Phone: Start: 03-05-2025 End: 03-05-[facility] Start: 10-12-2024 [facility] Start: 10-12-2024 End: 10-12-2024 [facility] Start: 09-11-2024 End: 09-11-2024 [facility] Start: 08-10-2024 End: 08-10-2024 [facility] Start: 07-02-2024 End: 07-03-2024 [facility] Start: 07-01-2024 End: 07-01-2024 [facility] Start: 09-13-2023 End: 09-13-[address] Vikram Jay Work Phone: [facility] Work Phone: Start: 09-13-2023 End: 09-13-[address] Vikram Jay Work Phone: [facility]-Laboratory Work Phone: Start: 06-26-2023 End: 06-26-2023 Encounter for general adult medical examination without abnormal findings Dr. Vikram Jay Work Phone: [facility] Start: 06-26-2023 End: 06-26-[address] Vikram Jay Work Phone: [facility] Work Phone: Start: 06-21-2023 End: 06-21-2023 ambulatory [facility] Work Phone: Start: 06-21-2023 End: 06-21-2023 Patient encounter procedure [facility] Work Phone: Start: 03-13-2023 End: 03-13-[address] Vikram Jay Work Phone: [facility] Work Phone: Start: 03-13-2023 End: 03-13-[address] Vikram Jay Work Phone: [facility] Start: 01-16-2023 End: 01-16-[address] Vikram Jay Work Phone: [facility] Start: 01-09-2023 End: 01-09-[address] Vikram Jay Work Phone: [facility] Work Phone: Start: 01-09-2023 End: 01-09-[address] Vikram Jay Work Phone: [facility] Start: 01-02-2023 End: 01-02-[address] Vikram Jay Work Phone: [facility] Start: 09-07-2022 End: 09-07-[address] Vikram Jay Work Phone: [facility] Work Phone: Start: 09-07-2022 End: 09-07-[address] Vikram Jay Work Phone: [facility] Start: 09-03-2022 End: 09-03-[address] Vikram Jay Work Phone: [facility] Start: 06-25-2022 End: 06-25-[address] Vikram Jay Work Phone: [facility] Start: 06-20-2022 End: 06-20-[address] Vikram Jay Work Phone: [facility] Work Phone: Start: 06-20-2022 End: 06-20-[address] Vikram Jay Work Phone: [facility] Start: 05-18-2022 End: 05-18-[address] Vikram Jay Work Phone: [facility] Start: 05-06-2022 End: 05-06-[address] Vikram Jay Work Phone: [facility] Start: 03-05-2022 End: 03-05-[address] Vikram Jay Work Phone: [facility] Start: 12-11-2021 End: 12-11-[address] Vikram Jay Work Phone: [facility] Start: 07-03-[address] Jose Carlos Jay Work Phone: [facility] Start: 02-20-2021 End: 02-20-2021 Patient encounter procedure Fili Jon MD Work Phone: [facility] [place] Comment on above: Right upper quadrant abdominal pain (Primary Dx); Mixed hyperlipidemia Start: 02-16-2020 End: 02-16-2020 Patient encounter procedure Albaro Ray MD Work Phone: [facility] [facility] Work Phone: Start: 01-01-2018 Ambulatory Glenn Wu lity:[facility] Procedures Date Procedure Procedure Detail Performing Clinician Start: 06-25-2025 Prostate specific antigen measurement Dr. Vikram Jay MD Work Phone: Comment [...] be performed to confirm baseline values. Start: 05-25-2025 X-ray of chest, PA a [...] Treatment Date Care Activity Detail Author Start: 07-07-2025 T4 free measurement [facility] Start: 07-07-2025 Thyroid stimulating hormone measurement [facility] Start: 05-31-2025 Patient discharge [facility] Start: 05-25-2025 End: 05-25-2025 Evaluation of diagnostic study results [facility] Start: 04-12-2025 [facility] Start: 02-25-2020 End: 02-25-2020 Appointment Appointment [facility] Work Phone: Start: 02-23-2020 End: 02-23-2020 Appointment Appointment [facility] Work Phone: Start: 02-16-2020 End: 02-16-2020 Appointment Appointment [facility] Work Phone: Start: 02-16-2020 End: 02-16-2020 TSH Qn MRI left shoulder without contrast [facility] Work Phone: Start: 2004 [employer] DIRECTIVE DISCUSSION ADVANCE DIRECTIVE DISCUSSION [facility] Start: 2004 PNEUMOVAX AGE 65 AND OVER WITH 5YR LOOKBACK (#1) PNEUMOVAX AGE 65 AND OVER WITH 5YR LOOKBACK (#1) [facility] Start: 1989 SHINGRIX VACCINE (1 of 2) SHINGRIX VACCINE (1 of 2) [facility] Start: 1984 DIABETES SCREEN DIABETES SCREEN [facility] Start: 1958 Urine microalbumin profile DTAP,TDAP,TD (1 - Tdap) [facility] Basic metabolic 2008 panel with ionized calcium - Serum or Plasma [facility] C reactive protein [Mass/volume] in Serum or Plasma [facility] CBC W Auto Different ial panel - Blood [facility] Erythrocyte sedimentation rate [facility] Lipid 1996 panel - S tenisha or Plasma [facility] Replacement of electronic heart device, pulse generator [facility] End: 03-22-2022 Us abdominal real time w/image limited US ABD RT UPPER QUADRANT Radiology Routine Right upper quadrant abdominal pain 1 Occurrences starting 02/20/2021 until 03/22/2022 [facility] Comment on above: 1 Occurrences starti ng 02/20/2021 until 03/22/2022 US Heart [facility] Immunizations Immunization Date Immunization Notes Care Provider Noel saravia 07-01-2024 Seasonal trivalent influenza vaccine, adjuvanted, preservative free Dr. Vikram Jay MD Work Phone: [facility] 09-18-2023 Pfizer Covid-19 (Comirnaty) Dr. Vikram Jay MD Work Phone: [facility] 06-26-2023 influenza, injectabl e, quadrivalent, preservative free Dr. Vikram Jay Work Phone: [facility] 02-17-2023 Covid Pfizer Bivalen t Booster Dr. Vikram Jay MD Work Phone: [facility] 09-20-2022 Covid Pfizer Bivalen t Booster Dr. Vikram Jay MD Work Phone: [facility] 01-15-2022 Covid (Pfizer) Dr. Vikram Jay MD Work Phone: [facility] 06-29-2021 Covid (Pfizer) Dr. Vikram Jay MD Work Phone: [facility] 11-16-2020 Covid (Pfizer) Dr. Vikram Jay MD Work Phone: [facility] 10-27-2020 Covid (Pfizer) Dr. Vikram Jay MD Work Phone: [facility] 07-07-2020 influenza, injectabl e, quadrivalent, preservative free [facility] 07-07-2020 influenza, seasonal, injectable Dr. Vikram Jay Work Phone: [facility] 07-07-2020 Fluad Quad (65yr up)(PF) 60 mcg (15 mcg x 4)/0.5mL IM syringe (flu vac Dr. Vikram Jay Work Phone: [facility] Work Phone: 07-05-2019 influenza, high dose seasonal, preservative-free Dr. Vikram Jay MD Work Phone: [facility] 07-06-2018 influenza, high dose seasonal, preservative-free Dr. Vikram Jay MD Work Phone: [facility] 07-06-[address] Vikram Jay Work Phone: [facility] 06-20-2017 influenza, high dose seasonal, preservative-free Dr. Vikram Jay MD Work Phone: [facility] 06-23-2015 influenza, injectabl e, quadrivalent, preservative free Dr. Vikram Jay MD Work Phone: [facility] 08-06-2013 influenza, injectabl e, quadrivalent, preservative free Dr. Vikram Jay MD Work Phone: [facility] Payers Date Payer Category Payer Unknown [id number] 2025 Unknown [id number] 2024 Self-pay [id number] 2023 Unknown [id number] 2020 Private Health Insurance SURINDER PARKER [id number] 2020-Present [facility] [id number] 2004 Medicare MEDICARE MEDICAR E A AND B [id number] 2004-Present [place] Medicare [id number] 2004 Medicare [id number] Medicare [id number] Private Health Insurance [facility] [id number] Unknown [id number] .462 Unknown [id number] [id number] .462 Unknown [id number] 2.16.840.1.677321.3.579.2 .462 Unknown [id number] 2.16.840.1.982253.3.579.2 .462 Unknown [id number] 2.16.840.1.381032.3.579.2 .462 Unknown [id number] 2.16.840.1.338931.3.579.2 .462 Unknown [id number] 2.16.840.1.435765.3.579.2 .462 Unknown [id number] 2.16.840.1.059759.3.579.2 .462 Unknown [id number] 2.16.840.1.911711.3.579.2 .462 Unknown [id number] 2.16.840.1.452195.3.579.2 .462 Unknown [id number] 2.16.840.1.626926.3.579.2 .462 Unknown [id number] 2.16.840.1.488870.3.579.2 .462 Unknown [id number] 2..840.1.395062.3.579.2 .462 Unknown [id number] 2.16.840.1.156117.3.579.2 .462 Unknown [id number] 2.16.840.1.335861.3.579.2 .462 Unknown [id number] [id number] .462 Unknown [id number] [id number] .462 Social History Date Type Detail Facility Start: 12-11-2021 End: 06-26-2023 Assertion Unknown if ever smoked [facility] Work Phone: Start: 02-20-2021 End: 05-31-2025 Tobacco smoking status NHIS Never smoker [facility] Start: 02-20-2021 Tobacco use and exposure Never used [facility] Start: 02-19-2021 History SDOH Alcohol Frequency 2 [facility] Start: 02-19-2021 History SDOH Alcohol Binge 1 [facility] Start: 02-19-2021 History SDOH Physica l Activity DPW 4 [facility] Start: 02-19-2021 History SDOH Physica l Activity MPS 9 [facility] Start: 02-18-2021 History SDOH Education 17 [facility] Start: 1940 Sex Assigned At Male C [facility] Exposure to SARS-CoV -2 (event) Not sure [facility] Sex Male [facility] Medical Equipment Procedure Code Equipment Code Equipment [...] MARCOS STEVENSON LG FDA Start: 01-07-2018 MARCOS STEVESNON LG FDA Start: 01-07-2018 INTRANERVE MONITORING FDA Start: 01-07-2018 CLIP,HEMOLOCK LIBIA WEALFRED FDA Start: 01-07-2018 CLIP,HEMOLOALFRED LG YAIR FDA Start: 01-07-2018 CLIP,HEMRED MAZARIEGOS FDA Start: [...] Start: 01-07-2018 CLIP,HEMRED MAZARIEGOS FDA Start: 01-07-2018 CLIP,HEMOLOALFRED MAZARIEGOS FDA Start: 01-07-2018 CLIP,HEMOLOALFRED MAZARIEGOS FDA Start: 01-07-2018 INTRANERVE MONITORING FDA Start: 01-07-2018 CLIP,HEMOLOALFRED MAZARIEGOS FDA Start: 01-07-2018 CLIP,HEMOLOALFRED MAZARIEGOS FDA Start: 01-07-2018 CLIP,HEMOLOCK LIBIA MAZARIEGOS FDA Start: 01-07-2018 INTRANERVE MONITORING FDA Start: 01-07-2018 CLIP,HEMOLOALFRED MAZARIEGOS FDA Start: 01-07-2018 CLIP,HEMOLOALFRED MAZARIEGOS FDA Start: 01-07-2018 CLIP,HEMOLOALFRED MAZARIEGOS FDA Start: 01-07-2018 INTRANERVE MONITORING FDA Start: 01-07-2018 CLIP,HEMOLOCK LIBIA MAZARIEGOS FDA Start: 01-07-2018 CLIPMARCOS LG FDA Start: 01-07-2018 MARCOS STEVENSON LG FDA Start: 01-07-2018 INTRANERVE MONITORING FDA Start: 01-07-2018 MARCOS STVEENSON LG FDA Start: 01-07-2018 ELVA,MARCOS MAZARIEGOS FDA Start: 01-07-2018 MARCOS STEVENSON LG FDA Start: 01-07-2018 INTRANERVE MONITORING FDA Start: 01-07-2018 MARCOS STEVENSON LG FDA Start: 01-07-2018 CLIP,MARCOS MAZARIEGOS FDA Start: 01-07-2018 CLIP,MARCOS MAZARIEGOS FDA Start: 01-07-2018 INTRANERVE MONITORING FDA Start: 01-07-2018 Functional Status Date Assessment Result Facility NEGATED: Highlighted row Functional performance Functional status health issues are not documented Disease [facility] Work Phone: Mental Status Date Assessment Result Facility NEGATED: Highlighted row Cognitive function [Interpretation] Cognitive status health issues are not documented Disease PT-Rcemndk[facility] Work Phone: Clinical Notes 02-20-2021 to 05-25-2025 Note Date & Type Note Facility 05-25-2025 Radiology Diagnostic study note [facility] Imaging Services [address] [place] [address] [id number] Chest PA and Lateral MR#: [id number] Acct: [id number] Name: GINA RAMSAY Rep #: [id number] : 1940 M 84 From: Elkin Hutson MD PCP: Dr. Vikram Jay MD Status: R EG CLI Study:Chest PA and Lateral Date of Exam: 05/25/25 Exam# [id number] Ordering Dr: Luca Sams MD PROCEDURE: CHEST PA AND LATERAL 05/25/2025 REASON FOR EXAM: FALL TECHNIQUE: CHEST PA AND LATERAL COMPARISON: 03/26/2024. FINDINGS: The heart is normal in size. The lungs are clear. Hyperinflated lungs. No acute osseous abnormalities. RAD/Chest PA and Lateral IMPRESSION: NO ACUTE FINDINGS. Reading Location: [facility] CC: Dr. Alvin Sams MD; Dr. Vikram Jay MD ~ Heel Scourer: [place] [facility] 04-13-2025 Evaluation note Diagnosis Onset Date Resolution Fall acute April 13, 2025 10:39am Fracture of nasal septum acute April 13, 2025 10:39am Head injury with loss of consciousness acute April 13, 2025 10:39am Syncope acute April 13, 2025 10:39am RBBB acute May 25, 2 025 1:23pm Syncope acute May 25, 2 025 1:23pm [facility] Work Phone: [phone]) 913-652901-07-2025 [facility] Medical Records Department [address] [place] [address] History Physical Exam 10/12/24 1238 MR#: [id number] Acct: [id number] Name: GINA RAMSAY Rep #: [id number] : 1940 84 From: Andi Patterson DO PCP: Dr. Vikram Jay MD Status:REG [facility] Location: [place] [address] HPI - General General Date of Admission: 10/12/24 Date of Service: 10/12/24 HPI Narrative GINA RAMSAY, is a 84 M who presents Chief Complaint: colonscopy Details: GINA RAMSAY, is a 83 M who presents to the office today for establishment with [facility]. Pt is here today for [...] before.He denies heartburn, n/v, constipation or melena. [facility] Medical History Non-smoker History of stress test [...] yo male here today for establishment with [facility]. Pt has previously seen Dr. [...] applicable): CC: Dr. Vikram Jay MD; Andi Patterson, [facility]05-18-2021 NoteHNO ID: [id number] Author: Fili Jon MD Service: ? Author [...] and he would like that done and [facility] - US ABD RT UPPER QUADRANT 2. Mixed hyperlipidemia - ICD9: 272.2, ICD10: E78.2 - good control - Continue current medication of atorvastatin Fili Jon [facility]05-18-2021 History of Present illness Narrative* Fili Jon [...] and he would like that done and [facility] - US ABD RT UPPER QUADRANT 2. Mixed hyperlipidemia - ICD9: 272.2, ICD10: E78.2 - good control - Continue current medication of atorvastatin Fili Jon MD [facility]* Diagnosis Right upper quadrant abdominal pain- Primary Abdominal pain, right upper quadrant Mixed hyperlipidemia [facility] Diagnosis Onset Date Resolution Status Abdominal pain acute Arrhythmia acute GERD (gastroesophageal reflux disease) chronic [facility] Work Phone: Evaluation note* Diagnosis Onset Date Resolution Status Dermatitis acute Educated about COVID-19 virus infection acute Hypertension chronic Cyst, pilonidal, with abscess acute Arrhythmia acute COVID-19 acute Flu vaccine need acute Hyperlipidemia chronic Hypertension [facility] Work Phone: Evaluation note* Diagnosis Onset Date Resolution Status Cyst, pilonidal, with abscess acute Arrhythmia acute COVID-19 acute Flu vaccine need acute Hyperlipidemia chronic Hypertension chronic Allergic rhinitis chronic [facility] Work Phone: Evaluation note* Diagnosis Onset Date Resolution Status Abdominal pain acute Abdominal pain acute [facility] Work Phone: Evaluation noteNo assessment information available [facility] Work Phone: Evaluation note* Diagnosis Onset Date Resolution Status Health care maintenance acut e Hyperlipidemia chronic Hypertension chronic Monocytosis chronic [facility] Work Phone: Hospital Discharge instructionsAmbulatory Orders* Cardiology Location: None Selected * Ears, Nose and Throat Location: None Selected [facility] Work Phone: Instructions* Name Dates Details Instructions not documented [facility] Work Phone: Reason for referral (narrative)No reason for referral information [facility]WSouth[facility] Work Phone: Summary Purpose Family History Mother Name Dates Details Family history of malignant neoplasm of breast(V16.3, Z80.3) Status:Active Father Name Dates Details Family history of cardiovasc ular disease(V17.49, Z82.49) Status:Active Relationship Condition Age at Onset Recorded Date/T vanessa Not Specified Malignant neoplasm Unknown mother Cardiac disease Unknown Advance Directives Advance Directive Response Recorded Date/ Time Living Will Yes December 23, 2017 11:12am Power of Senior Analyst No December 23 11:12am Advance Directive Response Recorded Date/ Time Living Will Yes December 23, 2017 10:12am Power of Senior Analyst No December 23 10:12am Advance Directive Response Recorded Date/ Time Advance Directives on File Yes 2024 10:39am Living Will Yes May 31 10:39am Do you have a Healthcare Power of Senior Analyst? Yes May 31, 2025 10:39am Name of Medical Power of Senior Analyst May 31, 2025 10:39am Advance Directives Yes May 31, 2025 10:39am Advance Directive Response Recorded Date/ Time Living Will Yes March 26, 2024 1:44pm Do you have a Healthcare Power of Senior Analyst? No March 26, 2024 1:44pm Advance Directives on File Yes 2024 10:39am Living Will Yes May 31 10:39am Do you have a Healthcare Power of Senior Analyst? Yes May 31, 2025 10:39am Name of Medical Power of Senior Analyst May 31, 2025 10:39am Advance Directives Yes [...] Hyperlipidemia Hypertension Monocytosis Chief Complaint Admit Date PSA March 05, 2025 9:52a m Chief Complaint [...] :29am SYNCOPE May 31, 2025 10 :16am Chief Complaint Admit Date STITCH REMOVAL April 12, 2025 10:56 am FALLING SPELLS April 13, 2025 10:39 am SYNCOPE & COLLAPSE (OLEGHE) May 25, 2025 1:23pm Syncope and collapse May 26, 2025 9 :29am SYNCOPE May 31, 2025 10 :16am INT LAB ORDERS June 25, 2025 8:52am Chief Complaint Admit Date STITCH REMOVAL April 12, 2025 10:56 am FALLING SPELLS April 13, 2025 10:39 am SYNCOPE & COLLAPSE (OLEGHE) May 25, 2025 1:23pm Syncope and collapse May 26, 2025 9 :29am SYNCOPE May 31, 2025 10 :16am INT LAB ORDERS June 25, 2025 8:52am YEARLY July 07, 2025 1: 00pm Additional Source Comments (unrecognized sect ion and content) No Status Records FoundNo Status Records FoundNo Status Records Found INFORMATION SOURCE (unrecogn ized section and content) DATE CREATED AUTHOR 03/26/2018 [facility] [place] DATE CREATED AUTHOR AUTHOR'S ORGANIZ ATION 11/06/2021 [facility] DATE CREATED AUTHOR AUTHOR'S ORGANIZ ATION 06/26/2025 [facility] Reason for Visit (unrecogniz ed section and [...] or prosecute any alcohol or drug abuse patient.[facility] Goals (unrecognized section and content) Goals may [...] Dates Dr. Vikram Jay MD Primary Care P rovider, Attending Provider, Referring Provider Active Team Status: [...] Katt Valdes DO Family Provider Active Dr. Vkiram Jay MD Primary Care Provider Active Team [...] Status: Active Member Role/Relationship Status Dates Dr. Virkam Jay MD Primary Care Provider Active Start: [...] May 31, 2025 Dr. Alvin Sams MD Referring Provider [...] May 26, 2025 End: May 26, 2025 Team Status: Active Member Role/Relationship Status Dates Dr. Vikram Jay MD Primary care physician Activ e Team Status: Inactive Member Role/Relationship Status Dates Dr. Vikram Jay MD Primary care physician Activ e Start: April 12, 2025 End: April 12, 2025 Dr. Vikram Jay MD Referring Provider Active Start: April 12, 2025 End: April 12, 2025 AMIRA Spangler Attending physician Active Start: April 12, 2025 End: April 12, 2025 Team Status: Inactive Member Role/Relationship Status Dates Dr. Vikram Jay MD Primary care physician Activ e Start: April 13, 2025 End: April 13, 2025 Dr. Vikram Jay MD Attending physician Active Start: April 13, 2025 End: April 13, 2025 Dr. Vikram Jay MD Referring Provider Active Start: April 13, 2025 End: April 13, 2025 Team Status: Inactive Member Role/Relationship Status Dates Dr. Vikram Jay MD Primary care physician Activ e Start: May 25, 2025 End: May 25, 2025 Dr. Vikram Jay MD Referring Provider Active Start: May 25, 2025 End: May 25, 2025 Dr. Alvin Sams MD Attending physician Active Start: May 25, 2025 End: May 25, 2025 Team Status: Inactive Member Role/Relationship Status Dates Dr. Vikram Jay MD Primary care physician Activ e Start: May 25, 2025 End: May 25, 2025 Dr. Alvin Sams MD Attending physician Active Start: May 25, 2025 End: May 25, 2025 Dr. Alvin Sams MD Referring Provider Active S tart: May 25, 2025 End: May 25, 2025 Team Status: Inactive Member Role/Relationship Status Dates Dr. Vikram Jay MD Primary care physician Activ e Start: May 26, 2025 End: May 26, 2025 Dr. Alvin Sams MD Attending physician Active Start: May 26, 2025 End: May 26, 2025 Dr. Alvin Sams MD Referring Provider Active S tart: May 26, 2025 End: May 26, 2025 Team Status: Active Member Role/Relationship Status Dates Dr. Vikram Jay MD Primary care physician Activ e Start: May 26, 2025 Dr. Alvin Sams MD Attending physician Active Start: May 26, 2025 Team Status: Inactive Member Role/Relationship Status Dates Dr. Vikram Jay MD Primary care physician Activ e Start: May 31, 2025 End: May 31, 2025 Dr. Alvin Sams MD Attending physician Active Start: May 31, 2025 End: May 31, 2025 Dr. Alvin Sams MD Referring Provider Active S tart: May 31, 2025 End: May 31, 2025 Team Status: Inactive Member Role/Relationship Status Dates Dr. Vikram Jay MD Primary care physician Activ e Start: June 25, 2025 End: June 25, 2025 Dr. Vikram Jay MD Attending physician Active Start: June 25, 2025 End: June 25, 2025 Dr. Vikram Jay MD Referring Provider Active Start: June 25, 2025 End: June 25, 2025 Team Status: Inactive Member Role/Relationship Status Dates Dr. Vikram Jay MD Primary care physician Activ e Start: July 07, 2025 End: July 07, 2025 Dr. Vikram Jay MD Attending physician Active Start: July 07, 2025 End: July 07, 2025 Dr. Vikram Jay MD Referring Provider Active Start: July 07, 2025 End: July 07, 2025 FOR RECORDS PERTAINING TO PATIENTS WHO [...] BE BASED ON THE PRIMARY CLINICAL RECORDS. [facility] [employer] [facility]. provides no warranty or guarantee of the accuracy or completeness of information in this document.
[2025-07-09 11:18] LABS: CRP < 3.00 mg/L (0.0-3.0)
== END | disposition home or self-care (01) ==
LOC: LAB 09:23
PROVIDERS: PCP Internal Medicine; Referring Provider Internal Medicine; Visit Provider Internal Medicine
DX: I10 Essential (primary) hypertension (principal); K21.9 Gastro-esophageal reflux disease without esophagitis
CPT/HCPCS: 36415; 84439; 84443; 85652; 86140

== ENCOUNTER → 2025-07-26 | Outpatient (CLI) | payer MEDICARE, OTHER, SELFPAY | END | disposition home or self-care (01) | LOC: PSN 10:04 | PROVIDERS: PCP Internal Medicine; Referring Provider Internal Medicine; Visit Provider Internal Medicine | DX: R05.3 Chronic cough (principal) | CPT/HCPCS: 94060; 94726; 94729 ==

== ENCOUNTER → 2025-09-22 | Outpatient (CLI) | payer MEDICARE, OTHER, SELFPAY | END | disposition home or self-care (01) | LOC: LAB 15:28 | PROVIDERS: PCP Internal Medicine; Visit Provider Ophthalmology | DX: H53.2 Diplopia (principal) | CPT/HCPCS: 36415; 84238 ==